=== PATIENT | male | born 1930 | race Caucasian/White ===

== ENCOUNTER 2019-03-01 10:55 | Inpatient (IN) | payer OTHER ==
--- NOTE | 2019-03-01 11:28 | PDOC ---
Attending Attestation - Resident Resident Name: Pablo Hollingsworth - ED Attending Attestation I have performed the following: I have examined & evaluated the patient, The case was reviewed & discussed with the resident, I agree w/resident's findings & plan, Exceptions are as noted - HPI HPI: 03/01/19 11:28 Brother Katie is an 88 yo M h/o COPD, h/o hypercapnic respiratory failure, ACS, CHD, hypothyroisidm, BPH, HTN, HLD, PVD Pt was found unresponsive at [facility] today Per [facility] notes, the patient had no fevers Pt is DNI - Physicial Exam PE: 03/01/19 11:52 Pt is lethargic, not responsive to verbal stimuli Tachycardiac Diminished breath sounds (+) shallow breathing, use of abdominal musculature Bilateral lower extremity edema and venous stasis changes - Critical Care Time Total Critical Care Time: 60 Critical Care Statement: The care of this patient involved high complexity decision making to prevent further life threatening deterioration of the patient 's condition and/or to evaluate & treat vital organ system(s) failure or risk of failure. - Medical Decision Making 03/01/19 11:25 EKG: ST, rate of 103bpm, LBBB 03/01/19 11:53 COPD exacerbation, likely hypercarbia Pt is DNI Placed on Bipap Will do cxr, labs Plan to admit 03/01/19 12:04 Laboratory Tests 03/01/19 03/01/19 03/01/19 11:08 11:19 11:19 WBC 6.0 Hgb 10.7 L Hct 32.6 L Plt Count 183 VBG pH 7.27 L POC VBG pCO2 102 H* POC VBG pO2 26.8 L Lactic Acid 0.5 03/01/19 13:01 Laboratory Tests 03/01/19 03/01/19 03/01/19 11:05 11:08 11:19 Sodium 131 L Potassium 4.0 Chloride 86 L Carbon Dioxide 44 H BUN 12 Creatinine 0.6 POC Glucometer 108 Lactic Acid 0.5 Alkaline Phosphatase 52 Troponin I 03/01/19 11:19 Sodium Potassium Chloride Carbon Dioxide BUN Creatinine POC Glucometer Lactic Acid Alkaline Phosphatase Troponin I < 0.02 With BiPAP, pt mental status improved Will continue to monitor closely Clinical impression: Hypercarbic Respiratory Failure, repeat presentation
[2019-03-01 11:31] LABS: VENOUS PH 7.27 (7.31-7.41); VENOUS PO2 26.8 mmHg (30-40)
--- NOTE | 2019-03-01 11:39 | PDOC ---
History of Present Illness - General Chief Complaint: Altered Mental Status Stated Complaint: UNRESPONSIVE Time Seen by Provider: 03/01/19 11:08 History Source: Friend, [facility] Records Exam Limitations: Clinical Condition - History of Present Illness Initial Comments: 03/01/19 11:34 Patient is an 88M with history of COPD, CHF, CAD, hypothyroidism here today from [facility] with altered mental status. He was found to be unresponsive today. Normal vitals, normal glucose at [facility]. Last known well last night. EMS reports he was hypoxic when they arrived on bipap to high 80s. O2 sat normalized with NRB. Patient's friend at bedside states that the last time he was like this he was hypercarbic. Patient is unable to contribute to history. Past History - Past Medical History Allergies/Adverse Reactions: Allergies Allergy/AdvReac Type Severity Reaction Status Date / Time No Known Allergies Allergy Verified 03/01/19 11:08 Cardiac Disorders: Yes (ASHD) COPD: Yes HTN: Yes Hypercholesterolemia: Yes Psychiatric Problems: Yes (DEPRESSION INSOMNIA) Thyroid Disease: Yes Other medical history: PVD - Suicide/Smoking/Psychosocial Hx Smoking History: Unknown if ever smoked Have you smoked in the past 12 months: No Information on smoking cessation initiated: No Hx Alcohol Use: No Drug/Substance Use Hx: No Review of Systems - Review of Systems Able to Perform ROS?: No (2/2 clinical condition) *Physical Exam - Vital Signs Last Vital Signs Temp Pulse Resp BP Pulse Ox 98.6 F 103 H 30 H 126/71 88 L 03/01/19 11:08 03/01/19 11:08 03/01/19 11:08 03/01/19 11:08 03/01/19 11:08 - Physical Exam Comments: 03/01/19 11:39 GENERAL: Eyes open to threat, ill appearing HEAD: No signs of trauma, normocephalic, atraumatic EYES: PERRLA, EOMI, sclera anicteric, conjunctiva clear ENT: Auricles normal inspection, hearing grossly normal, nares patent, oropharynx clear without exudates. Moist mucosa NECK: Normal ROM, supple LUNGS: Tachypneic, coarse breath sounds bilaterally HEART: Tachycardic, normal S1 and S2, no murmurs, rubs or gallops, peripheral pulses normal and equal bilaterally. ABDOMEN: Soft, nontender, normoactive bowel sounds. No guarding, no rebound. No masses EXTREMITIES: Bilateral erythema with swelling NEUROLOGICAL: Pupils reactive, eye response to threat, no facial droop or eye deviation SKIN: Warm, Dry, normal turgor, no rashes or lesions noted. ED Treatment Course - LABORATORY CBC & Chemistry Diagram: 03/01/19 11:19 03/01/19 11:19 - ADDITIONAL ORDERS Additional order review: Laboratory Results 03/01/19 11:05 POC Glucometer 108 03/01/19 11:05 POC Glucometer 108 - RADIOLOGY Radiology Studies Ordered: Category Date Time Status CHEST X-RAY PORTABLE* [RAD] Stat Radiology 03/01/19 11:08 Ordered Medical Decision Making - Medical Decision Making 03/01/19 11:47 Patient is 88M with history of COPD, sleep apnea, CHF, CAD, hypothyroidism here today with respiratory distress. DNR/DNI, placed on bipap. Respiratory rate went from 30s to 20s. Suspect hypercarbic respiratory failure. Septic workup initiated. Will treat with duonebs and steroids. 03/01/19 12:59 Labs show chronic respiratory acidosis with compensatory metabolic alkalosis. CXR shows likely fluid overload, ?PNA. Will cover for CAP but will withhold diuresis, unclear at this time if this is fluid overload. Lactate neg, trop negative. EKG shows sinus tachycardia with rate of 103. Sgarbossa negative. Ireggular. LBBB pattern. 03/01/19 13:31 Patient reassessed, talking on bipap. Case d/w Dr Iniguez, accepted to tele. *DC/Admit/Observation/Transfer Diagnosis at time of Disposition: Respiratory distress - Discharge Dispostion Condition at time of disposition: Stable Decision to Admit order: Yes - Referrals Referrals: Tracy López MD [Primary Care Provider] - - Patient Instructions - Post Discharge Activity
[2019-03-01 11:45] LABS: BASO % 0.3 % (0-2.0); EOS % 1.2 % (0-4.5); HEMATOCRIT 32.6 % (35.4-49); HEMOGLOBIN 10.7 GM/dL (11.7-16.9); LYMPH % 35.8 % (8-40); MCH 29.3 pg (25.7-33.7); MCHC 32.8 g/dl (32.0-35.9); MEAN CELL VOLUME 89.3 fl (80-96); MEAN PLT VOLUME 7.8 fl (7.5-11.1); MONO % 7.6 % (3.8-10.2); NEUT % 55.1 % (42.8-82.8); PLATELET COUNT 183 K/MM3 (134-434); RBC 3.65 M/mm3 (4.00-5.60); RDW 15.2 % (11.9-15.9)
[2019-03-01] MEDS ORDERED: methylPREDNISolone NA SUCC 125 MG/2 ML VIAL IVPUSH ONE (11:48)
[2019-03-01 12:11] LABS: INR 1.05 (0.83-1.09); PROTHROMBIN TIME (PATIENT) 12.4 SEC (9.7-13.0)
[2019-03-01 12:20] LABS: ALBUMIN 2.8 g/dl (3.4-5.0); ALK PHOS 52 U/L (45-117); ANION GAP 2 MMOL/L (8-16); BILIRUBIN,TOTAL 0.5 mg/dL (0.2-1); BLOOD UREA NITROGEN 12 mg/dL (7-18); CALCIUM 8.9 mg/dL (8.5-10.1); CHLORIDE 86 mmol/L (98-107); CO2 44 mmol/L (21-32); CREATININE 0.6 mg/dL (0.55-1.3); GLUCOSE,RANDOM 117 mg/dL (74-106); SGOT/AST 22 U/L (15-37); SGPT/ALT 19 U/L (13-61); SODIUM 131 mmol/L (136-145); TOT PROT 6.9 g/dl (6.4-8.2)
[2019-03-01] MEDS: ALBUTEROL SO4 2.5/IPRATROPIUM 0.5 INH SOL 3 ML VIAL.NEB. NEB SCH ×4 (12:30→18:44)
[2019-03-01] MEDS ORDERED: CEFTRIAXONE 1,000 MG in DEXTROSE 5%-WATER - 50 ML IVPB ONE (13:01)
[2019-03-01] MEDS ORDERED: AZITHROMYCIN IVPB 500 MG in DEXTROSE 5%-WATER - 250 ML IVPB ONE (13:01)
[2019-03-01] MEDS ORDERED: ALBUTEROL SO4 2.5/IPRATROPIUM 0.5 INH SOL 3 ML VIAL.NEB. NEB ONE ×2 (13:14→13:51)
[2019-03-01] MEDS ORDERED: AZITHROMYCIN IVPB 500 MG/250 ML BAG IVPB ONE (13:14)
[2019-03-01] MEDS ORDERED: methylPREDNISolone NA SUCC 125 MG/2 ML VIAL ONE (13:15)
[2019-03-01] MEDS ORDERED: CEFTRIAXONE 1 GM/50 ML BAG ONE (13:15)
[2019-03-01] MEDS ORDERED: DEXTROSE 5%-0.45% SALINE 1,000 ML IV SCH (13:30)
--- NOTE | 2019-03-01 13:30 | HP ---
Admitting History and Physical - Primary Care Physician PCP: Tracy López - Admission Chief Complaint: lethargy History of Present Illness: ER HISTORY - HPI HPI: 03/01/19 11:28 Brother Katie is an 88 yo M h/o COPD, h/o hypercapnic respiratory failure, ACS, CHD, hypothyroisidm, BPH, HTN, HLD, PVD,anxiety Pt was found unresponsive at [facility] today Per [facility] notes, the patient had no fevers Pt is DNI ' Pt examined in ER drowsy , on BIPAP Spoke with ER attending History Source: Medical Record Limitations to Obtaining History: Other (lethargic) - Past Medical History Cardiovascular: Yes: CAD, HTN, Hyperlipdemia Pulmonary: Yes: COPD Renal/: Yes: BPH - Advance Directives Advance Directives: Yes: DNR - Smoking History Smoking history: Unknown if ever smoked Have you smoked in the past 12 months: No - Alcohol/Substance Use Hx Alcohol Use: No Home Medications - Allergies Allergies/Adverse Reactions: Allergies Allergy/AdvReac Type Severity Reaction Status Date / Time No Known Allergies Allergy Verified 03/01/19 11:08 - Home Medications Home Medications: Ambulatory Orders Acetaminophen [Tylenol -] 500 mg PO Q6H PRN 03/01/19 Ascorbate Calcium [Vitamin C] 500 mg PO DAILY 03/01/19 Aspirin 81 mg PO DAILY 03/01/19 Atorvastatin Ca [Lipitor] 20 mg PO HS 03/01/19 Calcium Carbonate [Calcium] 600 mg PO DAILY 03/01/19 Docusate Sodium [Colace -] 200 mg PO HS 03/01/19 Furosemide [Lasix] 40 mg PO DAILY 03/01/19 Levothyroxine [Synthroid -] 75 mcg PO DAILY 03/01/19 Lorazepam 1 mg PO HS 03/01/19 Metoprolol Succinate 100 mg PO DAILY 03/01/19 Mirtazapine [Remeron -] 30 mg PO HS 03/01/19 Mupirocin Ointment [Bactroban] 1 applic TP TID 03/01/19 Nitroglycerin 0.4 mg SL ASDIR 03/01/19 Nystatin Cream [Mycostatin Cream -] 1 applic TP ASDIR 03/01/19 Highland-3 Fatty Acids/Fish Oil [Fish Oil 1,000 mg Capsule] 1 each PO DAILY Tamsulosin HCl [Flomax] 0.4 mg PO 1800 03/01/19 Triamcinolone 0.1% Cream [Aristocort] 1 applic TP ASDIR 03/01/19 Zolpidem Tartrate [Ambien] 5 mg PO HS 03/01/19 Review of Systems Unable to obtain ROS, reason: on bipap, drowsy Physical Examination Vital Signs: Vital Signs Temperature 98.6 F 03/01/19 11:08 Pulse Rate 103 H 03/01/19 11:08 Respiratory Rate 30 H 03/01/19 11:08 Blood Pressure 126/71 03/01/19 11:08 O2 Sat by Pulse Oximetry (%) 88 L 03/01/19 11:08 Constitutional: Yes: No Distress Cardiovascular: Yes: Regular Rate and Rhythm Respiratory: Yes: Diminished Gastrointestinal: Yes: Normal Bowel Sounds, Soft, Abdomen, Obese. No: Tenderness Extremities: Yes: Other (chronic venous changes) Edema: Yes Labs: CBC, BMP 03/01/19 11:19 03/01/19 11:19 Imaging - Results Chest X-ray: Image Reviewed (?inflitrate) Cat Scan: Report Reviewed (CT head-negative) EKG: Image Reviewed (sinus tachycardia) Problem List - Problems (1) Toxic metabolic encephalopathy Code(s): G92 - TOXIC ENCEPHALOPATHY (2) Acute on chronic respiratory failure with hypoxia and hypercapnia Code(s): J96.21 - ACUTE AND CHRONIC RESPIRATORY FAILURE WITH HYPOXIA; J96.22 - ACUTE AND CHRONIC RESPIRATORY FAILURE WITH HYPERCAPNIA (3) CHF (congestive heart failure) Code(s): I50.9 - HEART FAILURE, UNSPECIFIED (4) Pneumonia Code(s): J18.9 - PNEUMONIA, UNSPECIFIED ORGANISM Assessment/Plan PLAN Medications from [facility] reviewed- not in the [facility] system yet Seems he is on Ativan, Ambien , Remeron-- pt is overmedicated NPO for now IV zosyn for health care aquire pneumonia ID and Pulm eval ABG ordered Pt is DNR/DNI On bipap currently admit to Telemetry for 24 hours
[2019-03-01] MEDS ORDERED: LORazepam 0.5 MG TABLET PO ONE (14:49)
--- NOTE | 2019-03-01 14:50 | PN ---
Progress Note (short form) - Note Progress Note: ID consult dictated imp/reccd 88 yo man found unresponsive at the [facility] denies fevers, chills denies cough history of recent admission to [facility] for similar episode treated for hypercapnia, chf and pneumonia sent to [facility] for rehab spent about a week in the hospital rehab 2 weeks received rocephin/zithromax/zosyn in ED per his friend who is at the bedside, he has been refusing to use his bipap at the [facility] hypercapneic/hypoxemic respiratory failure possible pneumonia-cannot r/o HAP possible CHF much improved on BIPAP now alert continue zosyn f/u cultures Problem List - Problems (1) Acute on chronic respiratory failure with hypoxia and hypercapnia Code(s): J96.21 - ACUTE AND CHRONIC RESPIRATORY FAILURE WITH HYPOXIA; J96.22 - ACUTE AND CHRONIC RESPIRATORY FAILURE WITH HYPERCAPNIA (2) Pneumonia Code(s): J18.9 - PNEUMONIA, UNSPECIFIED ORGANISM (3) CHF (congestive heart failure) Code(s): I50.9 - HEART FAILURE, UNSPECIFIED
--- NOTE | 2019-03-01 15:29 | CONS ---
DATE OF CONSULTATION: DATE OF DICTATION: 03/01/2019 INFECTIOUS DISEASE CONSULTATION HISTORY OF PRESENT ILLNESS: This is an 88-year-old man, history of COPD, CHF, coronary artery disease, who [facility] and sent to the hospital. He was placed on BiPAP and is currently alert. History was obtained both from the patient and from his friend, who is at the bedside. Mr. Wilson was apparently hospitalized about 3 weeks ago at [facility], for a fairly similar presentation. He was found unresponsive, he was brought to the hospital, ultimately required BiPAP as well as treatment for congestive heart failure. He was treated with antibiotics as well for possible pneumonia . He was there for about a week and then sent from there to [facility] for rehabilitation. At the time of his transfer, he apparently had a Smith catheter that was subsequently removed. Per the patient, he has not had any fevers or cough. His appetite has been poor. He has not had any fevers or chills. His friend does note he has been refusing to use his BiPAP progressively while he has been there. He was found unresponsive and noted to be hypoxic. He was placed on a nonrebreather mask. By the time he arrived at the emergency room, he was hypercapnic, and he was placed on BiPAP with good improvement in his respiratory status. His hemodynamics have been stable. He is currently alert. He denies chest pain, abdominal pain, fevers, chills, cough. He has had no vomiting. He does have a poor appetite. ALLERGIES: No known drug allergies. PAST MEDICAL HISTORY: Notable for coronary artery disease, COPD, hypertension, hypercapnia, CHF, hypercholesterolemia, depression. He is hypothyroid. He has peripheral vascular disease. SOCIAL HISTORY: He was living in the community prior to this. There is no history of any cigarette of substance use. REVIEW OF SYSTEMS: As per HPI. PHYSICAL EXAMINATION: GENERAL: He is currently awake and alert. VITAL SIGNS: Temperature 98.6, pulse 103, blood pressure 126/71, respiratory rate is 20. Saturating 88%. He is wearing BiPAP. HEENT: Normocephalic. Eyes are anicteric. I cannot look in his mouth, as he has the BiPAP on. NECK: Supple. LUNGS: Diminished breath sounds at the bases. HEART: Regular rate and rhythm. ABDOMEN: Soft, nontender. EXTREMITIES: He has venous stasis changes of both legs. There is no erythema. LABORATORY: Notable for white count of 6, hemoglobin 10.7, platelets of 183, INR is 1. His reveals a pCO2 of 102, and a pO2 of 26. His BUN and creatinine are 12 and 0.6 with normal LFTs and normal troponin. Blood cultures are pending. Head CT is notable for small amount of fluid in the right mastoid and chest x-ray is notable for cardiomegaly and bibasilar opacities. IMPRESSION: In summary, this is a recently hospitalized 88-year-old man [facility] with what appears to be acute on chronic hypercapnic, hypoxemic respiratory failure, possible pneumonia, cannot rule out hospital acquired, and lastly possible congestive heart failure. He is much improved on BiPAP. I would continue the Zosyn. He received Rocephin, Zithromax, and Zosyn in the emergency room, and follow up his cultures. Would obtain a urine legionella as well at this time. Further recommendations to follow. LEO LINARES M.D. [id number]
[2019-03-01 15:30] LABS: ARTERIAL BLOOD GAS BASE EXCESS 14.7 meq/l (-2-2); ARTERIAL BLOOD GAS PCO2 43.3 mmHg (35-45); ARTERIAL BLOOD GAS PO2 84.3 mmHg (80-105); ARTERIAL BLOOD GAS pH 7.56 (7.35-7.45); CARBOXYHEMOGLOBIN 1.4 % (0-2)
[2019-03-01 15:31] LABS: ALLENS TEST POSITIVE
[2019-03-01] MEDS ORDERED: LORazepam 0.5 MG TABLET ONE (15:48)
[2019-03-01] MEDS ORDERED: PIPERACILLIN/TAZOB 2.25 GM 2.25 GM in DEXTROSE 5%-WATER - 50 ML IVPB SCH (18:00)
[2019-03-01] MEDS ORDERED: PIPERACILLIN/TAZOB 2.25 GM 2.25 GM/50 ML BAG IVPB ONE (19:29)
[2019-03-01] MEDS: PIPERACILLIN/TAZOB 2.25 GM 2.25 GM in DEXTROSE 5%-WATER - 50 ML IVPB SCH ×2 (19:30→20:55)
[2019-03-02 01:47] LABS: PH,URINE 6.5 (5.0-8.0); URINE APPEARANCE CLOUDY; URINE BACTERIA 563.3 /hpf (NEGATIVE); URINE BILIRUBIN NEGATIVE (NEGATIVE); URINE CASTS 6 /hpf (0-8); URINE COLOR YELLOW; URINE GLUCOSE (UA) NEGATIVE (NEGATIVE); URINE KETONE NEGATIVE (NEGATIVE); URINE LEUK ESTERASE 3+ (NEGATIVE); URINE NITRITE POSITIVE (NEGATIVE); URINE PROTEIN TRACE (NEGATIVE); URINE RBC 9 /hpf (0-4); URINE UROBILINOGEN 0.2 mg/dL (0.2-1.0); URINE WBC 284 /hpf (0-5)
[2019-03-02] MEDS ORDERED: PIPERACILLIN/TAZOB 2.25 GM 2.25 GM/50 ML BAG IVPB ONE (02:04)
[2019-03-02] MEDS: PIPERACILLIN/TAZOB 2.25 GM 2.25 GM in DEXTROSE 5%-WATER - 50 ML IVPB SCH ×2 (02:27→10:45)
[2019-03-02] MEDS ORDERED: LORazepam 1 MG TABLET PO ONE (03:01)
[2019-03-02] MEDS ORDERED: LORazepam 2 MG/ML SDV VIAL IVPUSH ONE (03:03)
[2019-03-02 08:08] LABS: BASO % 0.4 % (0-2.0); EOS % 0.1 % (0-4.5); HEMATOCRIT 29.4 % (35.4-49); HEMOGLOBIN 9.8 GM/dL (11.7-16.9); LYMPH % 23.3 % (8-40); MCH 29.1 pg (25.7-33.7); MCHC 33.3 g/dl (32.0-35.9); MEAN CELL VOLUME 87.5 fl (80-96); MEAN PLT VOLUME 7.7 fl (7.5-11.1); MONO % 7.3 % (3.8-10.2); NEUT % 68.9 % (42.8-82.8); PLATELET COUNT 210 K/MM3 (134-434); RBC 3.36 M/mm3 (4.00-5.60); RDW 15.6 % (11.9-15.9); WHITE BLOOD COUNT 8.2 K/mm3 (4.0-10.0)
[2019-03-02 08:35] LABS: ALBUMIN 2.7 g/dl (3.4-5.0); ALK PHOS 48 U/L (45-117); ANION GAP 5 MMOL/L (8-16); BILIRUBIN,TOTAL 0.4 mg/dL (0.2-1); BLOOD UREA NITROGEN 21 mg/dL (7-18); CALCIUM 8.8 mg/dL (8.5-10.1); CHLORIDE 88 mmol/L (98-107); CO2 41 mmol/L (21-32); CREATININE 0.8 mg/dL (0.55-1.3); GLUCOSE,RANDOM 102 mg/dL (74-106); POTASSIUM 3.8 mmol/L (3.5-5.1); SGOT/AST 21 U/L (15-37); SGPT/ALT 21 U/L (13-61); SODIUM 134 mmol/L (136-145); TOT PROT 6.4 g/dl (6.4-8.2)
[2019-03-02] MEDS ORDERED: ACETAMINOPHEN 500 MG TABLET (FP) PO PRN (09:41)
--- NOTE | 2019-03-02 09:54 | PN ---
Progress Note (short form) - Note Progress Note: Pt is awake now! No distress He is hungry , wants to eat he tells me that he had a previous hospitalization where he was lethargic, high CO2 levels and was started on BIPAP He [facility] Denies fever or chills was a smoker when he was in his teens Vital Signs - 24 hr 03/01/19 03/01/19 03/01/19 11:08 12:00 18:42 Temperature 98.6 F 98.4 F Pulse Rate 103 H Pulse Rate [ 70 Apical] Respiratory 30 H 23 H Rate Blood Pressure 126/71 Blood Pressure 152/76 [Right Arm] O2 Sat by Pulse 88 L 98 98 Oximetry (%) 03/01/19 03/01/19 03/01/19 20:56 21:00 22:00 Temperature Pulse Rate Pulse Rate [ 96 H Apical] Respiratory 30 H Rate Blood Pressure Blood Pressure 119/64 [Right Arm] O2 Sat by Pulse 97 98 98 Oximetry (%) 03/02/19 03/02/19 03/02/19 01:07 03:30 06:00 Temperature 97.8 F 97.9 F Pulse Rate 99 H 101 H Pulse Rate [ 99 H Apical] Respiratory 33 H 24 H 20 Rate Blood Pressure 123/67 133/78 Blood Pressure 131/62 [Right Arm] O2 Sat by Pulse 98 95 Oximetry (%) 03/02/19 03/02/19 03/02/19 08:44 09:00 09:26 Temperature 98.3 F Pulse Rate 82 Pulse Rate [ Apical] Respiratory 20 Rate Blood Pressure 112/57 L Blood Pressure [Right Arm] O2 Sat by Pulse 95 97 Oximetry (%) Current Medications Generic Name Dose Route Start Last Admin Trade Name Freq PRN Reason Stop Dose Admin Acetaminophen 500 mg 03/02/19 09:41 Tylenol - PO Q6H PRN PAIN 1-3 Aspirin 81 mg 03/02/19 10:00 Asa - PO DAILY [facility] Atorvastatin Calcium 20 mg 03/02/19 22:00 Lipitor - PO HS MEGHAN Docusate Sodium 200 mg 03/02/19 22:00 Colace - PO HS [facility] Enoxaparin Sodium 30 mg 03/03/19 10:00 Lovenox - SQ DAILY [facility] Dextrose/Sodium Chloride 1,000 mls @ 42 mls/hr 03/01/19 13:30 03/01/19 21:03 D5-1/2ns - IV Not Given ASDIR MEGHAN Piperacillin Sod/Tazobactam 50 mls @ 100 mls/hr 03/01/19 13:30 Sod 2.25 gm/ Dextrose IVPB Q8H-IV MEGHAN Protocol Piperacillin Sod/Tazobactam 50 mls @ 100 mls/hr 03/01/19 13:00 03/02/19 02:27 Sod 2.25 gm/ Dextrose IVPB 03/02/19 12:59 100 mls/hr Q8H-IV MEGHAN Administration Protocol Levothyroxine Sodium 75 mcg 03/03/19 07:00 Synthroid - PO 0700 MEGHAN Lorazepam 0.5 mg 03/02/19 09:42 Ativan - PO BID PRN ANXIETY Melatonin 3 mg 03/02/19 22:00 Melatonin PO HS PRN INSOMNIA Metoprolol Succinate 100 mg 03/02/19 10:00 Toprol Xl - PO DAILY MEGHAN Mirtazapine 30 mg 03/02/19 22:00 Remeron - PO HS MEGHAN Tamsulosin HCl 0.4 mg 03/02/19 10:00 Flomax - PO 0830 [facility] Laboratory Results - last 24 hr 03/01/19 03/01/19 03/01/19 11:05 11:08 11:19 WBC 6.0 RBC 3.65 L Hgb 10.7 L Hct 32.6 L MCV 89.3 MCH 29.3 MCHC 32.8 RDW 15.2 Plt Count 183 MPV 7.8 Absolute Neuts (auto) 3.3 Neutrophils % 55.1 Lymphocytes % 35.8 Monocytes % 7.6 Eosinophils % 1.2 Basophils % 0.3 Nucleated RBC % 0 PT with INR INR PTT (Actin FS) Anticoagulation Therapy Puncture Site ABG pH ABG pCO2 at Pt Temp ABG pO2 at Pt Temp ABG HCO3 ABG O2 Sat (Measured) ABG O2 Content ABG Base Excess Joe Test VBG pH POC VBG pCO2 POC VBG pO2 VBG HCO3 VBG O2 Sat (Lee) VBG Base Excess Carboxyhemoglobin Methemoglobin O2 Delivery Device Oxygen Flow Rate Vent Mode Vent Rate Mechanical Rate PEEP Pressure Support Vent Sodium Potassium Chloride Carbon Dioxide Anion Gap BUN Creatinine Creat Clearance w eGFR POC Glucometer 108 Random Glucose Lactic Acid 0.5 Calcium Total Bilirubin AST ALT Alkaline Phosphatase Troponin I Total Protein Albumin Urine Color Urine Appearance Urine pH Ur Specific [place] Urine Protein Urine Glucose (UA) Urine Ketones Urine Blood Urine Nitrite Urine Bilirubin Urine Urobilinogen Ur Leukocyte Esterase Urine WBC (Auto) Urine RBC (Auto) Urine Casts (Auto) U Epithel Cells (Auto) Urine Bacteria (Auto) 03/01/19 03/01/19 03/01/19 11:19 11:19 11:19 WBC RBC Hgb Hct MCV MCH MCHC RDW Plt Count MPV Absolute Neuts (auto) Neutrophils % Lymphocytes % Monocytes % Eosinophils % Basophils % Nucleated RBC % PT with INR 12.40 INR 1.05 PTT (Actin FS) 36.0 Anticoagulation Therapy Puncture Site ABG pH ABG pCO2 at Pt Temp ABG pO2 at Pt Temp ABG HCO3 ABG O2 Sat (Measured) ABG O2 Content ABG Base Excess Joe Test VBG pH 7.27 L POC VBG pCO2 102 H* POC VBG pO2 26.8 L VBG HCO3 45.4 H VBG O2 Sat (Lee) 40.5 L VBG Base Excess 15.2 H Carboxyhemoglobin Methemoglobin O2 Delivery Device Oxygen Flow Rate Vent Mode Vent Rate Mechanical Rate PEEP Pressure Support Vent Sodium 131 L Potassium 4.0 Chloride 86 L Carbon Dioxide 44 H Anion Gap 2 L BUN 12 Creatinine 0.6 Creat Clearance w eGFR 127.75 POC Glucometer Random Glucose 117 H Lactic Acid Calcium 8.9 Total Bilirubin 0.5 AST 22 ALT 19 Alkaline Phosphatase 52 Troponin I Total Protein 6.9 Albumin 2.8 L Urine Color Urine Appearance Urine pH Ur Specific [place] Urine Protein Urine Glucose (UA) Urine Ketones Urine Blood Urine Nitrite Urine Bilirubin Urine Urobilinogen Ur Leukocyte Esterase Urine WBC (Auto) Urine RBC (Auto) Urine Casts (Auto) U Epithel Cells (Auto) Urine Bacteria (Auto) 03/01/19 03/01/19 03/02/19 11:19 15:16 01:30 WBC RBC Hgb Hct MCV MCH MCHC RDW Plt Count MPV Absolute Neuts (auto) Neutrophils % Lymphocytes % Monocytes % Eosinophils % Basophils % Nucleated RBC % PT with INR INR PTT (Actin FS) Anticoagulation Therapy No Result Required. Puncture Site Right radial ABG pH 7.56 H ABG pCO2 at Pt Temp 43.3 ABG pO2 at Pt Temp 84.3 ABG HCO3 38.8 H ABG O2 Sat (Measured) 98.0 ABG O2 Content 13.7 L ABG Base Excess 14.7 H Joe Test Positive VBG pH POC VBG pCO2 POC VBG pO2 VBG HCO3 VBG O2 Sat (Lee) VBG Base Excess Carboxyhemoglobin 1.4 Methemoglobin 0.3 O2 Delivery Device Bipap Oxygen Flow Rate 40 Vent Mode S/t Vent Rate 12 Mechanical Rate No Result Required. PEEP 5.0 Pressure Support Vent 12 Sodium Potassium Chloride Carbon Dioxide Anion Gap BUN Creatinine Creat Clearance w eGFR POC Glucometer Random Glucose Lactic Acid Calcium Total Bilirubin AST ALT Alkaline Phosphatase Troponin I < 0.02 Total Protein Albumin Urine Color Yellow Urine Appearance Cloudy Urine pH 6.5 Ur Specific [place] 1.011 Urine Protein Trace Urine Glucose (UA) Negative Urine Ketones Negative Urine Blood 2+ H Urine Nitrite Positive H Urine Bilirubin Negative Urine Urobilinogen 0.2 Ur Leukocyte Esterase 3+ H Urine WBC (Auto) 284 Urine RBC (Auto) 9 Urine Casts (Auto) 6 U Epithel Cells (Auto) 1.0 Urine Bacteria (Auto) 563.3 03/02/19 03/02/19 07:30 07:30 WBC 8.2 RBC 3.36 L Hgb 9.8 L Hct 29.4 L MCV 87.5 MCH 29.1 MCHC 33.3 RDW 15.6 Plt Count 210 MPV 7.7 Absolute Neuts (auto) 5.6 Neutrophils % 68.9 D Lymphocytes % 23.3 D Monocytes % 7.3 Eosinophils % 0.1 D Basophils % 0.4 Nucleated RBC % 0 PT with INR INR PTT (Actin FS) Anticoagulation Therapy Puncture Site ABG pH ABG pCO2 at Pt Temp ABG pO2 at Pt Temp ABG HCO3 ABG O2 Sat (Measured) ABG O2 Content ABG Base Excess Joe Test VBG pH POC VBG pCO2 POC VBG pO2 VBG HCO3 VBG O2 Sat (Lee) VBG Base Excess Carboxyhemoglobin Methemoglobin O2 Delivery Device Oxygen Flow Rate Vent Mode Vent Rate Mechanical Rate PEEP Pressure Support Vent Sodium 134 L Potassium 3.8 Chloride 88 L Carbon Dioxide 41 H Anion Gap 5 L BUN 21 H Creatinine 0.8 Creat Clearance w eGFR 91.66 POC Glucometer Random Glucose 102 Lactic Acid Calcium 8.8 Total Bilirubin 0.4 AST 21 ALT 21 Alkaline Phosphatase 48 Troponin I Total Protein 6.4 Albumin 2.7 L Urine Color Urine Appearance Urine pH Ur Specific [place] Urine Protein Urine Glucose (UA) Urine Ketones Urine Blood Urine Nitrite Urine Bilirubin Urine Urobilinogen Ur Leukocyte Esterase Urine WBC (Auto) Urine RBC (Auto) Urine Casts (Auto) U Epithel Cells (Auto) Urine Bacteria (Auto) S1 S2 RRR Lungs decreased breath sounds Abd- soft, obese, NT edema+ chronic venous changes PLAN IV Zosyn Cultures pending will restart his meds-- decrease dose of Ativan and DC Ambien-- spoke with pt about changes Nebs as needed OOB recheck CXR in AM continue with meds urine antigens Problem List - Problems (1) Acute on chronic respiratory failure with hypoxia and hypercapnia Code(s): J96.21 - ACUTE AND CHRONIC RESPIRATORY FAILURE WITH HYPOXIA; J96.22 - ACUTE AND CHRONIC RESPIRATORY FAILURE WITH HYPERCAPNIA (2) CHF (congestive heart failure) Code(s): I50.9 - HEART FAILURE, UNSPECIFIED (3) Pneumonia Code(s): J18.9 - PNEUMONIA, UNSPECIFIED ORGANISM (4) Respiratory distress Code(s): R06.03 - ACUTE RESPIRATORY DISTRESS (5) Toxic metabolic encephalopathy Code(s): G92 - TOXIC ENCEPHALOPATHY
--- NOTE | 2019-03-02 10:13 | EKG ---
Test Reason : Blood Pressure : / mmHG Vent. Rate : 103 BPM Atrial Rate : 103 BPM P-R Int : 240 ms QRS Dur : 124 ms QT Int : 380 ms P-R-T Axes : -05 -26 077 degrees QTc Int : 497 ms SINUS TACHYCARDIA WITH 1ST DEGREE A-V BLOCK WITH PREMATURE SUPRAVENTRICULAR COMPLEXES LEFT BUNDLE BRANCH BLOCK ABNORMAL ECG NO PREVIOUS ECGS AVAILABLE Confirmed by ANNALEE MOSELEY MD ([id number]) on 03/02/2019 10:13:19 AM Referred By: Confirmed By:ANNALEE MOSELEY MD
[2019-03-02] MEDS ORDERED: PIPERACILLIN/TAZOBACTAM 2.25 GM VIAL IVPB ONE (10:31)
[2019-03-02] MEDS ORDERED: DEXTROSE 5%-WATER - 50 ML IVPB ONE ×2 (10:33→17:32)
[2019-03-02] MEDS: LORazepam 0.5 MG TABLET PO PRN ×2 (10:46→21:26)
[2019-03-02] MEDS: ASPIRIN 81 MG CHEWABLE TABLETS PO SCH (10:46)
[2019-03-02] MEDS: TAMSULOSIN HCL 0.4 MG CAP PO SCH (10:47)
[2019-03-02] MEDS: FUROSEMIDE 40 MG TABLET (FP) PO SCH (11:27)
--- NOTE | 2019-03-02 11:37 | PN ---
Progress Note (short form) - Note Progress Note: PULMONARY CONSULTATION DICTATED 03/02/19 IMP ACUTE ON CHRONIC HYPOXEMIC/HYPERCAPNEIC RESPIRATORY FAILURE ALTERED MENTAL STATUS COPD ? CHF PNEUMONIA ASHD S/P STENTS PLAN O2 NIPPV NEEDED ABX PER ID INHALED BRONCHODILATORS CHEST CT F/U CHEST X-RAYS F/U ABG BNP ECHO DAILY WT DR DE LA ROSA Problem List - Problems (1) ASHD (arteriosclerotic heart disease) Code(s): I25.10 - ATHSCL HEART DISEASE OF [place] CORONARY ARTERY W/O ANG PCTRS (2) Acute on chronic respiratory failure with hypoxia and hypercapnia Code(s): J96.21 - ACUTE AND CHRONIC RESPIRATORY FAILURE WITH HYPOXIA; J96.22 - ACUTE AND CHRONIC RESPIRATORY FAILURE WITH HYPERCAPNIA (3) CHF (congestive heart failure) Code(s): I50.9 - HEART FAILURE, UNSPECIFIED (4) Pneumonia Code(s): J18.9 - PNEUMONIA, UNSPECIFIED ORGANISM (5) Respiratory distress Code(s): R06.03 - ACUTE RESPIRATORY DISTRESS (6) Toxic metabolic encephalopathy Code(s): G92 - TOXIC ENCEPHALOPATHY
--- NOTE | 2019-03-02 11:45 | PN ---
Progress Note (short form) - Note Progress Note: doing well alert Vital Signs Period Temp Pulse Resp BP Sys/Jolley Pulse Ox Last 24 Hr 97.8 F-98.4 F 70-101 20-33 112-152/57-78 95-98 cor-rrr lungs decreased bs at bases abd soft,nt ext trace edema CBC, BMP 03/02/19 07:30 03/02/19 07:30 Microbiology 03/01/19 11:19 Blood - Peripheral Venous Blood Culture - Preliminary NO GROWTH OBTAINED AFTER 24 HOURS, INCUBATION TO CONTINUE FOR 4 DAYS. 03/01/19 11:19 Blood - Peripheral Venous Blood Culture - Preliminary NO GROWTH OBTAINED AFTER 24 HOURS, INCUBATION TO CONTINUE FOR 4 DAYS. a/p hypercapneic/hypoxemic respiratory failure possible pneumonia-cannot r/o HAP possible CHF much improved on BIPAP now alert continue zosyn f/u cultures d/w pulmonary Problem List - Problems (1) Acute on chronic respiratory failure with hypoxia and hypercapnia Code(s): J96.21 - ACUTE AND CHRONIC RESPIRATORY FAILURE WITH HYPOXIA; J96.22 - ACUTE AND CHRONIC RESPIRATORY FAILURE WITH HYPERCAPNIA (2) Pneumonia Code(s): J18.9 - PNEUMONIA, UNSPECIFIED ORGANISM (3) CHF (congestive heart failure) Code(s): I50.9 - HEART FAILURE, UNSPECIFIED
[2019-03-02 12:40] LABS: ARTERIAL BLD GAS O2 SATURATION 96.9 % (95-98); ARTERIAL BLOOD GAS BASE EXCESS 15.4 meq/l (-2-2); ARTERIAL BLOOD GAS PCO2 67.9 mmHg (35-45); ARTERIAL BLOOD GAS PO2 88.9 mmHg (80-105); ARTERIAL BLOOD GAS pH 7.41 (7.35-7.45)
[2019-03-02 12:42] LABS: ALLENS TEST POSITIVE
--- NOTE | 2019-03-02 12:49 | CONS ---
DATE OF CONSULTATION: 03/02/2019 PULMONARY CONSULTATION REFERRING PHYSICIAN: Shilpa Iniguez MD History is obtained from the chart. The patient is a poor historian. HISTORY OF PRESENT ILLNESS: The patient is an 88-year-old white male with a past medical history of COPD, history of hypercapnic respiratory failure, acute coronary syndrome, ASHD, status post stents, CHD, hypothyroidism, BPH, hypertension, hyperlipidemia, PVD, anxiety. He is a resident of [facility], transferred to [facility] after being [facility] at the [facility]. Apparently at the [facility] he was found unresponsive. He was sent to the emergency room. In the ER he was noted to be markedly hypercapnic, with a pCO2 of 102 and pH 7.27. He was placed on BiPAP, with a good clinical response. The patient apparently, according to [facility] notes, has not been having any fevers, cough or congestion. On the current hospitalization, he was evaluated by Dr. Cortes for Infectious Disease for possible pneumonia. Chest x-ray revealed right lower lobe consolidation and /or effusion. He has a small left basilar infiltrate or increased markings at the left base. The patient has a history of tobacco history use many years ago. There is no history of occupational exposure to chemical fumes. Of note is that at the [facility] he was noted to be on multiple medications, including Ativan, Ambien, and Remeron, which has been discontinued. PAST MEDICAL HISTORY: Again includes ASHD, status post stents, CHD, history of hypercapnic respiratory failure, COPD, hypothyroidism, BPH, hypertension, hyperlipidemia, PVD and anxiety. REVIEW OF SYSTEMS: No chest pain. No palpitations. No cough. No hemoptysis. No fever. No chills. CURRENT MEDICATIONS: Include Flomax, Tylenol, Zosyn, Lovenox, Remeron, Ativan, Toprol, normal saline, Lipitor, Lasix, aspirin, melatonin, and Synthroid. PHYSICAL EXAMINATION: General: The patient is an elderly white male, well-developed, awake, alert, appears in no acute distress. Vital Signs: He is afebrile. Blood pressure 112/57, respiratory rate 20. O2 saturation is 97% on 3 L. HEENT: Normocephalic, atraumatic. Neck: Supple. Heart: Regular S1, S2. Chest: Diminished breath sounds bilaterally. Abdomen: Soft. Bowel sounds are positive. Extremities: Bilateral lower extremity edema. DIAGNOSTIC STUDIES: Initial VBG pH 7.27, pCO2 of 102, pO2 of 26, bicarbonate 45. Subsequently on BiPAP of 12 with pH 7.56, pCO2 of 43, pO2 of 84, bicarbonate 38 and saturation 98%; that was on BiPAP of 40% with PEEP of 5 and pressure support of 12. Chemistry: BUN 21, creatinine 0.8. WBC 8.2, hemoglobin 9.8, hematocrit 29.4. Chest x-ray: Cardiomegaly. Bibasilar opacities, right greater than left. IMPRESSION: 1. [id number] hypoxemic hypercapnic respiratory failure secondary to: a. Possible pneumonia. b. Congestive heart failure. 2. Altered mental status secondary to acute hypercapnia and hypoxemia. 3. Arteriosclerotic heart disease, status post stents. 4. Rule out pneumonia. 5. Possible congestive heart failure. PLAN: Supplemental O2. NIPPV as needed. Antibiotics as per ID. Inhaled bronchodilators. Obtain followup chest CT. Obtain followup chest x-rays. Followup ABG prior to discharge. Check serum BNP, echocardiogram and daily weight. MUNDO DE LA ROSA M.D. DAGOBERTO/[id number] MTDD
[2019-03-02 12:58] LABS: N-TERMINAL BNP 839.8 pg/ml (5-450)
--- NOTE | 2019-03-02 14:28 | ECHO ---
Name: ESTRADA SANTIAGO Exam:Adult Echocardiogram Study Date: 03/02/2019 01:05 PM Age: 88 yrs Reason For Study: lvef Height: 70 in MMode/2D Measurements & Calculations IVSd: 1.2 cm Ao root diam: 4.2 cm LVIDd: 5.4 cm LA dimension: 4.9 cm LVIDs: 4.3 cm ACS: 1.1 cm LVPWd: 1.3 cm IVSs: 1.6 cm LVPWs: 1.5 cm EDV(Teich): 139.4 ml ESV(Teich): 83.5 ml LVOT diam: 2.2 cm Doppler Measurements & Calculations MV E max scott: 120.9 cm/sec Ao V2 max: 195.3 cm/sec MV A max scott: 77.7 cm/sec Ao max P.3 mmHg MV E/A: 1.6 Ao V2 mean: 142.7 cm/sec Ao mean P.0 mmHg Ao V2 VTI: 36.7 cm LEYDA(I,D): 1.6 cm2 LEYDA(V,D): 1.8 cm2 LV V1 max P.3 mmHg MR max scott: 283.7 cm/sec LV V1 mean P.6 mmHg MR max P.2 mmHg LV V1 max: 90.6 cm/sec LV V1 mean: 57.3 cm/sec LV V1 VTI: 15.5 cm SV(LVOT): 59.6 ml TR max scott: 228.9 cm/sec TR max P.2 mmHg Med Peak E' Scott: 3.3 cm/sec Med E/e': 36.5 Lat Peak E' Scott: 2.1 cm/sec Lat E/e': 56.4 Procedure A two-dimensional transthoracic echocardiogram with color flow and Doppler was performed. The study w as technically difficult with many images being suboptimal in quality. Left Ventricle The left ventricle is mildly dilated. The left ventricle is not well visualized. The left ventricular ejection fraction is normal. Regional wall motion abnormalities cannot be excluded due to limited visualizatio n. Right Ventricle The right ventricle is not well visualized. Atria The left atrium is moderately dilated. The right atrium is moderately dilated. Tricuspid Valve There is mild tricuspid valve thickening. There is no tricuspid stenosis. There is mild tricuspid regurgitation. Right ventricular systolic pressure is normal. Aortic Valve The aortic valve is not well visualized. There is moderate aortic valve thickening. There is moderate aortic sclerosis.;. No hemodynamically significant valvular aortic stenosis. Mild aortic regurgitation. Pulmonic Valve The pulmonic valve is not well visualized. Great Vessels Mild aortic root dilatation. Pericardium/Pleura There is no pericardial effusion. Interpretation Summary The left ventricle is mildly dilated. The left ventricular ejection fraction is normal. There is mild tricuspid regurgitation. Right ventricular systolic pressure is normal. The aortic valve is not well visualized. There is moderate aortic valve thickening. There is moderate aortic sclerosis.; The study was technically difficult with many images being suboptimal in quality. Regional wall motion abnormalities cannot be excluded due to limited visualization. The left atrium is moderately dilated. The right atrium is moderately dilated. Mild aortic root dilatation. MD Isaac Crum 03/02/2019 02:27 PM
[2019-03-02] MEDS ORDERED: PIPERACILLIN/TAZOBACTAM 3.375 GM VIAL IVPB ONE (17:31)
[2019-03-02] MEDS: PIPERACILLIN/TAZOB 3.375 GM 3.375 GM in DEXTROSE 5%-WATER - 50 ML IVPB SCH (17:42)
[2019-03-02] MEDS ORDERED: MIRTAZAPINE 15 MG TABLET (FP) ONE (21:16)
[2019-03-02] MEDS: MIRTAZAPINE 30 MG TABLET (FP) PO SCH (21:26)
[2019-03-02] MEDS: DOCUSATE SODIUM 100 MG CAPSULE (FP) PO SCH (21:27)
[2019-03-02] MEDS: ATORVASTATIN CA 20 MG TABLET (FP) PO SCH (21:27)
[2019-03-03] MEDS ORDERED: DEXTROSE 5%-WATER - 50 ML IVPB ONE ×3 (01:19→17:01)
[2019-03-03] MEDS ORDERED: PIPERACILLIN/TAZOBACTAM 3.375 GM VIAL IVPB ONE ×3 (01:19→17:01)
[2019-03-03] MEDS: PIPERACILLIN/TAZOB 3.375 GM 3.375 GM in DEXTROSE 5%-WATER - 50 ML IVPB SCH ×3 (03:00→18:02)
[2019-03-03] MEDS: LEVOTHYROXINE NA 75 MCG TABLET (FP) PO SCH (06:31)
[2019-03-03 07:48] LABS: BASO % 0.4 % (0-2.0); HEMATOCRIT 28.6 % (35.4-49); HEMOGLOBIN 9.3 GM/dL (11.7-16.9); LYMPH % 36.4 % (8-40); MCH 28.9 pg (25.7-33.7); MCHC 32.5 g/dl (32.0-35.9); MEAN CELL VOLUME 89.1 fl (80-96); MONO % 10.1 % (3.8-10.2); NEUT % 52.1 % (42.8-82.8); PLATELET COUNT 200 K/MM3 (134-434); RBC 3.21 M/mm3 (4.00-5.60); RDW 16.1 % (11.9-15.9)
[2019-03-03 08:18] LABS: ALBUMIN 2.8 g/dl (3.4-5.0); ALK PHOS 46 U/L (45-117); ANION GAP 4 MMOL/L (8-16); BILIRUBIN,TOTAL 0.3 mg/dL (0.2-1); BLOOD UREA NITROGEN 28 mg/dL (7-18); CALCIUM 8.3 mg/dL (8.5-10.1); CHLORIDE 90 mmol/L (98-107); CO2 44 mmol/L (21-32); GLUCOSE,RANDOM 93 mg/dL (74-106); POTASSIUM 3.5 mmol/L (3.5-5.1); SGOT/AST 23 U/L (15-37); SGPT/ALT 22 U/L (13-61); SODIUM 137 mmol/L (136-145); TOT PROT 6.3 g/dl (6.4-8.2)
[2019-03-03] MEDS: ENOXAPARIN NA (PORCINE) 40 MG/0.4 ML DISP.SYRIN SQ SCH (10:04)
[2019-03-03] MEDS: FUROSEMIDE 40 MG TABLET (FP) PO SCH (10:04)
[2019-03-03] MEDS: TAMSULOSIN HCL 0.4 MG CAP PO SCH (10:04)
[2019-03-03] MEDS: ASPIRIN 81 MG CHEWABLE TABLETS PO SCH (10:05)
--- NOTE | 2019-03-03 11:11 | PN ---
Progress Note (short form) - Note Progress Note: Pt is slightly drowsy, but ate his meals today per RN No distress on BIPAP at night Denies fever or chills was a smoker when he was in his teens Vital Signs - 24 hr 03/02/19 03/02/19 03/02/19 11:39 14:00 17:00 Temperature 97.9 F 97.7 F Pulse Rate 93 H 86 Respiratory 20 Rate Blood Pressure 118/58 L 105/57 L O2 Sat by Pulse 98 Oximetry (%) 03/02/19 03/02/19 03/03/19 20:58 22:26 02:19 Temperature 98.4 F 97.9 F Pulse Rate 84 86 Respiratory 18 18 18 Rate Blood Pressure 100/52 L 113/61 O2 Sat by Pulse 96 Oximetry (%) 03/03/19 03/03/19 03/03/19 05:58 08:40 09:00 Temperature 97.8 F 97.3 F L Pulse Rate 90 99 H Respiratory 20 20 Rate Blood Pressure 110/60 124/64 O2 Sat by Pulse 99 99 Oximetry (%) Current Medications Generic Name Dose Route Start Last Admin Trade Name Freq PRN Reason Stop Dose Admin Acetaminophen 500 mg 03/02/19 09:41 Tylenol - PO Q6H PRN PAIN 1-3 Aspirin 81 mg 03/02/19 10:00 03/03/19 10:05 Asa - PO 81 mg DAILY MEGHAN Administration Atorvastatin Calcium 20 mg 03/02/19 22:00 03/02/19 21:27 Lipitor - PO 20 mg HS MEGHAN Administration Docusate Sodium 200 mg 03/02/19 22:00 03/02/19 21:27 Colace - PO 200 mg HS MEGHAN Administration Enoxaparin Sodium 40 mg 03/03/19 10:00 03/03/19 10:04 Lovenox - SQ 40 mg DAILY MEGHAN Administration Furosemide 40 mg 03/04/19 10:00 Lasix Injection - IVPUSH DAILY MEGHAN Piperacillin Sod/Tazobactam 50 mls @ 100 mls/hr 03/02/19 18:00 03/03/19 10:04 Sod 3.375 gm/ Dextrose IVPB 100 mls/hr Q8H-IV MEHGAN Administration Protocol Levothyroxine Sodium 75 mcg 03/03/19 07:00 03/03/19 06:31 Synthroid - PO 75 mcg 0700 MEGHAN Administration Lorazepam 0.5 mg 03/02/19 09:42 03/02/19 21:26 Ativan - PO 0.5 mg BID PRN Administration ANXIETY Melatonin 3 mg 03/02/19 22:00 Melatonin PO HS PRN INSOMNIA Metoprolol Succinate 100 mg 03/02/19 10:00 03/03/19 10:04 Toprol Xl - PO 100 mg DAILY MEGHAN Administration Mirtazapine 30 mg 03/02/19 22:00 03/02/19 21:26 Remeron - PO 30 mg HS MEGHAN Administration Tamsulosin HCl 0.4 mg 03/02/19 10:00 03/03/19 10:04 Flomax - PO 0.4 mg 0830 MEGHAN Administration Laboratory Results - last 24 hr 03/02/19 03/02/19 03/03/19 07:30 12:22 05:30 WBC 7.0 RBC 3.21 L Hgb 9.3 L Hct 28.6 L MCV 89.1 MCH 28.9 MCHC 32.5 RDW 16.1 H Plt Count 200 MPV 8.0 Absolute Neuts (auto) 3.7 Neutrophils % 52.1 D Lymphocytes % 36.4 D Monocytes % 10.1 Eosinophils % 1.0 D Basophils % 0.4 Nucleated RBC % 0 Puncture Site Right radial ABG pH 7.41 ABG pCO2 at Pt Temp 67.9 H ABG pO2 at Pt Temp 88.9 ABG HCO3 42.1 H ABG O2 Sat (Measured) 96.9 ABG O2 Content 12.0 L ABG Base Excess 15.4 H Joe Test Positive Oxygen Flow Rate 3l n/c Sodium 134 L Potassium 3.8 Chloride 88 L Carbon Dioxide 41 H Anion Gap 5 L BUN 21 H Creatinine 0.8 Creat Clearance w eGFR 91.66 Random Glucose 102 Calcium 8.8 Total Bilirubin 0.4 AST 21 ALT 21 Alkaline Phosphatase 48 B-Natriuretic Peptide 839.8 H Total Protein 6.4 Albumin 2.7 L 03/03/19 05:30 WBC RBC Hgb Hct MCV MCH MCHC RDW Plt Count MPV Absolute Neuts (auto) Neutrophils % Lymphocytes % Monocytes % Eosinophils % Basophils % Nucleated RBC % Puncture Site ABG pH ABG pCO2 at Pt Temp ABG pO2 at Pt Temp ABG HCO3 ABG O2 Sat (Measured) ABG O2 Content ABG Base Excess Joe Test Oxygen Flow Rate Sodium 137 Potassium 3.5 Chloride 90 L Carbon Dioxide 44 H Anion Gap 4 L BUN 28 H Creatinine 1.0 Creat Clearance w eGFR 70.85 Random Glucose 93 Calcium 8.3 L Total Bilirubin 0.3 AST 23 ALT 22 Alkaline Phosphatase 46 B-Natriuretic Peptide Total Protein 6.3 L Albumin 2.8 L s1 s2 RRR Lungs decreased breath sounds, crackles heard+ Abd- soft, obese, NT edema+ chronic venous changes PLAN IV Zosyn blood Cultures negative urine cultures positive needs intermittent straight cath as per [place] Nebs as needed OOB CT chest noted Normal EF on Echo change PO lasix to IV cardiology eval continue with meds urine antigens pending Problem List - Problems (1) Acute on chronic respiratory failure with hypoxia and hypercapnia Code(s): J96.21 - ACUTE AND CHRONIC RESPIRATORY FAILURE WITH HYPOXIA; J96.22 - ACUTE AND CHRONIC RESPIRATORY FAILURE WITH HYPERCAPNIA (2) CHF (congestive heart failure) Code(s): I50.9 - HEART FAILURE, UNSPECIFIED (3) Pneumonia Code(s): J18.9 - PNEUMONIA, UNSPECIFIED ORGANISM (4) Respiratory distress Code(s): R06.03 - ACUTE RESPIRATORY DISTRESS (5) Toxic metabolic encephalopathy Code(s): G92 - TOXIC ENCEPHALOPATHY
--- NOTE | 2019-03-03 12:45 | PN ---
Progress Note (short form) - Note Progress Note: Sleepy but arousable. Apparently ate this AM. No acute events overnight. Intake & Output 02/28/19 03/01/19 03/02/19 03/03/19 23:59 23:59 23:59 23:59 Intake Total 790 240 Output Total 700 Balance 90 240 Weight 240 lb 250 lb 3.2 oz Last Vital Signs Temp Pulse Resp BP Pulse Ox 97.3 F L 99 H 20 124/64 99 03/03/19 09:00 03/03/19 09:00 03/03/19 09:00 03/03/19 09:00 03/03/19 09:00 Active Medications Acetaminophen (Tylenol -) 500 mg PO Q6H PRN PRN Reason: PAIN 1-3 Aspirin (Asa -) 81 mg PO DAILY [facility] Last Admin: 03/03/19 10:05 Dose: 81 mg Atorvastatin Calcium (Lipitor -) 20 mg PO HS [facility] Last Admin: 03/02/19 21:27 Dose: 20 mg Docusate Sodium (Colace -) 200 mg PO HS [facility] Last Admin: 03/02/19 21:27 Dose: 200 mg Enoxaparin Sodium (Lovenox -) 40 mg SQ DAILY [facility] Last Admin: 03/03/19 10:04 Dose: 40 mg Furosemide (Lasix Injection -) 40 mg IVPUSH DAILY [facility] Piperacillin Sod/Tazobactam (Sod 3.375 gm/ Dextrose) 50 mls @ 100 mls/hr IVPB Q8H-IV MEGHAN; Protocol Last Admin: 03/03/19 10:04 Dose: 100 mls/hr Levothyroxine Sodium (Synthroid -) 75 mcg PO 0700 [facility] Last Admin: 03/03/19 06:31 Dose: 75 mcg Lorazepam (Ativan -) 0.5 mg PO BID PRN PRN Reason: ANXIETY Last Admin: 03/02/19 21:26 Dose: 0.5 mg Melatonin (Melatonin) 3 mg PO HS PRN PRN Reason: INSOMNIA Metoprolol Succinate (Toprol Xl -) 100 mg PO DAILY [facility] Last Admin: 03/03/19 10:04 Dose: 100 mg Mirtazapine (Remeron -) 30 mg PO HS [facility] Last Admin: 03/02/19 21:26 Dose: 30 mg Tamsulosin HCl (Flomax -) 0.8 mg PO 0830 MEGHAN Constitutional: Yes: Sleepy, NAD Cardiovascular: Yes: Regular Rate and Rhythm Respiratory: Yes: Bilateral Rales & Rhonchi: Right > Left Gastrointestinal: Yes: Normal Bowel Sounds, Soft, Abdomen, Obese. No: Tenderness Extremities: Yes: chronic venous changes Edema: Yes Labs: Laboratory Results - last 24 hr 03/02/19 03/03/19 03/03/19 07:30 05:30 05:30 WBC 7.0 RBC 3.21 L Hgb 9.3 L Hct 28.6 L MCV 89.1 MCH 28.9 MCHC 32.5 RDW 16.1 H Plt Count 200 MPV 8.0 Absolute Neuts (auto) 3.7 Neutrophils % 52.1 D Lymphocytes % 36.4 D Monocytes % 10.1 Eosinophils % 1.0 D Basophils % 0.4 Nucleated RBC % 0 Sodium 137 Potassium 3.5 Chloride 90 L Carbon Dioxide 44 H Anion Gap 4 L BUN 28 H Creatinine 1.0 Creat Clearance w eGFR 70.85 Random Glucose 93 Calcium 8.3 L Total Bilirubin 0.3 AST 23 ALT 22 Alkaline Phosphatase 46 B-Natriuretic Peptide 839.8 H Total Protein 6.3 L Albumin 2.8 L Problem List - Problems (1) ASHD (arteriosclerotic heart disease) Code(s): I25.10 - ATHSCL HEART DISEASE OF [place] CORONARY ARTERY W/O ANG PCTRS (2) Acute on chronic respiratory failure with hypoxia and hypercapnia Code(s): J96.21 - ACUTE AND CHRONIC RESPIRATORY FAILURE WITH HYPOXIA; J96.22 - ACUTE AND CHRONIC RESPIRATORY FAILURE WITH HYPERCAPNIA (3) CHF (congestive heart failure) Code(s): I50.9 - HEART FAILURE, UNSPECIFIED (4) Pneumonia Code(s): J18.9 - PNEUMONIA, UNSPECIFIED ORGANISM (5) Respiratory distress Code(s): R06.03 - ACUTE RESPIRATORY DISTRESS (6) Toxic metabolic encephalopathy Code(s): G92 - TOXIC ENCEPHALOPATHY IMP ACUTE ON CHRONIC HYPOXEMIC/HYPERCAPNEIC RESPIRATORY FAILURE ALTERED MENTAL STATUS COPD MODERATE TO LARGE RIGHT PLEURAL EFFUSION CHF PNEUMONIA ASHD S/P STENTS PLAN O2 NIPPV NEEDED ABX PER ID INHALED BRONCHODILATORS IV LASIX WILL FOLLOW CXR ON THURSDAY DAILY WT DR LINDSEY
--- NOTE | 2019-03-03 15:11 | CON.CARD ---
Consult Consult Specialty:: Cardiology Referred by:: Medicine Reason for Consultation:: shortness of breath, CHF - History of Present Illness Chief Complaint: shortness of breath History of Present Illness: 88M h/o COPD, h/o hypercapnic respiratory failure, CAD s/p stents, CHD, hypothyroisidm, BPH, HTN, HLD, PVD,anxiety p/w unresponsiveness at [facility]. CT chest today shows R pleural effusion, received IV lasix, was on bipap now feels better on nasal canula. SOB improving,no chest pain, palps, dizziness. - Past Medical History Cardio/Vascular: Yes: CAD, HTN, Hyperlipdemia Pulmonary: Yes: COPD Renal/: Yes: BPH - Alcohol/Substance Use Hx Alcohol Use: No - Smoking History Smoking history: Unknown if ever smoked Have you smoked in the past 12 months: No Home Medications - Allergies Allergies/Adverse Reactions: Allergies Allergy/AdvReac Type Severity Reaction Status Date / Time No Known Allergies Allergy Verified 03/01/19 11:08 - Home Medications Home Medications: Ambulatory Orders Acetaminophen [Tylenol -] 500 mg PO Q6H PRN 03/01/19 Ascorbate Calcium [Vitamin C] 500 mg PO DAILY 03/01/19 Aspirin 81 mg PO DAILY 03/01/19 Atorvastatin Ca [Lipitor] 20 mg PO HS 03/01/19 Calcium Carbonate [Calcium] 600 mg PO DAILY 03/01/19 Docusate Sodium [Colace -] 200 mg PO HS 03/01/19 Furosemide [Lasix] 40 mg PO DAILY 03/01/19 Levothyroxine [Synthroid -] 75 mcg PO DAILY 03/01/19 Lorazepam 1 mg PO HS 03/01/19 Metoprolol Succinate 100 mg PO DAILY 03/01/19 Mirtazapine [Remeron -] 30 mg PO HS 03/01/19 Mupirocin Ointment [Bactroban] 1 applic TP TID 03/01/19 Nitroglycerin 0.4 mg SL ASDIR 03/01/19 Nystatin Cream [Mycostatin Cream -] 1 applic TP ASDIR 03/01/19 Dawson-3 Fatty Acids/Fish Oil [Fish Oil 1,000 mg Capsule] 1 each PO DAILY Tamsulosin HCl [Flomax] 0.4 mg PO 1800 03/01/19 Triamcinolone 0.1% Cream [Aristocort] 1 applic TP ASDIR 03/01/19 Zolpidem Tartrate [Ambien] 5 mg PO HS 03/01/19 Family Disease History - Family Disease History Family History: Unremarkable Review of Systems - Review of Systems Constitutional: reports: No Symptoms Eyes: reports: No Symptoms HENT: reports: No Symptoms Neck: reports: No Symptoms Cardiovascular: reports: No Symptoms Respiratory: reports: No Symptoms Gastrointestinal: reports: No Symptoms Genitourinary: reports: No Symptoms Musculoskeletal: reports: No Symptoms Integumentary: reports: No Symptoms Neurological: reports: No Symptoms Endocrine: reports: No Symptoms Hematology/Lymphatic: reports: No Symptoms Psychiatric: reports: No Symptoms Vital Signs: Vital Signs Temperature 97.3 F L 03/03/19 09:00 Pulse Rate 99 H 03/03/19 09:00 Respiratory Rate 20 03/03/19 09:00 Blood Pressure 124/64 03/03/19 09:00 O2 Sat by Pulse Oximetry (%) 99 03/03/19 09:00 Constitutional: Yes: No Distress, Calm Eyes: Yes: Conjunctiva Clear, EOM Intact HENT: Yes: Atraumatic, Normocephalic Neck: Yes: Supple, Trachea Midline Respiratory: Yes: Regular, CTA Bilaterally, Diminished (R base) Gastrointestinal: Yes: Normal Bowel Sounds, Soft Cardiovascular: Yes: Regular Rate and Rhythm JVD: Yes Carotid Bruit: No PMI: Non-Displaced Heart Sounds: Yes: S1, S2 Murmur: No: Systolic Murmur Musculoskeletal: No: Back Pain Extremities: No: Cold Edema: Yes Edema: LLE: 1+, RLE: 1+ Peripheral Pulses WNL: Yes Peripheral Pulses: 2+ Left Doralis Pedis, 2+ Right Dorsalis Pedis Integumentary: No: Jaundice Neurological: Yes: Alert, Oriented Psychiatric: No: Agitated - Other Data Labs, Other Data: CBC, BMP 03/03/19 05:30 03/03/19 05:30 INR, PTT INR 1.05 (0.83-1.09) 03/01/19 11:19 Assessment/Plan CT chest large right pleural effusion with compression atelectasis of R base, minimal atelectasis of L base. Echo 02/2019 LV mildly dilated, nl LV function, mild TR, mod ao sclerosis, tds, RV not well visualized, LA mod dilated, RA mod dilated, mild ao root dilation EKG sinus 1st deg AVB, LBBB tele: sinus 88M h/o COPD, h/o hypercapnic respiratory failure, CAD s/p stents, CHD, hypothyroisidm, BPH, HTN, HLD, PVD,anxiety p/w unresponsiveness shortness of breath, unresponsiveness, acute diastolic HF exacerbation - nl LV function on echo, RV not well visualized - CT chest with R pleural effusion - improving, continue IV lasix - monitor Cr, lytes, daily standing weights UTI - manage per primary, ID CAD - s/p stents 20 years ago - cont aspirin, statin, bb HTN - cont current meds HLD - cont statin
[2019-03-03] MEDS ORDERED: MIRTAZAPINE 15 MG TABLET (FP) ONE (21:15)
[2019-03-03] MEDS: DOCUSATE SODIUM 100 MG CAPSULE (FP) PO SCH (21:29)
[2019-03-03] MEDS: MIRTAZAPINE 30 MG TABLET (FP) PO SCH (21:30)
[2019-03-03] MEDS: ATORVASTATIN CA 20 MG TABLET (FP) PO SCH (21:30)
[2019-03-03] MEDS: LORazepam 0.5 MG TABLET PO PRN (21:31)
[2019-03-04] MEDS ORDERED: PIPERACILLIN/TAZOBACTAM 3.375 GM VIAL IVPB ONE ×2 (01:15→09:55)
[2019-03-04] MEDS ORDERED: DEXTROSE 5%-WATER - 50 ML IVPB ONE ×2 (01:15→09:55)
[2019-03-04] MEDS: PIPERACILLIN/TAZOB 3.375 GM 3.375 GM in DEXTROSE 5%-WATER - 50 ML IVPB SCH ×2 (03:29→10:07)
[2019-03-04] MEDS: LEVOTHYROXINE NA 75 MCG TABLET (FP) PO SCH (06:16)
[2019-03-04 07:29] LABS: HEMATOCRIT 28.9 % (35.4-49); HEMOGLOBIN 9.4 GM/dL (11.7-16.9); MCH 29.3 pg (25.7-33.7); MCHC 32.5 g/dl (32.0-35.9); MEAN CELL VOLUME 90.1 fl (80-96); PLATELET COUNT 188 K/MM3 (134-434); RBC 3.21 M/mm3 (4.00-5.60); RDW 15.8 % (11.9-15.9); WHITE BLOOD COUNT 6.9 K/mm3 (4.0-10.0)
[2019-03-04] MEDS: TAMSULOSIN HCL 0.4 MG CAP PO SCH (08:09)
[2019-03-04 08:18] LABS: ALBUMIN 2.7 g/dl (3.4-5.0); ALK PHOS 45 U/L (45-117); ANION GAP 5 MMOL/L (8-16); BILIRUBIN,TOTAL 0.4 mg/dL (0.2-1); BLOOD UREA NITROGEN 27 mg/dL (7-18); CALCIUM 8.4 mg/dL (8.5-10.1); CHLORIDE 91 mmol/L (98-107); CO2 44 mmol/L (21-32); CREATININE 0.9 mg/dL (0.55-1.3); GLUCOSE,RANDOM 99 mg/dL (74-106); POTASSIUM 3.7 mmol/L (3.5-5.1); SGOT/AST 22 U/L (15-37); SGPT/ALT 21 U/L (13-61); SODIUM 140 mmol/L (136-145); TOT PROT 6.4 g/dl (6.4-8.2)
[2019-03-04] MEDS: FUROSEMIDE 40 MG/4 ML INJECTABLE VIAL IVPUSH SCH (10:14)
[2019-03-04] MEDS: ASPIRIN 81 MG CHEWABLE TABLETS PO SCH (10:21)
[2019-03-04] MEDS: ENOXAPARIN NA (PORCINE) 40 MG/0.4 ML DISP.SYRIN SQ SCH (10:21)
--- NOTE | 2019-03-04 10:27 | PN ---
Progress Note, Physician History of Present Illness: PULMONARY ALERT,FEELING BETTER,LESS DYSPNEIC,ON NASAL CANNULA SATURATING WELL - Current Medication List Current Medications: Active Medications Acetaminophen (Tylenol -) 500 mg PO Q6H PRN PRN Reason: PAIN 1-3 Aspirin (Asa -) 81 mg PO DAILY [facility] Last Admin: 03/03/19 10:05 Dose: 81 mg Atorvastatin Calcium (Lipitor -) 20 mg PO HS [facility] Last Admin: 03/03/19 21:30 Dose: 20 mg Docusate Sodium (Colace -) 200 mg PO HS [facility] Last Admin: 03/03/19 21:29 Dose: 200 mg Enoxaparin Sodium (Lovenox -) 40 mg SQ DAILY [facility] Last Admin: 03/03/19 10:04 Dose: 40 mg Furosemide (Lasix Injection -) 40 mg IVPUSH DAILY [facility] Piperacillin Sod/Tazobactam (Sod 3.375 gm/ Dextrose) 50 mls @ 100 mls/hr IVPB Q8H-IV MEGHAN; Protocol Last Admin: 03/04/19 03:29 Dose: 100 mls/hr Levothyroxine Sodium (Synthroid -) 75 mcg PO 0700 [facility] Last Admin: 03/04/19 06:16 Dose: 75 mcg Lorazepam (Ativan -) 0.5 mg PO BID PRN PRN Reason: ANXIETY Last Admin: 03/03/19 21:31 Dose: 0.5 mg Melatonin (Melatonin) 3 mg PO HS PRN PRN Reason: INSOMNIA Metoprolol Succinate (Toprol Xl -) 100 mg PO DAILY [facility] Last Admin: 03/03/19 10:04 Dose: 100 mg Mirtazapine (Remeron -) 30 mg PO HS [facility] Last Admin: 03/03/19 21:30 Dose: 30 mg Tamsulosin HCl (Flomax -) 0.8 mg PO 0830 [facility] Last Admin: 03/04/19 08:09 Dose: 0.8 mg - Objective Vital Signs: Vital Signs Temperature 97.8 F 03/04/19 09:04 Pulse Rate 88 03/04/19 09:04 Respiratory Rate 24 H 03/04/19 09:04 Blood Pressure 94/51 L 03/04/19 09:04 O2 Sat by Pulse Oximetry (%) 99 03/04/19 09:00 Constitutional: Yes: Well Nourished, Calm Eyes: Yes: WNL HENT: Yes: WNL Neck: Yes: WNL Cardiovascular: Yes: Regular Rate and Rhythm, S1, S2 Respiratory: Yes: Rales (BIBASAILAR CRACKLES) Gastrointestinal: Yes: Normal Bowel Sounds, Soft Extremities: Yes: WNL Edema: Yes Labs: CBC, BMP 03/04/19 06:00 03/04/19 06:00 INR, PTT INR 1.05 (0.83-1.09) 03/01/19 11:19 Problem List - Problems (1) ASHD (arteriosclerotic heart disease) Code(s): I25.10 - ATHSCL HEART DISEASE OF [place] CORONARY ARTERY W/O ANG PCTRS (2) Acute on chronic respiratory failure with hypoxia and hypercapnia Code(s): J96.21 - ACUTE AND CHRONIC RESPIRATORY FAILURE WITH HYPOXIA; J96.22 - ACUTE AND CHRONIC RESPIRATORY FAILURE WITH HYPERCAPNIA (3) CHF (congestive heart failure) Code(s): I50.9 - HEART FAILURE, UNSPECIFIED (4) Pneumonia Code(s): J18.9 - PNEUMONIA, UNSPECIFIED ORGANISM (5) Respiratory distress Code(s): R06.03 - ACUTE RESPIRATORY DISTRESS (6) Toxic metabolic encephalopathy Code(s): G92 - TOXIC ENCEPHALOPATHY Assessment/Plan IMP ACUTE ON CHRONIC HYPOXEMIC/HYPERCAPNEIC RESPIRATORY FAILURE LARGE R PLEURAL EFFUSION ALTERED MENTAL STATUS IMPROVED COPD CHF ASHD S/P STENTS PLAN O2 NIPPV NEEDED INHALED BRONCHODILATORS F/U CHEST X-RAYS F/U ABG DAILY WT MARCY DE LA ROSA Problem List - Problems (1) ASHD (arteriosclerotic heart disease) Code(s): I25.10 - ATHSCL HEART DISEASE OF [place] CORONARY ARTERY W/O ANG PCTRS (2) Acute on chronic respiratory failure with hypoxia and hypercapnia Code(s): J96.21 - ACUTE AND CHRONIC RESPIRATORY FAILURE WITH HYPOXIA; J96.22 - ACUTE AND CHRONIC RESPIRATORY FAILURE WITH HYPERCAPNIA (3) CHF (congestive heart failure) Code(s): I50.9 - HEART FAILURE, UNSPECIFIED (4) Pneumonia Code(s): J18.9 - PNEUMONIA, UNSPECIFIED ORGANISM (5) Respiratory distress Code(s): R06.03 - ACUTE RESPIRATORY DISTRESS (6) Toxic metabolic encephalopathy Code(s): G92 - TOXIC ENCEPHALOPATHY
--- NOTE | 2019-03-04 10:32 | PN ---
Progress Note (short form) - Note Progress Note: pt seen/ examined chart reviewed awake/ comfortable feels better denies pain breathing better afebrile Vital Signs Temp 97.8 F 03/04/19 09:04 Pulse 88 03/04/19 09:04 Resp 24 H 03/04/19 09:04 BP 94/51 L 03/04/19 09:04 Pulse Ox 99 03/04/19 09:00 Intake & Output 03/03/19 03/03/19 03/04/19 11:59 23:59 11:59 Intake Total 240 550 690 Balance 240 550 690 Intake: IVPB 50 50 Oral 240 500 640 Other: Voiding Method Diaper Incontinent Diaper # Unmeasured Voids Straight Cath 1 Void 1 2 Bowel Movement Yes Active Medications Acetaminophen (Tylenol -) 500 mg PO Q6H PRN PRN Reason: PAIN 1-3 Aspirin (Asa -) 81 mg PO DAILY [facility] Last Admin: 03/04/19 10:21 Dose: 81 mg Atorvastatin Calcium (Lipitor -) 20 mg PO HS [facility] Last Admin: 03/03/19 21:30 Dose: 20 mg Docusate Sodium (Colace -) 200 mg PO HS [facility] Last Admin: 03/03/19 21:29 Dose: 200 mg Enoxaparin Sodium (Lovenox -) 40 mg SQ DAILY [facility] Last Admin: 03/04/19 10:21 Dose: 40 mg Furosemide (Lasix Injection -) 40 mg IVPUSH DAILY [facility] Last Admin: 03/04/19 10:14 Dose: 40 mg Piperacillin Sod/Tazobactam (Sod 3.375 gm/ Dextrose) 50 mls @ 100 mls/hr IVPB Q8H-IV [facility]; Protocol Last Admin: 03/04/19 10:07 Dose: 100 mls/hr Levothyroxine Sodium (Synthroid -) 75 mcg PO 0700 [facility] Last Admin: 03/04/19 06:16 Dose: 75 mcg Lorazepam (Ativan -) 0.5 mg PO BID PRN PRN Reason: ANXIETY Last Admin: 03/03/19 21:31 Dose: 0.5 mg Melatonin (Melatonin) 3 mg PO HS PRN PRN Reason: INSOMNIA Metoprolol Succinate (Toprol Xl -) 100 mg PO DAILY [facility] Last Admin: 03/04/19 10:21 Dose: 100 mg Mirtazapine (Remeron -) 30 mg PO HS [facility] Last Admin: 03/03/19 21:30 Dose: 30 mg Tamsulosin HCl (Flomax -) 0.8 mg PO 0830 [facility] Last Admin: 03/04/19 08:09 Dose: 0.8 mg DAVID BALTAZAR 03/04/19 06:00 03/04/19 06:00 Active Medications Acetaminophen (Tylenol -) 500 mg PO Q6H PRN PRN Reason: PAIN 1-3 Aspirin (Asa -) 81 mg PO DAILY [facility] Last Admin: 03/04/19 10:21 Dose: 81 mg Atorvastatin Calcium (Lipitor -) 20 mg PO HS [facility] Last Admin: 03/03/19 21:30 Dose: 20 mg Docusate Sodium (Colace -) 200 mg PO HS [facility] Last Admin: 03/03/19 21:29 Dose: 200 mg Enoxaparin Sodium (Lovenox -) 40 mg SQ DAILY [facility] Last Admin: 03/04/19 10:21 Dose: 40 mg Furosemide (Lasix Injection -) 40 mg IVPUSH DAILY [facility] Last Admin: 03/04/19 10:14 Dose: 40 mg Piperacillin Sod/Tazobactam (Sod 3.375 gm/ Dextrose) 50 mls @ 100 mls/hr IVPB Q8H-IV [facility]; Protocol Last Admin: 03/04/19 10:07 Dose: 100 mls/hr Levothyroxine Sodium (Synthroid -) 75 mcg PO 0700 [facility] Last Admin: 03/04/19 06:16 Dose: 75 mcg Lorazepam (Ativan -) 0.5 mg PO BID PRN PRN Reason: ANXIETY Last Admin: 03/03/19 21:31 Dose: 0.5 mg Melatonin (Melatonin) 3 mg PO HS PRN PRN Reason: INSOMNIA Metoprolol Succinate (Toprol Xl -) 100 mg PO DAILY [facility] Last Admin: 03/04/19 10:21 Dose: 100 mg Mirtazapine (Remeron -) 30 mg PO HS [facility] Last Admin: 03/03/19 21:30 Dose: 30 mg Tamsulosin HCl (Flomax -) 0.8 mg PO 0830 [facility] Last Admin: 03/04/19 08:09 Dose: 0.8 mg DAVID BALTAZAR 03/04/19 06:00 03/04/19 06:00 Physical Exam. awake/ comfortable. s1 s2 -RRR Lungs -decreased breath sounds. Abd- soft, obese, edema+ chronic venous changes. PLAN better continue present care abx i/v lasix monitor sarita oob - chair will follow
--- NOTE | 2019-03-04 10:44 | PN ---
Progress Note (short form) - Note Progress Note: s: no cp sob palps dizzy o: Vital Signs Period Temp Pulse Resp BP Sys/Jolley Pulse Ox Last 24 Hr 97.3 F-97.9 F 82-94 20-24 94-138/51-73 98-99 Constitutional: Yes: No Distress, Calm Eyes: Yes: Conjunctiva Clear Respiratory: Yes: Regular, CTA Bilaterally, Diminished (R base) Gastrointestinal: Yes: Normal Bowel Sounds, Soft Cardiovascular: Yes: Regular Rate and Rhythm JVD: Yes Heart Sounds: Yes: S1, S2 Murmur: No: Systolic Murmur Musculoskeletal: No: Back Pain Extremities: No: Cold Edema: Yes Edema: LLE: 1+, RLE: 1+ Peripheral Pulses WNL: Yes Peripheral Pulses: 2+ Left Doralis Pedis, 2+ Right Dorsalis Pedis Integumentary: No: Jaundice Neurological: Yes: Alert Psychiatric: No: Agitated Current Medications Generic Name Dose Route Start Last Admin Trade Name Freq PRN Reason Stop Dose Admin Acetaminophen 500 mg 03/02/19 09:41 Tylenol - PO Q6H PRN PAIN 1-3 Aspirin 81 mg 03/02/19 10:00 03/04/19 10:21 Asa - PO 81 mg DAILY [facility] Administration Atorvastatin Calcium 20 mg 03/02/19 22:00 03/03/19 21:30 Lipitor - PO 20 mg HS [facility] Administration Docusate Sodium 200 mg 03/02/19 22:00 03/03/19 21:29 Colace - PO 200 mg HS [facility] Administration Enoxaparin Sodium 40 mg 03/03/19 10:00 03/04/19 10:21 Lovenox - SQ 40 mg DAILY [facility] Administration Furosemide 40 mg 03/04/19 10:00 03/04/19 10:14 Lasix Injection - IVPUSH 40 mg DAILY [facility] Administration Piperacillin Sod/Tazobactam 50 mls @ 100 mls/hr 03/02/19 18:00 03/04/19 10:07 Sod 3.375 gm/ Dextrose IVPB 100 mls/hr Q8H-IV [facility] Administration Protocol Levothyroxine Sodium 75 mcg 03/03/19 07:00 03/04/19 06:16 Synthroid - PO 75 mcg 0700 [facility] Administration Lorazepam 0.5 mg 03/02/19 09:42 03/03/19 21:31 Ativan - PO 0.5 mg BID PRN Administration ANXIETY Melatonin 3 mg 03/02/19 22:00 Melatonin PO HS PRN INSOMNIA Metoprolol Succinate 100 mg 03/02/19 10:00 03/04/19 10:21 Toprol Xl - PO 100 mg DAILY [facility] Administration Mirtazapine 30 mg 03/02/19 22:00 03/03/19 21:30 Remeron - PO 30 mg HS [facility] Administration Tamsulosin HCl 0.8 mg 03/03/19 11:11 03/04/19 08:09 Flomax - PO 0.8 mg 0830 [facility] Administration CBC, BMP 03/04/19 06:00 03/04/19 06:00 Assessment/Plan CT chest large right pleural effusion with compression atelectasis of R base, minimal atelectasis of L base. Echo 02/2019 LV mildly dilated, nl LV function, mild TR, mod ao sclerosis, tds, RV not well visualized, LA mod dilated, RA mod dilated, mild ao root dilation EKG sinus 1st deg AVB, LBBB tele: sinus 88M h/o COPD, h/o hypercapnic respiratory failure, CAD s/p stents, CHD, hypothyroisidm, BPH, HTN, HLD, PVD,anxiety p/w unresponsiveness shortness of breath, unresponsiveness, acute diastolic HF exacerbation - nl LV function on echo, RV not well visualized - CT chest with R pleural effusion - improving, continue IV lasix - monitor Cr, lytes, daily standing weights UTI - manage per primary, ID CAD - s/p stents 20 years ago - cont aspirin, statin, bb HTN - cont current meds HLD - cont statin
[2019-03-04] MEDS ORDERED: PT OWN MED DRAWER 7, Y5N ONE (14:40)
--- NOTE | 2019-03-04 16:06 | PN ---
Progress Note (short form) - Note Progress Note: doing well alert Vital Signs Period Temp Pulse Resp BP Sys/Jolley Pulse Ox Last 24 Hr 97.3 F-97.9 F 82-89 20-24 94-138/51-73 98-99 cor-rrr lungs decreased bs t bases abd soft,nt ext trace edema CBC, BMP 03/04/19 06:00 03/04/19 06:00 Microbiology 03/01/19 11:19 Blood - Peripheral Venous Blood Culture - Preliminary NO GROWTH OBTAINED AFTER 72 HOURS, INCUBATION TO CONTINUE FOR 2 DAYS. 03/01/19 11:19 Blood - Peripheral Venous Blood Culture - Preliminary NO GROWTH OBTAINED AFTER 72 HOURS, INCUBATION TO CONTINUE FOR 2 DAYS. 03/02/19 01:30 Urine - Urine - Catheterized Urine Culture - Preliminary Pseudomonas Aeruginosa Group D Strep Or Entero Coccus 03/02/19 23:40 Urine For Antigen Detection Legionella Antigen - Final 03/02/19 23:40 Urine For Antigen Detection Streptococcus pneumoniae Antigen (M - Final chest ct bilateral effusions with compression atelectasis a/p hypercapneic/hypoxemic respiratory failure ct scan reviewed, afebrile, doubt pneumonia, d/c zosyn chf with effusions continue diuresis much improved on BIPAP now alert d/w pulmonary please call back if needed Problem List - Problems (1) Acute on chronic respiratory failure with hypoxia and hypercapnia Code(s): J96.21 - ACUTE AND CHRONIC RESPIRATORY FAILURE WITH HYPOXIA; J96.22 - ACUTE AND CHRONIC RESPIRATORY FAILURE WITH HYPERCAPNIA (2) Pneumonia Code(s): J18.9 - PNEUMONIA, UNSPECIFIED ORGANISM (3) CHF (congestive heart failure) Code(s): I50.9 - HEART FAILURE, UNSPECIFIED
[2019-03-04] MEDS ORDERED: ACETAMINOPHEN 500 MG TABLET (FP) PO PRN (19:27)
[2019-03-04] MEDS: MIRTAZAPINE 30 MG TABLET (FP) PO SCH (21:35)
[2019-03-04] MEDS: DOCUSATE SODIUM 100 MG CAPSULE (FP) PO SCH (21:35)
[2019-03-04] MEDS: ATORVASTATIN CA 20 MG TABLET (FP) PO SCH (21:35)
[2019-03-04] MEDS: LORazepam 0.5 MG TABLET PO PRN (23:33)
[2019-03-05] MEDS: LEVOTHYROXINE NA 75 MCG TABLET (FP) PO SCH (06:17)
[2019-03-05] MEDS: TAMSULOSIN HCL 0.4 MG CAP PO SCH (08:20)
[2019-03-05] MEDS: ASPIRIN 81 MG CHEWABLE TABLETS PO SCH (10:46)
[2019-03-05] MEDS: ENOXAPARIN NA (PORCINE) 40 MG/0.4 ML DISP.SYRIN SQ SCH (10:46)
[2019-03-05] MEDS: FUROSEMIDE 40 MG/4 ML INJECTABLE VIAL IVPUSH SCH (10:46)
--- NOTE | 2019-03-05 10:48 | PN ---
Progress Note (short form) - Note Progress Note: s: no cp sob palps dizzy o: Vital Signs Period Temp Pulse Resp BP Sys/Jolley Pulse Ox Last 24 Hr 98.4 F-98.5 F 81-84 22-22 99-106/50-51 95-99 Constitutional: Yes: No Distress, Calm Eyes: Yes: Conjunctiva Clear Respiratory: Yes: Regular, CTA Bilaterally, Diminished (R base) Gastrointestinal: Yes: Normal Bowel Sounds, Soft Cardiovascular: Yes: Regular Rate and Rhythm JVD: Yes Heart Sounds: Yes: S1, S2 Murmur: No: Systolic Murmur Musculoskeletal: No: Back Pain Extremities: No: Cold Edema: Yes Edema: LLE: 1+, RLE: 1+ Peripheral Pulses WNL: Yes Peripheral Pulses: 2+ Left Doralis Pedis, 2+ Right Dorsalis Pedis Integumentary: No: Jaundice Neurological: Yes: Alert Psychiatric: No: Agitated Current Medications Generic Name Dose Route Start Last Admin Trade Name Freq PRN Reason Stop Dose Admin Acetaminophen 500 mg 03/04/19 19:27 Tylenol - PO Q6H PRN PAIN 1-3 Aspirin 81 mg 03/05/19 10:00 03/05/19 10:46 Asa - PO 81 mg DAILY [facility] Administration Atorvastatin Calcium 20 mg 03/04/19 22:00 03/04/19 21:35 Lipitor - PO 20 mg HS [facility] Administration Docusate Sodium 200 mg 03/04/19 22:00 03/04/19 21:35 Colace - PO 200 mg HS [facility] Administration Enoxaparin Sodium 40 mg 03/03/19 10:00 03/05/19 10:46 Lovenox - SQ 40 mg DAILY [facility] Administration Furosemide 40 mg 03/04/19 10:00 03/05/19 10:46 Lasix Injection - IVPUSH 40 mg DAILY [facility] Administration Levothyroxine Sodium 75 mcg 03/05/19 07:00 03/05/19 06:17 Synthroid - PO 75 mcg DAILY@0700 [facility] Administration Lorazepam 0.5 mg 03/04/19 19:27 03/04/19 23:33 Ativan - PO 0.5 mg Q12H PRN Administration ANXIETY Melatonin 3 mg 03/02/19 22:00 Melatonin PO HS PRN INSOMNIA Metoprolol Succinate 100 mg 03/05/19 10:00 03/05/19 10:47 Toprol Xl - PO Not Given DAILY [facility] Mirtazapine 30 mg 03/04/19 22:00 03/04/19 21:35 Remeron - PO 30 mg HS [facility] Administration Tamsulosin HCl 0.8 mg 03/03/19 11:11 03/05/19 08:20 Flomax - PO 0.8 mg 0830 [facility] Administration CBC, BMP 03/04/19 06:00 03/04/19 06:00 Assessment/Plan CT chest large right pleural effusion with compression atelectasis of R base, minimal atelectasis of L base. Echo 02/2019 LV mildly dilated, nl LV function, mild TR, mod ao sclerosis, tds, RV not well visualized, LA mod dilated, RA mod dilated, mild ao root dilation EKG sinus 1st deg AVB, LBBB 88M h/o COPD, h/o hypercapnic respiratory failure, CAD s/p stents, CHD, hypothyroisidm, BPH, HTN, HLD, PVD,anxiety p/w unresponsiveness shortness of breath, unresponsiveness, acute diastolic HF exacerbation - nl LV function on echo, RV not well visualized - CT chest with R pleural effusion - improving, continue IV lasix - monitor Cr, lytes, daily standing weights UTI - manage per primary, ID CAD - s/p stents 20 years ago - cont aspirin, statin, bb HTN - cont current meds HLD - cont statin
[2019-03-05] MEDS: LORazepam 0.5 MG TABLET PO PRN ×2 (11:09→23:58)
--- NOTE | 2019-03-05 11:14 | PN ---
Progress Note (short form) - Note Progress Note: pt seen/ examined feels better uses bipap at night denies pain all f/u noted off abx Vital Signs Temp 98.5 F 03/05/19 08:49 Pulse 84 03/05/19 08:49 Resp 22 H 03/05/19 08:49 BP 99/51 L 03/05/19 08:49 Pulse Ox 95 03/05/19 07:06 Intake & Output 03/04/19 03/04/19 03/05/19 11:59 23:59 11:59 Intake Total 754 Output Total 700 1800 Balance 754 -700 -1800 Weight 236 lb 238 lb 2 oz Intake: IV 14 sl 14 IVPB 100 Oral 640 Output: Urine 700 1800 Smith 700 1800 Other: Voiding Method Diaper Indwelling Catheter # Unmeasured Voids Void 2 Weight Measurement Method Standing Scale Built in [facility] Active Medications Acetaminophen (Tylenol -) 500 mg PO Q6H PRN PRN Reason: PAIN 1-3 Aspirin (Asa -) 81 mg PO DAILY [facility] Last Admin: 03/05/19 10:46 Dose: 81 mg Atorvastatin Calcium (Lipitor -) 20 mg PO HS [facility] Last Admin: 03/04/19 21:35 Dose: 20 mg Docusate Sodium (Colace -) 200 mg PO HS [facility] Last Admin: 03/04/19 21:35 Dose: 200 mg Enoxaparin Sodium (Lovenox -) 40 mg SQ DAILY [facility] Last Admin: 03/05/19 10:46 Dose: 40 mg Furosemide (Lasix Injection -) 40 mg IVPUSH DAILY [facility] Last Admin: 03/05/19 10:46 Dose: 40 mg Levothyroxine Sodium (Synthroid -) 75 mcg PO DAILY@0700 [facility] Last Admin: 03/05/19 06:17 Dose: 75 mcg Lorazepam (Ativan -) 0.5 mg PO Q12H PRN PRN Reason: ANXIETY Last Admin: 03/05/19 11:09 Dose: 0.5 mg Melatonin (Melatonin) 3 mg PO HS PRN PRN Reason: INSOMNIA Metoprolol Succinate (Toprol Xl -) 100 mg PO DAILY [facility] Last Admin: 03/05/19 10:47 Dose: Not Given Mirtazapine (Remeron -) 30 mg PO [facility] Last Admin: 03/04/19 21:35 Dose: 30 mg Tamsulosin HCl (Flomax -) 0.8 mg PO 0830 [facility] Last Admin: 03/05/19 08:20 Dose: 0.8 mg CBC, BMP 03/04/19 06:00 03/04/19 06:00 Physical Exam. awake/ comfortable. s1 s2 -RRR Lungs -decreased breath sounds. Abd- soft, obese, edema+ chronic venous changes. PLAN better continue present care abx i/v lasix monitor lytes bp low -- toprol held will decrease dose from tomorrow oob - chair pt will follow Problem List - Problems (1) ASHD (arteriosclerotic heart disease) Code(s): I25.10 - ATHSCL HEART DISEASE OF [place] CORONARY ARTERY W/O ANG PCTRS (2) Acute on chronic respiratory failure with hypoxia and hypercapnia Code(s): J96.21 - ACUTE AND CHRONIC RESPIRATORY FAILURE WITH HYPOXIA; J96.22 - ACUTE AND CHRONIC RESPIRATORY FAILURE WITH HYPERCAPNIA (3) CHF (congestive heart failure) Code(s): I50.9 - HEART FAILURE, UNSPECIFIED (4) Toxic metabolic encephalopathy Code(s): G92 - TOXIC ENCEPHALOPATHY
--- NOTE | 2019-03-05 13:25 | PN ---
Progress Note, Physician History of Present Illness: PULMONARY ALERT,COMFORTABLE,-RESP DISTRESS - Current Medication List Current Medications: Active Medications Acetaminophen (Tylenol -) 500 mg PO Q6H PRN PRN Reason: PAIN 1-3 Aspirin (Asa -) 81 mg PO DAILY [facility] Last Admin: 03/05/19 10:46 Dose: 81 mg Atorvastatin Calcium (Lipitor -) 20 mg PO HS [facility] Last Admin: 03/04/19 21:35 Dose: 20 mg Docusate Sodium (Colace -) 200 mg PO HS [facility] Last Admin: 03/04/19 21:35 Dose: 200 mg Enoxaparin Sodium (Lovenox -) 40 mg SQ DAILY [facility] Last Admin: 03/05/19 10:46 Dose: 40 mg Furosemide (Lasix Injection -) 40 mg IVPUSH DAILY [facility] Last Admin: 03/05/19 10:46 Dose: 40 mg Levothyroxine Sodium (Synthroid -) 75 mcg PO DAILY@0700 [facility] Last Admin: 03/05/19 06:17 Dose: 75 mcg Lorazepam (Ativan -) 0.5 mg PO Q12H PRN PRN Reason: ANXIETY Last Admin: 03/05/19 11:09 Dose: 0.5 mg Melatonin (Melatonin) 3 mg PO HS PRN PRN Reason: INSOMNIA Metoprolol Succinate (Toprol Xl -) 50 mg PO DAILY [facility] Last Admin: 03/05/19 11:52 Dose: 50 mg Mirtazapine (Remeron -) 30 mg PO HS [facility] Last Admin: 03/04/19 21:35 Dose: 30 mg Tamsulosin HCl (Flomax -) 0.8 mg PO 0830 [facility] Last Admin: 03/05/19 08:20 Dose: 0.8 mg - Objective Vital Signs: Vital Signs Temperature 98.5 F 03/05/19 08:49 Pulse Rate 84 03/05/19 08:49 Respiratory Rate 22 H 03/05/19 08:49 Blood Pressure 99/51 L 03/05/19 08:49 O2 Sat by Pulse Oximetry (%) 95 03/05/19 07:06 Constitutional: Yes: Well Nourished, Calm Eyes: Yes: WNL HENT: Yes: WNL Neck: Yes: WNL Cardiovascular: Yes: Regular Rate and Rhythm, S1, S2 Respiratory: Yes: Diminished Gastrointestinal: Yes: Normal Bowel Sounds, Soft Extremities: Yes: WNL Edema: Yes Labs: CBC, BMP 03/04/19 06:00 03/04/19 06:00 INR, PTT INR 1.05 (0.83-1.09) 03/01/19 11:19 Problem List - Problems (1) ASHD (arteriosclerotic heart disease) Code(s): I25.10 - ATHSCL HEART DISEASE OF [place] CORONARY ARTERY W/O ANG PCTRS (2) Acute on chronic respiratory failure with hypoxia and hypercapnia Code(s): J96.21 - ACUTE AND CHRONIC RESPIRATORY FAILURE WITH HYPOXIA; J96.22 - ACUTE AND CHRONIC RESPIRATORY FAILURE WITH HYPERCAPNIA (3) CHF (congestive heart failure) Code(s): I50.9 - HEART FAILURE, UNSPECIFIED (4) Pneumonia Code(s): J18.9 - PNEUMONIA, UNSPECIFIED ORGANISM (5) Respiratory distress Code(s): R06.03 - ACUTE RESPIRATORY DISTRESS (6) Toxic metabolic encephalopathy Code(s): G92 - TOXIC ENCEPHALOPATHY Assessment/Plan IMP ACUTE ON CHRONIC HYPOXEMIC/HYPERCAPNEIC RESPIRATORY FAILURE LARGE R PLEURAL EFFUSION ALTERED MENTAL STATUS IMPROVED COPD CHF ASHD S/P STENTS PLAN O2 NIPPV NEEDED INHALED BRONCHODILATORS F/U CHEST X-RAYS DAILY WT [facility] Problem List - Problems (1) ASHD (arteriosclerotic heart disease) Code(s): I25.10 - ATHSCL HEART DISEASE OF [place] CORONARY ARTERY W/O ANG PCTRS (2) Acute on chronic respiratory failure with hypoxia and hypercapnia Code(s): J96.21 - ACUTE AND CHRONIC RESPIRATORY FAILURE WITH HYPOXIA; J96.22 - ACUTE AND CHRONIC RESPIRATORY FAILURE WITH HYPERCAPNIA (3) CHF (congestive heart failure) Code(s): I50.9 - HEART FAILURE, UNSPECIFIED (4) Pneumonia Code(s): J18.9 - PNEUMONIA, UNSPECIFIED ORGANISM (5) Respiratory distress Code(s): R06.03 - ACUTE RESPIRATORY DISTRESS (6) Toxic metabolic encephalopathy Code(s): G92 - TOXIC ENCEPHALOPATHY
[2019-03-05] MEDS: PIPERACILLIN/TAZOB 2.25 GM 2.25 GM in DEXTROSE 5%-WATER - 50 ML IVPB SCH ×2 (19:13→19:14)
[2019-03-05] MEDS ORDERED: PT OWN MED DRAWER 7, Y5N ONE (22:38)
[2019-03-05] MEDS: DOCUSATE SODIUM 100 MG CAPSULE (FP) PO SCH (22:40)
[2019-03-05] MEDS: MIRTAZAPINE 30 MG TABLET (FP) PO SCH (22:41)
[2019-03-05] MEDS: ATORVASTATIN CA 20 MG TABLET (FP) PO SCH (22:41)
[2019-03-06] MEDS: LEVOTHYROXINE NA 75 MCG TABLET (FP) PO SCH (07:07)
[2019-03-06] MEDS: TAMSULOSIN HCL 0.4 MG CAP PO SCH (07:59)
[2019-03-06] MEDS: ASPIRIN 81 MG CHEWABLE TABLETS PO SCH (09:52)
[2019-03-06] MEDS: FUROSEMIDE 40 MG/4 ML INJECTABLE VIAL IVPUSH SCH (09:53)
[2019-03-06] MEDS: ENOXAPARIN NA (PORCINE) 40 MG/0.4 ML DISP.SYRIN SQ SCH (09:53)
--- NOTE | 2019-03-06 11:10 | PN ---
Progress Note (short form) - Note Progress Note: pt seen/ examined awake/ comofrtable no new issues denies pain all f/u noted Vital Signs Temp 98.2 F 03/05/19 23:00 Pulse 80 03/05/19 23:00 Resp 20 03/05/19 23:00 BP 103/43 L 03/05/19 14:00 Pulse Ox 97 03/06/19 03:07 Intake & Output 03/05/19 03/05/19 03/06/19 11:59 23:59 11:59 Intake Total 400 400 Output Total 1800 2300 500 Balance -1800 -1900 -100 Weight 238 lb 2 oz 238 lb 8 oz Intake: Oral 400 400 Output: Urine 1800 2300 500 Smith 1800 2300 500 Other: Voiding Method Indwelling Catheter Indwelling Catheter Bowel Movement No # Bowel Movements 0 Weight Measurement Method Built in Bedscale Built in Bedscale Active Medications Acetaminophen (Tylenol -) 500 mg PO Q6H PRN PRN Reason: PAIN 1-3 Aspirin (Asa -) 81 mg PO DAILY [facility] Last Admin: 03/06/19 09:52 Dose: 81 mg Atorvastatin Calcium (Lipitor -) 20 mg PO HS [facility] Last Admin: 03/05/19 22:41 Dose: 20 mg Docusate Sodium (Colace -) 200 mg PO HS [facility] Last Admin: 03/05/19 22:40 Dose: 200 mg Enoxaparin Sodium (Lovenox -) 40 mg SQ DAILY [facility] Last Admin: 03/06/19 09:53 Dose: 40 mg Furosemide (Lasix Injection -) 40 mg IVPUSH DAILY [facility] Stop: 03/06/19 12:00 Last Admin: 03/06/19 09:53 Dose: 40 mg Furosemide (Lasix Injection -) 40 mg IVPUSH ONCE ONE Stop: 03/06/19 16:01 Furosemide (Lasix Injection -) 40 mg IVPUSH BID@0600,1400 [facility] Levothyroxine Sodium (Synthroid -) 75 mcg PO DAILY@0700 [facility] Last Admin: 03/06/19 07:07 Dose: 75 mcg Lorazepam (Ativan -) 0.5 mg PO Q12H PRN PRN Reason: ANXIETY Last Admin: 03/05/19 23:58 Dose: 0.5 mg Melatonin (Melatonin) 3 mg PO HS PRN PRN Reason: INSOMNIA Metoprolol Succinate (Toprol Xl -) 50 mg PO DAILY [facility] Last Admin: 03/06/19 09:53 Dose: 50 mg Mirtazapine (Remeron -) 30 mg PO HS [facility] Last Admin: 03/05/19 22:41 Dose: 30 mg Tamsulosin HCl (Flomax -) 0.8 mg PO 0830 [facility] Last Admin: 03/06/19 07:59 Dose: 0.8 mg CBC, BMP 03/04/19 06:00 03/04/19 06:00 cxr-- reviewed Physical Exam. awake/ comfortable. s1 s2 -RRR Lungs -decreased breath sounds. Abd- soft, obese, edema+ chronic venous changes. Smith + PLAN better continue present care abx i/v lasix monitor sarita oob - chair pt will follow Problem List - Problems (1) ASHD (arteriosclerotic heart disease) Code(s): I25.10 - ATHSCL HEART DISEASE OF [place] CORONARY ARTERY W/O ANG PCTRS (2) Acute on chronic respiratory failure with hypoxia and hypercapnia Code(s): J96.21 - ACUTE AND CHRONIC RESPIRATORY FAILURE WITH HYPOXIA; J96.22 - ACUTE AND CHRONIC RESPIRATORY FAILURE WITH HYPERCAPNIA (3) CHF (congestive heart failure) Code(s): I50.9 - HEART FAILURE, UNSPECIFIED (4) Toxic metabolic encephalopathy Code(s): G92 - TOXIC ENCEPHALOPATHY
--- NOTE | 2019-03-06 11:21 | PN ---
Progress Note (short form) - Note Progress Note: s: no cp sob palps dizzy o: Vital Signs Period Temp Pulse Resp BP Sys/Jolley Pulse Ox Last 24 Hr 98.2 F-98.7 F 76-80 20-20 102-103/43-48 95-98 Constitutional: Yes: No Distress, Calm Eyes: Yes: Conjunctiva Clear Respiratory: Yes: Regular, CTA Bilaterally, Diminished (R base) Gastrointestinal: Yes: Normal Bowel Sounds, Soft Cardiovascular: Yes: Regular Rate and Rhythm JVD: Yes Heart Sounds: Yes: S1, S2 Murmur: No: Systolic Murmur Musculoskeletal: No: Back Pain Extremities: No: Cold Edema: Yes Edema: LLE: 1+, RLE: 1+ Peripheral Pulses WNL: Yes Peripheral Pulses: 2+ Left Doralis Pedis, 2+ Right Dorsalis Pedis Integumentary: No: Jaundice Neurological: Yes: Alert Psychiatric: No: Agitated Current Medications Generic Name Dose Route Start Last Admin Trade Name Freq PRN Reason Stop Dose Admin Acetaminophen 500 mg 03/04/19 19:27 Tylenol - PO Q6H PRN PAIN 1-3 Aspirin 81 mg 03/05/19 10:00 03/06/19 09:52 Asa - PO 81 mg DAILY [facility] Administration Atorvastatin Calcium 20 mg 03/04/19 22:00 03/05/19 22:41 Lipitor - PO 20 mg HS [facility] Administration Docusate Sodium 200 mg 03/04/19 22:00 03/05/19 22:40 Colace - PO 200 mg HS [facility] Administration Enoxaparin Sodium 40 mg 03/03/19 10:00 03/06/19 09:53 Lovenox - SQ 40 mg DAILY [facility] Administration Furosemide 40 mg 03/04/19 10:00 03/06/19 09:53 Lasix Injection - IVPUSH 03/06/19 12:00 40 mg DAILY [facility] Administration Furosemide 40 mg 03/06/19 16:00 Lasix Injection - IVPUSH 03/06/19 16:01 ONCE ONE Furosemide 40 mg 03/07/19 06:00 Lasix Injection - IVPUSH BID@0600,1400 [facility] Levothyroxine Sodium 75 mcg 03/05/19 07:00 03/06/19 07:07 Synthroid - PO 75 mcg DAILY@0700 [facility] Administration Lorazepam 0.5 mg 03/04/19 19:27 03/05/19 23:58 Ativan - PO 0.5 mg Q12H PRN Administration ANXIETY Melatonin 3 mg 03/02/19 22:00 Melatonin PO HS PRN INSOMNIA Metoprolol Succinate 50 mg 03/05/19 11:14 03/06/19 09:53 Toprol Xl - PO 50 mg DAILY [facility] Administration Mirtazapine 30 mg 03/04/19 22:00 03/05/19 22:41 Remeron - PO 30 mg HS [facility] Administration Tamsulosin HCl 0.8 mg 03/03/19 11:11 03/06/19 07:59 Flomax - PO 0.8 mg 0830 [facility] Administration CBC, BMP 03/04/19 06:00 03/04/19 06:00 Assessment/Plan CT chest large right pleural effusion with compression atelectasis of R base, minimal atelectasis of L base. Echo 02/2019 LV mildly dilated, nl LV function, mild TR, mod ao sclerosis, tds, RV not well visualized, LA mod dilated, RA mod dilated, mild ao root dilation EKG sinus 1st deg AVB, LBBB 88M h/o COPD, h/o hypercapnic respiratory failure, CAD s/p stents, CHD, hypothyroisidm, BPH, HTN, HLD, PVD,anxiety p/w unresponsiveness shortness of breath, unresponsiveness, acute diastolic HF exacerbation - nl LV function on echo, RV not well visualized - CT chest with R pleural effusion - improving, continue IV lasix, will increase to bid - monitor Cr, lytes, daily standing weights UTI - manage per primary, ID CAD - s/p stents 20 years ago - cont aspirin, statin, bb HTN - cont current meds HLD - cont statin
[2019-03-06] MEDS: LORazepam 0.5 MG TABLET PO PRN ×2 (12:20→23:39)
[2019-03-06 12:21] LABS: ANION GAP 3 MMOL/L (8-16); BLOOD UREA NITROGEN 19 mg/dL (7-18); CALCIUM 8.3 mg/dL (8.5-10.1); CHLORIDE 92 mmol/L (98-107); CO2 43 mmol/L (21-32); CREATININE 0.6 mg/dL (0.55-1.3); GLUCOSE,RANDOM 142 mg/dL (74-106); POTASSIUM 3.3 mmol/L (3.5-5.1); SODIUM 138 mmol/L (136-145)
--- NOTE | 2019-03-06 12:38 | PN ---
Progress Note, Physician History of Present Illness: pulmonary alert,feeling better,less dyspneic - Current Medication List Current Medications: Active Medications Acetaminophen (Tylenol -) 500 mg PO Q6H PRN PRN Reason: PAIN 1-3 Aspirin (Asa -) 81 mg PO DAILY [facility] Last Admin: 03/06/19 09:52 Dose: 81 mg Atorvastatin Calcium (Lipitor -) 20 mg PO HS [facility] Last Admin: 03/05/19 22:41 Dose: 20 mg Docusate Sodium (Colace -) 200 mg PO HS [facility] Last Admin: 03/05/19 22:40 Dose: 200 mg Enoxaparin Sodium (Lovenox -) 40 mg SQ DAILY [facility] Last Admin: 03/06/19 09:53 Dose: 40 mg Furosemide (Lasix Injection -) 40 mg IVPUSH ONCE ONE Stop: 03/06/19 16:01 Furosemide (Lasix Injection -) 40 mg IVPUSH BID@0600,1400 [facility] Levothyroxine Sodium (Synthroid -) 75 mcg PO DAILY@0700 [facility] Last Admin: 03/06/19 07:07 Dose: 75 mcg Lorazepam (Ativan -) 0.5 mg PO Q12H PRN PRN Reason: ANXIETY Last Admin: 03/06/19 12:20 Dose: 0.5 mg Melatonin (Melatonin) 3 mg PO HS PRN PRN Reason: INSOMNIA Metoprolol Succinate (Toprol Xl -) 50 mg PO DAILY [facility] Last Admin: 03/06/19 09:53 Dose: 50 mg Mirtazapine (Remeron -) 30 mg PO HS [facility] Last Admin: 03/05/19 22:41 Dose: 30 mg Tamsulosin HCl (Flomax -) 0.8 mg PO 0830 [facility] Last Admin: 03/06/19 07:59 Dose: 0.8 mg - Objective Vital Signs: Vital Signs Temperature 98.2 F 03/05/19 23:00 Pulse Rate 80 03/05/19 23:00 Respiratory Rate 20 03/05/19 23:00 Blood Pressure 103/43 L 03/05/19 14:00 O2 Sat by Pulse Oximetry (%) 97 03/06/19 03:07 Constitutional: Yes: Well Nourished, Calm Eyes: Yes: WNL HENT: Yes: WNL Neck: Yes: WNL Cardiovascular: Yes: Regular Rate and Rhythm, S1, S2 Respiratory: Yes: Rales (bibasialr rales) Gastrointestinal: Yes: Normal Bowel Sounds, Soft Extremities: Yes: WNL Edema: Yes Labs: 03/06/19 11:50 INR, PTT INR 1.05 (0.83-1.09) 03/01/19 11:19 Problem List - Problems (1) ASHD (arteriosclerotic heart disease) Code(s): I25.10 - ATHSCL HEART DISEASE OF [place] CORONARY ARTERY W/O ANG PCTRS (2) Acute on chronic respiratory failure with hypoxia and hypercapnia Code(s): J96.21 - ACUTE AND CHRONIC RESPIRATORY FAILURE WITH HYPOXIA; J96.22 - ACUTE AND CHRONIC RESPIRATORY FAILURE WITH HYPERCAPNIA (3) CHF (congestive heart failure) Code(s): I50.9 - HEART FAILURE, UNSPECIFIED (4) Pneumonia Code(s): J18.9 - PNEUMONIA, UNSPECIFIED ORGANISM (5) Respiratory distress Code(s): R06.03 - ACUTE RESPIRATORY DISTRESS (6) Toxic metabolic encephalopathy Code(s): G92 - TOXIC ENCEPHALOPATHY Assessment/Plan IMP ACUTE ON CHRONIC HYPOXEMIC/HYPERCAPNEIC RESPIRATORY FAILURE IMPROVING LARGE R PLEURAL EFFUSION ALTERED MENTAL STATUS IMPROVED COPD CHF ASHD S/P STENTS PLAN O2 NIPPV NEEDED INHALED BRONCHODILATORS F/U CHEST X-RAY TODAY DAILY WT [facility] Problem List - Problems (1) ASHD (arteriosclerotic heart disease) Code(s): I25.10 - ATHSCL HEART DISEASE OF [place] CORONARY ARTERY W/O ANG PCTRS (2) Acute on chronic respiratory failure with hypoxia and hypercapnia Code(s): J96.21 - ACUTE AND CHRONIC RESPIRATORY FAILURE WITH HYPOXIA; J96.22 - ACUTE AND CHRONIC RESPIRATORY FAILURE WITH HYPERCAPNIA (3) CHF (congestive heart failure) Code(s): I50.9 - HEART FAILURE, UNSPECIFIED (4) Pneumonia Code(s): J18.9 - PNEUMONIA, UNSPECIFIED ORGANISM (5) Respiratory distress Code(s): R06.03 - ACUTE RESPIRATORY DISTRESS (6) Toxic metabolic encephalopathy Code(s): G92 - TOXIC ENCEPHALOPATHY
[2019-03-06] MEDS ORDERED: FUROSEMIDE 40 MG/4 ML INJECTABLE VIAL IVPUSH ONE (16:00)
[2019-03-06] MEDS ORDERED: PT OWN MED DRAWER 7, Y5N ONE (20:54)
[2019-03-06] MEDS: MIRTAZAPINE 30 MG TABLET (FP) PO SCH (21:16)
[2019-03-06] MEDS: ATORVASTATIN CA 20 MG TABLET (FP) PO SCH (21:16)
[2019-03-06] MEDS: DOCUSATE SODIUM 100 MG CAPSULE (FP) PO SCH (21:16)
[2019-03-07] MEDS: FUROSEMIDE 40 MG/4 ML INJECTABLE VIAL IVPUSH SCH ×2 (05:44→15:11)
[2019-03-07] MEDS: LEVOTHYROXINE NA 75 MCG TABLET (FP) PO SCH (06:11)
[2019-03-07] MEDS: TAMSULOSIN HCL 0.4 MG CAP PO SCH (07:55)
[2019-03-07 08:13] LABS: ANION GAP 4 MMOL/L (8-16); BLOOD UREA NITROGEN 20 mg/dL (7-18); CALCIUM 8.2 mg/dL (8.5-10.1); CHLORIDE 93 mmol/L (98-107); CO2 42 mmol/L (21-32); CREATININE 0.7 mg/dL (0.55-1.3); GLUCOSE,RANDOM 110 mg/dL (74-106); POTASSIUM 3.3 mmol/L (3.5-5.1); SODIUM 139 mmol/L (136-145)
[2019-03-07] MEDS: ENOXAPARIN NA (PORCINE) 40 MG/0.4 ML DISP.SYRIN SQ SCH (10:15)
[2019-03-07] MEDS: ASPIRIN 81 MG CHEWABLE TABLETS PO SCH (10:16)
--- NOTE | 2019-03-07 11:26 | PN ---
Progress Note (short form) - Note Progress Note: PULMONARY States breathing better. No chest pain. No fevers. Vital Signs Period Temp Pulse Resp BP Sys/Jolley Pulse Ox Last 24 Hr 98 F-98.4 F 80-88 - 107-116/46-54 95-96 Gen: NAD at rest Heart: RRR Lung: decreased breath sounds at the bases Abd: soft, nontender Ext: trace edema CBC, BMP 03/04/19 06:00 03/07/19 06:50 Active Medications Acetaminophen (Tylenol -) 500 mg PO Q6H PRN PRN Reason: PAIN 1-3 Aspirin (Asa -) 81 mg PO DAILY [facility] Last Admin: 03/07/19 10:16 Dose: 81 mg Atorvastatin Calcium (Lipitor -) 20 mg PO HS [facility] Last Admin: 03/06/19 21:16 Dose: 20 mg Docusate Sodium (Colace -) 200 mg PO HS [facility] Last Admin: 03/06/19 21:16 Dose: 200 mg Enoxaparin Sodium (Lovenox -) 40 mg SQ DAILY [facility] Last Admin: 03/07/19 10:15 Dose: 40 mg Furosemide (Lasix Injection -) 40 mg IVPUSH BID@0600,1400 [facility] Last Admin: 03/07/19 05:44 Dose: 40 mg Levothyroxine Sodium (Synthroid -) 75 mcg PO DAILY@0700 [facility] Last Admin: 03/07/19 06:11 Dose: 75 mcg Lorazepam (Ativan -) 0.5 mg PO Q12H PRN PRN Reason: ANXIETY Last Admin: 03/06/19 23:39 Dose: 0.5 mg Melatonin (Melatonin) 3 mg PO HS PRN PRN Reason: INSOMNIA Metoprolol Succinate (Toprol Xl -) 50 mg PO DAILY [facility] Last Admin: 03/07/19 10:16 Dose: 50 mg Mirtazapine (Remeron -) 30 mg PO HS [facility] Last Admin: 03/06/19 21:16 Dose: 30 mg Tamsulosin HCl (Flomax -) 0.8 mg PO 0830 [facility] Last Admin: 03/07/19 07:55 Dose: 0.8 mg A/P Acute on Chronic Diastolic Heart Failure Pleural Effusion COPD CAD Hypothyroidism - continue lasix - monitor urine output, creatinine - daily weights - replete lytes - O2 to keep SpO2 >90% - inhaled bronchodilators - DVT prophylaxis
--- NOTE | 2019-03-07 11:38 | PN ---
Progress Note (short form) - Note Progress Note: pt seen/ examined comfortable sleeping pulmonary f/u noted Vital Signs Temp 98 F 03/07/19 05:46 Pulse 88 03/07/19 05:46 Resp 18 03/07/19 05:46 BP 107/46 L 03/07/19 05:46 Pulse Ox 96 03/07/19 08:08 Intake & Output 03/06/19 03/06/19 03/07/19 11:59 23:59 11:59 Intake Total 400 700 200 Output Total 500 2400 300 Balance -100 -1700 -100 Weight 238 lb 8 oz 238 lb 5 oz Intake: Oral 400 700 200 Output: Urine 500 2400 300 Smith 500 2400 300 Other: Voiding Method Indwelling Catheter Indwelling Catheter Bowel Movement Yes: LARGE BOWEL M. No # Bowel Movements 1 Weight Measurement Method Built in Bedscale Built in Bedscale Active Medications Acetaminophen (Tylenol -) 500 mg PO Q6H PRN PRN Reason: PAIN 1-3 Aspirin (Asa -) 81 mg PO DAILY [facility] Last Admin: 03/07/19 10:16 Dose: 81 mg Atorvastatin Calcium (Lipitor -) 20 mg PO [facility] Last Admin: 03/06/19 21:16 Dose: 20 mg Docusate Sodium (Colace -) 200 mg PO HS [facility] Last Admin: 03/06/19 21:16 Dose: 200 mg Enoxaparin Sodium (Lovenox -) 40 mg SQ DAILY [facility] Last Admin: 03/07/19 10:15 Dose: 40 mg Furosemide (Lasix Injection -) 40 mg IVPUSH BID@0600,1400 [facility] Last Admin: 03/07/19 05:44 Dose: 40 mg Levothyroxine Sodium (Synthroid -) 75 mcg PO DAILY@0700 [facility] Last Admin: 03/07/19 06:11 Dose: 75 mcg Lorazepam (Ativan -) 0.5 mg PO Q12H PRN PRN Reason: ANXIETY Last Admin: 03/06/19 23:39 Dose: 0.5 mg Melatonin (Melatonin) 3 mg PO HS PRN PRN Reason: INSOMNIA Metoprolol Succinate (Toprol Xl -) 50 mg PO DAILY [facility] Last Admin: 03/07/19 10:16 Dose: 50 mg Mirtazapine (Remeron -) 30 mg PO [facility] Last Admin: 03/06/19 21:16 Dose: 30 mg Potassium Chloride (K-Dur -) 20 meq PO DAILY [facility] Tamsulosin HCl (Flomax -) 0.8 mg PO 0830 [facility] Last Admin: 03/07/19 07:55 Dose: 0.8 mg CBC, BMP 03/04/19 06:00 03/07/19 06:50 Physical Exam. awake/ comfortable. s1 s2 -RRR Lungs -decreased breath sounds. Abd- soft, obese, edema+ chronic venous changes. Smith + PLAN better continue present care abx continue i/v lasix monitor lytes supplement k oob - chair pt will follow Problem List - Problems (1) ASHD (arteriosclerotic heart disease) Code(s): I25.10 - ATHSCL HEART DISEASE OF [place] CORONARY ARTERY W/O ANG PCTRS (2) Acute on chronic respiratory failure with hypoxia and hypercapnia Code(s): J96.21 - ACUTE AND CHRONIC RESPIRATORY FAILURE WITH HYPOXIA; J96.22 - ACUTE AND CHRONIC RESPIRATORY FAILURE WITH HYPERCAPNIA (3) CHF (congestive heart failure) Code(s): I50.9 - HEART FAILURE, UNSPECIFIED (4) Toxic metabolic encephalopathy Code(s): G92 - TOXIC ENCEPHALOPATHY
[2019-03-07] MEDS: POTASSIUM CHLORIDE TABS 10 MEQ TABLET.ER (FP) PO SCH (12:01)
[2019-03-07] MEDS: ATORVASTATIN CA 20 MG TABLET (FP) PO SCH (21:13)
[2019-03-07] MEDS: DOCUSATE SODIUM 100 MG CAPSULE (FP) PO SCH (21:13)
[2019-03-07] MEDS: MIRTAZAPINE 30 MG TABLET (FP) PO SCH (21:13)
[2019-03-07] MEDS ORDERED: LORazepam 0.5 MG TABLET PO ONE (22:44)
[2019-03-08] MEDS: FUROSEMIDE 40 MG/4 ML INJECTABLE VIAL IVPUSH SCH ×2 (06:32→13:27)
[2019-03-08] MEDS: LEVOTHYROXINE NA 75 MCG TABLET (FP) PO SCH (06:32)
[2019-03-08] MEDS: TAMSULOSIN HCL 0.4 MG CAP PO SCH (08:24)
--- NOTE | 2019-03-08 10:25 | PN ---
Progress Note (short form) - Note Progress Note: PULMONARY States breathing continues to improve. No chest pain. No fevers. Vital Signs Period Temp Pulse Resp BP Sys/Jolley Pulse Ox Last 24 Hr 96.8 F-98.6 F 84-97 18-21 127-133/59-72 96 Gen: NAD at rest Heart: RRR Lung: decreased breath sounds at the bases Abd: soft, nontender Ext: trace edema CBC, BMP 03/04/19 06:00 03/07/19 06:50 Active Medications Acetaminophen (Tylenol -) 500 mg PO Q6H PRN PRN Reason: PAIN 1-3 Aspirin (Asa -) 81 mg PO DAILY [facility] Last Admin: 03/07/19 10:16 Dose: 81 mg Atorvastatin Calcium (Lipitor -) 20 mg PO HS [facility] Last Admin: 03/07/19 21:13 Dose: 20 mg Docusate Sodium (Colace -) 200 mg PO HS [facility] Last Admin: 03/07/19 21:13 Dose: 200 mg Enoxaparin Sodium (Lovenox -) 40 mg SQ DAILY [facility] Last Admin: 03/07/19 10:15 Dose: 40 mg Furosemide (Lasix Injection -) 40 mg IVPUSH BID@0600,1400 [facility] Last Admin: 03/08/19 06:32 Dose: 40 mg Levothyroxine Sodium (Synthroid -) 75 mcg PO DAILY@0700 [facility] Last Admin: 03/08/19 06:32 Dose: 75 mcg Melatonin (Melatonin) 3 mg PO HS PRN PRN Reason: INSOMNIA Metoprolol Succinate (Toprol Xl -) 50 mg PO DAILY [facility] Last Admin: 03/07/19 10:16 Dose: 50 mg Mirtazapine (Remeron -) 30 mg PO HS [facility] Last Admin: 03/07/19 21:13 Dose: 30 mg Potassium Chloride (K-Dur -) 20 meq PO DAILY [facility] Last Admin: 03/07/19 12:01 Dose: 20 meq Tamsulosin HCl (Flomax -) 0.8 mg PO 0830 [facility] Last Admin: 03/08/19 08:24 Dose: 0.8 mg A/P Acute on Chronic Diastolic Heart Failure R Pleural Effusion COPD CAD Hypothyroidism - continue lasix - monitor urine output, creatinine - daily weights - replete lytes - O2 to keep SpO2 >90% - inhaled bronchodilators - DVT prophylaxis
[2019-03-08] MEDS: ENOXAPARIN NA (PORCINE) 40 MG/0.4 ML DISP.SYRIN SQ SCH (10:40)
[2019-03-08] MEDS: POTASSIUM CHLORIDE TABS 10 MEQ TABLET.ER (FP) PO SCH (10:40)
[2019-03-08] MEDS: ASPIRIN 81 MG CHEWABLE TABLETS PO SCH (10:40)
--- NOTE | 2019-03-08 11:12 | PN ---
Progress Note (short form) - Note Progress Note: Pt is awake c/o pain in lower sacrum on BIPAP at night Vital Signs - 24 hr 03/07/19 03/08/19 03/08/19 20:29 00:08 06:34 Temperature 98.6 F 97.5 F L Pulse Rate 90 84 Respiratory 18 20 21 H Rate Blood Pressure 127/59 L 133/63 O2 Sat by Pulse 96 Oximetry (%) 03/08/19 09:00 Temperature 96.8 F L Pulse Rate 97 H Respiratory 20 Rate Blood Pressure 129/72 O2 Sat by Pulse Oximetry (%) Current Medications Generic Name Dose Route Start Last Admin Trade Name Freq PRN Reason Stop Dose Admin Acetaminophen 500 mg 03/04/19 19:27 Tylenol - PO Q6H PRN PAIN 1-3 Aspirin 81 mg 03/05/19 10:00 03/08/19 10:40 Asa - PO 81 mg DAILY [facility] Administration Atorvastatin Calcium 20 mg 03/04/19 22:00 03/07/19 21:13 Lipitor - PO 20 mg HS [facility] Administration Docusate Sodium 200 mg 03/04/19 22:00 03/07/19 21:13 Colace - PO 200 mg HS [facility] Administration Enoxaparin Sodium 40 mg 03/03/19 10:00 03/08/19 10:40 Lovenox - SQ 40 mg DAILY [facility] Administration Furosemide 40 mg 03/07/19 06:00 03/08/19 06:32 Lasix Injection - IVPUSH 40 mg BID@0600,1400 [facility] Administration Levothyroxine Sodium 75 mcg 03/05/19 07:00 03/08/19 06:32 Synthroid - PO 75 mcg DAILY@0700 [facility] Administration Melatonin 3 mg 03/02/19 22:00 Melatonin PO HS PRN INSOMNIA Metoprolol Succinate 50 mg 03/05/19 11:14 03/08/19 10:40 Toprol Xl - PO 50 mg DAILY [facility] Administration Mirtazapine 30 mg 03/04/19 22:00 03/07/19 21:13 Remeron - PO 30 mg HS [facility] Administration Potassium Chloride 20 meq 03/07/19 11:45 03/08/19 10:40 K-Dur - PO 20 meq DAILY [facility] Administration Tamsulosin HCl 0.8 mg 03/03/19 11:11 03/08/19 08:24 Flomax - PO 0.8 mg 0830 [facility] Administration s1 s2 RRR Lungs decreased breath sounds, crackles heard+ Abd- soft, obese, NT edema+ chronic venous changes PLAN IV Zosyn iv lasix BID monitor renal function no sacral wounds per nurse blood Cultures negative urine cultures positive needs intermittent straight cath as per [place] Nebs as needed OOB CT chest noted Normal EF on Echo continue with meds Problem List - Problems (1) Acute on chronic respiratory failure with hypoxia and hypercapnia Code(s): J96.21 - ACUTE AND CHRONIC RESPIRATORY FAILURE WITH HYPOXIA; J96.22 - ACUTE AND CHRONIC RESPIRATORY FAILURE WITH HYPERCAPNIA (2) CHF (congestive heart failure) Code(s): I50.9 - HEART FAILURE, UNSPECIFIED (3) Pneumonia Code(s): J18.9 - PNEUMONIA, UNSPECIFIED ORGANISM (4) Respiratory distress Code(s): R06.03 - ACUTE RESPIRATORY DISTRESS (5) Toxic metabolic encephalopathy Code(s): G92 - TOXIC ENCEPHALOPATHY
[2019-03-08] MEDS: LORazepam 0.5 MG TABLET PO PRN ×2 (15:33→23:36)
--- NOTE | 2019-03-08 16:13 | PN ---
Progress Note, Physician Chief Complaint: sob History of Present Illness: denies sob. cannot clearly recall being sob previously (? reliable historian) denies cp, palpit, leg swelling - Current Medication List Current Medications: Active Medications Acetaminophen (Tylenol -) 500 mg PO Q6H PRN PRN Reason: PAIN 1-3 Aspirin (Asa -) 81 mg PO DAILY [facility] Last Admin: 03/08/19 10:40 Dose: 81 mg Atorvastatin Calcium (Lipitor -) 20 mg PO HS [facility] Last Admin: 03/07/19 21:13 Dose: 20 mg Docusate Sodium (Colace -) 200 mg PO HS [facility] Last Admin: 03/07/19 21:13 Dose: 200 mg Enoxaparin Sodium (Lovenox -) 40 mg SQ DAILY [facility] Last Admin: 03/08/19 10:40 Dose: 40 mg Furosemide (Lasix Injection -) 40 mg IVPUSH BID@0600,1400 [facility] Last Admin: 03/08/19 13:27 Dose: 40 mg Levothyroxine Sodium (Synthroid -) 75 mcg PO DAILY@0700 [facility] Last Admin: 03/08/19 06:32 Dose: 75 mcg Lorazepam (Ativan -) 0.5 mg PO BID PRN PRN Reason: ANXIETY Last Admin: 03/08/19 15:33 Dose: 0.5 mg Melatonin (Melatonin) 3 mg PO HS PRN PRN Reason: INSOMNIA Metoprolol Succinate (Toprol Xl -) 50 mg PO DAILY [facility] Last Admin: 03/08/19 10:40 Dose: 50 mg Mirtazapine (Remeron -) 30 mg PO HS [facility] Last Admin: 03/07/19 21:13 Dose: 30 mg Potassium Chloride (K-Dur -) 20 meq PO DAILY [facility] Last Admin: 03/08/19 10:40 Dose: 20 meq Tamsulosin HCl (Flomax -) 0.8 mg PO 0830 [facility] Last Admin: 03/08/19 08:24 Dose: 0.8 mg - Objective Vital Signs: Vital Signs Temperature 97.7 F 03/08/19 13:25 Pulse Rate 84 03/08/19 13:25 Respiratory Rate 20 03/08/19 13:25 Blood Pressure 108/57 L 03/08/19 13:25 O2 Sat by Pulse Oximetry (%) 95 03/08/19 09:00 Constitutional: Yes: No Distress, Calm Eyes: No: Sclera Icterus HENT: No: Nasal Congestion Cardiovascular: Yes: Regular Rate and Rhythm, S1, S2, Other (PMI non diplaced). No: JVD (difficulty extending neck for exam), Gallop, Murmur Respiratory: Yes: CTA Bilaterally, Diminished (bases). No: Accessory Muscle Use , Wheezes Gastrointestinal: Yes: Normal Bowel Sounds, Soft. No: Tenderness Musculoskeletal: Yes: Other (No kyphosis) Extremities: No: Cold, Cyanosis Edema: No Integumentary: No: Jaundice Neurological: Yes: Alert. No: Seizure Psychiatric: No: Agitated Labs: CBC, BMP 03/04/19 06:00 03/07/19 06:50 INR, PTT INR 1.05 (0.83-1.09) 03/01/19 11:19 Assessment/Plan CT chest large right pleural effusion with compression atelectasis of R base, minimal atelectasis of L base. Echo 02/2019: LV mildly dilated, nl LV function, mild TR, RV not well visualized , LA mod dilated, RA mod dilated, mild ao root dilation EKG sinus 1st deg AVB, LBBB 88M h/o COPD, h/o hypercapnic respiratory failure, CAD s/p stents, CHD, hypothyroisidm, BPH, HTN, HLD, PVD,anxiety p/w unresponsiveness shortness of breath, acute diastolic HF exacerbation - nl LV function on echo, RV not well visualized - CT chest with R pleural effusion - receiving lasix 40 iv bid - sob improving, CXR 03/06 no signif change. labs stable (K repletion ordered). repeat CXR today--if not improving would increase lasix to 80 iv bid. - monitor Cr, lytes, daily standing weights UTI - manage per primary, ID CAD - s/p stents 20 years ago. no sx's of ischemia here. - cont aspirin, statin, bb HTN - bp controlled - cont current meds HLD - cont statin
[2019-03-08] MEDS: MIRTAZAPINE 30 MG TABLET (FP) PO SCH (21:24)
[2019-03-08] MEDS: DOCUSATE SODIUM 100 MG CAPSULE (FP) PO SCH (21:24)
[2019-03-08] MEDS: ATORVASTATIN CA 20 MG TABLET (FP) PO SCH (21:24)
[2019-03-09] MEDS: LEVOTHYROXINE NA 75 MCG TABLET (FP) PO SCH (06:18)
[2019-03-09] MEDS: FUROSEMIDE 40 MG/4 ML INJECTABLE VIAL IVPUSH SCH ×2 (06:18→13:56)
[2019-03-09 07:57] LABS: HEMATOCRIT 30.2 % (35.4-49); HEMOGLOBIN 9.9 GM/dL (11.7-16.9); MCH 29.3 pg (25.7-33.7); MCHC 32.9 g/dl (32.0-35.9); MEAN CELL VOLUME 89.1 fl (80-96); MEAN PLT VOLUME 7.9 fl (7.5-11.1); PLATELET COUNT 150 K/MM3 (134-434); RBC 3.39 M/mm3 (4.00-5.60)
[2019-03-09 08:24] LABS: ANION GAP 3 MMOL/L (8-16); BLOOD UREA NITROGEN 24 mg/dL (7-18); CALCIUM 8.6 mg/dL (8.5-10.1); CHLORIDE 95 mmol/L (98-107); CO2 41 mmol/L (21-32); CREATININE 0.7 mg/dL (0.55-1.3); GLUCOSE,RANDOM 123 mg/dL (74-106); POTASSIUM 3.6 mmol/L (3.5-5.1); SODIUM 139 mmol/L (136-145)
[2019-03-09] MEDS: TAMSULOSIN HCL 0.4 MG CAP PO SCH (08:56)
[2019-03-09] MEDS: ENOXAPARIN NA (PORCINE) 40 MG/0.4 ML DISP.SYRIN SQ SCH (09:35)
[2019-03-09] MEDS: POTASSIUM CHLORIDE TABS 20 MEQ TABLET.ER (FP) PO SCH (09:35)
[2019-03-09] MEDS: ASPIRIN 81 MG CHEWABLE TABLETS PO SCH (09:35)
--- NOTE | 2019-03-09 10:50 | PN ---
Progress Note (short form) - Note Progress Note: able to ambulate 10 steps with assistance appears SOB No distress Vital Signs - 24 hr 03/08/19 03/08/19 03/08/19 13:25 17:29 21:00 Temperature 97.7 F Pulse Rate 84 Respiratory 20 20 Rate Blood Pressure 108/57 L O2 Sat by Pulse 95 Oximetry (%) 03/08/19 03/09/19 03/09/19 22:02 05:44 09:00 Temperature 98.3 F 98.4 F Pulse Rate 80 80 Respiratory 20 20 Rate Blood Pressure 120/80 122/60 O2 Sat by Pulse 98 Oximetry (%) 03/09/19 09:45 Temperature 99.1 F Pulse Rate 90 Respiratory 20 Rate Blood Pressure 113/51 L O2 Sat by Pulse Oximetry (%) Current Medications Generic Name Dose Route Start Last Admin Trade Name Freq PRN Reason Stop Dose Admin Acetaminophen 500 mg 03/04/19 19:27 Tylenol - PO Q6H PRN PAIN 1-3 Aspirin 81 mg 03/05/19 10:00 03/09/19 09:35 Asa - PO 81 mg DAILY [facility] Administration Atorvastatin Calcium 20 mg 03/04/19 22:00 03/08/19 21:24 Lipitor - PO 20 mg HS [facility] Administration Docusate Sodium 200 mg 03/04/19 22:00 03/08/19 21:24 Colace - PO 200 mg HS [facility] Administration Enoxaparin Sodium 40 mg 03/03/19 10:00 03/09/19 09:35 Lovenox - SQ 40 mg DAILY [facility] Administration Furosemide 80 mg 03/09/19 10:49 Lasix Injection - IVPUSH BID@0600,1400 [facility] Levothyroxine Sodium 75 mcg 03/05/19 07:00 03/09/19 06:18 Synthroid - PO 75 mcg DAILY@0700 [facility] Administration Lorazepam 0.5 mg 03/08/19 14:37 03/08/19 23:36 Ativan - PO 0.5 mg BID PRN Administration ANXIETY Melatonin 3 mg 03/02/19 22:00 Melatonin PO HS PRN INSOMNIA Metoprolol Succinate 50 mg 03/05/19 11:14 03/09/19 09:35 Toprol Xl - PO 50 mg DAILY [facility] Administration Mirtazapine 30 mg 03/04/19 22:00 03/08/19 21:24 Remeron - PO 30 mg HS [facility] Administration Potassium Chloride 40 meq 03/08/19 16:11 03/09/19 09:35 K-Dur - PO 40 meq DAILY [facility] Administration Tamsulosin HCl 0.8 mg 03/03/19 11:11 03/09/19 08:56 Flomax - PO 0.8 mg 0830 [facility] Administration Laboratory Results - last 24 hr 03/09/19 03/09/19 07:00 07:00 WBC 8.0 RBC 3.39 L Hgb 9.9 L Hct 30.2 L MCV 89.1 MCH 29.3 MCHC 32.9 RDW 16.0 H Plt Count 150 D MPV 7.9 Sodium 139 Potassium 3.6 Chloride 95 L Carbon Dioxide 41 H Anion Gap 3 L BUN 24 H Creatinine 0.7 Creat Clearance w eGFR 106.93 Random Glucose 123 H Calcium 8.6 s1 s2 RRR Lungs decreased breath sounds, crackles heard+ Abd- soft, obese, NT edema+ chronic venous changes PLAN IV Zosyn iv lasix BID-->increase to 80mg BID as per Cardiology as there is no change in CXR , pt still looks SOB monitor renal function no sacral wounds per nurse blood Cultures negative urine cultures positive piña+ Nebs as needed OOB CT chest noted Normal EF on Echo continue with meds Problem List - Problems (1) Acute on chronic respiratory failure with hypoxia and hypercapnia Code(s): J96.21 - ACUTE AND CHRONIC RESPIRATORY FAILURE WITH HYPOXIA; J96.22 - ACUTE AND CHRONIC RESPIRATORY FAILURE WITH HYPERCAPNIA (2) CHF (congestive heart failure) Code(s): I50.9 - HEART FAILURE, UNSPECIFIED (3) Pneumonia Code(s): J18.9 - PNEUMONIA, UNSPECIFIED ORGANISM (4) Respiratory distress Code(s): R06.03 - ACUTE RESPIRATORY DISTRESS (5) Toxic metabolic encephalopathy Code(s): G92 - TOXIC ENCEPHALOPATHY
[2019-03-09] MEDS: LORazepam 0.5 MG TABLET PO PRN ×2 (16:00→23:10)
--- NOTE | 2019-03-09 16:00 | PN ---
Progress Note (short form) - Note Progress Note: s: no cp sob palps dizzy o: Vital Signs Period Temp Pulse Resp BP Sys/Jolley Pulse Ox Last 24 Hr 97.8 F-99.1 F 80-90 20-20 113-131/51-80 95-98 Constitutional: Yes: No Distress, Calm Eyes: Yes: Conjunctiva Clear Respiratory: Yes: Regular, CTA Bilaterally, Diminished (R base) Gastrointestinal: Yes: Normal Bowel Sounds, Soft Cardiovascular: Yes: Regular Rate and Rhythm JVD: Yes Heart Sounds: Yes: S1, S2 Murmur: No: Systolic Murmur Musculoskeletal: No: Back Pain Extremities: No: Cold Edema: Yes Edema: LLE: 1+, RLE: 1+ Peripheral Pulses WNL: Yes Peripheral Pulses: 2+ Left Doralis Pedis, 2+ Right Dorsalis Pedis Integumentary: No: Jaundice Neurological: Yes: Alert Psychiatric: No: Agitated Current Medications Generic Name Dose Route Start Last Admin Trade Name Freq PRN Reason Stop Dose Admin Acetaminophen 500 mg 03/04/19 19:27 Tylenol - PO Q6H PRN PAIN 1-3 Aspirin 81 mg 03/05/19 10:00 03/09/19 09:35 Asa - PO 81 mg DAILY [facility] Administration Atorvastatin Calcium 20 mg 03/04/19 22:00 03/08/19 21:24 Lipitor - PO 20 mg HS [facility] Administration Docusate Sodium 200 mg 03/04/19 22:00 03/08/19 21:24 Colace - PO 200 mg HS [facility] Administration Enoxaparin Sodium 40 mg 03/03/19 10:00 03/09/19 09:35 Lovenox - SQ 40 mg DAILY [facility] Administration Furosemide 80 mg 03/09/19 10:49 03/09/19 13:56 Lasix Injection - IVPUSH 80 mg BID@0600,1400 [facility] Administration Levothyroxine Sodium 75 mcg 03/05/19 07:00 03/09/19 06:18 Synthroid - PO 75 mcg DAILY@0700 [facility] Administration Lorazepam 0.5 mg 03/08/19 14:37 03/08/19 23:36 Ativan - PO 0.5 mg BID PRN Administration ANXIETY Melatonin 3 mg 03/02/19 22:00 Melatonin PO HS PRN INSOMNIA Metoprolol Succinate 50 mg 03/05/19 11:14 03/09/19 09:35 Toprol Xl - PO 50 mg DAILY [facility] Administration Mirtazapine 30 mg 03/04/19 22:00 03/08/19 21:24 Remeron - PO 30 mg HS [facility] Administration Potassium Chloride 40 meq 03/08/19 16:11 03/09/19 09:35 K-Dur - PO 40 meq DAILY [facility] Administration Tamsulosin HCl 0.8 mg 03/03/19 11:11 03/09/19 08:56 Flomax - PO 0.8 mg 0830 [facility] Administration CBC, BMP 03/09/19 07:00 03/09/19 07:00 Assessment/Plan CT chest large right pleural effusion with compression atelectasis of R base, minimal atelectasis of L base. Echo 02/2019 LV mildly dilated, nl LV function, mild TR, mod ao sclerosis, tds, RV not well visualized, LA mod dilated, RA mod dilated, mild ao root dilation EKG sinus 1st deg AVB, LBBB 88M h/o COPD, h/o hypercapnic respiratory failure, CAD s/p stents, CHD, hypothyroisidm, BPH, HTN, HLD, PVD,anxiety p/w unresponsiveness shortness of breath, unresponsiveness, acute diastolic HF exacerbation - nl LV function on echo, RV not well visualized - CT chest with R pleural effusion - pt reports less sob with pt today, still with le edema. cont same iv lasix, cr stable. - monitor Cr, lytes, daily standing weights UTI - manage per primary, ID CAD - s/p stents 20 years ago - cont aspirin, statin, bb HTN - cont current meds HLD - cont statin
--- NOTE | 2019-03-09 16:15 | PN ---
Progress Note, Physician History of Present Illness: PULMONARY ALERT,NO DISTRESS,-SOB - Current Medication List Current Medications: Active Medications Acetaminophen (Tylenol -) 500 mg PO Q6H PRN PRN Reason: PAIN 1-3 Aspirin (Asa -) 81 mg PO DAILY [facility] Last Admin: 03/09/19 09:35 Dose: 81 mg Atorvastatin Calcium (Lipitor -) 20 mg PO HS [facility] Last Admin: 03/08/19 21:24 Dose: 20 mg Docusate Sodium (Colace -) 200 mg PO HS [facility] Last Admin: 03/08/19 21:24 Dose: 200 mg Enoxaparin Sodium (Lovenox -) 40 mg SQ DAILY [facility] Last Admin: 03/09/19 09:35 Dose: 40 mg Furosemide (Lasix Injection -) 80 mg IVPUSH BID@0600,1400 [facility] Last Admin: 03/09/19 13:56 Dose: 80 mg Levothyroxine Sodium (Synthroid -) 75 mcg PO DAILY@0700 [facility] Last Admin: 03/09/19 06:18 Dose: 75 mcg Lorazepam (Ativan -) 0.5 mg PO BID PRN PRN Reason: ANXIETY Last Admin: 03/08/19 23:36 Dose: 0.5 mg Melatonin (Melatonin) 3 mg PO HS PRN PRN Reason: INSOMNIA Metoprolol Succinate (Toprol Xl -) 50 mg PO DAILY [facility] Last Admin: 03/09/19 09:35 Dose: 50 mg Mirtazapine (Remeron -) 30 mg PO HS [facility] Last Admin: 03/08/19 21:24 Dose: 30 mg Potassium Chloride (K-Dur -) 40 meq PO DAILY [facility] Last Admin: 03/09/19 09:35 Dose: 40 meq Tamsulosin HCl (Flomax -) 0.8 mg PO 0830 [facility] Last Admin: 03/09/19 08:56 Dose: 0.8 mg - Objective Vital Signs: Vital Signs Temperature 97.8 F 03/09/19 14:39 Pulse Rate 90 03/09/19 14:39 Respiratory Rate 20 03/09/19 09:45 Blood Pressure 131/51 L 03/09/19 14:39 O2 Sat by Pulse Oximetry (%) 98 03/09/19 09:00 Constitutional: Yes: Well Nourished, Calm Eyes: Yes: WNL HENT: Yes: WNL Neck: Yes: WNL Cardiovascular: Yes: Regular Rate and Rhythm, S1, S2 Respiratory: Yes: Diminished Gastrointestinal: Yes: Normal Bowel Sounds, Soft Extremities: Yes: WNL Edema: Yes Labs: CBC, BMP 03/09/19 07:00 03/09/19 07:00 INR, PTT INR 1.05 (0.83-1.09) 03/01/19 11:19 Problem List - Problems (1) ASHD (arteriosclerotic heart disease) Code(s): I25.10 - ATHSCL HEART DISEASE OF [place] CORONARY ARTERY W/O ANG PCTRS (2) Acute on chronic respiratory failure with hypoxia and hypercapnia Code(s): J96.21 - ACUTE AND CHRONIC RESPIRATORY FAILURE WITH HYPOXIA; J96.22 - ACUTE AND CHRONIC RESPIRATORY FAILURE WITH HYPERCAPNIA (3) CHF (congestive heart failure) Code(s): I50.9 - HEART FAILURE, UNSPECIFIED (4) Pneumonia Code(s): J18.9 - PNEUMONIA, UNSPECIFIED ORGANISM (5) Respiratory distress Code(s): R06.03 - ACUTE RESPIRATORY DISTRESS (6) Toxic metabolic encephalopathy Code(s): G92 - TOXIC ENCEPHALOPATHY Assessment/Plan IMP ACUTE ON CHRONIC HYPOXEMIC/HYPERCAPNEIC RESPIRATORY FAILURE IMPROVED LARGE R PLEURAL EFFUSION ALTERED MENTAL STATUS IMPROVED COPD CHF ASHD S/P STENTS PLAN O2 NIPPV NEEDED INHALED BRONCHODILATORS DAILY WT [facility] Problem List - Problems (1) ASHD (arteriosclerotic heart disease) Code(s): I25.10 - ATHSCL HEART DISEASE OF [place] CORONARY ARTERY W/O ANG PCTRS (2) Acute on chronic respiratory failure with hypoxia and hypercapnia Code(s): J96.21 - ACUTE AND CHRONIC RESPIRATORY FAILURE WITH HYPOXIA; J96.22 - ACUTE AND CHRONIC RESPIRATORY FAILURE WITH HYPERCAPNIA (3) CHF (congestive heart failure) Code(s): I50.9 - HEART FAILURE, UNSPECIFIED (4) Pneumonia Code(s): J18.9 - PNEUMONIA, UNSPECIFIED ORGANISM (5) Respiratory distress Code(s): R06.03 - ACUTE RESPIRATORY DISTRESS (6) Toxic metabolic encephalopathy Code(s): G92 - TOXIC ENCEPHALOPATHY
[2019-03-09] MEDS: MIRTAZAPINE 30 MG TABLET (FP) PO SCH (21:51)
[2019-03-09] MEDS: DOCUSATE SODIUM 100 MG CAPSULE (FP) PO SCH (21:51)
[2019-03-09] MEDS: ATORVASTATIN CA 20 MG TABLET (FP) PO SCH (21:51)
[2019-03-10] MEDS: FUROSEMIDE 40 MG/4 ML INJECTABLE VIAL IVPUSH SCH ×2 (06:05→14:10)
[2019-03-10] MEDS: LEVOTHYROXINE NA 75 MCG TABLET (FP) PO SCH (06:06)
[2019-03-10] MEDS: TAMSULOSIN HCL 0.4 MG CAP PO SCH (07:54)
[2019-03-10 08:19] LABS: ANION GAP 3 MMOL/L (8-16); BLOOD UREA NITROGEN 28 mg/dL (7-18); CALCIUM 8.4 mg/dL (8.5-10.1); CHLORIDE 96 mmol/L (98-107); CO2 42 mmol/L (21-32); CREATININE 0.7 mg/dL (0.55-1.3); GLUCOSE,RANDOM 116 mg/dL (74-106); POTASSIUM 3.5 mmol/L (3.5-5.1); SODIUM 141 mmol/L (136-145)
[2019-03-10] MEDS: POTASSIUM CHLORIDE TABS 20 MEQ TABLET.ER (FP) PO SCH (09:55)
[2019-03-10] MEDS: ASPIRIN 81 MG CHEWABLE TABLETS PO SCH (09:56)
[2019-03-10] MEDS: ENOXAPARIN NA (PORCINE) 40 MG/0.4 ML DISP.SYRIN SQ SCH (09:56)
--- NOTE | 2019-03-10 10:29 | PN ---
Progress Note (short form) - Note Progress Note: PULMONARY Denies shortness of breath or chest pain. No significant cough. No fevers. Vital Signs Period Temp Pulse Resp BP Sys/Jolley Pulse Ox Last 24 Hr 97.8 F-98.6 F 80-90 20-20 126-131/51-74 97-98 Intake & Output 03/07/19 03/08/19 03/09/19 03/10/19 23:59 23:59 23:59 23:59 Intake Total 425 800 530 Output Total 1100 2200 1100 1999 Balance -675 -1400 -570 -1999 Weight 108.097 kg 108.125 kg 108.125 kg 107.671 kg Gen: NAD at rest Heart: RRR Lung: decreased breath sounds at the bases Abd: soft, nontender Ext: trace edema CBC, BMP 03/09/19 07:00 03/10/19 07:15 Active Medications Acetaminophen (Tylenol -) 500 mg PO Q6H PRN PRN Reason: PAIN 1-3 Aspirin (Asa -) 81 mg PO DAILY [facility] Last Admin: 03/10/19 09:56 Dose: 81 mg Atorvastatin Calcium (Lipitor -) 20 mg PO HS [facility] Last Admin: 03/09/19 21:51 Dose: 20 mg Docusate Sodium (Colace -) 200 mg PO HS [facility] Last Admin: 03/09/19 21:51 Dose: 200 mg Enoxaparin Sodium (Lovenox -) 40 mg SQ DAILY [facility] Last Admin: 03/10/19 09:56 Dose: 40 mg Furosemide (Lasix Injection -) 80 mg IVPUSH BID@0600,1400 [facility] Last Admin: 03/10/19 06:05 Dose: 80 mg Levothyroxine Sodium (Synthroid -) 75 mcg PO DAILY@0700 [facility] Last Admin: 03/10/19 06:06 Dose: 75 mcg Lorazepam (Ativan -) 0.5 mg PO BID PRN PRN Reason: ANXIETY Last Admin: 03/09/19 23:10 Dose: 0.5 mg Melatonin (Melatonin) 3 mg PO HS PRN PRN Reason: INSOMNIA Metoprolol Succinate (Toprol Xl -) 50 mg PO DAILY [facility] Last Admin: 03/10/19 09:56 Dose: 50 mg Mirtazapine (Remeron -) 30 mg PO HS [facility] Last Admin: 03/09/19 21:51 Dose: 30 mg Potassium Chloride (K-Dur -) 40 meq PO DAILY [facility] Last Admin: 03/10/19 09:55 Dose: 40 meq Tamsulosin HCl (Flomax -) 0.8 mg PO 0830 [facility] Last Admin: 03/10/19 07:54 Dose: 0.8 mg A/P Acute on Chronic Diastolic Heart Failure R Pleural Effusion COPD CAD Hypothyroidism - continue lasix - monitor urine output, creatinine - daily weights - will order CXR in AM - replete lytes - O2 to keep SpO2 >90% - inhaled bronchodilators - DVT prophylaxis
[2019-03-10] MEDS: LORazepam 0.5 MG TABLET PO PRN ×2 (11:59→23:31)
--- NOTE | 2019-03-10 12:50 | PN ---
Progress Note (short form) - Note Progress Note: lying in bed No distress Vital Signs - 24 hr 03/09/19 03/09/19 03/09/19 14:39 21:00 22:05 Temperature 97.8 F 98.6 F Pulse Rate 90 80 Respiratory 20 Rate Blood Pressure 131/51 L 130/62 O2 Sat by Pulse 97 Oximetry (%) 03/10/19 03/10/19 05:26 07:31 Temperature 97.8 F Pulse Rate 83 Respiratory 20 Rate Blood Pressure 126/74 O2 Sat by Pulse 98 Oximetry (%) Current Medications Generic Name Dose Route Start Last Admin Trade Name Freq PRN Reason Stop Dose Admin Acetaminophen 500 mg 03/04/19 19:27 Tylenol - PO Q6H PRN PAIN 1-3 Aspirin 81 mg 03/05/19 10:00 03/10/19 09:56 Asa - PO 81 mg DAILY [facility] Administration Atorvastatin Calcium 20 mg 03/04/19 22:00 03/09/19 21:51 Lipitor - PO 20 mg HS [facility] Administration Docusate Sodium 200 mg 03/04/19 22:00 03/09/19 21:51 Colace - PO 200 mg HS [facility] Administration Enoxaparin Sodium 40 mg 03/03/19 10:00 03/10/19 09:56 Lovenox - SQ 40 mg DAILY [facility] Administration Furosemide 80 mg 03/09/19 10:49 03/10/19 06:05 Lasix Injection - IVPUSH 80 mg BID@0600,1400 [facility] Administration Levothyroxine Sodium 75 mcg 03/05/19 07:00 03/10/19 06:06 Synthroid - PO 75 mcg DAILY@0700 [facility] Administration Lorazepam 0.5 mg 03/08/19 14:37 03/10/19 11:59 Ativan - PO 0.5 mg BID PRN Administration ANXIETY Melatonin 3 mg 03/02/19 22:00 Melatonin PO HS PRN INSOMNIA Metoprolol Succinate 50 mg 03/05/19 11:14 03/10/19 09:56 Toprol Xl - PO 50 mg DAILY [facility] Administration Mirtazapine 30 mg 03/04/19 22:00 03/09/19 21:51 Remeron - PO 30 mg HS [facility] Administration Potassium Chloride 40 meq 03/08/19 16:11 03/10/19 09:55 K-Dur - PO 40 meq DAILY [facility] Administration Tamsulosin HCl 0.8 mg 03/03/19 11:11 03/10/19 07:54 Flomax - PO 0.8 mg 0830 [facility] Administration Laboratory Results - last 24 hr 03/10/19 07:15 Sodium 141 Potassium 3.5 Chloride 96 L Carbon Dioxide 42 H Anion Gap 3 L BUN 28 H Creatinine 0.7 Creat Clearance w eGFR 106.93 Random Glucose 116 H Calcium 8.4 L s1 s2 RRR Lungs decreased breath sounds, crackles heard+ Abd- soft, obese, NT edema+ decreased chronic venous changes PLAN IV Zosyn completed iv lasix BID-->increased to 80mg BID -- check CXR in AM monitor renal function no sacral wounds per nurse piña+ Nebs as needed OOB CT chest noted Normal EF on Echo continue with meds Problem List - Problems (1) Acute on chronic respiratory failure with hypoxia and hypercapnia Code(s): J96.21 - ACUTE AND CHRONIC RESPIRATORY FAILURE WITH HYPOXIA; J96.22 - ACUTE AND CHRONIC RESPIRATORY FAILURE WITH HYPERCAPNIA (2) CHF (congestive heart failure) Code(s): I50.9 - HEART FAILURE, UNSPECIFIED (3) Pneumonia Code(s): J18.9 - PNEUMONIA, UNSPECIFIED ORGANISM (4) Respiratory distress Code(s): R06.03 - ACUTE RESPIRATORY DISTRESS (5) Toxic metabolic encephalopathy Code(s): G92 - TOXIC ENCEPHALOPATHY
[2019-03-10] MEDS: MIRTAZAPINE 30 MG TABLET (FP) PO SCH (21:09)
[2019-03-10] MEDS: ATORVASTATIN CA 20 MG TABLET (FP) PO SCH (21:09)
[2019-03-10] MEDS: DOCUSATE SODIUM 100 MG CAPSULE (FP) PO SCH (21:09)
[2019-03-11] MEDS: FUROSEMIDE 40 MG/4 ML INJECTABLE VIAL IVPUSH SCH ×2 (06:40→14:21)
[2019-03-11] MEDS: LEVOTHYROXINE NA 75 MCG TABLET (FP) PO SCH (06:40)
[2019-03-11 07:15] LABS: BASO % 0.5 % (0-2.0); EOS % 2.9 % (0-4.5); HEMATOCRIT 28.6 % (35.4-49); HEMOGLOBIN 9.4 GM/dL (11.7-16.9); LYMPH % 39.3 % (8-40); MCH 29.3 pg (25.7-33.7); MCHC 32.8 g/dl (32.0-35.9); MEAN CELL VOLUME 89.1 fl (80-96); MEAN PLT VOLUME 8.2 fl (7.5-11.1); MONO % 6.8 % (3.8-10.2); NEUT % 50.5 % (42.8-82.8); PLATELET COUNT 130 K/MM3 (134-434); RBC 3.21 M/mm3 (4.00-5.60); RDW 15.7 % (11.9-15.9); WHITE BLOOD COUNT 7.7 K/mm3 (4.0-10.0)
[2019-03-11 07:38] LABS: ALBUMIN 2.7 g/dl (3.4-5.0); ALK PHOS 50 U/L (45-117); ANION GAP 2 MMOL/L (8-16); BILIRUBIN,TOTAL 0.4 mg/dL (0.2-1); BLOOD UREA NITROGEN 33 mg/dL (7-18); CALCIUM 8.5 mg/dL (8.5-10.1); CHLORIDE 94 mmol/L (98-107); CO2 41 mmol/L (21-32); CREATININE 0.7 mg/dL (0.55-1.3); GLUCOSE,RANDOM 118 mg/dL (74-106); POTASSIUM 3.8 mmol/L (3.5-5.1); SGOT/AST 19 U/L (15-37); SGPT/ALT 22 U/L (13-61); SODIUM 137 mmol/L (136-145); TOT PROT 6.2 g/dl (6.4-8.2)
--- NOTE | 2019-03-11 10:34 | PN ---
Progress Note (short form) - Note Progress Note: pt seen/ examined chart reviewed feels ok all f/u noted Vital Signs Temp 97.7 F 03/11/19 10:00 Pulse 94 H 03/11/19 10:00 Resp 16 03/11/19 10:00 BP 126/47 L 03/11/19 10:00 Pulse Ox 98 03/11/19 09:00 Intake & Output 03/10/19 03/10/19 03/11/19 11:59 23:59 11:59 Intake Total 925 100 Output Total 1999 2200 600 Balance -1999 -1275 -500 Weight 237 lb 6 oz 238 lb 8 oz Intake: Oral 925 100 Output: Urine 19990 600 Smith 1999 2200 600 Other: Voiding Method Indwelling Catheter Indwelling Catheter Indwelling Catheter Bowel Movement Yes Yes # Bowel Movements 1 Height 6 ft 2 in Body Mass Index (BMI) 30.5 Weight Measurement Method Built in Bedscale Built in Bedscale Active Medications Acetaminophen (Tylenol -) 500 mg PO Q6H PRN PRN Reason: PAIN 1-3 Aspirin (Asa -) 81 mg PO DAILY [facility] Last Admin: 03/10/19 09:56 Dose: 81 mg Atorvastatin Calcium (Lipitor -) 20 mg PO HS [facility] Last Admin: 03/10/19 21:09 Dose: 20 mg Docusate Sodium (Colace -) 200 mg PO HS [facility] Last Admin: 03/10/19 21:09 Dose: 200 mg Enoxaparin Sodium (Lovenox -) 40 mg SQ DAILY [facility] Last Admin: 03/10/19 09:56 Dose: 40 mg Furosemide (Lasix Injection -) 80 mg IVPUSH BID@0600,1400 [facility] Last Admin: 03/11/19 06:40 Dose: 80 mg Levothyroxine Sodium (Synthroid -) 75 mcg PO DAILY@0700 [facility] Last Admin: 03/11/19 06:40 Dose: 75 mcg Lorazepam (Ativan -) 0.5 mg PO BID PRN PRN Reason: ANXIETY Last Admin: 03/10/19 23:31 Dose: 0.5 mg Melatonin (Melatonin) 3 mg PO HS PRN PRN Reason: INSOMNIA Metoprolol Succinate (Toprol Xl -) 50 mg PO DAILY [facility] Last Admin: 03/10/19 09:56 Dose: 50 mg Mirtazapine (Remeron -) 30 mg PO [facility] Last Admin: 04/11/19 21:09 Dose: 30 mg Potassium Chloride (K-Dur -) 40 meq PO DAILY [facility] Last Admin: 03/10/19 09:55 Dose: 40 meq Tamsulosin HCl (Flomax -) 0.8 mg PO 0830 [facility] Last Admin: 03/10/19 07:54 Dose: 0.8 mg CBC, BMP 03/11/19 06:10 03/11/19 06:10 cxr-- Improved Problem List - Problems (1) ASHD (arteriosclerotic heart disease) Code(s): I25.10 - ATHSCL HEART DISEASE OF [place] CORONARY ARTERY W/O ANG PCTRS (2) Acute on chronic respiratory failure with hypoxia and hypercapnia Code(s): J96.21 - ACUTE AND CHRONIC RESPIRATORY FAILURE WITH HYPOXIA; J96.22 - ACUTE AND CHRONIC RESPIRATORY FAILURE WITH HYPERCAPNIA (3) CHF (congestive heart failure) Code(s): I50.9 - HEART FAILURE, UNSPECIFIED (4) Toxic metabolic encephalopathy Code(s): G92 - TOXIC ENCEPHALOPATHY
[2019-03-11] MEDS ORDERED: PT OWN MED DRAWER 7, Y5N ONE (10:59)
[2019-03-11] MEDS: ASPIRIN 81 MG CHEWABLE TABLETS PO SCH (11:01)
[2019-03-11] MEDS: TAMSULOSIN HCL 0.4 MG CAP PO SCH (11:01)
[2019-03-11] MEDS: POTASSIUM CHLORIDE TABS 20 MEQ TABLET.ER (FP) PO SCH (11:01)
[2019-03-11] MEDS: ENOXAPARIN NA (PORCINE) 40 MG/0.4 ML DISP.SYRIN SQ SCH (11:02)
[2019-03-11] MEDS: LORazepam 0.5 MG TABLET PO PRN ×2 (11:05→22:48)
--- NOTE | 2019-03-11 14:38 | PN ---
Progress Note (short form) - Note Progress Note: PULMONARY Denies shortness of breath or chest pain VSS Gen: NAD at rest Heart: RRR Lung: decreased breath sounds at the bases Abd: soft, nontender Ext: trace edema Active Medications noted labs/notes/images reviewed CXR: SLIGHT IMPROVEMENT NOTED A/P Acute on Chronic Diastolic Heart Failure R Pleural Effusion COPD CAD Hypothyroidism - continue lasix - monitor urine output, creatinine - daily weights - replete lytes - O2 to keep SpO2 >90% - inhaled bronchodilators - DVT prophylaxis Leeann DICKSON MD
--- NOTE | 2019-03-11 14:43 | PN ---
Progress Note (short form) - Note Progress Note: s: no cp sob palps dizzy o: Vital Signs Period Temp Pulse Resp BP Sys/Jolley Pulse Ox Last 24 Hr 97.7 F-98.9 F 79-94 16-20 114-126/47-67 92-98 Constitutional: Yes: No Distress, Calm Eyes: Yes: Conjunctiva Clear Respiratory: Yes: Regular, CTA Bilaterally, Diminished (R base) Gastrointestinal: Yes: Normal Bowel Sounds, Soft Cardiovascular: Yes: Regular Rate and Rhythm JVD: Yes Heart Sounds: Yes: S1, S2 Murmur: No: Systolic Murmur Musculoskeletal: No: Back Pain Extremities: No: Cold Edema: Yes Edema: LLE: trace, RLE: trace Peripheral Pulses WNL: Yes Peripheral Pulses: 2+ Left Doralis Pedis, 2+ Right Dorsalis Pedis Integumentary: No: Jaundice Neurological: Yes: Alert Psychiatric: No: Agitated Current Medications Acetaminophen (Tylenol -) 500 mg PO Q6H PRN PRN Reason: PAIN 1-3 Aspirin (Asa -) 81 mg PO DAILY [facility] Last Admin: 03/11/19 11:01 Dose: 81 mg Atorvastatin Calcium (Lipitor -) 20 mg PO HS [facility] Last Admin: 03/10/19 21:09 Dose: 20 mg Docusate Sodium (Colace -) 200 mg PO HS [facility] Last Admin: 03/10/19 21:09 Dose: 200 mg Enoxaparin Sodium (Lovenox -) 40 mg SQ DAILY [facility] Last Admin: 03/11/19 11:02 Dose: 40 mg Furosemide (Lasix Injection -) 80 mg IVPUSH BID@0600,1400 [facility] Last Admin: 03/11/19 14:21 Dose: 80 mg Levothyroxine Sodium (Synthroid -) 75 mcg PO DAILY@0700 [facility] Last Admin: 03/11/19 06:40 Dose: 75 mcg Melatonin (Melatonin) 3 mg PO HS PRN PRN Reason: INSOMNIA Metoprolol Succinate (Toprol Xl -) 50 mg PO DAILY [facility] Last Admin: 03/11/19 11:02 Dose: 50 mg Mirtazapine (Remeron -) 30 mg PO HS [facility] Last Admin: 03/10/19 21:09 Dose: 30 mg Potassium Chloride (K-Dur -) 40 meq PO DAILY [facility] Last Admin: 03/11/19 11:01 Dose: 40 meq Tamsulosin HCl (Flomax -) 0.8 mg PO 0830 [facility] Last Admin: 03/11/19 11:01 Dose: 0.8 mg Assessment/Plan CT chest large right pleural effusion with compression atelectasis of R base, minimal atelectasis of L base. Echo 02/2019 LV mildly dilated, nl LV function, mild TR, mod ao sclerosis, tds, RV not well visualized, LA mod dilated, RA mod dilated, mild ao root dilation EKG sinus 1st deg AVB, LBBB 88M h/o COPD, h/o hypercapnic respiratory failure, CAD s/p stents, CHD, hypothyroisidm, BPH, HTN, HLD, PVD,anxiety p/w unresponsiveness shortness of breath, unresponsiveness, acute diastolic HF exacerbation - nl LV function on echo, RV not well visualized - CT chest with R pleural effusion - CXR shows improvement. net negative >3L yesterday however weight charted is stable - feels less sob and edema is improving, +JVD on exam, Cr stable. continue lasix 80 mg IV BID - monitor Cr, lytes, daily standing weights UTI - manage per primary, ID CAD - s/p stents 20 years ago - cont aspirin, statin, bb HTN - cont current meds HLD - cont statin
[2019-03-11] MEDS: DOCUSATE SODIUM 100 MG CAPSULE (FP) PO SCH (21:20)
[2019-03-11] MEDS: ATORVASTATIN CA 20 MG TABLET (FP) PO SCH (21:20)
[2019-03-11] MEDS: MIRTAZAPINE 30 MG TABLET (FP) PO SCH (21:20)
[2019-03-12] MEDS: FUROSEMIDE 40 MG/4 ML INJECTABLE VIAL IVPUSH SCH ×2 (06:07→13:51)
[2019-03-12] MEDS: LEVOTHYROXINE NA 75 MCG TABLET (FP) PO SCH (06:07)
[2019-03-12] MEDS: ENOXAPARIN NA (PORCINE) 40 MG/0.4 ML DISP.SYRIN SQ SCH (09:31)
[2019-03-12] MEDS: TAMSULOSIN HCL 0.4 MG CAP PO SCH (09:31)
[2019-03-12] MEDS: POTASSIUM CHLORIDE TABS 20 MEQ TABLET.ER (FP) PO SCH (09:31)
[2019-03-12] MEDS: ASPIRIN 81 MG CHEWABLE TABLETS PO SCH (09:31)
--- NOTE | 2019-03-12 11:30 | PN ---
Progress Note (short form) - Note Progress Note: lying in bed No distress more alert and awake today no SOB Vital Signs - 24 hr 03/11/19 03/11/19 03/11/19 14:25 16:30 22:00 Temperature 98.9 F 98.2 F Pulse Rate 87 84 Respiratory 18 Rate Blood Pressure 114/64 124/68 O2 Sat by Pulse 98 Oximetry (%) 03/11/19 03/12/19 03/12/19 23:00 03:21 06:51 Temperature 98.1 F Pulse Rate 84 Respiratory 18 Rate Blood Pressure 149/76 O2 Sat by Pulse 100 97 Oximetry (%) 03/12/19 03/12/19 03/12/19 08:51 08:54 09:00 Temperature 98.5 F Pulse Rate 77 Respiratory 18 Rate Blood Pressure 107/55 L O2 Sat by Pulse 98 99 Oximetry (%) Current Medications Generic Name Dose Route Start Last Admin Trade Name Freq PRN Reason Stop Dose Admin Acetaminophen 500 mg 03/04/19 19:27 Tylenol - PO Q6H PRN PAIN 1-3 Aspirin 81 mg 03/05/19 10:00 03/12/19 09:31 Asa - PO 81 mg DAILY [facility] Administration Atorvastatin Calcium 20 mg 03/04/19 22:00 03/11/19 21:20 Lipitor - PO 20 mg HS [facility] Administration Docusate Sodium 200 mg 03/04/19 22:00 03/11/19 21:20 Colace - PO 200 mg HS [facility] Administration Enoxaparin Sodium 40 mg 03/03/19 10:00 03/12/19 09:31 Lovenox - SQ 40 mg DAILY [facility] Administration Furosemide 80 mg 03/09/19 10:49 03/12/19 06:07 Lasix Injection - IVPUSH 80 mg BID@0600,1400 [facility] Administration Levothyroxine Sodium 75 mcg 03/05/19 07:00 03/12/19 06:07 Synthroid - PO 75 mcg DAILY@0700 [facility] Administration Lorazepam 0.5 mg 03/11/19 22:16 03/11/19 22:48 Ativan - PO 0.5 mg Q12H PRN Administration ANXIETY Melatonin 3 mg 03/02/19 22:00 Melatonin PO HS PRN INSOMNIA Metoprolol Succinate 50 mg 03/05/19 11:14 03/12/19 09:31 Toprol Xl - PO 50 mg DAILY [facility] Administration Mirtazapine 30 mg 03/04/19 22:00 03/11/19 21:20 Remeron - PO 30 mg HS [facility] Administration Potassium Chloride 40 meq 03/08/19 16:11 03/12/19 09:31 K-Dur - PO 40 meq DAILY [facility] Administration Tamsulosin HCl 0.8 mg 03/03/19 11:11 03/12/19 09:31 Flomax - PO 0.8 mg 0830 [facility] Administration No JVD s1 s2 RRR Lungs decreased breath sounds,no crackles Abd- soft, obese, NT edema decreased PLAN IV Zosyn completed iv lasix BID-->increased to 80mg BID-- weights are about the same-- likely to be baseline weight monitor renal function no sacral wounds per nurse piña+ Nebs as needed OOB CT chest noted Normal EF on Echo continue with meds Problem List - Problems (1) Acute on chronic respiratory failure with hypoxia and hypercapnia Code(s): J96.21 - ACUTE AND CHRONIC RESPIRATORY FAILURE WITH HYPOXIA; J96.22 - ACUTE AND CHRONIC RESPIRATORY FAILURE WITH HYPERCAPNIA (2) CHF (congestive heart failure) Code(s): I50.9 - HEART FAILURE, UNSPECIFIED (3) Pneumonia Code(s): J18.9 - PNEUMONIA, UNSPECIFIED ORGANISM (4) Respiratory distress Code(s): R06.03 - ACUTE RESPIRATORY DISTRESS (5) Toxic metabolic encephalopathy Code(s): G92 - TOXIC ENCEPHALOPATHY
[2019-03-12] MEDS: LORazepam 0.5 MG TABLET PO PRN ×2 (12:06→23:45)
--- NOTE | 2019-03-12 13:04 | PN ---
Progress Note (short form) - Note Progress Note: PULMONARY No overnight events. Denies shortness of breath or chest pain. No significant cough. No fevers. Vital Signs Period Temp Pulse Resp BP Sys/Jolley Pulse Ox Last 24 Hr 98.1 F-98.9 F 77-87 18-18 107-149/55-76 97-100 Gen: NAD at rest Heart: RRR Lung: decreased breath sounds at the bases Abd: soft, nontender Ext: trace edema CBC, BMP 03/11/19 06:10 03/11/19 06:10 Active Medications Acetaminophen (Tylenol -) 500 mg PO Q6H PRN PRN Reason: PAIN 1-3 Aspirin (Asa -) 81 mg PO DAILY [facility] Last Admin: 03/12/19 09:31 Dose: 81 mg Atorvastatin Calcium (Lipitor -) 20 mg PO HS [facility] Last Admin: 03/11/19 21:20 Dose: 20 mg Docusate Sodium (Colace -) 200 mg PO HS [facility] Last Admin: 03/11/19 21:20 Dose: 200 mg Enoxaparin Sodium (Lovenox -) 40 mg SQ DAILY [facility] Last Admin: 03/12/19 09:31 Dose: 40 mg Furosemide (Lasix Injection -) 80 mg IVPUSH BID@0600,1400 [facility] Last Admin: 03/12/19 06:07 Dose: 80 mg Levothyroxine Sodium (Synthroid -) 75 mcg PO DAILY@0700 [facility] Last Admin: 03/12/19 06:07 Dose: 75 mcg Lorazepam (Ativan -) 0.5 mg PO Q12H PRN PRN Reason: ANXIETY Last Admin: 03/12/19 12:06 Dose: 0.5 mg Melatonin (Melatonin) 3 mg PO HS PRN PRN Reason: INSOMNIA Metoprolol Succinate (Toprol Xl -) 50 mg PO DAILY [facility] Last Admin: 03/12/19 09:31 Dose: 50 mg Mirtazapine (Remeron -) 30 mg PO HS [facility] Last Admin: 03/11/19 21:20 Dose: 30 mg Potassium Chloride (K-Dur -) 40 meq PO DAILY [facility] Last Admin: 03/12/19 09:31 Dose: 40 meq Tamsulosin HCl (Flomax -) 0.8 mg PO 0830 [facility] Last Admin: 03/12/19 09:31 Dose: 0.8 mg A/P Acute on Chronic Diastolic Heart Failure R Pleural Effusion COPD CAD Hypothyroidism - continue lasix - monitor urine output, creatinine - daily weights - O2 to keep SpO2 >90% - inhaled bronchodilators - DVT prophylaxis
--- NOTE | 2019-03-12 14:49 | PN ---
Progress Note, Physician Chief Complaint: sob History of Present Illness: denies sob. no palpit, cp, syncope - Current Medication List Current Medications: Active Medications Acetaminophen (Tylenol -) 500 mg PO Q6H PRN PRN Reason: PAIN 1-3 Aspirin (Asa -) 81 mg PO DAILY [facility] Last Admin: 03/12/19 09:31 Dose: 81 mg Atorvastatin Calcium (Lipitor -) 20 mg PO HS [facility] Last Admin: 03/11/19 21:20 Dose: 20 mg Docusate Sodium (Colace -) 200 mg PO HS [facility] Last Admin: 03/11/19 21:20 Dose: 200 mg Enoxaparin Sodium (Lovenox -) 40 mg SQ DAILY [facility] Last Admin: 03/12/19 09:31 Dose: 40 mg Furosemide (Lasix Injection -) 80 mg IVPUSH BID@0600,1400 [facility] Last Admin: 03/12/19 13:51 Dose: 80 mg Levothyroxine Sodium (Synthroid -) 75 mcg PO DAILY@0700 [facility] Last Admin: 03/12/19 06:07 Dose: 75 mcg Lorazepam (Ativan -) 0.5 mg PO Q12H PRN PRN Reason: ANXIETY Last Admin: 03/12/19 12:06 Dose: 0.5 mg Melatonin (Melatonin) 3 mg PO HS PRN PRN Reason: INSOMNIA Metoprolol Succinate (Toprol Xl -) 50 mg PO DAILY [facility] Last Admin: 03/12/19 09:31 Dose: 50 mg Mirtazapine (Remeron -) 30 mg PO HS [facility] Last Admin: 03/11/19 21:20 Dose: 30 mg Potassium Chloride (K-Dur -) 40 meq PO DAILY [facility] Last Admin: 03/12/19 09:31 Dose: 40 meq Tamsulosin HCl (Flomax -) 0.8 mg PO 0830 [facility] Last Admin: 03/12/19 09:31 Dose: 0.8 mg - Objective Vital Signs: Vital Signs Temperature 98.5 F 03/12/19 08:51 Pulse Rate 82 03/12/19 14:06 Respiratory Rate 18 03/12/19 14:06 Blood Pressure 109/51 L 03/12/19 14:06 O2 Sat by Pulse Oximetry (%) 98 03/12/19 12:00 Constitutional: Yes: Well Nourished, No Distress, Calm Cardiovascular: Yes: Regular Rate and Rhythm. No: JVD, Gallop, Murmur Respiratory: Yes: Regular, CTA Bilaterally. No: Accessory Muscle Use Extremities: No: Cold Edema: No Neurological: Yes: Alert. No: Seizure Psychiatric: No: Agitated Labs: CBC, BMP 03/11/19 06:10 03/11/19 06:10 INR, PTT INR 1.05 (0.83-1.09) 03/01/19 11:19 Assessment/Plan CT chest large right pleural effusion with compression atelectasis of R base, minimal atelectasis of L base. Echo 02/2019 LV mildly dilated, nl LV function, mild TR, mod ao sclerosis, tds, RV not well visualized, LA mod dilated, RA mod dilated, mild ao root dilation EKG sinus 1st deg AVB, LBBB 88M h/o COPD, h/o hypercapnic respiratory failure, CAD s/p stents, CHD, hypothyroisidm, BPH, HTN, HLD, PVD,anxiety p/w unresponsiveness shortness of breath, unresponsiveness, acute diastolic HF exacerbation - nl LV function on echo, RV not well visualized - CT chest with R pleural effusion - CXR shows improvement. net negative >3L yesterday however weight charted is stable - feels less sob and edema is improving, +JVD on exam, Cr stable. continue lasix 80 mg IV BID -03/12: denies sob. labs stable. cont lasix 80 iv bid, repeat CXR UTI - manage per primary, ID CAD - s/p stents 20 years ago - cont aspirin, statin, bb HTN - cont current meds HLD - cont statin
[2019-03-12] MEDS: ATORVASTATIN CA 20 MG TABLET (FP) PO SCH (21:21)
[2019-03-12] MEDS: DOCUSATE SODIUM 100 MG CAPSULE (FP) PO SCH (21:21)
[2019-03-12] MEDS: MIRTAZAPINE 30 MG TABLET (FP) PO SCH (21:21)
[2019-03-13] MEDS: FUROSEMIDE 40 MG/4 ML INJECTABLE VIAL IVPUSH SCH ×2 (06:25→13:45)
[2019-03-13] MEDS: LEVOTHYROXINE NA 75 MCG TABLET (FP) PO SCH (06:25)
[2019-03-13 07:31] LABS: ANION GAP 3 MMOL/L (8-16); BLOOD UREA NITROGEN 32 mg/dL (7-18); CALCIUM 8.6 mg/dL (8.5-10.1); CHLORIDE 94 mmol/L (98-107); CO2 42 mmol/L (21-32); CREATININE 0.7 mg/dL (0.55-1.3); GLUCOSE,RANDOM 117 mg/dL (74-106); POTASSIUM 3.8 mmol/L (3.5-5.1); SODIUM 139 mmol/L (136-145)
[2019-03-13] MEDS: TAMSULOSIN HCL 0.4 MG CAP PO SCH (08:49)
[2019-03-13] MEDS: ENOXAPARIN NA (PORCINE) 40 MG/0.4 ML DISP.SYRIN SQ SCH (09:00)
[2019-03-13] MEDS: POTASSIUM CHLORIDE TABS 20 MEQ TABLET.ER (FP) PO SCH (09:01)
[2019-03-13] MEDS: ASPIRIN 81 MG CHEWABLE TABLETS PO SCH (09:01)
--- NOTE | 2019-03-13 10:32 | PN ---
Progress Note (short form) - Note Progress Note: lying in bed No distress alert and awake no SOB Vital Signs - 24 hr 03/12/19 03/12/19 03/13/19 20:53 23:57 05:56 Temperature 98.4 F Pulse Rate 90 88 Respiratory 19 20 Rate Blood Pressure 120/80 123/76 O2 Sat by Pulse 96 Oximetry (%) 03/13/19 03/13/19 03/13/19 05:57 07:56 08:33 Temperature 97.8 F Pulse Rate 100 H Respiratory 18 Rate Blood Pressure 119/44 L O2 Sat by Pulse 96 97 Oximetry (%) 03/13/19 03/13/19 03/13/19 09:00 12:25 13:48 Temperature Pulse Rate 96 H Respiratory 18 Rate Blood Pressure 111/52 L O2 Sat by Pulse 97 98 Oximetry (%) 03/13/19 03/13/19 14:00 16:34 Temperature 98.4 F Pulse Rate 98 H Respiratory 18 Rate Blood Pressure 104/51 L O2 Sat by Pulse 98 Oximetry (%) Current Medications Generic Name Dose Route Start Last Admin Trade Name Freq PRN Reason Stop Dose Admin Acetaminophen 500 mg 03/04/19 19:27 Tylenol - PO Q6H PRN PAIN 1-3 Aspirin 81 mg 03/05/19 10:00 03/13/19 09:01 Asa - PO 81 mg DAILY [facility] Administration Atorvastatin Calcium 20 mg 03/04/19 22:00 03/12/19 21:21 Lipitor - PO 20 mg HS [facility] Administration Docusate Sodium 200 mg 03/04/19 22:00 03/12/19 21:21 Colace - PO 200 mg HS [facility] Administration Enoxaparin Sodium 40 mg 03/03/19 10:00 03/13/19 09:00 Lovenox - SQ 40 mg DAILY [facility] Administration Furosemide 80 mg 03/09/19 10:49 03/13/19 13:45 Lasix Injection - IVPUSH 80 mg BID@0600,1400 [facility] Administration Levothyroxine Sodium 75 mcg 03/05/19 07:00 03/13/19 06:25 Synthroid - PO 75 mcg DAILY@0700 [facility] Administration Lorazepam 0.5 mg 03/11/19 22:16 03/13/19 11:29 Ativan - PO 0.5 mg Q12H PRN Administration ANXIETY Melatonin 3 mg 03/02/19 22:00 Melatonin PO HS PRN INSOMNIA Metoprolol Succinate 50 mg 03/05/19 11:14 03/13/19 09:01 Toprol Xl - PO 50 mg DAILY [facility] Administration Mirtazapine 30 mg 03/04/19 22:00 03/12/19 21:21 Remeron - PO 30 mg HS [facility] Administration Potassium Chloride 40 meq 03/08/19 16:11 03/13/19 09:01 K-Dur - PO 40 meq DAILY [facility] Administration Tamsulosin HCl 0.8 mg 03/03/19 11:11 03/13/19 08:49 Flomax - PO 0.8 mg 0830 [facility] Administration Laboratory Results - last 24 hr 03/13/19 06:00 Sodium 139 Potassium 3.8 Chloride 94 L Carbon Dioxide 42 H Anion Gap 3 L BUN 32 H Creatinine 0.7 Creat Clearance w eGFR 106.93 Random Glucose 117 H Calcium 8.6 No JVD s1 s2 RRR Lungs decreased breath sounds,no crackles Abd- soft, obese, NT edema decreased PLAN IV Zosyn completed iv lasix BID-->increased to 80mg BID-- gained weight creatinine stable maintain piña repeat CXR-- not significant change- ?add [employer] monitor renal function piña+ Nebs as needed OOB CT chest noted Normal EF on Echo continue with meds Problem List - Problems (1) Acute on chronic respiratory failure with hypoxia and hypercapnia Code(s): J96.21 - ACUTE AND CHRONIC RESPIRATORY FAILURE WITH HYPOXIA; J96.22 - ACUTE AND CHRONIC RESPIRATORY FAILURE WITH HYPERCAPNIA (2) CHF (congestive heart failure) Code(s): I50.9 - HEART FAILURE, UNSPECIFIED (3) Pneumonia Code(s): J18.9 - PNEUMONIA, UNSPECIFIED ORGANISM (4) Respiratory distress Code(s): R06.03 - ACUTE RESPIRATORY DISTRESS (5) Toxic metabolic encephalopathy Code(s): G92 - TOXIC ENCEPHALOPATHY
[2019-03-13] MEDS: LORazepam 0.5 MG TABLET PO PRN ×2 (11:29→23:25)
--- NOTE | 2019-03-13 12:36 | PN ---
Progress Note (short form) - Note Progress Note: PULMONARY Denies shortness of breath or chest pain. Vital Signs Period Temp Pulse Resp BP Sys/Jolley Pulse Ox Last 24 Hr 97.8 F-98.4 F 82-100 18-20 109-123/44-80 96-97 Gen: NAD at rest Heart: RRR Lung: decreased breath sounds at the bases Abd: soft, nontender Ext: trace edema CBC, BMP 03/11/19 06:10 03/13/19 06:00 Active Medications Acetaminophen (Tylenol -) 500 mg PO Q6H PRN PRN Reason: PAIN 1-3 Aspirin (Asa -) 81 mg PO DAILY [facility] Last Admin: 03/13/19 09:01 Dose: 81 mg Atorvastatin Calcium (Lipitor -) 20 mg PO HS [facility] Last Admin: 03/12/19 21:21 Dose: 20 mg Docusate Sodium (Colace -) 200 mg PO HS [facility] Last Admin: 03/12/19 21:21 Dose: 200 mg Enoxaparin Sodium (Lovenox -) 40 mg SQ DAILY [facility] Last Admin: 03/13/19 09:00 Dose: 40 mg Furosemide (Lasix Injection -) 80 mg IVPUSH BID@0600,1400 [facility] Last Admin: 03/13/19 06:25 Dose: 80 mg Levothyroxine Sodium (Synthroid -) 75 mcg PO DAILY@0700 [facility] Last Admin: 03/13/19 06:25 Dose: 75 mcg Lorazepam (Ativan -) 0.5 mg PO Q12H PRN PRN Reason: ANXIETY Last Admin: 03/13/19 11:29 Dose: 0.5 mg Melatonin (Melatonin) 3 mg PO HS PRN PRN Reason: INSOMNIA Metoprolol Succinate (Toprol Xl -) 50 mg PO DAILY [facility] Last Admin: 03/13/19 09:01 Dose: 50 mg Mirtazapine (Remeron -) 30 mg PO HS [facility] Last Admin: 03/12/19 21:21 Dose: 30 mg Potassium Chloride (K-Dur -) 40 meq PO DAILY [facility] Last Admin: 03/13/19 09:01 Dose: 40 meq Tamsulosin HCl (Flomax -) 0.8 mg PO 0830 [facility] Last Admin: 03/13/19 08:49 Dose: 0.8 mg A/P Acute on Chronic Diastolic Heart Failure R Pleural Effusion COPD CAD Hypothyroidism - continue lasix - monitor urine output, creatinine - daily weights - O2 to keep SpO2 >90% - inhaled bronchodilators - DVT prophylaxis
[2019-03-13] MEDS: MIRTAZAPINE 30 MG TABLET (FP) PO SCH (21:08)
[2019-03-13] MEDS: ATORVASTATIN CA 20 MG TABLET (FP) PO SCH (21:08)
[2019-03-13] MEDS: DOCUSATE SODIUM 100 MG CAPSULE (FP) PO SCH (21:08)
[2019-03-14] MEDS: FUROSEMIDE 40 MG/4 ML INJECTABLE VIAL IVPUSH SCH ×2 (06:31→14:42)
[2019-03-14] MEDS: LEVOTHYROXINE NA 75 MCG TABLET (FP) PO SCH (06:31)
[2019-03-14 07:12] LABS: BASO % 0.8 % (0-2.0); EOS % 3.3 % (0-4.5); HEMATOCRIT 33.7 % (35.4-49); HEMOGLOBIN 10.9 GM/dL (11.7-16.9); MCH 28.9 pg (25.7-33.7); MCHC 32.4 g/dl (32.0-35.9); MEAN PLT VOLUME 8.2 fl (7.5-11.1); MONO % 7.3 % (3.8-10.2); NEUT % 47.6 % (42.8-82.8); PLATELET COUNT 129 K/MM3 (134-434); RBC 3.79 M/mm3 (4.00-5.60); RDW 15.4 % (11.9-15.9); WHITE BLOOD COUNT 7.5 K/mm3 (4.0-10.0)
[2019-03-14 07:41] LABS: ALBUMIN 2.9 g/dl (3.4-5.0); ALK PHOS 60 U/L (45-117); ANION GAP 2 MMOL/L (8-16); BILIRUBIN,TOTAL 0.4 mg/dL (0.2-1); BLOOD UREA NITROGEN 35 mg/dL (7-18); CALCIUM 8.8 mg/dL (8.5-10.1); CHLORIDE 96 mmol/L (98-107); CO2 41 mmol/L (21-32); CREATININE 0.8 mg/dL (0.55-1.3); GLUCOSE,RANDOM 116 mg/dL (74-106); POTASSIUM 3.8 mmol/L (3.5-5.1); SGOT/AST 21 U/L (15-37); SGPT/ALT 23 U/L (13-61); SODIUM 138 mmol/L (136-145); TOT PROT 6.9 g/dl (6.4-8.2)
[2019-03-14] MEDS: TAMSULOSIN HCL 0.4 MG CAP PO SCH (08:27)
[2019-03-14] MEDS: POTASSIUM CHLORIDE TABS 20 MEQ TABLET.ER (FP) PO SCH (10:05)
[2019-03-14] MEDS: LORazepam 0.5 MG TABLET PO PRN ×2 (10:05→23:25)
[2019-03-14] MEDS: ASPIRIN 81 MG CHEWABLE TABLETS PO SCH (10:05)
[2019-03-14] MEDS: ENOXAPARIN NA (PORCINE) 40 MG/0.4 ML DISP.SYRIN SQ SCH (10:05)
--- NOTE | 2019-03-14 11:12 | PN ---
Progress Note (short form) - Note Progress Note: Resting in NAD. No acute events overnight. Denies shortness of breath or chest pain. Intake & Output 03/11/19 03/12/19 03/13/19 03/14/19 23:59 23:59 23:59 23:59 Intake Total 179 480 7431 Output Total 2600 4450 2950 850 Balance -1685 -3990 -1730 -850 Weight 238 lb 8 oz 239 lb 241 lb 242 lb 3 oz Last Vital Signs Temp Pulse Resp BP Pulse Ox 97.8 F 97 H 20 122/53 L 98 03/14/19 10:00 03/14/19 10:00 03/14/19 10:00 03/14/19 10:00 03/14/19 05:41 Active Medications Acetaminophen (Tylenol -) 500 mg PO Q6H PRN PRN Reason: PAIN 1-3 Aspirin (Asa -) 81 mg PO DAILY [facility] Last Admin: 03/14/19 10:05 Dose: 81 mg Atorvastatin Calcium (Lipitor -) 20 mg PO HS [facility] Last Admin: 03/13/19 21:08 Dose: 20 mg Docusate Sodium (Colace -) 200 mg PO HS [facility] Last Admin: 03/13/19 21:08 Dose: 200 mg Enoxaparin Sodium (Lovenox -) 40 mg SQ DAILY [facility] Last Admin: 03/14/19 10:05 Dose: 40 mg Furosemide (Lasix Injection -) 80 mg IVPUSH BID@0600,1400 [facility] Last Admin: 03/14/19 06:31 Dose: 80 mg Levothyroxine Sodium (Synthroid -) 75 mcg PO DAILY@0700 [facility] Last Admin: 03/14/19 06:31 Dose: 75 mcg Lorazepam (Ativan -) 0.5 mg PO Q12H PRN PRN Reason: ANXIETY Last Admin: 03/14/19 10:05 Dose: 0.5 mg Melatonin (Melatonin) 3 mg PO HS PRN PRN Reason: INSOMNIA Metoprolol Succinate (Toprol Xl -) 50 mg PO DAILY [facility] Last Admin: 03/14/19 10:05 Dose: 50 mg Mirtazapine (Remeron -) 30 mg PO HS [facility] Last Admin: 03/13/19 21:08 Dose: 30 mg Potassium Chloride (K-Dur -) 40 meq PO DAILY [facility] Last Admin: 03/14/19 10:05 Dose: 40 meq Tamsulosin HCl (Flomax -) 0.8 mg PO 0830 [facility] Last Admin: 03/14/19 08:27 Dose: 0.8 mg Gen: NAD at rest Heart: RRR Lung: decreased breath sounds at the bases Abd: soft, nontender Ext: trace edema Laboratory Results - last 24 hr 03/14/19 03/14/19 06:30 06:30 WBC 7.5 RBC 3.79 L Hgb 10.9 L Hct 33.7 L D MCV 89.0 MCH 28.9 MCHC 32.4 RDW 15.4 Plt Count 129 L MPV 8.2 Absolute Neuts (auto) 3.5 Neutrophils % 47.6 Lymphocytes % 41.0 H Monocytes % 7.3 Eosinophils % 3.3 Basophils % 0.8 Nucleated RBC % 0 Sodium 138 Potassium 3.8 Chloride 96 L Carbon Dioxide 41 H Anion Gap 2 L BUN 35 H Creatinine 0.8 Creat Clearance w eGFR 91.66 Random Glucose 116 H Calcium 8.8 Total Bilirubin 0.4 AST 21 ALT 23 Alkaline Phosphatase 60 Total Protein 6.9 Albumin 2.9 L A/P Acute on Chronic Diastolic Heart Failure R Pleural Effusion COPD CAD Hypothyroidism - Lasix BID - monitor urine output, creatinine - daily weights - O2 to keep SpO2 >90% - inhaled bronchodilators - DVT prophylaxis Dr Samayoa
--- NOTE | 2019-03-14 11:16 | PN ---
Progress Note (short form) - Note Progress Note: pt seen/ examined chart reviewed overall condition same denies pain breathing stable passing urine weight essentially remains same Vital Signs Temp 97.8 F 03/14/19 10:00 Pulse 97 H 03/14/19 10:00 Resp 20 03/14/19 10:00 BP 122/53 L 03/14/19 10:00 Pulse Ox 98 03/14/19 05:41 Intake & Output 03/13/19 03/13/19 03/14/19 11:59 23:59 11:59 Intake Total 240 980 Output Total 500 2450 850 Balance -260 1470 -850 Weight 241 lb 242 lb 3 oz Intake: Oral 240 980 Output: Urine 2450 850 Piña 2450 850 Emesis 500 Other: Voiding Method Indwelling Catheter Indwelling Catheter Bowel Movement No Yes # Bowel Movements 1 Weight Measurement Method [facility] Active Medications Acetaminophen (Tylenol -) 500 mg PO Q6H PRN PRN Reason: PAIN 1-3 Aspirin (Asa -) 81 mg PO DAILY [facility] Last Admin: 03/14/19 10:05 Dose: 81 mg Atorvastatin Calcium (Lipitor -) 20 mg PO HS [facility] Last Admin: 03/13/19 21:08 Dose: 20 mg Docusate Sodium (Colace -) 200 mg PO HS [facility] Last Admin: 03/13/19 21:08 Dose: 200 mg Enoxaparin Sodium (Lovenox -) 40 mg SQ DAILY [facility] Last Admin: 03/14/19 10:05 Dose: 40 mg Furosemide (Lasix Injection -) 80 mg IVPUSH BID@0600,1400 [facility] Last Admin: 03/14/19 06:31 Dose: 80 mg Levothyroxine Sodium (Synthroid -) 75 mcg PO DAILY@0700 [facility] Last Admin: 03/14/19 06:31 Dose: 75 mcg Lorazepam (Ativan -) 0.5 mg PO Q12H PRN PRN Reason: ANXIETY Last Admin: 03/14/19 10:05 Dose: 0.5 mg Melatonin (Melatonin) 3 mg PO HS PRN PRN Reason: INSOMNIA Metoprolol Succinate (Toprol Xl -) 50 mg PO DAILY [facility] Last Admin: 03/14/19 10:05 Dose: 50 mg Mirtazapine (Remeron -) 30 mg PO [facility] Last Admin: 03/13/19 21:08 Dose: 30 mg Potassium Chloride (K-Dur -) 40 meq PO DAILY [facility] Last Admin: 03/14/19 10:05 Dose: 40 meq Tamsulosin HCl (Flomax -) 0.8 mg PO 30 [facility] Last Admin: 03/14/19 08:27 Dose: 0.8 mg CBC, BMP 03/14/19 06:30 03/14/19 06:30 Physical Exam. awake no distress obese s1 s2 RRR Lungs decreased breath sounds Abd- soft, obese, NT edema --decreased PLAN off abx iv lasix BID- 80mg BID-- creatinine stable maintain piña repeat CXR-- not significant change- Nebs as needed OOB CT chest noted Normal EF on Echo continue with meds will discuss with cardio and pulmonary will follow continue present care for now Problem List - Problems (1) ASHD (arteriosclerotic heart disease) Code(s): I25.10 - ATHSCL HEART DISEASE OF [place] CORONARY ARTERY W/O ANG PCTRS (2) Acute on chronic respiratory failure with hypoxia and hypercapnia Code(s): J96.21 - ACUTE AND CHRONIC RESPIRATORY FAILURE WITH HYPOXIA; J96.22 - ACUTE AND CHRONIC RESPIRATORY FAILURE WITH HYPERCAPNIA (3) CHF (congestive heart failure) Code(s): I50.9 - HEART FAILURE, UNSPECIFIED (4) Toxic metabolic encephalopathy Code(s): G92 - TOXIC ENCEPHALOPATHY
--- NOTE | 2019-03-14 15:01 | PN ---
Progress Note (short form) - Note Progress Note: s: Current Medications Acetaminophen (Tylenol -) 500 mg PO Q6H PRN PRN Reason: PAIN 1-3 Aspirin (Asa -) 81 mg PO DAILY [facility] Last Admin: 03/14/19 10:05 Dose: 81 mg Atorvastatin Calcium (Lipitor -) 20 mg PO HS [facility] Last Admin: 03/13/19 21:08 Dose: 20 mg Docusate Sodium (Colace -) 200 mg PO HS [facility] Last Admin: 03/13/19 21:08 Dose: 200 mg Enoxaparin Sodium (Lovenox -) 40 mg SQ DAILY [facility] Last Admin: 03/14/19 10:05 Dose: 40 mg Furosemide (Lasix Injection -) 80 mg IVPUSH BID@0600,1400 [facility] Last Admin: 03/14/19 14:42 Dose: 80 mg Levothyroxine Sodium (Synthroid -) 75 mcg PO DAILY@0700 [facility] Last Admin: 03/14/19 06:31 Dose: 75 mcg Lorazepam (Ativan -) 0.5 mg PO Q12H PRN PRN Reason: ANXIETY Last Admin: 03/14/19 10:05 Dose: 0.5 mg Melatonin (Melatonin) 3 mg PO HS PRN PRN Reason: INSOMNIA Metoprolol Succinate (Toprol Xl -) 50 mg PO DAILY [facility] Last Admin: 03/14/19 10:05 Dose: 50 mg Mirtazapine (Remeron -) 30 mg PO HS [facility] Last Admin: 03/13/19 21:08 Dose: 30 mg Potassium Chloride (K-Dur -) 40 meq PO DAILY [facility] Last Admin: 03/14/19 10:05 Dose: 40 meq Tamsulosin HCl (Flomax -) 0.8 mg PO 0830 [facility] Last Admin: 03/14/19 08:27 Dose: 0.8 mg Vital Signs Period Temp Pulse Resp BP Sys/Jolley Pulse Ox Last 24 Hr 97.8 F-98.0 F 77-97 18-20 102-122/53-70 97-98 Constitutional: Yes: Well Nourished, No Distress, Calm Cardiovascular: Yes: Regular Rate and Rhythm. No: JVD, Gallop, Murmur Respiratory: Yes: Regular, CTA Bilaterally. No: Accessory Muscle Use Extremities: No: Cold Edema: No Neurological: Yes: Alert. No: Seizure Psychiatric: No: Agitated Assessment/Plan CT chest large right pleural effusion with compression atelectasis of R base, minimal atelectasis of L base. Echo 02/2019 LV mildly dilated, nl LV function, mild TR, mod ao sclerosis, tds, RV not well visualized, LA mod dilated, RA mod dilated, mild ao root dilation EKG sinus 1st deg AVB, LBBB 88M h/o COPD, h/o hypercapnic respiratory failure, CAD s/p stents, CHD, hypothyroisidm, BPH, HTN, HLD, PVD,anxiety p/w unresponsiveness shortness of breath, unresponsiveness, acute diastolic HF exacerbation - nl LV function on echo, RV not well visualized - CT chest with R pleural effusion - CXR shows improvement. net negative >3L yesterday however weight charted is stable - feels less sob and edema is improving, +JVD on exam, Cr stable. continue lasix 80 mg IV BID -03/12: denies sob. labs stable. cont lasix 80 iv bid, repeat CXR -03/14: CXR stable yesterday. bed weights stable, BUN/Cr stable. edema improving. continue lasix 80 mg IV BID UTI - manage per primary, ID CAD - s/p stents 20 years ago - cont aspirin, statin, bb HTN - cont current meds HLD - cont statin
[2019-03-14] MEDS: MIRTAZAPINE 30 MG TABLET (FP) PO SCH (21:16)
[2019-03-14] MEDS: DOCUSATE SODIUM 100 MG CAPSULE (FP) PO SCH (21:16)
[2019-03-14] MEDS: ATORVASTATIN CA 20 MG TABLET (FP) PO SCH (21:16)
[2019-03-15] MEDS: FUROSEMIDE 40 MG/4 ML INJECTABLE VIAL IVPUSH SCH ×2 (05:59→14:00)
[2019-03-15] MEDS: LEVOTHYROXINE NA 75 MCG TABLET (FP) PO SCH (05:59)
[2019-03-15] MEDS: TAMSULOSIN HCL 0.4 MG CAP PO SCH (09:13)
[2019-03-15] MEDS: POTASSIUM CHLORIDE TABS 20 MEQ TABLET.ER (FP) PO SCH (09:14)
[2019-03-15] MEDS: ASPIRIN 81 MG CHEWABLE TABLETS PO SCH (09:14)
[2019-03-15] MEDS: ENOXAPARIN NA (PORCINE) 40 MG/0.4 ML DISP.SYRIN SQ SCH (10:45)
--- NOTE | 2019-03-15 11:42 | PN ---
Progress Note (short form) - Note Progress Note: Resting in NAD. No acute events overnight. Denies shortness of breath or chest pain. Intake & Output 03/12/19 03/13/19 03/14/19 03/15/19 23:59 23:59 23:59 23:59 Intake Total 460 1220 900 380 Output Total 4450 2950 2750 900 Balance -3990 -1730 -1850 -520 Weight 239 lb 241 lb 242 lb 3 oz 234 lb Last Vital Signs Temp Pulse Resp BP Pulse Ox 97.5 F L 88 18 132/68 99 03/15/19 09:45 03/15/19 09:45 03/15/19 09:45 03/15/19 09:45 03/15/19 09:00 Active Medications Acetaminophen (Tylenol -) 500 mg PO Q6H PRN PRN Reason: PAIN 1-3 Aspirin (Asa -) 81 mg PO DAILY [facility] Last Admin: 03/15/19 09:14 Dose: 81 mg Atorvastatin Calcium (Lipitor -) 20 mg PO HS [facility] Last Admin: 03/14/19 21:16 Dose: 20 mg Docusate Sodium (Colace -) 200 mg PO HS [facility] Last Admin: 03/14/19 21:16 Dose: 200 mg Furosemide (Lasix Injection -) 80 mg IVPUSH BID@0600,1400 [facility] Last Admin: 03/15/19 05:59 Dose: 80 mg Levothyroxine Sodium (Synthroid -) 75 mcg PO DAILY@0700 [facility] Last Admin: 03/15/19 05:59 Dose: 75 mcg Lorazepam (Ativan -) 0.5 mg PO Q12H PRN PRN Reason: ANXIETY Last Admin: 03/14/19 23:25 Dose: 0.5 mg Melatonin (Melatonin) 3 mg PO HS PRN PRN Reason: INSOMNIA Metoprolol Succinate (Toprol Xl -) 50 mg PO DAILY [facility] Last Admin: 03/15/19 09:14 Dose: 50 mg Mirtazapine (Remeron -) 30 mg PO HS [facility] Last Admin: 03/14/19 21:16 Dose: 30 mg Potassium Chloride (K-Dur -) 40 meq PO DAILY [facility] Last Admin: 03/15/19 09:14 Dose: 40 meq Tamsulosin HCl (Flomax -) 0.8 mg PO 0830 [facility] Last Admin: 03/15/19 09:13 Dose: 0.8 mg Gen: NAD at rest Heart: RRR Lung: decreased breath sounds at the bases Abd: soft, nontender Ext: trace edema A/P Acute on Chronic Diastolic Heart Failure R Pleural Effusion COPD CAD Hypothyroidism - Lasix BID - monitor urine output, creatinine - daily weights - O2 to keep SpO2 >90% - inhaled bronchodilators - DVT prophylaxis Dr Samayoa
--- NOTE | 2019-03-15 12:27 | PN ---
Progress Note (short form) - Note Progress Note: sitting up in chair No distress alert and awake looks uncomfortable in chair Vital Signs - 24 hr 03/14/19 03/14/19 03/14/19 14:00 18:30 22:00 Temperature 98.4 F 98.6 F Pulse Rate 91 H 68 Respiratory 21 H 21 H Rate Blood Pressure 120/65 118/68 O2 Sat by Pulse 98 Oximetry (%) 03/15/19 03/15/19 03/15/19 04:07 09:00 09:45 Temperature 97.7 F 97.5 F L Pulse Rate 80 88 Respiratory 21 H 18 Rate Blood Pressure 117/61 132/68 O2 Sat by Pulse 99 Oximetry (%) Current Medications Generic Name Dose Route Start Last Admin Trade Name Freq PRN Reason Stop Dose Admin Acetaminophen 500 mg 03/04/19 19:27 Tylenol - PO Q6H PRN PAIN 1-3 Aspirin 81 mg 03/05/19 10:00 03/15/19 09:14 Asa - PO 81 mg DAILY [facility] Administration Atorvastatin Calcium 20 mg 03/04/19 22:00 03/14/19 21:16 Lipitor - PO 20 mg HS [facility] Administration Docusate Sodium 200 mg 03/04/19 22:00 03/14/19 21:16 Colace - PO 200 mg HS [facility] Administration Furosemide 80 mg 03/09/19 10:49 03/15/19 05:59 Lasix Injection - IVPUSH 80 mg BID@0600,1400 [facility] Administration Levothyroxine Sodium 75 mcg 03/05/19 07:00 03/15/19 05:59 Synthroid - PO 75 mcg DAILY@0700 [facility] Administration Lorazepam 0.5 mg 03/11/19 22:16 03/14/19 23:25 Ativan - PO 0.5 mg Q12H PRN Administration ANXIETY Melatonin 3 mg 03/02/19 22:00 Melatonin PO HS PRN INSOMNIA Metoprolol Succinate 50 mg 03/05/19 11:14 03/15/19 09:14 Toprol Xl - PO 50 mg DAILY [facility] Administration Mirtazapine 30 mg 03/04/19 22:00 03/14/19 21:16 Remeron - PO 30 mg HS [facility] Administration Potassium Chloride 40 meq 03/08/19 16:11 03/15/19 09:14 K-Dur - PO 40 meq DAILY [facility] Administration Tamsulosin HCl 0.8 mg 03/03/19 11:11 03/15/19 09:13 Flomax - PO 0.8 mg 0830 [facility] Administration No JVD s1 s2 RRR Lungs decreased breath sounds,crackles+ left >right Abd- soft, obese, NT edema decreased ++ PLAN IV Zosyn completed iv lasix BID--> 80mg BID-- decreased weight today creatinine stable maintain piña repeat CXR today monitor renal function piña+ Nebs as needed OOB CT chest noted Normal EF on Echo continue with meds Problem List - Problems (1) Acute on chronic respiratory failure with hypoxia and hypercapnia Code(s): J96.21 - ACUTE AND CHRONIC RESPIRATORY FAILURE WITH HYPOXIA; J96.22 - ACUTE AND CHRONIC RESPIRATORY FAILURE WITH HYPERCAPNIA (2) CHF (congestive heart failure) Code(s): I50.9 - HEART FAILURE, UNSPECIFIED (3) Pneumonia Code(s): J18.9 - PNEUMONIA, UNSPECIFIED ORGANISM (4) Respiratory distress Code(s): R06.03 - ACUTE RESPIRATORY DISTRESS (5) Toxic metabolic encephalopathy Code(s): G92 - TOXIC ENCEPHALOPATHY
--- NOTE | 2019-03-15 15:07 | PN ---
Progress Note (short form) - Note Progress Note: s: no cp sob palps dizzy o: Vital Signs Period Temp Pulse Resp BP Sys/Jolley Pulse Ox Last 24 Hr 97.5 F-98.6 F 68-90 18-21 114-132/56-68 98-99 Constitutional: Yes: No Distress, Calm Eyes: Yes: Conjunctiva Clear Respiratory: Yes: Regular, CTA Bilaterally, Diminished (R base) Gastrointestinal: Yes: Normal Bowel Sounds, Soft Cardiovascular: Yes: Regular Rate and Rhythm JVD: Yes Heart Sounds: Yes: S1, S2 Murmur: No: Systolic Murmur Musculoskeletal: No: Back Pain Extremities: No: Cold Edema: Yes Edema: trace Peripheral Pulses WNL: Yes Peripheral Pulses: 2+ Left Doralis Pedis, 2+ Right Dorsalis Pedis Integumentary: No: Jaundice Neurological: Yes: Alert Psychiatric: No: Agitated Current Medications Generic Name Dose Route Start Last Admin Trade Name Freq PRN Reason Stop Dose Admin Acetaminophen 500 mg 03/04/19 19:27 Tylenol - PO Q6H PRN PAIN 1-3 Aspirin 81 mg 03/05/19 10:00 03/15/19 09:14 Asa - PO 81 mg DAILY [facility] Administration Atorvastatin Calcium 20 mg 03/04/19 22:00 03/14/19 21:16 Lipitor - PO 20 mg HS [facility] Administration Docusate Sodium 200 mg 03/04/19 22:00 03/14/19 21:16 Colace - PO 200 mg HS [facility] Administration Furosemide 80 mg 03/09/19 10:49 03/15/19 14:00 Lasix Injection - IVPUSH 80 mg BID@0600,1400 [facility] Administration Levothyroxine Sodium 75 mcg 03/05/19 07:00 03/15/19 05:59 Synthroid - PO 75 mcg DAILY@0700 [facility] Administration Lorazepam 0.5 mg 03/15/19 12:28 Ativan - PO DAILY PRN ANXIETY Melatonin 3 mg 03/02/19 22:00 Melatonin PO HS PRN INSOMNIA Metoprolol Succinate 50 mg 03/05/19 11:14 03/15/19 09:14 Toprol Xl - PO 50 mg DAILY [facility] Administration Mirtazapine 30 mg 03/04/19 22:00 03/14/19 21:16 Remeron - PO 30 mg HS [facility] Administration Potassium Chloride 40 meq 03/08/19 16:11 03/15/19 09:14 K-Dur - PO 40 meq DAILY [facility] Administration Tamsulosin HCl 0.8 mg 03/03/19 11:11 03/15/19 09:13 Flomax - PO 0.8 mg 0830 [facility] Administration CBC, BMP 03/14/19 06:30 03/14/19 06:30 Assessment/Plan CT chest large right pleural effusion with compression atelectasis of R base, minimal atelectasis of L base. Echo 02/2019 LV mildly dilated, nl LV function, mild TR, mod ao sclerosis, tds, RV not well visualized, LA mod dilated, RA mod dilated, mild ao root dilation EKG sinus 1st deg AVB, LBBB 88M h/o COPD, h/o hypercapnic respiratory failure, CAD s/p stents, CHD, hypothyroisidm, BPH, HTN, HLD, PVD,anxiety p/w unresponsiveness shortness of breath, unresponsiveness, acute diastolic HF exacerbation - nl LV function on echo, RV not well visualized - CT chest with R pleural effusion - CXR shows improvement. net negative >3L yesterday however weight charted is stable - feels less sob and edema is improving, +JVD on exam, Cr stable. continue lasix 80 mg IV BID -03/12: denies sob. labs stable. cont lasix 80 iv bid, repeat CXR -03/14-: CXR stable. wt down. BUN/Cr stable. edema improving. continue lasix 80 mg IV BID UTI - manage per primary, ID CAD - s/p stents 20 years ago - cont aspirin, statin, bb HTN - cont current meds HLD - cont statin
[2019-03-15] MEDS: ATORVASTATIN CA 20 MG TABLET (FP) PO SCH (21:58)
[2019-03-15] MEDS: DOCUSATE SODIUM 100 MG CAPSULE (FP) PO SCH (21:58)
[2019-03-15] MEDS: MIRTAZAPINE 30 MG TABLET (FP) PO SCH (21:58)
[2019-03-15] MEDS: LORazepam 0.5 MG TABLET PO PRN (23:31)
[2019-03-16] MEDS: FUROSEMIDE 40 MG/4 ML INJECTABLE VIAL IVPUSH SCH ×2 (05:14→14:16)
[2019-03-16] MEDS: LEVOTHYROXINE NA 75 MCG TABLET (FP) PO SCH (06:48)
[2019-03-16 07:23] LABS: ALBUMIN 2.8 g/dl (3.4-5.0); ALK PHOS 55 U/L (45-117); ANION GAP 3 MMOL/L (8-16); BILIRUBIN,TOTAL 0.5 mg/dL (0.2-1); BLOOD UREA NITROGEN 32 mg/dL (7-18); CALCIUM 8.8 mg/dL (8.5-10.1); CHLORIDE 94 mmol/L (98-107); CO2 40 mmol/L (21-32); CREATININE 0.7 mg/dL (0.55-1.3); GLUCOSE,RANDOM 117 mg/dL (74-106); POTASSIUM 3.6 mmol/L (3.5-5.1); SGOT/AST 21 U/L (15-37); SGPT/ALT 22 U/L (13-61); SODIUM 137 mmol/L (136-145); TOT PROT 6.4 g/dl (6.4-8.2)
[2019-03-16] MEDS: TAMSULOSIN HCL 0.4 MG CAP PO SCH (08:54)
[2019-03-16] MEDS: ASPIRIN 81 MG CHEWABLE TABLETS PO SCH (11:12)
[2019-03-16] MEDS: POTASSIUM CHLORIDE TABS 20 MEQ TABLET.ER (FP) PO SCH (11:13)
--- NOTE | 2019-03-16 12:30 | PN ---
Progress Note (short form) - Note Progress Note: PULMONARY Denies shortness of breath or chest pain. Has been ambulating with PT. Vital Signs Period Temp Pulse Resp BP Sys/Jolley Pulse Ox Last 24 Hr 97.5 F-98.4 F 72-90 20-20 114-128/56-65 96-98 Gen: NAD at rest Heart: RRR Lung: decreased breath sounds at the bases Abd: soft, nontender Ext: trace edema CBC, BMP 03/14/19 06:30 03/16/19 05:30 Active Medications Acetaminophen (Tylenol -) 500 mg PO Q6H PRN PRN Reason: PAIN 1-3 Aspirin (Asa -) 81 mg PO DAILY [facility] Last Admin: 03/16/19 11:12 Dose: 81 mg Atorvastatin Calcium (Lipitor -) 20 mg PO HS [facility] Last Admin: 03/15/19 21:58 Dose: 20 mg Docusate Sodium (Colace -) 200 mg PO HS [facility] Last Admin: 03/15/19 21:58 Dose: 200 mg Furosemide (Lasix Injection -) 80 mg IVPUSH BID@0600,1400 [facility] Last Admin: 03/16/19 05:14 Dose: 80 mg Levothyroxine Sodium (Synthroid -) 75 mcg PO DAILY@0700 [facility] Last Admin: 03/16/19 06:48 Dose: 75 mcg Lorazepam (Ativan -) 0.5 mg PO DAILY PRN PRN Reason: ANXIETY Last Admin: 03/15/19 23:31 Dose: 0.5 mg Melatonin (Melatonin) 3 mg PO HS PRN PRN Reason: INSOMNIA Metoprolol Succinate (Toprol Xl -) 50 mg PO DAILY [facility] Last Admin: 03/16/19 11:13 Dose: 50 mg Mirtazapine (Remeron -) 30 mg PO HS [facility] Last Admin: 03/15/19 21:58 Dose: 30 mg Potassium Chloride (K-Dur -) 40 meq PO DAILY [facility] Last Admin: 03/16/19 11:13 Dose: 40 meq Tamsulosin HCl (Flomax -) 0.8 mg PO 0830 [facility] Last Admin: 03/16/19 08:54 Dose: 0.8 mg A/P Acute on Chronic Diastolic Heart Failure R Pleural Effusion COPD CAD Hypothyroidism - continue lasix - monitor urine output, creatinine - daily weights - O2 to keep SpO2 >90% - inhaled bronchodilators - DVT prophylaxis
--- NOTE | 2019-03-16 13:46 | PN ---
Progress Note (short form) - Note Progress Note: sitting up in chair looks SOB alert and awake looks uncomfortable in chair Vital Signs - 24 hr 03/15/19 03/15/19 03/15/19 14:00 16:25 18:00 Temperature 98.4 F 97.5 F L Pulse Rate 90 85 Respiratory 20 20 Rate Blood Pressure 114/56 L 118/65 O2 Sat by Pulse 97 Oximetry (%) 03/15/19 03/16/19 03/16/19 21:00 03:22 05:47 Temperature 98.1 F Pulse Rate 84 Respiratory 20 20 Rate Blood Pressure 128/64 O2 Sat by Pulse 96 98 Oximetry (%) 03/16/19 03/16/19 09:00 09:26 Temperature Pulse Rate 72 Respiratory 20 Rate Blood Pressure 122/62 O2 Sat by Pulse 97 Oximetry (%) Current Medications Generic Name Dose Route Start Last Admin Trade Name Freq PRN Reason Stop Dose Admin Acetaminophen 500 mg 03/04/19 19:27 Tylenol - PO Q6H PRN PAIN 1-3 Aspirin 81 mg 03/05/19 10:00 03/16/19 11:12 Asa - PO 81 mg DAILY MEGHAN Administration Atorvastatin Calcium 20 mg 03/04/19 22:00 03/15/19 21:58 Lipitor - PO 20 mg HS [facility]AN Administration Docusate Sodium 200 mg 03/04/19 22:00 03/15/19 21:58 Colace - PO 200 mg HS MEGHAN Administration Furosemide 80 mg 03/09/19 10:49 03/16/19 05:14 Lasix Injection - IVPUSH 80 mg BID@0600,1400 [facility] Administration Levothyroxine Sodium 75 mcg 03/05/19 07:00 03/16/19 06:48 Synthroid - PO 75 mcg DAILY@0700 [facility] Administration Lorazepam 0.5 mg 03/15/19 12:28 03/15/19 23:31 Ativan - PO 0.5 mg DAILY PRN Administration ANXIETY Melatonin 3 mg 03/02/19 22:00 Melatonin PO HS PRN INSOMNIA Metoprolol Succinate 50 mg 03/05/19 11:14 03/16/19 11:13 Toprol Xl - PO 50 mg DAILY [facility] Administration Mirtazapine 30 mg 03/04/19 22:00 03/15/19 21:58 Remeron - PO 30 mg HS [facility]AN Administration Potassium Chloride 40 meq 03/08/19 16:11 03/16/19 11:13 K-Dur - PO 40 meq DAILY [facility] Administration Tamsulosin HCl 0.8 mg 03/03/19 11:11 03/16/19 08:54 Flomax - PO 0.8 mg 0830 [facility] Administration Laboratory Results - last 24 hr 03/16/19 05:30 Sodium 137 Potassium 3.6 Chloride 94 L Carbon Dioxide 40 H Anion Gap 3 L BUN 32 H Creatinine 0.7 Creat Clearance w eGFR 106.93 Random Glucose 117 H Calcium 8.8 Total Bilirubin 0.5 AST 21 ALT 22 Alkaline Phosphatase 55 Total Protein 6.4 Albumin 2.8 L No JVD s1 s2 RRR Lungs decreased breath sounds,crackles+ left >right Abd- soft, obese, NT edema decreased ++ PLAN IV Zosyn completed iv lasix BID--> 80mg BID-- increased weight today --will order fluid restriction As per RN, pt is drinking alot of water everyday creatinine stable maintain piña repeat CXR -- no change piña+ Nebs as needed OOB CT chest noted Normal EF on Echo continue with meds Problem List - Problems (1) Acute on chronic respiratory failure with hypoxia and hypercapnia Code(s): J96.21 - ACUTE AND CHRONIC RESPIRATORY FAILURE WITH HYPOXIA; J96.22 - ACUTE AND CHRONIC RESPIRATORY FAILURE WITH HYPERCAPNIA (2) CHF (congestive heart failure) Code(s): I50.9 - HEART FAILURE, UNSPECIFIED (3) Pneumonia Code(s): J18.9 - PNEUMONIA, UNSPECIFIED ORGANISM (4) Respiratory distress Code(s): R06.03 - ACUTE RESPIRATORY DISTRESS (5) Toxic metabolic encephalopathy Code(s): G92 - TOXIC ENCEPHALOPATHY
--- NOTE | 2019-03-16 14:57 | PN ---
Progress Note, Physician Chief Complaint: up 5 lbs D/w RN, drinking alot of water History of Present Illness: Sitting in chair , no distress Denies worsening SOB - Current Medication List Current Medications: Active Medications Acetaminophen (Tylenol -) 500 mg PO Q6H PRN PRN Reason: PAIN 1-3 Aspirin (Asa -) 81 mg PO DAILY [facility] Last Admin: 03/16/19 11:12 Dose: 81 mg Atorvastatin Calcium (Lipitor -) 20 mg PO HS [facility] Last Admin: 03/15/19 21:58 Dose: 20 mg Docusate Sodium (Colace -) 200 mg PO HS [facility] Last Admin: 03/15/19 21:58 Dose: 200 mg Furosemide (Lasix Injection -) 80 mg IVPUSH BID@0600,1400 [facility] Last Admin: 03/16/19 14:16 Dose: 80 mg Levothyroxine Sodium (Synthroid -) 75 mcg PO DAILY@0700 [facility] Last Admin: 03/16/19 06:48 Dose: 75 mcg Lorazepam (Ativan -) 0.5 mg PO DAILY PRN PRN Reason: ANXIETY Last Admin: 03/15/19 23:31 Dose: 0.5 mg Melatonin (Melatonin) 3 mg PO HS PRN PRN Reason: INSOMNIA Metoprolol Succinate (Toprol Xl -) 50 mg PO DAILY [facility] Last Admin: 03/16/19 11:13 Dose: 50 mg Mirtazapine (Remeron -) 30 mg PO HS [facility] Last Admin: 03/15/19 21:58 Dose: 30 mg Potassium Chloride (K-Dur -) 40 meq PO DAILY [facility] Last Admin: 03/16/19 11:13 Dose: 40 meq Tamsulosin HCl (Flomax -) 0.8 mg PO 0830 [facility] Last Admin: 03/16/19 08:54 Dose: 0.8 mg - Objective Vital Signs: Vital Signs Temperature 98.1 F 03/16/19 05:47 Pulse Rate 72 03/16/19 09:26 Respiratory Rate 20 03/16/19 09:26 Blood Pressure 122/62 03/16/19 09:26 O2 Sat by Pulse Oximetry (%) 97 03/16/19 09:00 Constitutional: Yes: No Distress Cardiovascular: Yes: Regular Rate and Rhythm Respiratory: Yes: Other (decreased basilar breath sounds, no active wheezing) Gastrointestinal: Yes: Soft Edema: Yes Edema: LLE: 2+ (venous stasis), RLE: 2+ (venous stasis) Neurological: Yes: Alert Labs: CBC, BMP 03/14/19 06:30 03/16/19 05:30 INR, PTT INR 1.05 (0.83-1.09) 03/01/19 11:19 Assessment/Plan IMP: 1. Acute on chronic diastolic CHF 2. CAD with remote h/o PCI REC: 1. With RN, discussed fluid restriction with patient. Weight is up again today. 2. Continue IV Lasix with daily BMP to monitor renal fx 3. Cont. ASA/statin/beta dawson for his remote h/o CAD.
[2019-03-16] MEDS: ATORVASTATIN CA 20 MG TABLET (FP) PO SCH (21:57)
[2019-03-16] MEDS: MIRTAZAPINE 30 MG TABLET (FP) PO SCH (21:57)
[2019-03-16] MEDS: DOCUSATE SODIUM 100 MG CAPSULE (FP) PO SCH (21:57)
[2019-03-17] MEDS: LORazepam 0.5 MG TABLET PO PRN (00:05)
[2019-03-17] MEDS: FUROSEMIDE 40 MG/4 ML INJECTABLE VIAL IVPUSH SCH ×2 (06:18→13:45)
[2019-03-17] MEDS: LEVOTHYROXINE NA 75 MCG TABLET (FP) PO SCH (06:18)
[2019-03-17 07:21] LABS: ANION GAP 3 MMOL/L (8-16); BLOOD UREA NITROGEN 31 mg/dL (7-18); CALCIUM 8.8 mg/dL (8.5-10.1); CHLORIDE 95 mmol/L (98-107); CO2 41 mmol/L (21-32); CREATININE 0.7 mg/dL (0.55-1.3); GLUCOSE,RANDOM 107 mg/dL (74-106); POTASSIUM 3.5 mmol/L (3.5-5.1); SODIUM 138 mmol/L (136-145)
[2019-03-17] MEDS: TAMSULOSIN HCL 0.4 MG CAP PO SCH (08:38)
[2019-03-17] MEDS: ASPIRIN 81 MG CHEWABLE TABLETS PO SCH (09:49)
[2019-03-17] MEDS: POTASSIUM CHLORIDE TABS 20 MEQ TABLET.ER (FP) PO SCH (09:49)
--- NOTE | 2019-03-17 11:08 | PN ---
Progress Note (short form) - Note Progress Note: Resting in NAD on NC O2 No acute events overnight. Denies shortness of breath or chest pain. Intake & Output 03/14/19 03/15/19 03/16/19 03/17/19 23:59 23:59 23:59 23:59 Intake Total 016 390 4997 Output Total 2750 2800 2620 400 Balance -1850 -2070 -1170 -400 Weight 242 lb 3 oz 234 lb 239 lb 236 lb 9 oz Last Vital Signs Temp Pulse Resp BP Pulse Ox 98.6 F 98 H 18 118/54 L 97 03/17/19 09:50 03/17/19 09:50 03/17/19 09:50 03/17/19 09:50 03/17/19 09:00 Active Medications Acetaminophen (Tylenol -) 500 mg PO Q6H PRN PRN Reason: PAIN 1-3 Aspirin (Asa -) 81 mg PO DAILY [facility] Last Admin: 03/17/19 09:49 Dose: 81 mg Atorvastatin Calcium (Lipitor -) 20 mg PO HS [facility] Last Admin: 03/16/19 21:57 Dose: 20 mg Docusate Sodium (Colace -) 200 mg PO HS [facility] Last Admin: 03/16/19 21:57 Dose: 200 mg Furosemide (Lasix Injection -) 80 mg IVPUSH BID@0600,1400 [facility] Last Admin: 03/17/19 06:18 Dose: 80 mg Levothyroxine Sodium (Synthroid -) 75 mcg PO DAILY@0700 [facility] Last Admin: 03/17/19 06:18 Dose: 75 mcg Lorazepam (Ativan -) 0.5 mg PO DAILY PRN PRN Reason: ANXIETY Last Admin: 03/17/19 00:05 Dose: 0.5 mg Melatonin (Melatonin) 3 mg PO HS PRN PRN Reason: INSOMNIA Metoprolol Succinate (Toprol Xl -) 50 mg PO DAILY [facility] Last Admin: 03/17/19 09:49 Dose: 50 mg Mirtazapine (Remeron -) 30 mg PO HS [facility] Last Admin: 03/16/19 21:57 Dose: 30 mg Potassium Chloride (K-Dur -) 40 meq PO DAILY [facility] Last Admin: 03/17/19 09:49 Dose: 40 meq Tamsulosin HCl (Flomax -) 0.8 mg PO 0830 [facility] Last Admin: 03/17/19 08:38 Dose: 0.8 mg Gen: NAD at rest Heart: RRR Lung: decreased breath sounds at the bases Abd: soft, nontender Ext: trace edema Laboratory Results - last 24 hr 03/17/19 05:30 Sodium 138 Potassium 3.5 Chloride 95 L Carbon Dioxide 41 H Anion Gap 3 L BUN 31 H Creatinine 0.7 Creat Clearance w eGFR 106.93 Random Glucose 107 H Calcium 8.8 A/P Acute on Chronic Diastolic Heart Failure R Pleural Effusion COPD CAD Hypothyroidism - Lasix BID - monitor urine output, creatinine - daily weights - O2 to keep SpO2 >90% - inhaled bronchodilators - DVT prophylaxis Dr Samayoa
--- NOTE | 2019-03-17 11:54 | PN ---
Progress Note (short form) - Note Progress Note: not very happy with fluid restriction no SOB Vital Signs - 24 hr 03/16/19 03/16/19 03/16/19 15:24 18:00 21:00 Temperature 98.9 F 98.3 F Pulse Rate 86 99 H Respiratory Rate Blood Pressure 125/69 108/55 L O2 Sat by Pulse 96 Oximetry (%) 03/17/19 03/17/19 09:00 09:50 Temperature 98.6 F Pulse Rate 98 H Respiratory 18 Rate Blood Pressure 118/54 L O2 Sat by Pulse 97 Oximetry (%) Current Medications Generic Name Dose Route Start Last Admin Trade Name Freq PRN Reason Stop Dose Admin Acetaminophen 500 mg 03/04/19 19:27 Tylenol - PO Q6H PRN PAIN 1-3 Aspirin 81 mg 03/05/19 10:00 03/17/19 09:49 Asa - PO 81 mg DAILY MEGHAN Administration Atorvastatin Calcium 20 mg 03/04/19 22:00 03/16/19 21:57 Lipitor - PO 20 mg HS MEGHAN Administration Docusate Sodium 200 mg 03/04/19 22:00 03/16/19 21:57 Colace - PO 200 mg HS MEGHAN Administration Furosemide 80 mg 03/09/19 10:49 03/17/19 06:18 Lasix Injection - IVPUSH 80 mg BID@0600,1400 [facility] Administration Levothyroxine Sodium 75 mcg 03/05/19 07:00 03/17/19 06:18 Synthroid - PO 75 mcg DAILY@0700 [facility] Administration Lorazepam 0.5 mg 03/15/19 12:28 03/17/19 00:05 Ativan - PO 0.5 mg DAILY PRN Administration ANXIETY Melatonin 3 mg 03/02/19 22:00 Melatonin PO HS PRN INSOMNIA Metoprolol Succinate 50 mg 03/05/19 11:14 03/17/19 09:49 Toprol Xl - PO 50 mg DAILY [facility] Administration Mirtazapine 30 mg 03/04/19 22:00 03/16/19 21:57 Remeron - PO 30 mg HS MEGHAN Administration Potassium Chloride 40 meq 03/08/19 16:11 03/17/19 09:49 K-Dur - PO 40 meq DAILY [facility] Administration Tamsulosin HCl 0.8 mg 03/03/19 11:11 03/17/19 08:38 Flomax - PO 0.8 mg 0830 MEGHAN Administration Laboratory Results - last 24 hr 03/17/19 05:30 Sodium 138 Potassium 3.5 Chloride 95 L Carbon Dioxide 41 H Anion Gap 3 L BUN 31 H Creatinine 0.7 Creat Clearance w eGFR 106.93 Random Glucose 107 H Calcium 8.8 No JVD s1 s2 RRR Lungs decreased breath sounds,crackles+ left >right Abd- soft, obese, NT edema decreased ++ PLAN IV Zosyn completed iv lasix BID--> 80mg BID--decreased weight today --on strict fluid restriction creatinine stable maintain piña repeat CXR -- no change check CXR tomorrow piña+ Nebs as needed OOB CT chest noted Normal EF on Echo continue with meds Problem List - Problems (1) Acute on chronic respiratory failure with hypoxia and hypercapnia Code(s): J96.21 - ACUTE AND CHRONIC RESPIRATORY FAILURE WITH HYPOXIA; J96.22 - ACUTE AND CHRONIC RESPIRATORY FAILURE WITH HYPERCAPNIA (2) CHF (congestive heart failure) Code(s): I50.9 - HEART FAILURE, UNSPECIFIED (3) Pneumonia Code(s): J18.9 - PNEUMONIA, UNSPECIFIED ORGANISM (4) Respiratory distress Code(s): R06.03 - ACUTE RESPIRATORY DISTRESS (5) Toxic metabolic encephalopathy Code(s): G92 - TOXIC ENCEPHALOPATHY
--- NOTE | 2019-03-17 16:17 | PN ---
Progress Note (short form) - Note Progress Note: s: no cp sob palps dizzy o: Vital Signs Period Temp Pulse Resp BP Sys/Jolley Pulse Ox Last 24 Hr 98.3 F-98.6 F 98-99 18 108-118/54-55 96-97 Constitutional: Yes: No Distress, Calm Eyes: Yes: Conjunctiva Clear Respiratory: Yes: Regular, CTA Bilaterally, Diminished (R base) Gastrointestinal: Yes: Normal Bowel Sounds, Soft Cardiovascular: Yes: Regular Rate and Rhythm JVD: Yes Heart Sounds: Yes: S1, S2 Murmur: No: Systolic Murmur Musculoskeletal: No: Back Pain Extremities: No: Cold Edema: Yes Edema: trace Peripheral Pulses WNL: Yes Peripheral Pulses: 2+ Left Doralis Pedis, 2+ Right Dorsalis Pedis Integumentary: No: Jaundice Neurological: Yes: Alert Psychiatric: No: Agitated Current Medications Acetaminophen (Tylenol -) 500 mg PO Q6H PRN PRN Reason: PAIN 1-3 Aspirin (Asa -) 81 mg PO DAILY [facility] Last Admin: 03/17/19 09:49 Dose: 81 mg Atorvastatin Calcium (Lipitor -) 20 mg PO HS [facility] Last Admin: 03/16/19 21:57 Dose: 20 mg Docusate Sodium (Colace -) 200 mg PO HS [facility] Last Admin: 03/16/19 21:57 Dose: 200 mg Furosemide (Lasix Injection -) 80 mg IVPUSH BID@0600,1400 [facility] Last Admin: 03/17/19 13:45 Dose: 80 mg Levothyroxine Sodium (Synthroid -) 75 mcg PO DAILY@0700 [facility] Last Admin: 03/17/19 06:18 Dose: 75 mcg Lorazepam (Ativan -) 0.5 mg PO DAILY PRN PRN Reason: ANXIETY Last Admin: 03/17/19 00:05 Dose: 0.5 mg Melatonin (Melatonin) 3 mg PO HS PRN PRN Reason: INSOMNIA Metoprolol Succinate (Toprol Xl -) 50 mg PO DAILY [facility] Last Admin: 03/17/19 09:49 Dose: 50 mg Mirtazapine (Remeron -) 30 mg PO HS [facility] Last Admin: 03/16/19 21:57 Dose: 30 mg Potassium Chloride (K-Dur -) 40 meq PO DAILY [facility] Last Admin: 03/17/19 09:49 Dose: 40 meq Tamsulosin HCl (Flomax -) 0.8 mg PO 0830 [facility] Last Admin: 03/17/19 08:38 Dose: 0.8 mg Assessment/Plan CT chest large right pleural effusion with compression atelectasis of R base, minimal atelectasis of L base. Echo 02/2019 LV mildly dilated, nl LV function, mild TR, mod ao sclerosis, tds, RV not well visualized, LA mod dilated, RA mod dilated, mild ao root dilation EKG sinus 1st deg AVB, LBBB 88M h/o COPD, h/o hypercapnic respiratory failure, CAD s/p stents, CHD, hypothyroisidm, BPH, HTN, HLD, PVD,anxiety p/w unresponsiveness shortness of breath, unresponsiveness, acute diastolic HF exacerbation - nl LV function on echo, RV not well visualized - CT chest with R pleural effusion - CXR shows improvement. net negative >3L yesterday however weight charted is stable -03/12: denies sob. labs stable. cont lasix 80 iv bid, repeat CXR -03/14-: CXR stable. wt down. BUN/Cr stable. edema improving -03/17: was drinking a lot of fluids, weight up yesterday. now improving with fluid restriction, IV lasix. Cr stable. continue lasix 80 mg IV BID, reinforced fluid restriction UTI - manage per primary, ID CAD - s/p stents 20 years ago - cont aspirin, statin, bb HTN - cont current meds HLD - cont statin
[2019-03-17] MEDS: DOCUSATE SODIUM 100 MG CAPSULE (FP) PO SCH (21:19)
[2019-03-17] MEDS: ATORVASTATIN CA 20 MG TABLET (FP) PO SCH (21:19)
[2019-03-17] MEDS: MIRTAZAPINE 30 MG TABLET (FP) PO SCH (21:19)
[2019-03-18] MEDS: LORazepam 0.5 MG TABLET PO PRN (00:18)
[2019-03-18] MEDS: FUROSEMIDE 40 MG/4 ML INJECTABLE VIAL IVPUSH SCH ×2 (06:12→14:04)
[2019-03-18] MEDS: LEVOTHYROXINE NA 75 MCG TABLET (FP) PO SCH (06:12)
[2019-03-18 08:14] LABS: HEMATOCRIT 29.8 % (35.4-49); HEMOGLOBIN 9.8 GM/dL (11.7-16.9); MCH 29.3 pg (25.7-33.7); MCHC 32.9 g/dl (32.0-35.9); MEAN PLT VOLUME 8.2 fl (7.5-11.1); PLATELET COUNT 142 K/MM3 (134-434); RBC 3.35 M/mm3 (4.00-5.60); RDW 15.4 % (11.9-15.9)
[2019-03-18 08:41] LABS: ALBUMIN 2.9 g/dl (3.4-5.0); ALK PHOS 54 U/L (45-117); ANION GAP 6 MMOL/L (8-16); BILIRUBIN,TOTAL 0.4 mg/dL (0.2-1); BLOOD UREA NITROGEN 34 mg/dL (7-18); CALCIUM 8.7 mg/dL (8.5-10.1); CHLORIDE 96 mmol/L (98-107); CO2 39 mmol/L (21-32); CREATININE 0.8 mg/dL (0.55-1.3); GLUCOSE,RANDOM 120 mg/dL (74-106); POTASSIUM 3.4 mmol/L (3.5-5.1); SGOT/AST 25 U/L (15-37); SGPT/ALT 26 U/L (13-61); SODIUM 141 mmol/L (136-145); TOT PROT 6.5 g/dl (6.4-8.2)
[2019-03-18] MEDS: TAMSULOSIN HCL 0.4 MG CAP PO SCH (08:54)
[2019-03-18] MEDS: ASPIRIN 81 MG CHEWABLE TABLETS PO SCH (09:57)
[2019-03-18] MEDS: POTASSIUM CHLORIDE TABS 20 MEQ TABLET.ER (FP) PO SCH (09:58)
[2019-03-18] MEDS ORDERED: POTASSIUM CHLORIDE ORAL LIQUID 20 MEQ/15 ML PO ONE (10:01)
--- NOTE | 2019-03-18 10:07 | PN ---
Progress Note (short form) - Note Progress Note: pt seen/ examined chart reviewed awake/ comfortable feels ok no distress overall looks same Vital Signs Temp 97.7 F 03/18/19 06:00 Pulse 78 03/18/19 06:00 Resp 18 03/17/19 09:50 BP 127/63 03/18/19 06:00 Pulse Ox 98 03/18/19 06:38 Intake & Output 03/17/19 03/17/19 03/18/19 11:59 23:59 11:59 Intake Total 400 1250 Output Total 400 1800 750 Balance 0 -550 -750 Weight 236 lb 9 oz 232 lb 4.8 oz Intake: Oral 400 1250 Output: Urine 400 1800 750 Piña 400 1800 750 Other: Voiding Method Indwelling Catheter Indwelling Catheter Bowel Movement No # Bowel Movements 1 Weight Measurement Method Built in Bedscale Built in Bedscale Active Medications Acetaminophen (Tylenol -) 500 mg PO Q6H PRN PRN Reason: PAIN 1-3 Aspirin (Asa -) 81 mg PO DAILY [facility] Last Admin: 03/18/19 09:57 Dose: 81 mg Atorvastatin Calcium (Lipitor -) 20 mg PO HS [facility] Last Admin: 03/17/19 21:19 Dose: 20 mg Docusate Sodium (Colace -) 200 mg PO HS [facility] Last Admin: 03/17/19 21:19 Dose: 200 mg Furosemide (Lasix Injection -) 80 mg IVPUSH BID@0600,1400 [facility] Last Admin: 03/18/19 06:12 Dose: 80 mg Levothyroxine Sodium (Synthroid -) 75 mcg PO DAILY@0700 [facility] Last Admin: 03/18/19 06:12 Dose: 75 mcg Lorazepam (Ativan -) 0.5 mg PO DAILY PRN PRN Reason: ANXIETY Last Admin: 03/18/19 00:18 Dose: 0.5 mg Melatonin (Melatonin) 3 mg PO HS PRN PRN Reason: INSOMNIA Metoprolol Succinate (Toprol Xl -) 50 mg PO DAILY [facility] Last Admin: 03/18/19 09:58 Dose: 50 mg Mirtazapine (Remeron -) 30 mg PO HS [facility] Last Admin: 03/17/19 21:19 Dose: 30 mg Potassium Chloride (K-Dur -) 40 meq PO DAILY [facility] Last Admin: 03/18/19 09:58 Dose: 40 meq Potassium Chloride (Potassium Chloride Oral Liquid) 40 meq PO ONCE ONE Stop: 03/18/19 10:02 Tamsulosin HCl (Flomax -) 0.8 mg PO 0830 [facility] Last Admin: 03/18/19 08:54 Dose: 0.8 mg CBC, BMP 03/18/19 07:00 03/18/19 07:00 cxr -- Pending Physical Exam. Awake/ comfortable. s1 s2 RRR Lungs decreased breath sounds,crackles+ left >right Abd- soft, obese, NT edema decreased ++ Neuro- awake PLAN meds reviewed iv lasix BID--> 80mg BID---on strict fluid restriction creatinine stable maintain piña repeat CXR -- Nebs as needed OOB continue with meds will follow supplement k Problem List - Problems (1) ASHD (arteriosclerotic heart disease) Code(s): I25.10 - ATHSCL HEART DISEASE OF [place] CORONARY ARTERY W/O ANG PCTRS (2) Acute on chronic respiratory failure with hypoxia and hypercapnia Code(s): J96.21 - ACUTE AND CHRONIC RESPIRATORY FAILURE WITH HYPOXIA; J96.22 - ACUTE AND CHRONIC RESPIRATORY FAILURE WITH HYPERCAPNIA (3) CHF (congestive heart failure) Code(s): I50.9 - HEART FAILURE, UNSPECIFIED (4) Toxic metabolic encephalopathy Code(s): G92 - TOXIC ENCEPHALOPATHY
--- NOTE | 2019-03-18 14:08 | PN ---
Progress Note (short form) - Note Progress Note: s: no cp sob palps dizzy o: Vital Signs Period Temp Pulse Resp BP Sys/Jolley Pulse Ox Last 24 Hr 97.7 F-99.0 F 78-90 22 120-127/59-63 98-98 Constitutional: Yes: No Distress, Calm Eyes: Yes: Conjunctiva Clear Respiratory: Yes: Regular, CTA Bilaterally Gastrointestinal: Yes: Normal Bowel Sounds, Soft Cardiovascular: Yes: Regular Rate and Rhythm JVD: Yes Heart Sounds: Yes: S1, S2 Murmur: No: Systolic Murmur Musculoskeletal: No: Back Pain Extremities: No: Cold Edema: Yes Edema: trace Peripheral Pulses: 2+ Left Doralis Pedis, 2+ Right Dorsalis Pedis Integumentary: No: Jaundice Neurological: Yes: Alert Psychiatric: No: Agitated Current Medications Generic Name Dose Route Start Last Admin Trade Name Freq PRN Reason Stop Dose Admin Acetaminophen 500 mg 03/04/19 19:27 Tylenol - PO Q6H PRN PAIN 1-3 Aspirin 81 mg 03/05/19 10:00 03/18/19 09:57 Asa - PO 81 mg DAILY [facility] Administration Atorvastatin Calcium 20 mg 03/04/19 22:00 03/17/19 21:19 Lipitor - PO 20 mg HS [facility] Administration Docusate Sodium 200 mg 03/04/19 22:00 03/17/19 21:19 Colace - PO 200 mg HS [facility] Administration Furosemide 80 mg 03/09/19 10:49 03/18/19 14:04 Lasix Injection - IVPUSH 80 mg BID@0600,1400 [facility] Administration Levothyroxine Sodium 75 mcg 03/05/19 07:00 03/18/19 06:12 Synthroid - PO 75 mcg DAILY@0700 [facility] Administration Melatonin 3 mg 03/02/19 22:00 Melatonin PO HS PRN INSOMNIA Metoprolol Succinate 50 mg 03/05/19 11:14 03/18/19 09:58 Toprol Xl - PO 50 mg DAILY [facility] Administration Mirtazapine 30 mg 03/04/19 22:00 03/17/19 21:19 Remeron - PO 30 mg HS [facility] Administration Potassium Chloride 40 meq 03/08/19 16:11 03/18/19 09:58 K-Dur - PO 40 meq DAILY [facility] Administration Tamsulosin HCl 0.8 mg 03/03/19 11:11 03/18/19 08:54 Flomax - PO 0.8 mg 0830 [facility] Administration CBC, BMP 03/18/19 07:00 03/18/19 07:00 Assessment/Plan CT chest large right pleural effusion with compression atelectasis of R base, minimal atelectasis of L base. Echo 02/2019 LV mildly dilated, nl LV function, mild TR, mod ao sclerosis, tds, RV not well visualized, LA mod dilated, RA mod dilated, mild ao root dilation EKG sinus 1st deg AVB, LBBB 88M h/o COPD, h/o hypercapnic respiratory failure, CAD s/p stents, CHD, hypothyroisidm, BPH, HTN, HLD, PVD,anxiety p/w unresponsiveness shortness of breath, unresponsiveness, acute diastolic HF exacerbation - nl LV function on echo, RV not well visualized - CT chest with R pleural effusion - CXR shows improvement. net negative >3L yesterday however weight charted is stable -03/12: denies sob. labs stable. cont lasix 80 iv bid, repeat CXR -03/14-: CXR stable. wt down. BUN/Cr stable. edema improving -03/17: was drinking a lot of fluids, weight up yesterday. now improving with fluid restriction, IV lasix. Cr stable. continue lasix 80 mg IV BID, reinforced fluid restriction -03/18: wt down, cr stable. pt walked with pt further today and felt less duarte. continue same iv lasix for now. daily chem7, wt UTI - manage per primary, ID CAD - s/p stents 20 years ago - cont aspirin, statin, bb HTN - cont current meds HLD - cont statin
--- NOTE | 2019-03-18 15:44 | PN ---
Progress Note (short form) - Note Progress Note: PULMONARY Resting on O2 VSS Gen: NAD at rest Heart: RRR Lung: decreased breath sounds at the bases Abd: soft, nontender Ext: trace edema Active Medications noted labs/notes/images reviewed A/P Acute on Chronic Diastolic Heart Failure R Pleural Effusion COPD CAD Hypothyroidism - continue lasix - monitor urine output, creatinine - daily weights - replete lytes - O2 to keep SpO2 >90% - inhaled bronchodilators - DVT prophylaxis Leeann DICKSON MD
[2019-03-18] MEDS ORDERED: LORazepam 0.5 MG TABLET PO PRN (16:26)
[2019-03-18] MEDS: NYSTATIN/TRIAMCINOLONE TOPICAL OINTMENT 15 GM TUBE TP SCH ×2 (17:55→21:40)
[2019-03-18] MEDS: DOCUSATE SODIUM 100 MG CAPSULE (FP) PO SCH (21:39)
[2019-03-18] MEDS: ATORVASTATIN CA 20 MG TABLET (FP) PO SCH (21:39)
[2019-03-18] MEDS: MIRTAZAPINE 30 MG TABLET (FP) PO SCH (21:39)
[2019-03-18] MEDS ORDERED: NYSTATIN/TRIAMCINOLONE TOPICAL CREAM 15 GM TUBE TP SCH (22:00)
[2019-03-19] MEDS: LORazepam 0.5 MG TABLET PO PRN (00:04)
[2019-03-19] MEDS: FUROSEMIDE 40 MG/4 ML INJECTABLE VIAL IVPUSH SCH ×2 (05:47→13:24)
[2019-03-19] MEDS: LEVOTHYROXINE NA 75 MCG TABLET (FP) PO SCH (06:20)
[2019-03-19] MEDS: TAMSULOSIN HCL 0.4 MG CAP PO SCH (08:48)
[2019-03-19] MEDS ORDERED: PT OWN MED DRAWER 7, Y5N ONE (10:43)
[2019-03-19] MEDS: POTASSIUM CHLORIDE TABS 20 MEQ TABLET.ER (FP) PO SCH (10:49)
[2019-03-19] MEDS: NYSTATIN/TRIAMCINOLONE TOPICAL OINTMENT 15 GM TUBE TP SCH ×2 (10:49→21:43)
[2019-03-19] MEDS: ASPIRIN 81 MG CHEWABLE TABLETS PO SCH (10:49)
--- NOTE | 2019-03-19 12:07 | PN ---
Progress Note (short form) - Note Progress Note: pt seen/ examined chart reviewed awake/ comfortable. sitting in chair Vital Signs Temp 97.6 F 03/19/19 08:45 Pulse 82 03/19/19 08:45 Resp 20 03/19/19 08:45 BP 124/59 L 03/19/19 08:45 Pulse Ox 98 03/19/19 09:00 Intake & Output 03/18/19 03/19/19 03/19/19 23:59 11:59 23:59 Intake Total 250 Output Total 1300 800 Balance -1050 -800 Weight 232 lb 9.6 oz Intake: Oral 250 Output: Urine 1300 800 Piña 1300 800 Other: Voiding Method Indwelling Catheter Indwelling Catheter Bowel Movement Yes No # Bowel Movements 1 Weight Measurement Method Built in [facility] Active Medications Acetaminophen (Tylenol -) 500 mg PO Q6H PRN PRN Reason: PAIN 1-3 Aspirin (Asa -) 81 mg PO DAILY [facility] Last Admin: 03/19/19 10:49 Dose: 81 mg Atorvastatin Calcium (Lipitor -) 20 mg PO HS [facility] Last Admin: 03/18/19 21:39 Dose: 20 mg Docusate Sodium (Colace -) 200 mg PO HS [facility] Last Admin: 03/18/19 21:39 Dose: 200 mg Furosemide (Lasix Injection -) 80 mg IVPUSH BID@0600,1400 [facility] Last Admin: 03/19/19 05:47 Dose: 80 mg Levothyroxine Sodium (Synthroid -) 75 mcg PO DAILY@0700 [facility] Last Admin: 03/19/19 06:20 Dose: 75 mcg Lorazepam (Ativan -) 0.5 mg PO DAILY PRN PRN Reason: ANXIETY Last Admin: 03/19/19 00:04 Dose: 0.5 mg Melatonin (Melatonin) 3 mg PO HS PRN PRN Reason: INSOMNIA Metoprolol Succinate (Toprol Xl -) 50 mg PO DAILY [facility] Last Admin: 03/19/19 10:49 Dose: 50 mg Mirtazapine (Remeron -) 30 mg PO HS [facility] Last Admin: 03/18/19 21:39 Dose: 30 mg Nystatin/Triamcinolone Acetonide (Mycolog Ii Ointment -) 1 applic TP BID [facility] Last Admin: 03/19/19 10:49 Dose: 1 applic Potassium Chloride (K-Dur -) 40 meq PO DAILY [facility] Last Admin: 03/19/19 10:49 Dose: 40 meq Tamsulosin HCl (Flomax -) 0.8 mg PO 0830 [facility] Last Admin: 03/19/19 08:48 Dose: 0.8 mg CBC, BMP 03/18/19 07:00 03/18/19 07:00 Physical Exam. Awake/ comfortable. s1 s2 RRR Lungs decreased breath sounds,crackles+ left >right Abd- soft, obese, NT edema decreased ++ Neuro- awake PLAN meds reviewed iv lasix BID--> 80mg BID---on strict fluid restriction creatinine stable maintain piña repeat CXR -- Nebs as needed OOB continue with meds will follow Problem List - Problems (1) ASHD (arteriosclerotic heart disease) Code(s): I25.10 - ATHSCL HEART DISEASE OF [place] CORONARY ARTERY W/O ANG PCTRS (2) Acute on chronic respiratory failure with hypoxia and hypercapnia Code(s): J96.21 - ACUTE AND CHRONIC RESPIRATORY FAILURE WITH HYPOXIA; J96.22 - ACUTE AND CHRONIC RESPIRATORY FAILURE WITH HYPERCAPNIA (3) CHF (congestive heart failure) Code(s): I50.9 - HEART FAILURE, UNSPECIFIED (4) Toxic metabolic encephalopathy Code(s): G92 - TOXIC ENCEPHALOPATHY
--- NOTE | 2019-03-19 14:10 | PN ---
Progress Note (short form) - Note Progress Note: s: no cp sob palps dizzy o: Vital Signs Period Temp Pulse Resp BP Sys/Jolley Pulse Ox Last 24 Hr 97.5 F-97.6 F 79-82 20-20 124-136/59-63 98-99 Constitutional: Yes: No Distress, Calm Eyes: Yes: Conjunctiva Clear Respiratory: Yes: Regular, CTA Bilaterally Gastrointestinal: Yes: Normal Bowel Sounds, Soft Cardiovascular: Yes: Regular Rate and Rhythm JVD: Yes Heart Sounds: Yes: S1, S2 Murmur: No: Systolic Murmur Musculoskeletal: No: Back Pain Extremities: No: Cold Edema: Yes Edema: trace Peripheral Pulses: 2+ Left Doralis Pedis, 2+ Right Dorsalis Pedis Integumentary: No: Jaundice Neurological: Yes: Alert Psychiatric: No: Agitated Current Medications Acetaminophen (Tylenol -) 500 mg PO Q6H PRN PRN Reason: PAIN 1-3 Aspirin (Asa -) 81 mg PO DAILY [facility] Last Admin: 03/19/19 10:49 Dose: 81 mg Atorvastatin Calcium (Lipitor -) 20 mg PO HS [facility] Last Admin: 03/18/19 21:39 Dose: 20 mg Docusate Sodium (Colace -) 200 mg PO HS [facility] Last Admin: 03/18/19 21:39 Dose: 200 mg Furosemide (Lasix Injection -) 80 mg IVPUSH BID@0600,1400 [facility] Last Admin: 03/19/19 13:24 Dose: 80 mg Levothyroxine Sodium (Synthroid -) 75 mcg PO DAILY@0700 [facility] Last Admin: 03/19/19 06:20 Dose: 75 mcg Lorazepam (Ativan -) 0.5 mg PO DAILY PRN PRN Reason: ANXIETY Last Admin: 03/19/19 00:04 Dose: 0.5 mg Melatonin (Melatonin) 3 mg PO HS PRN PRN Reason: INSOMNIA Metoprolol Succinate (Toprol Xl -) 50 mg PO DAILY [facility] Last Admin: 03/19/19 10:49 Dose: 50 mg Mirtazapine (Remeron -) 30 mg PO HS [facility] Last Admin: 03/18/19 21:39 Dose: 30 mg Nystatin/Triamcinolone Acetonide (Mycolog Ii Ointment -) 1 applic TP BID [facility] Last Admin: 03/19/19 10:49 Dose: 1 applic Potassium Chloride (K-Dur -) 40 meq PO DAILY [facility] Last Admin: 03/19/19 10:49 Dose: 40 meq Tamsulosin HCl (Flomax -) 0.8 mg PO 0830 [facility] Last Admin: 03/19/19 08:48 Dose: 0.8 mg Assessment/Plan CT chest large right pleural effusion with compression atelectasis of R base, minimal atelectasis of L base. Echo 02/2019 LV mildly dilated, nl LV function, mild TR, mod ao sclerosis, tds, RV not well visualized, LA mod dilated, RA mod dilated, mild ao root dilation EKG sinus 1st deg AVB, LBBB 88M h/o COPD, h/o hypercapnic respiratory failure, CAD s/p stents, CHD, hypothyroisidm, BPH, HTN, HLD, PVD,anxiety p/w unresponsiveness shortness of breath, unresponsiveness, acute diastolic HF exacerbation - nl LV function on echo, RV not well visualized - CT chest with R pleural effusion - CXR shows improvement. net negative >3L yesterday however weight charted is stable -03/12: denies sob. labs stable. cont lasix 80 iv bid, repeat CXR -03/14-: CXR stable. wt down. BUN/Cr stable. edema improving -03/17: was drinking a lot of fluids, weight up yesterday. now improving with fluid restriction, IV lasix. Cr stable. continue lasix 80 mg IV BID, reinforced fluid restriction -03/18-: cr stable. sob improving. continue same iv lasix for now. daily chem7, wt UTI - manage per primary, ID CAD - s/p stents 20 years ago - cont aspirin, statin, bb HTN - cont current meds HLD - cont statin
[2019-03-19] MEDS: MIRTAZAPINE 30 MG TABLET (FP) PO SCH (21:43)
[2019-03-19] MEDS: ATORVASTATIN CA 20 MG TABLET (FP) PO SCH (21:43)
[2019-03-19] MEDS: DOCUSATE SODIUM 100 MG CAPSULE (FP) PO SCH (21:43)
[2019-03-20] MEDS: LORazepam 0.5 MG TABLET PO PRN (00:13)
[2019-03-20] MEDS: FUROSEMIDE 40 MG/4 ML INJECTABLE VIAL IVPUSH SCH ×2 (07:05→14:44)
[2019-03-20] MEDS: LEVOTHYROXINE NA 75 MCG TABLET (FP) PO SCH (07:05)
[2019-03-20 07:20] LABS: BASO % 0.6 % (0-2.0); EOS % 3.1 % (0-4.5); HEMATOCRIT 30.1 % (35.4-49); HEMOGLOBIN 9.9 GM/dL (11.7-16.9); LYMPH % 42.8 % (8-40); MCH 29.5 pg (25.7-33.7); MEAN CELL VOLUME 89.3 fl (80-96); MEAN PLT VOLUME 8.5 fl (7.5-11.1); MONO % 6.2 % (3.8-10.2); NEUT % 47.3 % (42.8-82.8); PLATELET COUNT 151 K/MM3 (134-434); RBC 3.37 M/mm3 (4.00-5.60); RDW 15.4 % (11.9-15.9); WHITE BLOOD COUNT 7.8 K/mm3 (4.0-10.0)
[2019-03-20 07:58] LABS: ALBUMIN 2.9 g/dl (3.4-5.0); ALK PHOS 54 U/L (45-117); ANION GAP 5 MMOL/L (8-16); BILIRUBIN,TOTAL 0.4 mg/dL (0.2-1); BLOOD UREA NITROGEN 37 mg/dL (7-18); CALCIUM 9.1 mg/dL (8.5-10.1); CHLORIDE 98 mmol/L (98-107); CO2 41 mmol/L (21-32); CREATININE 0.8 mg/dL (0.55-1.3); GLUCOSE,RANDOM 117 mg/dL (74-106); POTASSIUM 3.6 mmol/L (3.5-5.1); SGOT/AST 23 U/L (15-37); SGPT/ALT 26 U/L (13-61); SODIUM 143 mmol/L (136-145); TOT PROT 6.2 g/dl (6.4-8.2)
[2019-03-20] MEDS: TAMSULOSIN HCL 0.4 MG CAP PO SCH (08:03)
--- NOTE | 2019-03-20 10:35 | PN ---
Progress Note (short form) - Note Progress Note: overall condition same feels ok Vital Signs Temp 97.6 F 03/20/19 05:40 Pulse 76 03/20/19 05:40 Resp 18 03/20/19 05:40 BP 128/61 03/20/19 05:40 Pulse Ox 98 03/20/19 08:11 Intake & Output 03/19/19 03/19/19 03/20/19 11:59 23:59 11:59 Intake Total 537 Output Total 800 1175 600 Balance -800 -517 -600 Weight 232 lb 9.6 oz 248 lb 4 oz Intake: Oral 300 Oral Supplement 237 Output: Urine 800 1175 600 Piña 800 1175 600 Other: Voiding Method Indwelling Catheter Indwelling Catheter Indwelling Catheter Bowel Movement No No No # Bowel Movements 0 Weight Measurement Method Built in Bedscale Built in Bedscale Active Medications Acetaminophen (Tylenol -) 500 mg PO Q6H PRN PRN Reason: PAIN 1-3 Aspirin (Asa -) 81 mg PO DAILY [facility] Last Admin: 03/19/19 10:49 Dose: 81 mg Atorvastatin Calcium (Lipitor -) 20 mg PO HS [facility] Last Admin: 03/19/19 21:43 Dose: 20 mg Docusate Sodium (Colace -) 200 mg PO [facility] Last Admin: 03/19/19 21:43 Dose: 200 mg Furosemide (Lasix Injection -) 80 mg IVPUSH BID@0600,1400 [facility] Last Admin: 03/20/19 07:05 Dose: 80 mg Levothyroxine Sodium (Synthroid -) 75 mcg PO DAILY@0700 [facility] Last Admin: 03/20/19 07:05 Dose: 75 mcg Lorazepam (Ativan -) 0.5 mg PO DAILY PRN PRN Reason: ANXIETY Last Admin: 03/20/19 00:13 Dose: 0.5 mg Melatonin (Melatonin) 3 mg PO HS PRN PRN Reason: INSOMNIA Metoprolol Succinate (Toprol Xl -) 50 mg PO DAILY [facility] Last Admin: 03/19/19 10:49 Dose: 50 mg Mirtazapine (Remeron -) 30 mg PO [facility] Last Admin: 03/19/19 21:43 Dose: 30 mg Nystatin/Triamcinolone Acetonide (Mycolog Ii Ointment -) 1 applic TP BID [facility] Last Admin: 03/19/19 21:43 Dose: 1 applic Potassium Chloride (K-Dur -) 40 meq PO DAILY [facility] Last Admin: 03/19/19 10:49 Dose: 40 meq Tamsulosin HCl (Flomax -) 0.8 mg PO 0830 [facility] Last Admin: 03/20/19 08:03 Dose: 0.8 mg CBC, BMP 03/20/19 06:40 03/20/19 06:40 Physical Exam Awake/ comfortable. s1 s2 RRR Lungs decreased breath sounds,crackles+ left >right Abd- soft, obese, NT edema decreased ++ Neuro- awake PLAN meds reviewed iv lasix BID--> 80mg BID---on strict fluid restriction creatinine stable maintain piña Nebs as needed OOB continue with meds will follow Problem List - Problems (1) ASHD (arteriosclerotic heart disease) Code(s): I25.10 - ATHSCL HEART DISEASE OF [place] CORONARY ARTERY W/O ANG PCTRS (2) Acute on chronic respiratory failure with hypoxia and hypercapnia Code(s): J96.21 - ACUTE AND CHRONIC RESPIRATORY FAILURE WITH HYPOXIA; J96.22 - ACUTE AND CHRONIC RESPIRATORY FAILURE WITH HYPERCAPNIA (3) CHF (congestive heart failure) Code(s): I50.9 - HEART FAILURE, UNSPECIFIED (4) Toxic metabolic encephalopathy Code(s): G92 - TOXIC ENCEPHALOPATHY
[2019-03-20] MEDS: ASPIRIN 81 MG CHEWABLE TABLETS PO SCH (11:01)
[2019-03-20] MEDS: NYSTATIN/TRIAMCINOLONE TOPICAL OINTMENT 15 GM TUBE TP SCH ×2 (11:01→22:38)
[2019-03-20] MEDS: POTASSIUM CHLORIDE TABS 20 MEQ TABLET.ER (FP) PO SCH (11:01)
--- NOTE | 2019-03-20 11:45 | PN ---
Progress Note (short form) - Note Progress Note: s: no cp sob palps dizzy. dyspnea improving o: Vital Signs Period Temp Pulse Resp BP Sys/Jolley Pulse Ox Last 24 Hr 97.5 F-97.6 F 79-82 20-20 124-136/59-63 98-99 Constitutional: Yes: No Distress, Calm Eyes: Yes: Conjunctiva Clear Respiratory: Yes: Regular, CTA Bilaterally Gastrointestinal: Yes: Normal Bowel Sounds, Soft Cardiovascular: Yes: Regular Rate and Rhythm JVD: Yes Heart Sounds: Yes: S1, S2 Murmur: No: Systolic Murmur Musculoskeletal: No: Back Pain Extremities: No: Cold Edema: Yes Edema: trace Peripheral Pulses: 2+ Left Doralis Pedis, 2+ Right Dorsalis Pedis Integumentary: No: Jaundice Neurological: Yes: Alert Psychiatric: No: Agitated Current Medications Acetaminophen (Tylenol -) 500 mg PO Q6H PRN PRN Reason: PAIN 1-3 Aspirin (Asa -) 81 mg PO DAILY [facility] Last Admin: 03/19/19 10:49 Dose: 81 mg Atorvastatin Calcium (Lipitor -) 20 mg PO HS [facility] Last Admin: 03/18/19 21:39 Dose: 20 mg Docusate Sodium (Colace -) 200 mg PO HS [facility] Last Admin: 03/18/19 21:39 Dose: 200 mg Furosemide (Lasix Injection -) 80 mg IVPUSH BID@0600,1400 [facility] Last Admin: 03/19/19 13:24 Dose: 80 mg Levothyroxine Sodium (Synthroid -) 75 mcg PO DAILY@0700 [facility] Last Admin: 03/19/19 06:20 Dose: 75 mcg Lorazepam (Ativan -) 0.5 mg PO DAILY PRN PRN Reason: ANXIETY Last Admin: 03/19/19 00:04 Dose: 0.5 mg Melatonin (Melatonin) 3 mg PO HS PRN PRN Reason: INSOMNIA Metoprolol Succinate (Toprol Xl -) 50 mg PO DAILY [facility] Last Admin: 03/19/19 10:49 Dose: 50 mg Mirtazapine (Remeron -) 30 mg PO HS [facility] Last Admin: 03/18/19 21:39 Dose: 30 mg Nystatin/Triamcinolone Acetonide (Mycolog Ii Ointment -) 1 applic TP BID [facility] Last Admin: 03/19/19 10:49 Dose: 1 applic Potassium Chloride (K-Dur -) 40 meq PO DAILY [facility] Last Admin: 03/19/19 10:49 Dose: 40 meq Tamsulosin HCl (Flomax -) 0.8 mg PO 0830 [facility] Last Admin: 03/19/19 08:48 Dose: 0.8 mg Assessment/Plan CT chest large right pleural effusion with compression atelectasis of R base, minimal atelectasis of L base. Echo 02/2019 LV mildly dilated, nl LV function, mild TR, mod ao sclerosis, tds, RV not well visualized, LA mod dilated, RA mod dilated, mild ao root dilation EKG sinus 1st deg AVB, LBBB 88M h/o COPD, h/o hypercapnic respiratory failure, CAD s/p stents, CHD, hypothyroisidm, BPH, HTN, HLD, PVD,anxiety p/w unresponsiveness shortness of breath, unresponsiveness, acute diastolic HF exacerbation - nl LV function on echo, RV not well visualized - CT chest with R pleural effusion - CXR shows improvement. net negative >3L yesterday however weight charted is stable -03/12: denies sob. labs stable. cont lasix 80 iv bid, repeat CXR -03/14-: CXR stable. wt down. BUN/Cr stable. edema improving -03/17: was drinking a lot of fluids, weight up yesterday. now improving with fluid restriction, IV lasix. Cr stable. continue lasix 80 mg IV BID, reinforced fluid restriction -03/18-: cr stable. sob improving. continue same iv lasix. daily chem7, wt UTI - manage per primary, ID CAD - s/p stents 20 years ago - cont aspirin, statin, bb HTN - cont current meds HLD - cont statin
[2019-03-20] MEDS: ATORVASTATIN CA 20 MG TABLET (FP) PO SCH (22:37)
[2019-03-20] MEDS: MIRTAZAPINE 30 MG TABLET (FP) PO SCH (22:37)
[2019-03-20] MEDS: DOCUSATE SODIUM 100 MG CAPSULE (FP) PO SCH (22:37)
[2019-03-21] MEDS: LORazepam 0.5 MG TABLET PO PRN ×2 (00:16→22:42)
[2019-03-21] MEDS: LEVOTHYROXINE NA 75 MCG TABLET (FP) PO SCH (06:23)
[2019-03-21] MEDS: FUROSEMIDE 40 MG/4 ML INJECTABLE VIAL IVPUSH SCH ×2 (06:24→13:56)
[2019-03-21] MEDS ORDERED: PT OWN MED DRAWER 7, Y5N ONE ×2 (09:51→23:47)
--- NOTE | 2019-03-21 09:55 | PN ---
Progress Note (short form) - Note Progress Note: pt seen/ examined all f/u noted awake/comfortable Vital Signs Temp 97.8 F 03/21/19 08:47 Pulse 97 H 03/21/19 08:47 Resp 18 03/21/19 08:47 BP 118/58 L 03/21/19 08:47 Pulse Ox 98 03/21/19 06:15 Intake & Output 03/20/19 03/20/19 03/21/19 11:59 23:59 11:59 Intake Total 711 20 Output Total 600 1999 600 Balance -600 -1289 -580 Weight 248 lb 4 oz 232 lb 7 oz Intake: IV 11 20 sl 11 20 Oral 700 Output: Urine 600 1999 600 Piña 600 2000 600 Other: Voiding Method Indwelling Catheter Indwelling Catheter Bowel Movement No No Yes: LARGE!! # Bowel Movements 0 1 Weight Measurement Method Built [facility]scale [facility] Active Medications Acetaminophen (Tylenol -) 500 mg PO Q6H PRN PRN Reason: PAIN 1-3 Aspirin (Asa -) 81 mg PO DAILY [facility] Last Admin: 03/20/19 11:01 Dose: 81 mg Atorvastatin Calcium (Lipitor -) 20 mg PO HS [facility] Last Admin: 03/20/19 22:37 Dose: 20 mg Docusate Sodium (Colace -) 200 mg PO HS [facility] Last Admin: 03/20/19 22:37 Dose: 200 mg Furosemide (Lasix Injection -) 80 mg IVPUSH BID@0600,1400 [facility] Last Admin: 03/21/19 06:24 Dose: 80 mg Levothyroxine Sodium (Synthroid -) 75 mcg PO DAILY@0700 [facility] Last Admin: 03/21/19 06:23 Dose: 75 mcg Lorazepam (Ativan -) 0.5 mg PO DAILY PRN PRN Reason: ANXIETY Last Admin: 03/21/19 00:16 Dose: 0.5 mg Melatonin (Melatonin) 3 mg PO HS PRN PRN Reason: INSOMNIA Metoprolol Succinate (Toprol Xl -) 50 mg PO DAILY [facility] Last Admin: 03/20/19 11:02 Dose: 50 mg Mirtazapine (Remeron -) 30 mg PO HS [facility] Last Admin: 03/20/19 22:37 Dose: 30 mg Nystatin/Triamcinolone Acetonide (Mycolog Ii Ointment -) 1 applic TP BID [facility] Last Admin: 03/20/19 22:38 Dose: 1 applic Potassium Chloride (K-Dur -) 40 meq PO DAILY [facility] Last Admin: 03/20/19 11:01 Dose: 40 meq Tamsulosin HCl (Flomax -) 0.8 mg PO 30 [facility] Last Admin: 03/20/19 08:03 Dose: 0.8 mg CBC, BMP 03/20/19 06:40 03/20/19 06:40 Physical Exam. Awake/ comfortable. s1 s2 RRR Lungs decreased breath sounds,crackles+ left >right Abd- soft, obese, NT edema decreased ++ Neuro- awake PLAN meds reviewed iv lasix BID--> 80mg BID---on strict fluid restriction creatinine stable maintain piña Nebs as needed OOB continue with meds will follow had discussed with cardiology/ pulmonary -- recommended same treatment for now Problem List - Problems (1) ASHD (arteriosclerotic heart disease) Code(s): I25.10 - ATHSCL HEART DISEASE OF [place] CORONARY ARTERY W/O ANG PCTRS (2) Acute on chronic respiratory failure with hypoxia and hypercapnia Code(s): J96.21 - ACUTE AND CHRONIC RESPIRATORY FAILURE WITH HYPOXIA; J96.22 - ACUTE AND CHRONIC RESPIRATORY FAILURE WITH HYPERCAPNIA (3) CHF (congestive heart failure) Code(s): I50.9 - HEART FAILURE, UNSPECIFIED (4) Toxic metabolic encephalopathy Code(s): G92 - TOXIC ENCEPHALOPATHY
[2019-03-21] MEDS: NYSTATIN/TRIAMCINOLONE TOPICAL OINTMENT 15 GM TUBE TP SCH ×2 (10:13→22:46)
[2019-03-21] MEDS: ASPIRIN 81 MG CHEWABLE TABLETS PO SCH (10:41)
[2019-03-21] MEDS: POTASSIUM CHLORIDE TABS 20 MEQ TABLET.ER (FP) PO SCH (10:41)
[2019-03-21] MEDS: TAMSULOSIN HCL 0.4 MG CAP PO SCH (10:41)
--- NOTE | 2019-03-21 10:46 | PN ---
Progress Note (short form) - Note Progress Note: PULMONARY Denies shortness of breath or chest pain. c/o mouth dryness from using BiPAP. Vital Signs Period Temp Pulse Resp BP Sys/Jolley Pulse Ox Last 24 Hr 97.6 F-97.8 F 84-97 18- 113-120/54-68 96-98 Intake & Output 03/18/19 03/19/19 03/20/19 03/21/19 23:59 23:59 23:59 23:59 Intake Total 250 537 711 20 Output Total 2049 1975 2600 600 Balance -1800 -1438 -1889 -580 Weight 105.37 kg 105.506 kg 112.604 kg 105.432 kg Gen: NAD at rest Heart: RRR Lung: decreased breath sounds at the bases Abd: soft, nontender Ext: trace edema CBC, BMP 03/20/19 06:40 03/20/19 06:40 Active Medications Acetaminophen (Tylenol -) 500 mg PO Q6H PRN PRN Reason: PAIN 1-3 Aspirin (Asa -) 81 mg PO DAILY [facility] Last Admin: 03/20/19 11:01 Dose: 81 mg Atorvastatin Calcium (Lipitor -) 20 mg PO HS [facility] Last Admin: 03/20/19 22:37 Dose: 20 mg Docusate Sodium (Colace -) 200 mg PO HS [facility] Last Admin: 03/20/19 22:37 Dose: 200 mg Furosemide (Lasix Injection -) 80 mg IVPUSH BID@0600,1400 [facility] Last Admin: 03/21/19 06:24 Dose: 80 mg Levothyroxine Sodium (Synthroid -) 75 mcg PO DAILY@0700 [facility] Last Admin: 03/21/19 06:23 Dose: 75 mcg Lorazepam (Ativan -) 0.5 mg PO DAILY PRN PRN Reason: ANXIETY Last Admin: 03/21/19 00:16 Dose: 0.5 mg Melatonin (Melatonin) 3 mg PO HS PRN PRN Reason: INSOMNIA Metoprolol Succinate (Toprol Xl -) 50 mg PO DAILY [facility] Last Admin: 03/20/19 11:02 Dose: 50 mg Mirtazapine (Remeron -) 30 mg PO HS [facility] Last Admin: 03/20/19 22:37 Dose: 30 mg Nystatin/Triamcinolone Acetonide (Mycolog Ii Ointment -) 1 applic TP BID [facility] Last Admin: 03/20/19 22:38 Dose: 1 applic Potassium Chloride (K-Dur -) 40 meq PO DAILY [facility] Last Admin: 03/20/19 11:01 Dose: 40 meq Tamsulosin HCl (Flomax -) 0.8 mg PO 829 [facility] Last Admin: 03/20/19 08:03 Dose: 0.8 mg A/P Acute on Chronic Diastolic Heart Failure R Pleural Effusion COPD CAD Hypothyroidism - continue lasix - monitor urine output, creatinine - daily weights - O2 to keep SpO2 >90% - inhaled bronchodilators - DVT prophylaxis
[2019-03-21 12:46] VITALS: BMI 29.7
--- NOTE | 2019-03-21 15:20 | PN ---
Progress Note (short form) - Note Progress Note: s: no cp sob palps dizzy o: Vital Signs Period Temp Pulse Resp BP Sys/Jolley Pulse Ox Last 24 Hr 97.6 F-98.5 F 86-97 18-20 118-120/58-72 96-98 Constitutional: Yes: No Distress, Calm Eyes: Yes: Conjunctiva Clear Respiratory: Yes: Regular, CTA Bilaterally Gastrointestinal: Yes: Normal Bowel Sounds, Soft Cardiovascular: Yes: Regular Rate and Rhythm JVD: Yes Heart Sounds: Yes: S1, S2 Murmur: No: Systolic Murmur Musculoskeletal: No: Back Pain Extremities: No: Cold Edema: Yes Edema: trace Peripheral Pulses: 2+ Left Doralis Pedis, 2+ Right Dorsalis Pedis Integumentary: No: Jaundice Neurological: Yes: Alert Psychiatric: No: Agitated Current Medications Acetaminophen (Tylenol -) 500 mg PO Q6H PRN PRN Reason: PAIN 1-3 Aspirin (Asa -) 81 mg PO DAILY [facility] Last Admin: 03/21/19 10:41 Dose: 81 mg Atorvastatin Calcium (Lipitor -) 20 mg PO HS [facility] Last Admin: 03/20/19 22:37 Dose: 20 mg Docusate Sodium (Colace -) 200 mg PO HS [facility] Last Admin: 03/20/19 22:37 Dose: 200 mg Furosemide (Lasix Injection -) 80 mg IVPUSH BID@0600,1400 [facility] Last Admin: 03/21/19 13:56 Dose: 80 mg Levothyroxine Sodium (Synthroid -) 75 mcg PO DAILY@0700 [facility] Last Admin: 03/21/19 06:23 Dose: 75 mcg Lorazepam (Ativan -) 0.5 mg PO DAILY PRN PRN Reason: ANXIETY Last Admin: 03/21/19 00:16 Dose: 0.5 mg Melatonin (Melatonin) 3 mg PO HS PRN PRN Reason: INSOMNIA Metoprolol Succinate (Toprol Xl -) 50 mg PO DAILY [facility] Last Admin: 03/21/19 10:42 Dose: 50 mg Mirtazapine (Remeron -) 30 mg PO HS [facility] Last Admin: 03/20/19 22:37 Dose: 30 mg Nystatin/Triamcinolone Acetonide (Mycolog Ii Ointment -) 1 applic TP BID [facility] Last Admin: 03/21/19 10:13 Dose: 1 applic Potassium Chloride (K-Dur -) 40 meq PO DAILY [facility] Last Admin: 03/21/19 10:41 Dose: 40 meq Tamsulosin HCl (Flomax -) 0.8 mg PO 0830 [facility] Last Admin: 03/21/19 10:41 Dose: 0.8 mg Assessment/Plan CT chest large right pleural effusion with compression atelectasis of R base, minimal atelectasis of L base. Echo 02/2019 LV mildly dilated, nl LV function, mild TR, mod ao sclerosis, tds, RV not well visualized, LA mod dilated, RA mod dilated, mild ao root dilation EKG sinus 1st deg AVB, LBBB 88M h/o COPD, h/o hypercapnic respiratory failure, CAD s/p stents, CHD, hypothyroisidm, BPH, HTN, HLD, PVD,anxiety p/w unresponsiveness shortness of breath, unresponsiveness, acute diastolic HF exacerbation - nl LV function on echo, RV not well visualized - CT chest with R pleural effusion - CXR shows improvement. net negative >3L yesterday however weight charted is stable -03/12: denies sob. labs stable. cont lasix 80 iv bid, repeat CXR -03/14-: CXR stable. wt down. BUN/Cr stable. edema improving -03/17: was drinking a lot of fluids, weight up yesterday. now improving with fluid restriction, IV lasix. Cr stable. continue lasix 80 mg IV BID, reinforced fluid restriction -03/18-: cr stable. sob improving. continue same iv lasix. daily chem7, wt UTI - manage per primary, ID CAD - s/p stents 20 years ago - cont aspirin, statin, bb HTN - cont current meds HLD - cont statin
[2019-03-21] MEDS: ATORVASTATIN CA 20 MG TABLET (FP) PO SCH (22:29)
[2019-03-21] MEDS: MIRTAZAPINE 30 MG TABLET (FP) PO SCH (22:29)
[2019-03-21] MEDS: DOCUSATE SODIUM 100 MG CAPSULE (FP) PO SCH (22:29)
[2019-03-21] MEDS: MELATONIN 1 MG TABLET PO PRN (23:57)
[2019-03-22] MEDS: FUROSEMIDE 40 MG/4 ML INJECTABLE VIAL IVPUSH SCH ×2 (05:46→13:57)
[2019-03-22] MEDS: LEVOTHYROXINE NA 75 MCG TABLET (FP) PO SCH (06:04)
[2019-03-22 06:50] LABS: BASO % 0.3 % (0-2.0); EOS % 2.6 % (0-4.5); HEMATOCRIT 32.2 % (35.4-49); HEMOGLOBIN 10.6 GM/dL (11.7-16.9); LYMPH % 42.9 % (8-40); MCH 29.4 pg (25.7-33.7); MCHC 33.1 g/dl (32.0-35.9); MEAN CELL VOLUME 88.8 fl (80-96); MEAN PLT VOLUME 8.2 fl (7.5-11.1); NEUT % 46.2 % (42.8-82.8); PLATELET COUNT 144 K/MM3 (134-434); RBC 3.62 M/mm3 (4.00-5.60); RDW 15.5 % (11.9-15.9); WHITE BLOOD COUNT 7.1 K/mm3 (4.0-10.0)
[2019-03-22 07:23] LABS: ALBUMIN 3.1 g/dl (3.4-5.0); ALK PHOS 62 U/L (45-117); ANION GAP 5 MMOL/L (8-16); BILIRUBIN,TOTAL 0.6 mg/dL (0.2-1); BLOOD UREA NITROGEN 35 mg/dL (7-18); CALCIUM 8.7 mg/dL (8.5-10.1); CHLORIDE 97 mmol/L (98-107); CO2 39 mmol/L (21-32); CREATININE 0.8 mg/dL (0.55-1.3); GLUCOSE,RANDOM 102 mg/dL (74-106); POTASSIUM 3.4 mmol/L (3.5-5.1); SGOT/AST 25 U/L (15-37); SGPT/ALT 30 U/L (13-61); SODIUM 141 mmol/L (136-145); TOT PROT 6.8 g/dl (6.4-8.2)
[2019-03-22] MEDS: TAMSULOSIN HCL 0.4 MG CAP PO SCH (08:46)
[2019-03-22] MEDS ORDERED: PT OWN MED DRAWER 7, Y5N ONE ×2 (09:41→10:00)
[2019-03-22] MEDS: POTASSIUM CHLORIDE TABS 20 MEQ TABLET.ER (FP) PO SCH (09:47)
[2019-03-22] MEDS: ASPIRIN 81 MG CHEWABLE TABLETS PO SCH (09:47)
[2019-03-22] MEDS: NYSTATIN/TRIAMCINOLONE TOPICAL OINTMENT 15 GM TUBE TP SCH ×2 (09:52→22:26)
--- NOTE | 2019-03-22 10:12 | PN ---
Progress Note (short form) - Note Progress Note: PULMONARY Feels better today. Less short of breath. CXR about the same, still with congestive changes. Vital Signs Period Temp Pulse Resp BP Sys/Jolley Pulse Ox Last 24 Hr 97.7 F-98.7 F 83-94 20-20 104-118/56-72 97-98 Gen: NAD at rest Heart: RRR Lung: decreased breath sounds at the bases Abd: soft, nontender Ext: trace edema CBC, BMP 03/22/19 06:00 03/22/19 06:00 Active Medications Acetaminophen (Tylenol -) 500 mg PO Q6H PRN PRN Reason: PAIN 1-3 Aspirin (Asa -) 81 mg PO DAILY [facility] Last Admin: 03/22/19 09:47 Dose: 81 mg Atorvastatin Calcium (Lipitor -) 20 mg PO HS [facility] Last Admin: 03/21/19 22:29 Dose: 20 mg Docusate Sodium (Colace -) 200 mg PO HS [facility] Last Admin: 03/21/19 22:29 Dose: 200 mg Furosemide (Lasix Injection -) 80 mg IVPUSH BID@0600,1400 [facility] Last Admin: 03/22/19 05:46 Dose: 80 mg Levothyroxine Sodium (Synthroid -) 75 mcg PO DAILY@0700 [facility] Last Admin: 03/22/19 06:04 Dose: 75 mcg Lorazepam (Ativan -) 0.5 mg PO Q8H PRN PRN Reason: ANXIETY Last Admin: 03/21/19 22:42 Dose: 0.5 mg Melatonin (Melatonin) 3 mg PO HS PRN PRN Reason: INSOMNIA Last Admin: 03/21/19 23:57 Dose: 3 mg Metoprolol Succinate (Toprol Xl -) 50 mg PO DAILY [facility] Last Admin: 03/22/19 09:47 Dose: 50 mg Mirtazapine (Remeron -) 30 mg PO HS [facility] Last Admin: 03/21/19 22:29 Dose: 30 mg Nystatin/Triamcinolone Acetonide (Mycolog Ii Ointment -) 1 applic TP BID [facility] Last Admin: 03/22/19 09:52 Dose: 1 applic Potassium Chloride (K-Dur -) 40 meq PO DAILY [facility] Last Admin: 03/22/19 09:47 Dose: 40 meq Tamsulosin HCl (Flomax -) 0.8 mg PO 0830 [facility] Last Admin: 04/23/19 08:46 Dose: 0.8 mg A/P Acute on Chronic Diastolic Heart Failure R Pleural Effusion COPD CAD Hypothyroidism - continue lasix - monitor urine output, creatinine - daily weights - O2 to keep SpO2 >90% - inhaled bronchodilators - DVT prophylaxis
--- NOTE | 2019-03-22 12:55 | PN ---
Progress Note (short form) - Note Progress Note: SOB on ambulation He is deconditioned Vital Signs - 24 hr 03/21/19 03/21/19 03/21/19 14:09 21:00 22:48 Temperature 98.5 F 97.7 F Pulse Rate 94 H 85 Respiratory 20 Rate Blood Pressure 118/72 104/59 L O2 Sat by Pulse 97 Oximetry (%) 03/22/19 03/22/19 03/22/19 00:04 04:17 06:16 Temperature 98.7 F Pulse Rate 83 Respiratory 20 Rate Blood Pressure 117/62 O2 Sat by Pulse 98 98 Oximetry (%) 03/22/19 03/22/19 03/22/19 07:49 09:00 09:37 Temperature 97.8 F Pulse Rate 85 Respiratory 20 Rate Blood Pressure 107/56 L O2 Sat by Pulse 98 98 Oximetry (%) Current Medications Generic Name Dose Route Start Last Admin Trade Name Freq PRN Reason Stop Dose Admin Acetaminophen 500 mg 03/04/19 19:27 Tylenol - PO Q6H PRN PAIN 1-3 Aspirin 81 mg 03/05/19 10:00 03/22/19 09:47 Asa - PO 81 mg DAILY ME[facility]AN Administration Atorvastatin Calcium 20 mg 03/04/19 22:00 03/21/19 22:29 Lipitor - PO 20 mg HS [facility]AN Administration Docusate Sodium 200 mg 03/04/19 22:00 03/21/19 22:29 Colace - PO 200 mg HS ME[facility]AN Administration Furosemide 80 mg 03/09/19 10:49 03/22/19 05:46 Lasix Injection - IVPUSH 80 mg BID@0600,1400 [facility] Administration Levothyroxine Sodium 75 mcg 03/05/19 07:00 03/22/19 06:04 Synthroid - PO 75 mcg DAILY@0700 [facility] Administration Lorazepam 0.5 mg 03/21/19 21:04 03/21/19 22:42 Ativan - PO 0.5 mg Q8H PRN Administration ANXIETY Melatonin 3 mg 03/02/19 22:00 03/21/19 23:57 Melatonin PO 3 mg HS PRN Administration INSOMNIA Metoprolol Succinate 50 mg 03/05/19 11:14 03/22/19 09:47 Toprol Xl - PO 50 mg DAILY [facility] Administration Mirtazapine 30 mg 03/04/19 22:00 03/21/19 22:29 Remeron - PO 30 mg HS [facility] Administration Nystatin/Triamcinolone Acetonide 1 applic 03/18/19 22:00 03/22/19 09:52 Mycolog Ii Ointment - TP 1 applic BID [facility] Administration Potassium Chloride 40 meq 03/08/19 16:11 03/22/19 09:47 K-Dur - PO 40 meq DAILY [facility] Administration Tamsulosin HCl 0.8 mg 03/03/19 11:11 03/22/19 08:46 Flomax - PO 0.8 mg 0830 [facility] Administration Laboratory Results - last 24 hr 03/22/19 03/22/19 06:00 06:00 WBC 7.1 RBC 3.62 L Hgb 10.6 L Hct 32.2 L MCV 88.8 MCH 29.4 MCHC 33.1 RDW 15.5 Plt Count 144 MPV 8.2 Absolute Neuts (auto) 3.3 Neutrophils % 46.2 Lymphocytes % 42.9 H Monocytes % 8.0 Eosinophils % 2.6 Basophils % 0.3 Nucleated RBC % 0 Sodium 141 Potassium 3.4 L Chloride 97 L Carbon Dioxide 39 H Anion Gap 5 L BUN 35 H Creatinine 0.8 Creat Clearance w eGFR 91.66 Random Glucose 102 Calcium 8.7 Total Bilirubin 0.6 AST 25 ALT 30 Alkaline Phosphatase 62 Total Protein 6.8 Albumin 3.1 L No JVD s1 s2 RRR Lungs decreased breath sounds,crackles+ left >right Abd- soft, obese, NT edema decreased ++ PLAN IV Zosyn completed iv lasix BID--> 80mg BID--same weight today --on strict fluid restriction creatinine stable maintain piña repeat CXR -- no change piña+ Nebs as needed OOB CT chest noted Normal EF on Echo continue with meds will need to start planning on changing to PO diuretics and see response Problem List - Problems (1) Acute on chronic respiratory failure with hypoxia and hypercapnia Code(s): J96.21 - ACUTE AND CHRONIC RESPIRATORY FAILURE WITH HYPOXIA; J96.22 - ACUTE AND CHRONIC RESPIRATORY FAILURE WITH HYPERCAPNIA (2) CHF (congestive heart failure) Code(s): I50.9 - HEART FAILURE, UNSPECIFIED (3) Pneumonia Code(s): J18.9 - PNEUMONIA, UNSPECIFIED ORGANISM (4) Respiratory distress Code(s): R06.03 - ACUTE RESPIRATORY DISTRESS (5) Toxic metabolic encephalopathy Code(s): G92 - TOXIC ENCEPHALOPATHY
--- NOTE | 2019-03-22 14:52 | PN ---
Progress Note (short form) - Note Progress Note: s: no cp sob palps dizzy o: Vital Signs Period Temp Pulse Resp BP Sys/Jolley Pulse Ox Last 24 Hr 97.7 F-98.7 F 83-91 20-20 104-117/56-62 97-98 Constitutional: Yes: No Distress, Calm Eyes: Yes: Conjunctiva Clear Respiratory: Yes: Regular, CTA Bilaterally Gastrointestinal: Yes: Normal Bowel Sounds, Soft Cardiovascular: Yes: Regular Rate and Rhythm JVD: no Heart Sounds: Yes: S1, S2 Murmur: No: Systolic Murmur Musculoskeletal: No: Back Pain Extremities: No: Cold Edema: Yes Edema: trace Peripheral Pulses: 2+ Left Doralis Pedis, 2+ Right Dorsalis Pedis Integumentary: No: Jaundice Neurological: Yes: Alert Psychiatric: No: Agitated Current Medications Generic Name Dose Route Start Last Admin Trade Name Freq PRN Reason Stop Dose Admin Acetaminophen 500 mg 03/04/19 19:27 Tylenol - PO Q6H PRN PAIN 1-3 Aspirin 81 mg 03/05/19 10:00 03/22/19 09:47 Asa - PO 81 mg DAILY [facility] Administration Atorvastatin Calcium 20 mg 03/04/19 22:00 03/21/19 22:29 Lipitor - PO 20 mg HS [facility] Administration Docusate Sodium 200 mg 03/04/19 22:00 03/21/19 22:29 Colace - PO 200 mg HS [facility] Administration Furosemide 80 mg 03/23/19 06:00 Lasix - PO BID@0600,1400 [facility] Levothyroxine Sodium 75 mcg 03/05/19 07:00 03/22/19 06:04 Synthroid - PO 75 mcg DAILY@0700 [facility] Administration Lorazepam 0.5 mg 03/21/19 21:04 03/21/19 22:42 Ativan - PO 0.5 mg Q8H PRN Administration ANXIETY Melatonin 3 mg 03/02/19 22:00 03/21/19 23:57 Melatonin PO 3 mg HS PRN Administration INSOMNIA Metoprolol Succinate 50 mg 03/05/19 11:14 03/22/19 09:47 Toprol Xl - PO 50 mg DAILY [facility] Administration Mirtazapine 30 mg 03/04/19 22:00 03/21/19 22:29 Remeron - PO 30 mg HS [facility] Administration Nystatin/Triamcinolone Acetonide 1 applic 04/19/19 22:00 03/22/19 09:52 Mycolog Ii Ointment - TP 1 applic BID [facility] Administration Potassium Chloride 40 meq 03/08/19 16:11 03/22/19 09:47 K-Dur - PO 40 meq DAILY [facility] Administration Tamsulosin HCl 0.8 mg 03/03/19 11:11 03/22/19 08:46 Flomax - PO 0.8 mg 0830 [facility] Administration CBC, BMP 03/22/19 06:00 03/22/19 06:00 Assessment/Plan CT chest large right pleural effusion with compression atelectasis of R base, minimal atelectasis of L base. Echo 02/2019 LV mildly dilated, nl LV function, mild TR, mod ao sclerosis, tds, RV not well visualized, LA mod dilated, RA mod dilated, mild ao root dilation EKG sinus 1st deg AVB, LBBB 88M h/o COPD, h/o hypercapnic respiratory failure, CAD s/p stents, CHD, hypothyroisidm, BPH, HTN, HLD, PVD,anxiety p/w unresponsiveness shortness of breath, unresponsiveness, acute diastolic HF exacerbation - nl LV function on echo, RV not well visualized - CT chest with R pleural effusion - CXR shows improvement. net negative >3L yesterday however weight charted is stable -03/12: denies sob. labs stable. cont lasix 80 iv bid, repeat CXR -03/14-: CXR stable. wt down. BUN/Cr stable. edema improving -03/17: was drinking a lot of fluids, weight up yesterday. now improving with fluid restriction, IV lasix. Cr stable. continue lasix 80 mg IV BID, reinforced fluid restriction -03/18: wt down, cr stable. pt walked with pt further today and felt less duarte. continue same iv lasix for now. daily chem7, wt -03/22: cxr shows no chf, pt has been doing well walking with PT, and wt stable, likely at baseline now. will change to po lasix 80 bid. UTI - manage per primary, ID CAD - s/p stents 20 years ago - cont aspirin, statin, bb HTN - cont current meds HLD - cont statin
[2019-03-22] MEDS: DOCUSATE SODIUM 100 MG CAPSULE (FP) PO SCH (21:53)
[2019-03-22] MEDS: MIRTAZAPINE 30 MG TABLET (FP) PO SCH (21:53)
[2019-03-22] MEDS: ATORVASTATIN CA 20 MG TABLET (FP) PO SCH (21:53)
[2019-03-22] MEDS: LORazepam 0.5 MG TABLET PO PRN (22:24)
[2019-03-23] MEDS ORDERED: PT OWN MED DRAWER 7, Y5N ONE ×2 (00:09→00:11)
[2019-03-23] MEDS: MELATONIN 1 MG TABLET PO PRN (00:10)
[2019-03-23] MEDS: FUROSEMIDE 40 MG TABLET (FP) PO SCH ×2 (06:52→14:37)
[2019-03-23] MEDS: LEVOTHYROXINE NA 75 MCG TABLET (FP) PO SCH (06:52)
[2019-03-23] MEDS: POTASSIUM CHLORIDE TABS 20 MEQ TABLET.ER (FP) PO SCH (09:40)
[2019-03-23] MEDS: ASPIRIN 81 MG CHEWABLE TABLETS PO SCH (09:40)
[2019-03-23] MEDS: NYSTATIN/TRIAMCINOLONE TOPICAL OINTMENT 15 GM TUBE TP SCH ×2 (09:41→21:24)
[2019-03-23] MEDS: TAMSULOSIN HCL 0.4 MG CAP PO SCH (09:41)
--- NOTE | 2019-03-23 12:01 | PN ---
Progress Note (short form) - Note Progress Note: SOB on ambulation He is deconditioned better today Vital Signs - 24 hr 03/22/19 03/22/19 03/22/19 13:33 21:00 22:11 Temperature 97.8 F 96.9 F L Pulse Rate 91 H 80 Respiratory 20 Rate Blood Pressure 117/61 112/70 O2 Sat by Pulse 98 Oximetry (%) 03/23/19 03/23/19 03/23/19 00:20 02:36 05:49 Temperature Pulse Rate Respiratory Rate Blood Pressure O2 Sat by Pulse 98 98 97 Oximetry (%) 03/23/19 03/23/19 08:00 10:00 Temperature 98.1 F Pulse Rate 89 Respiratory 20 Rate Blood Pressure 120/66 O2 Sat by Pulse 98 Oximetry (%) Current Medications Generic Name Dose Route Start Last Admin Trade Name Freq PRN Reason Stop Dose Admin Acetaminophen 500 mg 03/04/19 19:27 Tylenol - PO Q6H PRN PAIN 1-3 Aspirin 81 mg 03/05/19 10:00 03/23/19 09:40 Asa - PO 81 mg DAILY [facility] Administration Atorvastatin Calcium 20 mg 03/04/19 22:00 03/22/19 21:53 Lipitor - PO 20 mg HS ME[facility] Administration Docusate Sodium 200 mg 03/04/19 22:00 03/22/19 21:53 Colace - PO 200 mg HS [facility] Administration Furosemide 80 mg 03/23/19 06:00 03/23/19 06:52 Lasix - PO 80 mg BID@0600,1400 [facility] Administration Levothyroxine Sodium 75 mcg 03/05/19 07:00 03/23/19 06:52 Synthroid - PO 75 mcg DAILY@0700 [facility] Administration Lorazepam 0.5 mg 03/21/19 21:04 03/22/19 22:24 Ativan - PO 0.5 mg Q8H PRN Administration ANXIETY Melatonin 3 mg 03/02/19 22:00 03/23/19 00:10 Melatonin PO 3 mg HS PRN Administration INSOMNIA Metoprolol Succinate 50 mg 03/05/19 11:14 03/23/19 09:41 Toprol Xl - PO 50 mg DAILY [facility] Administration Mirtazapine 30 mg 03/04/19 22:00 03/22/19 21:53 Remeron - PO 30 mg HS [facility] Administration Nystatin/Triamcinolone Acetonide 1 applic 03/18/19 22:00 03/23/19 09:41 Mycolog Ii Ointment - TP 1 applic BID [facility] Administration Potassium Chloride 40 meq 03/08/19 16:11 03/23/19 09:40 K-Dur - PO 40 meq DAILY [facility] Administration Tamsulosin HCl 0.8 mg 03/03/19 11:11 03/23/19 09:41 Flomax - PO 0.8 mg 0830 [facility] Administration No JVD s1 s2 RRR Lungs decreased breath sounds,crackles+ left >right Abd- soft, obese, NT edema decreased ++ PLAN IV Zosyn completed iv lasix BID--> changed to po 80mg BID-- clinically improved creatinine stable maintain piña pñia+ Nebs as needed OOB CT chest noted Normal EF on Echo continue with meds dc plan for NH tomorrow Problem List - Problems (1) Acute on chronic respiratory failure with hypoxia and hypercapnia Code(s): J96.21 - ACUTE AND CHRONIC RESPIRATORY FAILURE WITH HYPOXIA; J96.22 - ACUTE AND CHRONIC RESPIRATORY FAILURE WITH HYPERCAPNIA (2) CHF (congestive heart failure) Code(s): I50.9 - HEART FAILURE, UNSPECIFIED (3) Pneumonia Code(s): J18.9 - PNEUMONIA, UNSPECIFIED ORGANISM (4) Respiratory distress Code(s): R06.03 - ACUTE RESPIRATORY DISTRESS (5) Toxic metabolic encephalopathy Code(s): G92 - TOXIC ENCEPHALOPATHY
--- NOTE | 2019-03-23 14:23 | PN ---
Progress Note, Physician History of Present Illness: pulmonary alert,comfortable,-resp distress - Current Medication List Current Medications: Active Medications Acetaminophen (Tylenol -) 500 mg PO Q6H PRN PRN Reason: PAIN 1-3 Aspirin (Asa -) 81 mg PO DAILY [facility] Last Admin: 03/23/19 09:40 Dose: 81 mg Atorvastatin Calcium (Lipitor -) 20 mg PO HS [facility] Last Admin: 03/22/19 21:53 Dose: 20 mg Docusate Sodium (Colace -) 200 mg PO HS [facility] Last Admin: 03/22/19 21:53 Dose: 200 mg Furosemide (Lasix -) 80 mg PO BID@0600,1400 [facility] Last Admin: 03/23/19 06:52 Dose: 80 mg Levothyroxine Sodium (Synthroid -) 75 mcg PO DAILY@0700 [facility] Last Admin: 03/23/19 06:52 Dose: 75 mcg Lorazepam (Ativan -) 0.5 mg PO Q8H PRN PRN Reason: ANXIETY Last Admin: 03/22/19 22:24 Dose: 0.5 mg Melatonin (Melatonin) 3 mg PO HS PRN PRN Reason: INSOMNIA Last Admin: 03/23/19 00:10 Dose: 3 mg Metoprolol Succinate (Toprol Xl -) 50 mg PO DAILY [facility] Last Admin: 03/23/19 09:41 Dose: 50 mg Mirtazapine (Remeron -) 30 mg PO HS [facility] Last Admin: 03/22/19 21:53 Dose: 30 mg Nystatin/Triamcinolone Acetonide (Mycolog Ii Ointment -) 1 applic TP BID [facility] Last Admin: 03/23/19 09:41 Dose: 1 applic Potassium Chloride (K-Dur -) 40 meq PO DAILY [facility] Last Admin: 03/23/19 09:40 Dose: 40 meq Tamsulosin HCl (Flomax -) 0.8 mg PO 0830 [facility] Last Admin: 03/23/19 09:41 Dose: 0.8 mg - Objective Vital Signs: Vital Signs Temperature 98.1 F 03/23/19 10:00 Pulse Rate 89 03/23/19 10:00 Respiratory Rate 20 03/23/19 10:00 Blood Pressure 120/66 03/23/19 10:00 O2 Sat by Pulse Oximetry (%) 96 03/23/19 09:00 Constitutional: Yes: Well Nourished, Calm Eyes: Yes: WNL HENT: Yes: WNL Neck: Yes: WNL Cardiovascular: Yes: Regular Rate and Rhythm, S1, S2 Respiratory: Yes: Diminished Gastrointestinal: Yes: Normal Bowel Sounds, Soft Extremities: Yes: WNL Edema: Yes Labs: CBC, BMP 03/22/19 06:00 Problem List - Problems (1) ASHD (arteriosclerotic heart disease) Code(s): I25.10 - ATHSCL HEART DISEASE OF [place] CORONARY ARTERY W/O ANG PCTRS (2) Acute on chronic respiratory failure with hypoxia and hypercapnia Code(s): J96.21 - ACUTE AND CHRONIC RESPIRATORY FAILURE WITH HYPOXIA; J96.22 - ACUTE AND CHRONIC RESPIRATORY FAILURE WITH HYPERCAPNIA (3) CHF (congestive heart failure) Code(s): I50.9 - HEART FAILURE, UNSPECIFIED (4) Pneumonia Code(s): J18.9 - PNEUMONIA, UNSPECIFIED ORGANISM (5) Respiratory distress Code(s): R06.03 - ACUTE RESPIRATORY DISTRESS (6) Toxic metabolic encephalopathy Code(s): G92 - TOXIC ENCEPHALOPATHY Assessment/Plan IMP ACUTE ON CHRONIC HYPOXEMIC/HYPERCAPNEIC RESPIRATORY FAILURE IMPROVED LARGE R PLEURAL EFFUSION ALTERED MENTAL STATUS IMPROVED COPD CHF ASHD S/P STENTS PLAN O2 NIPPV NEEDED INHALED BRONCHODILATORS DAILY WT LASIX PO DR DE LA ROSA Problem List - Problems (1) ASHD (arteriosclerotic heart disease) Code(s): I25.10 - ATHSCL HEART DISEASE OF [place] CORONARY ARTERY W/O ANG PCTRS (2) Acute on chronic respiratory failure with hypoxia and hypercapnia Code(s): J96.21 - ACUTE AND CHRONIC RESPIRATORY FAILURE WITH HYPOXIA; J96.22 - ACUTE AND CHRONIC RESPIRATORY FAILURE WITH HYPERCAPNIA (3) CHF (congestive heart failure) Code(s): I50.9 - HEART FAILURE, UNSPECIFIED (4) Pneumonia Code(s): J18.9 - PNEUMONIA, UNSPECIFIED ORGANISM (5) Respiratory distress Code(s): R06.03 - ACUTE RESPIRATORY DISTRESS (6) Toxic metabolic encephalopathy Code(s): G92 - TOXIC ENCEPHALOPATHY
--- NOTE | 2019-03-23 15:46 | PN ---
Progress Note, Physician Chief Complaint: no distress negative fluid balance Denies chest pain or worsened SOB - Current Medication List Current Medications: Active Medications Acetaminophen (Tylenol -) 500 mg PO Q6H PRN PRN Reason: PAIN 1-3 Aspirin (Asa -) 81 mg PO DAILY [facility] Last Admin: 03/23/19 09:40 Dose: 81 mg Atorvastatin Calcium (Lipitor -) 20 mg PO HS [facility] Last Admin: 03/22/19 21:53 Dose: 20 mg Docusate Sodium (Colace -) 200 mg PO HS [facility] Last Admin: 03/22/19 21:53 Dose: 200 mg Furosemide (Lasix -) 80 mg PO BID@0600,1400 [facility] Last Admin: 03/23/19 14:37 Dose: 80 mg Levothyroxine Sodium (Synthroid -) 75 mcg PO DAILY@0700 [facility] Last Admin: 03/23/19 06:52 Dose: 75 mcg Lorazepam (Ativan -) 0.5 mg PO Q8H PRN PRN Reason: ANXIETY Last Admin: 03/22/19 22:24 Dose: 0.5 mg Melatonin (Melatonin) 3 mg PO HS PRN PRN Reason: INSOMNIA Last Admin: 03/23/19 00:10 Dose: 3 mg Metoprolol Succinate (Toprol Xl -) 50 mg PO DAILY [facility] Last Admin: 03/23/19 09:41 Dose: 50 mg Mirtazapine (Remeron -) 30 mg PO [facility] Last Admin: 03/22/19 21:53 Dose: 30 mg Nystatin/Triamcinolone Acetonide (Mycolog Ii Ointment -) 1 applic TP BID [facility] Last Admin: 03/23/19 09:41 Dose: 1 applic Potassium Chloride (K-Dur -) 40 meq PO DAILY [facility] Last Admin: 03/23/19 09:40 Dose: 40 meq Tamsulosin HCl (Flomax -) 0.8 mg PO 0830 [facility] Last Admin: 03/23/19 09:41 Dose: 0.8 mg - Objective Vital Signs: Vital Signs Temperature 97.9 F 03/23/19 14:49 Pulse Rate 90 03/23/19 14:49 Respiratory Rate 20 03/23/19 10:00 Blood Pressure 129/57 L 03/23/19 14:49 O2 Sat by Pulse Oximetry (%) 96 03/23/19 09:00 Constitutional: Yes: No Distress Cardiovascular: Yes: Regular Rate and Rhythm Respiratory: Yes: Other (decreased breath sounds at bases) Gastrointestinal: Yes: Soft Edema: Yes Edema: LLE: 1+ (venous stasis), RLE: 1+ (venous stasis) Neurological: Yes: Alert, Oriented ...Motor Strength: WNL Labs: CBC, BMP 03/22/19 06:00 03/22/19 06:00 INR, PTT INR 1.05 (0.83-1.09) 03/01/19 11:19 Assessment/Plan IMP: 1. Acute on chronic diastolic CHF, improving. 2. CAD with remote h/o PCI REC: 1. Continue PO Lasix, overall clinically improved. 2. Cont. ASA/statin/beta dawson for his remote h/o CAD.
[2019-03-23] MEDS: ATORVASTATIN CA 20 MG TABLET (FP) PO SCH (21:16)
[2019-03-23] MEDS: MIRTAZAPINE 30 MG TABLET (FP) PO SCH (21:16)
[2019-03-23] MEDS: DOCUSATE SODIUM 100 MG CAPSULE (FP) PO SCH (21:16)
[2019-03-23] MEDS: LORazepam 0.5 MG TABLET PO PRN (21:17)
[2019-03-24] MEDS: MELATONIN 1 MG TABLET PO PRN (00:11)
[2019-03-24] MEDS: FUROSEMIDE 40 MG TABLET (FP) PO SCH ×2 (06:32→14:15)
[2019-03-24] MEDS: LEVOTHYROXINE NA 75 MCG TABLET (FP) PO SCH (06:32)
[2019-03-24] MEDS: NYSTATIN/TRIAMCINOLONE TOPICAL OINTMENT 15 GM TUBE TP SCH (09:51)
[2019-03-24] MEDS: POTASSIUM CHLORIDE TABS 20 MEQ TABLET.ER (FP) PO SCH (09:51)
[2019-03-24] MEDS: TAMSULOSIN HCL 0.4 MG CAP PO SCH (09:51)
[2019-03-24] MEDS: ASPIRIN 81 MG CHEWABLE TABLETS PO SCH (09:51)
--- NOTE | 2019-03-24 10:50 | PN ---
Progress Note (short form) - Note Progress Note: PULMONARY Breathing continues to slowly improve. Keeping net negative balance. Vital Signs Period Temp Pulse Resp BP Sys/Jolley Pulse Ox Last 24 Hr 97.3 F-97.9 F 80-90 111-129/57-63 98-99 Gen: NAD at rest Heart: RRR Lung: decreased breath sounds at the bases Abd: soft, nontender Ext: trace edema CBC, BMP 03/22/19 06:00 03/22/19 06:00 Active Medications Acetaminophen (Tylenol -) 500 mg PO Q6H PRN PRN Reason: PAIN 1-3 Aspirin (Asa -) 81 mg PO DAILY [facility] Last Admin: 03/24/19 09:51 Dose: 81 mg Atorvastatin Calcium (Lipitor -) 20 mg PO HS [facility] Last Admin: 03/23/19 21:16 Dose: 20 mg Docusate Sodium (Colace -) 200 mg PO HS [facility] Last Admin: 03/23/19 21:16 Dose: 200 mg Furosemide (Lasix -) 80 mg PO BID@0600,1400 [facility] Last Admin: 03/24/19 06:32 Dose: 80 mg Levothyroxine Sodium (Synthroid -) 75 mcg PO DAILY@0700 [facility] Last Admin: 03/24/19 06:32 Dose: 75 mcg Lorazepam (Ativan -) 0.5 mg PO Q8H PRN PRN Reason: ANXIETY Last Admin: 03/23/19 21:17 Dose: 0.5 mg Melatonin (Melatonin) 3 mg PO HS PRN PRN Reason: INSOMNIA Last Admin: 03/24/19 00:11 Dose: 3 mg Metoprolol Succinate (Toprol Xl -) 50 mg PO DAILY [facility] Last Admin: 03/24/19 09:52 Dose: 50 mg Mirtazapine (Remeron -) 30 mg PO HS [facility] Last Admin: 03/23/19 21:16 Dose: 30 mg Nystatin/Triamcinolone Acetonide (Mycolog Ii Ointment -) 1 applic TP BID [facility] Last Admin: 03/24/19 09:51 Dose: 1 applic Potassium Chloride (K-Dur -) 40 meq PO DAILY [facility] Last Admin: 03/24/19 09:51 Dose: 40 meq Tamsulosin HCl (Flomax -) 0.8 mg PO 0830 [facility] Last Admin: 03/24/19 09:51 Dose: 0.8 mg A/P Acute on Chronic Diastolic Heart Failure R Pleural Effusion COPD CAD Hypothyroidism - continue lasix - monitor urine output, creatinine - daily weights - O2 to keep SpO2 >90% - inhaled bronchodilators - rehab/PT - DVT prophylaxis
--- NOTE | 2019-03-24 12:10 | DS ---
Physical Examination Vital Signs: Vital Signs Temperature 97.3 F L 03/24/19 06:32 Pulse Rate 80 03/24/19 06:32 Respiratory Rate 20 03/23/19 10:00 Blood Pressure 111/63 03/24/19 06:32 O2 Sat by Pulse Oximetry (%) 98 03/24/19 00:05 Constitutional: Yes: No Distress, Calm Cardiovascular: Yes: Pulse Irregular Respiratory: Yes: Diminished Gastrointestinal: Yes: Normal Bowel Sounds, Soft. No: Tenderness Extremities: Yes: Other (chronic venous changes, stasis dermatitis) Edema: Yes (decreased) Labs: CBC, BMP 03/22/19 06:00 03/22/19 06:00 Discharge Summary Reason For Visit: RESPIRATORY DISTRESS Current Active Problems ASHD (arteriosclerotic heart disease) (Acute) Acute on chronic respiratory failure with hypoxia and hypercapnia (Acute) CHF (congestive heart failure) (Acute) Pneumonia (Acute) Respiratory distress (Acute) Toxic metabolic encephalopathy (Acute) Hospital Course: ER history History of Present Illness: ER HISTORY - HPI HPI: 03/01/19 11:28 Brother Katie is an 88 yo M h/o COPD, h/o hypercapnic respiratory failure, ACS, CHD, hypothyroisidm, BPH, HTN, HLD, PVD,anxiety Pt was found unresponsive at [facility] today Per [facility] notes, the patient had no fevers Pt is DNI ' Pt examined in ER drowsy , on BIPAP Spoke with ER attending hospitalization course -Long hospital stay admitted for acute diastolic failure, patient was initially on BiPAP 24 hours, now has decreased to BiPAP at nighttime He was on IV Zosyn for UTI and pneumonia, completed antibiotics Patient was evaluated by x ray technologist, pulmonary, infectious disease High dose diuretics, patient diuresed well Weight is steady at 232 pounds Renal function is normal Lasix IV now changed to Lasix 80 mg by mouth twice a day, continue the same Patient has deconditioned considerably due to acute illness-- recommend rehabilitation at the [facility]\ Stable for discharge back to the [facility] patient is DNR and DNI, BiPAP at night Condition: Stable - Instructions Disposition: RESIDENTIAL FACILITY - Home Medications Comprehensive Discharge Medication List: Ambulatory Orders Acetaminophen [Tylenol .Extra-Strength -] 500 mg PO Q6H PRN 03/01/19 Ascorbate Calcium [Vitamin C] 500 mg PO DAILY 03/01/19 Aspirin 81 mg PO DAILY 03/01/19 Atorvastatin Ca [Lipitor] 20 mg PO HS 03/01/19 Calcium Carbonate [Calcium] 600 mg PO DAILY 03/01/19 Docusate Sodium [Colace -] 200 mg PO HS 03/01/19 Levothyroxine [Synthroid -] 75 mcg PO DAILY 03/01/19 Mirtazapine [Remeron -] 30 mg PO HS 03/01/19 Mupirocin Ointment [Bactroban 2% Ointment -] 1 applic TP TID 03/01/19 Nitroglycerin 0.4 mg SL ASDIR 03/01/19 Nystatin Cream [Mycostatin Cream -] 1 applic TP ASDIR 03/01/19 [place]-3 Fatty Acids/Fish Oil [Fish Oil 1,000 mg Capsule] 1 each PO DAILY Tamsulosin HCl [Flomax] 0.4 mg PO 1800 03/01/19 Triamcinolone 0.1% Cream [Aristocort 0.1% Cream -] 1 applic TP ASDIR 03/01/19 Furosemide [Lasix -] 80 mg PO BID@0600,1400 #60 tablet 03/23/19 LORazepam [Ativan] 0.5 mg PO Q8H PRN #30 tablet MDD 3 03/23/19 Metoprolol Succinate [Toprol XL -] 50 mg PO DAILY #30 tab.sr.24h 03/23/19 Potassium Chloride [K-Dur -] 40 meq PO DAILY #30 tablet.er 03/23/19
[2019-03-24 14:21] VITALS: BP 101/53; PULSE 103; TEMP 97.9
--- NOTE | 2019-03-24 15:44 | PN ---
Progress Note (short form) - Note Progress Note: s: no cp sob palps dizzy o: Vital Signs Period Temp Pulse Resp BP Sys/Jolley Pulse Ox Last 24 Hr 97.3 F-97.9 F 80-103 101-111/53-63 98-99 Constitutional: Yes: No Distress, Calm Eyes: Yes: Conjunctiva Clear Respiratory: Yes: Regular, CTA Bilaterally Gastrointestinal: Yes: Normal Bowel Sounds, Soft Cardiovascular: Yes: Regular Rate and Rhythm JVD: no Heart Sounds: Yes: S1, S2 Murmur: No: Systolic Murmur Musculoskeletal: No: Back Pain Extremities: No: Cold Edema: Yes Edema: trace Peripheral Pulses: 2+ Left Doralis Pedis, 2+ Right Dorsalis Pedis Integumentary: No: Jaundice Neurological: Yes: Alert Psychiatric: No: Agitated Current Medications Acetaminophen (Tylenol -) 500 mg PO Q6H PRN PRN Reason: PAIN 1-3 Aspirin (Asa -) 81 mg PO DAILY [facility] Last Admin: 03/24/19 09:51 Dose: 81 mg Atorvastatin Calcium (Lipitor -) 20 mg PO HS [facility] Last Admin: 03/23/19 21:16 Dose: 20 mg Docusate Sodium (Colace -) 200 mg PO HS [facility] Last Admin: 03/23/19 21:16 Dose: 200 mg Furosemide (Lasix -) 80 mg PO BID@0600,1400 [facility] Last Admin: 03/24/19 14:15 Dose: 80 mg Levothyroxine Sodium (Synthroid -) 75 mcg PO DAILY@0700 [facility] Last Admin: 03/24/19 06:32 Dose: 75 mcg Lorazepam (Ativan -) 0.5 mg PO Q8H PRN PRN Reason: ANXIETY Last Admin: 03/23/19 21:17 Dose: 0.5 mg Melatonin (Melatonin) 3 mg PO HS PRN PRN Reason: INSOMNIA Last Admin: 03/24/19 00:11 Dose: 3 mg Metoprolol Succinate (Toprol Xl -) 50 mg PO DAILY [facility] Last Admin: 03/24/19 09:52 Dose: 50 mg Mirtazapine (Remeron -) 30 mg PO HS [facility] Last Admin: 03/23/19 21:16 Dose: 30 mg Nystatin/Triamcinolone Acetonide (Mycolog Ii Ointment -) 1 applic TP BID [facility] Last Admin: 03/24/19 09:51 Dose: 1 applic Potassium Chloride (K-Dur -) 40 meq PO DAILY [facility] Last Admin: 03/24/19 09:51 Dose: 40 meq Tamsulosin HCl (Flomax -) 0.8 mg PO 829 [facility] Last Admin: 03/24/19 09:51 Dose: 0.8 mg Assessment/Plan CT chest large right pleural effusion with compression atelectasis of R base, minimal atelectasis of L base. Echo 02/2019 LV mildly dilated, nl LV function, mild TR, mod ao sclerosis, tds, RV not well visualized, LA mod dilated, RA mod dilated, mild ao root dilation EKG sinus 1st deg AVB, LBBB 88M h/o COPD, h/o hypercapnic respiratory failure, CAD s/p stents, CHD, hypothyroisidm, BPH, HTN, HLD, PVD,anxiety p/w unresponsiveness shortness of breath, unresponsiveness, acute diastolic HF exacerbation - nl LV function on echo, RV not well visualized - CT chest with R pleural effusion - CXR shows improvement. net negative >3L yesterday however weight charted is stable -03/12: denies sob. labs stable. cont lasix 80 iv bid, repeat CXR -03/14-: CXR stable. wt down. BUN/Cr stable. edema improving -03/17: was drinking a lot of fluids, weight up yesterday. now improving with fluid restriction, IV lasix. Cr stable. continue lasix 80 mg IV BID, reinforced fluid restriction -03/18: wt down, cr stable. pt walked with pt further today and felt less duarte. continue same iv lasix for now. daily chem7, wt -03/22: cxr shows no chf, pt has been doing well walking with PT, and wt stable, likely at baseline now. will change to po lasix 80 bid. - 03/24: continue lasix 80 mg PO BID, stable for dc from cardiac perspective UTI - manage per primary, ID CAD - s/p stents 20 years ago - cont aspirin, statin, bb HTN - cont current meds HLD - cont statin
== END 2019-03-24 18:03 | DRG 291 ==
LOC: JER 10:55 → JERBED 13:22 → J4W 03-02 02:41 → J6S 03-04 14:01
PROVIDERS: ADMIT Internal Medicine; ATTEND Internal Medicine
PROC: 5A09357 Assistance with Respiratory Ventilation, Less than 24 Consecutive Hours, Continuous Positive Airway Pressure (ICD-10-PCS; principal; 2019-03-01)
DX: I11.0 Hypertensive heart disease with heart failure (principal); G93.41 Metabolic encephalopathy; J96.21 Acute and chronic respiratory failure with hypoxia; J96.22 Acute and chronic respiratory failure with hypercapnia; J18.9 Pneumonia, unspecified organism; I50.31 Acute diastolic (congestive) heart failure; N39.0 Urinary tract infection, site not specified; J90 Pleural effusion, not elsewhere classified; J98.11 Atelectasis; R41.82 Altered mental status, unspecified; I25.10 Atherosclerotic heart disease of native coronary artery without angina pectoris; J44.9 Chronic obstructive pulmonary disease, unspecified; G47.00 Insomnia, unspecified; F32.9 Major depressive disorder, single episode, unspecified; E03.9 Hypothyroidism, unspecified; R00.0 Tachycardia, unspecified; N40.0 Benign prostatic hyperplasia without lower urinary tract symptoms; E78.5 Hyperlipidemia, unspecified; I73.9 Peripheral vascular disease, unspecified; I44.0 Atrioventricular block, first degree; I44.7 Left bundle-branch block, unspecified; F41.8 Other specified anxiety disorders; Z66 Do not resuscitate; E66.9 Obesity, unspecified; Z68.29 Body mass index [BMI] 29.0-29.9, adult; Z95.5 Presence of coronary angioplasty implant and graft
CPT/HCPCS: 36415; 36600; 70450-TC; 71045-TC-FY; 71250-TC; 80048; 80053; 81003; 82375; 82803; 82962; 83050; 83605; 83880; 84484; 85025; 85027; 85610; 85730; 87040; 87086; 87186; 87899; 93005; 93010; 93306-TC; 94660; 97116-GP; 97161-GP; 99283-25

== ENCOUNTER 2019-05-17 19:12 | Inpatient (IN) | payer OTHER | END 2019-05-25 12:55 | LOC: JERBED 05-18 00:27 → JER 19:12 → J4W 05-18 18:13 ==

== ENCOUNTER 2019-11-23 20:36 | Inpatient (IN) | payer OTHER ==
[2019-11-23 21:02] VITALS: BMI 35.9
--- NOTE | 2019-11-23 21:05 | PDOC ---
Attending Attestation - Resident Resident Name: Bernard Henley - ED Attending Attestation I have performed the following: I have examined & evaluated the patient, The case was reviewed & discussed with the resident, I agree w/resident's findings & plan - HPI HPI: 11/23/19 22:48 see resident hpi - Physicial Exam PE: 11/23/19 22:48 agree with resident exam - Medical Decision Making 11/23/19 22:49 88-year-old male with altered mental status Patient is DNR/DNI but previous orders to not hospitalize have been reversed by brother who is his healthcare proxy Labs suggest hypercapnic respiratory failure Will admit and continue BiPAP
--- NOTE | 2019-11-23 21:11 | PDOC ---
History of Present Illness - General Stated Complaint: LETHARGIC - History of Present Illness Initial Comments: The pt is an 88M with a PMH of COPD, CHF, CAD, hypothyroidism who presents to the ER from [facility] for AMS/unresponsiveness. Pt unable to provide a history at this time. Per Brother Merritt, the healthcare proxy, the pt was reportedly found to be unresponsive this afternoon. Brother Merritt states that these episodes of unresponsiveness have happened sporadically over the past 3 months when the patient does not wear his CPAP mask overnight. Per EMS, the pt was not wearing his CPAP. The pt reportedly has do not hospitalize paperwork; however, as the proxy, Brother Merritt would like the pt evaluated and called with the results of the initial workup Brother Merritt: [phone] 11/23/19 21:05 Past History - Past Medical History Allergies/Adverse Reactions: Allergies Allergy/AdvReac Type Severity Reaction Status Date / Time No Known Allergies Allergy Verified 11/23/19 21:02 Home Medications: Ambulatory Orders Acetaminophen [Tylenol .Extra-Strength -] 500 mg PO Q6H PRN 03/01/19 Ascorbate Calcium [Vitamin C] 500 mg PO DAILY 03/01/19 Aspirin 81 mg PO DAILY 03/01/19 Atorvastatin Ca [Lipitor] 20 mg PO HS 03/01/19 Calcium Carbonate [Calcium] 600 mg PO DAILY 03/01/19 Docusate Sodium [Colace -] 200 mg PO HS 03/01/19 Levothyroxine [Synthroid -] 75 mcg PO DAILY 03/01/19 Mirtazapine [Remeron -] 30 mg PO HS 03/01/19 Mupirocin Ointment [Bactroban 2% Ointment -] 1 applic TP TID 03/01/19 Nitroglycerin 0.4 mg SL ASDIR 03/01/19 Nystatin Cream [Mycostatin Cream -] 1 applic TP ASDIR 03/01/19 Guthrie-3 Fatty Acids/Fish Oil [Fish Oil 1,000 mg Capsule] 1 each PO DAILY Tamsulosin HCl [Flomax] 0.4 mg PO 1800 03/01/19 Triamcinolone 0.1% Cream [Aristocort 0.1% Cream -] 1 applic TP ASDIR 03/01/19 LORazepam [Ativan] 0.5 mg PO Q8H PRN #30 tablet MDD 3 03/23/19 Metoprolol Succinate [Toprol XL -] 50 mg PO DAILY #30 tab.sr.24h 03/23/19 Potassium Chloride [K-Dur -] 40 meq PO DAILY #30 tablet.er 03/23/19 Furosemide [Lasix -] 80 mg PO DAILY #60 tablet 05/25/19 Prednisone See Taper PO ASDIR #30 tablet 05/25/19 Cardiac Disorders: Yes (ASHD w/ stents) COPD: No CHF: Yes HTN: Yes Hypercholesterolemia: Yes Psychiatric Problems: Yes (DEPRESSION INSOMNIA) Thyroid Disease: Yes (hypo) - Psycho Social/Smoking Cessation Hx Smoking History: Unknown if ever smoked Have you smoked in the past 12 months: No Hx Alcohol Use: No Drug/Substance Use Hx: No Hx Substance Use Treatment: No Review of Systems - Review of Systems Able to Perform ROS?: No (2/2 medical condition) *Physical Exam - Vital Signs Last Vital Signs Temp Pulse Resp BP Pulse Ox 95 H 16 115/61 100 11/23/19 20:58 11/23/19 20:58 11/23/19 20:58 11/23/19 20:58 - Physical Exam GENERAL: Awake, not oriented HEAD: No signs of trauma, normocephalic, atraumatic EYES: PERRLA, sclera anicteric, conjunctiva clear ENT: nares patent, oropharynx clear without exudates. No uvular deviation. Moist mucosa LUNGS: poor air entry, no distress, 100% on non-rebreather HEART: Regular rate and rhythm, normal S1 and S2, no murmurs appreciated, peripheral pulses normal and equal bilaterally ABDOMEN: Soft, protuberant, no grimace to palpation : catheter in place EXTREMITIES: BLE venous stasis changes and swelling to knees NEUROLOGICAL: Not verbally responsive, groans to sternal rub, does not follow commands SKIN: Warm, Dry other than stasis changes noted above ED Treatment Course - LABORATORY CBC & Chemistry Diagram: 11/23/19 22:45 11/23/19 22:45 Medical Decision Making - Medical Decision Making The pt is an 88M with a PMH of COPD, CHF, CAD, hypothyroidism who presents to the ER from [facility] for AMS/unresponsiveness noted since midafternoon today ED Course Labs sent ABG Pt placed on CPAP 12/5/40% CT head ECG 11/23/19 21:11 ECG w/ sinus rhythm, HR 94; 1st degree AV block, repolarization abnormality, no MORENO, left axis deviation 11/23/19 23:43 Mild leukocytosis, 12.3 Hgb unremarkable Lytes unremarkable Trop I wnl LFTs wnl [employer] sent for admission, pending call back Pt's mentation improving on CPAP -Pt now oriented x3, following commands -Pt agrees with staying to correct hypercapnea Brother Merritt updated on plan Pt signed out to Dr. Quinn 11/23/19 23:45 Discharge - Discharge Information Problems reviewed: Yes Clinical Impression/Diagnosis: Acute and chronic respiratory failure with hypercapnia UTI (urinary tract infection) Qualifiers: Urinary tract infection type: site unspecified Hematuria presence: without hematuria Qualified Code(s): N39.0 - Urinary tract infection, site not specified Condition: Fair - Admission Yes - Follow up/Referral Referrals: Eugene Christy MD [Primary Care Provider] - - Patient Discharge Instructions - Post Discharge Activity
[2019-11-23 21:29] LABS: ARTERIAL BLOOD GAS PO2 308 mmHg (80-100)
[2019-11-23 21:30] LABS: ALLENS TEST POSITIVE; ARTERIAL BLD GAS O2 SATURATION 99 % (95-98)
[2019-11-23 21:31] LABS: ARTERIAL BLOOD GAS PCO2 > 100 mmHg (35-45)
[2019-11-23 22:58] LABS: BASO % 0.6 % (0-2.0); HEMATOCRIT 36.8 % (35.4-49); HEMOGLOBIN 11.6 GM/dL (11.7-16.9); LYMPH % 13.9 % (8-40); MCH 27.7 pg (25.7-33.7); MCHC 31.7 g/dl (32.0-35.9); MEAN CELL VOLUME 87.6 fl (80-96); MEAN PLT VOLUME 7.7 fl (7.5-11.1); MONO % 4.9 % (3.8-10.2); NEUT % 80.6 % (42.8-82.8); PLATELET COUNT 173 K/MM3 (134-434); RDW 16.8 % (11.9-15.9); WHITE BLOOD COUNT 12.3 K/mm3 (4.0-10.0)
[2019-11-23 23:02] LABS: EPI CELLS 1.5 /HPF (0-5/HPF); HYALINE CASTS 28 /lpf (0-8); URINE APPEARANCE TURBID; URINE BACTERIA 1932.3 /hpf (NEGATIVE); URINE BILIRUBIN NEGATIVE (NEGATIVE); URINE COLOR YELLOW; URINE GLUCOSE (UA) NEGATIVE (NEGATIVE); URINE KETONE NEGATIVE (NEGATIVE); URINE LEUK ESTERASE 3+ (NEGATIVE); URINE NITRITE NEGATIVE (NEGATIVE); URINE PROTEIN TRACE (NEGATIVE); URINE RBC 18 /hpf (0-4); URINE UROBILINOGEN 0.2 mg/dL (0.2-1.0); URINE WBC 495 /hpf (0-5)
[2019-11-23 23:37] LABS: ALBUMIN 2.8 g/dl (3.4-5.0); ALK PHOS 91 U/L (45-117); ANION GAP 4 MMOL/L (8-16); BILIRUBIN,TOTAL 0.6 mg/dL (0.2-1); BLOOD UREA NITROGEN 28.1 mg/dL (7-18); CALCIUM 9.6 mg/dL (8.5-10.1); CHLORIDE 91 mmol/L (98-107); CO2 > 45 mmol/L (21-32); CREATININE 0.6 mg/dL (0.55-1.3); GLUCOSE,RANDOM 182 mg/dL (74-106); POTASSIUM 4.8 mmol/L (3.5-5.1); SGOT/AST 26 U/L (15-37); SGPT/ALT 21 U/L (13-61); SODIUM 140 mmol/L (136-145)
[2019-11-23 23:58] LABS: YEAST NONE SEEN (NEGATIVE)
[2019-11-24] MEDS ORDERED: PIPERACILLIN/TAZOB 3.375 GM 3.375 GM in DEXTROSE 5%-WATER - 50 ML IVPB ONE (00:18)
[2019-11-24] MEDS ORDERED: PIPERACILLIN/TAZOB 3.375 GM 3.375 GM/50 ML BAG IVPB ONE (00:43)
--- NOTE | 2019-11-24 02:00 | PDOC ---
*Physical Exam - Vital Signs Last Vital Signs Temp Pulse Resp BP Pulse Ox 95 H 16 115/61 100 11/23/19 20:58 11/23/19 20:58 11/23/19 20:58 11/24/19 00:13 ED Treatment Course - LABORATORY CBC & Chemistry Diagram: 11/24/19 05:30 11/24/19 05:30 - ADDITIONAL ORDERS Additional order review: Laboratory Results 11/23/19 11/23/19 11/23/19 22:45 22:45 22:45 Anticoagulation Therapy Puncture Site ABG pH ABG pCO2 at Pt Temp ABG pO2 at Pt Temp ABG HCO3 ABG O2 Sat (Measured) ABG O2 Content ABG Base Excess Joe Test Carboxyhemoglobin Methemoglobin O2 Delivery Device Oxygen Flow Rate Vent Mode Vent Rate Mechanical Rate Pressure Support Vent Sodium 140 Potassium 4.8 Chloride 91 L Carbon Dioxide > 45 H Anion Gap 4 L BUN 28.1 H Creatinine 0.6 Est GFR (CKD-EPI)AfAm 105.52 Est GFR (CKD-EPI)NonAf 91.04 Random Glucose 182 H Calcium 9.6 Total Bilirubin 0.6 AST 26 ALT 21 Alkaline Phosphatase 91 Troponin I < 0.02 Total Protein 7.0 Albumin 2.8 L TSH 1.07 Urine Color Urine Appearance Urine pH Ur Specific [place] Urine Protein Urine Glucose (UA) Urine Ketones Urine Blood Urine Nitrite Urine Bilirubin Urine Urobilinogen Ur Leukocyte Esterase Urine WBC (Auto) Urine RBC (Auto) Urine Casts (Auto) U Pathogenic Cast Auto U Epithel Cells (Auto) Urine Bacteria (Auto) Urine Yeast (Auto) 11/23/19 11/23/19 22:30 21:00 Anticoagulation Therapy No Result Required. Puncture Site Left radial ABG pH 7.20 L ABG pCO2 at Pt Temp > 100 H* ABG pO2 at Pt Temp 308 H ABG HCO3 No Result Required. ABG O2 Sat (Measured) 99 H ABG O2 Content 11.3 ABG Base Excess No Result Required. Joe Test Positive Carboxyhemoglobin 1.0 Methemoglobin 1.4 O2 Delivery Device Norebreather Oxygen Flow Rate 100 Vent Mode No Result Required. Vent Rate No Result Required. Mechanical Rate No Result Required. Pressure Support Vent 11/23 Sodium Potassium Chloride Carbon Dioxide Anion Gap BUN Creatinine Est GFR (CKD-EPI)AfAm Est GFR (CKD-EPI)NonAf Random Glucose Calcium Total Bilirubin AST ALT Alkaline Phosphatase Troponin I Total Protein Albumin TSH Urine Color Yellow Urine Appearance Turbid Urine pH 7.0 D Ur Specific [place] 1.014 Urine Protein Trace Urine Glucose (UA) Negative Urine Ketones Negative Urine Blood 2+ H Urine Nitrite Negative Urine Bilirubin Negative Urine Urobilinogen 0.2 Ur Leukocyte Esterase 3+ H Urine WBC (Auto) 495 Urine RBC (Auto) 18 Urine Casts (Auto) 28 U Pathogenic Cast Auto None seen U Epithel Cells (Auto) 1.5 Urine Bacteria (Auto) 1932.3 Urine Yeast (Auto) None seen 11/23/19 22:45 RBC 4.20 MCV 87.6 MCHC 31.7 L RDW 16.8 H MPV 7.7 Neutrophils % 80.6 Lymphocytes % 13.9 Monocytes % 4.9 Eosinophils % 0.0 Basophils % 0.6 D - Medications Given in the ED: ED Medications Discontinued Medications Generic Name Dose Route Start Last Admin Trade Name Freq PRN Reason Stop Dose Admin Piperacillin Sod/Tazobactam 50 mls @ 100 mls/hr 11/24/19 00:18 11/24/19 01:00 Sod 3.375 gm/ Dextrose IVPB 11/24/19 00:47 100 mls/hr ONCE ONE Administration Protocol Medical Decision Making - Medical Decision Making Patient signed out by Dr. Henley 88yo M with a PMH of COPD, CHF, CAD, hypothyroidism who presents to the ER from [facility] for AMS/unresponsiveness. Tolerating CPAP with improved mentation UTI treated with vanc/zosyn Plan for admission for acute on chronic hypercapnic respiratory failure Discussed case with Dr. Gabriel who accepted patient for admission under Dr. Cheng 11/24/19 02:00 Discharge - Discharge Information Problems reviewed: Yes Clinical Impression/Diagnosis: Acute and chronic respiratory failure with hypercapnia UTI (urinary tract infection) Qualifiers: Urinary tract infection type: site unspecified Hematuria presence: without hematuria Qualified Code(s): N39.0 - Urinary tract infection, site not specified Condition: Guarded - Admission Yes - Follow up/Referral - Patient Discharge Instructions - Post Discharge Activity
[2019-11-24] MEDS ORDERED: methylPREDNISolone NA SUCC 40 MG/1 ML VIAL ONE (03:45)
[2019-11-24 03:56] LABS: ARTERIAL BLD GAS O2 SATURATION 98.8 % (95-98); ARTERIAL BLOOD GAS BASE EXCESS 18.1 meq/l (-2-2); ARTERIAL BLOOD GAS PO2 135 mmHg (80-100); ARTERIAL BLOOD GAS pH 7.34 (7.35-7.45); CARBOXYHEMOGLOBIN 1.6 % (0-2)
[2019-11-24 03:57] LABS: ALLENS TEST POSITIVE
--- NOTE | 2019-11-24 03:57 | HP ---
<Jocelyne Gabriel - Last Filed: 11/24/19 03:57> CHIEF COMPLAINT: AMS PCP: Dr. Hanley HISTORY OF PRESENT ILLNESS: Patient is an 88 year old male with PMH of CHFpEF, CAD( s/p stents ~20years ago) , HLD, PVD, anxiety, Hypothyroidism and COPD (on BiPAP HS) who presents with AMS and unresponsiveness sine this afternoon. Pt is poor historian, brother at bedside to assist with history. Pt has had multiple admissions over the pas 3 months for similar episodes. He wears his CPAP at night, however, he wakes up and feels claustrophobic, becomes agitated and pulls it off. This causes him to become hypercapnic leading to AMS. Pt complains of dyspnea, but denies chest pain, fevers, chills, abd pain, nausea, vomiting. 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 On arrival to ED, pt was unresponsive and found to be hypercapnic. Once CPAP was placed, pt returned to baseline. Recent Travel: denies PAST MEDICAL HISTORY: As per HPI PAST SURGICAL HISTORY: Stents Social History: Smoking: unknown Alcohol: unknown Drugs: unknown Allergies No Known Allergies Allergy (Verified 11/23/19 21:02) HOME MEDICATIONS: Home Medications Medication Instructions Recorded Acetaminophen [Tylenol 500 mg PO Q6H PRN 03/01/19 .Extra-Strength -] Ascorbate Calcium [Vitamin C] 500 mg PO DAILY 03/01/19 Aspirin 81 mg PO DAILY 03/01/19 Atorvastatin Ca [Lipitor] 20 mg PO HS 03/01/19 Calcium Carbonate [Calcium] 600 mg PO DAILY 03/01/19 Docusate Sodium [Colace -] 200 mg PO HS 03/01/19 Levothyroxine [Synthroid -] 75 mcg PO DAILY 03/01/19 Mirtazapine [Remeron -] 30 mg PO HS 03/01/19 Mupirocin Ointment [Bactroban 2% 1 applic TP TID 03/01/19 Ointment -] Nitroglycerin 0.4 mg SL ASDIR 03/01/19 Nystatin Cream [Mycostatin Cream -] 1 applic TP ASDIR 03/01/19 [place]-3 Fatty Acids/Fish Oil [Fish 1 each PO DAILY 03/01/19 Oil 1,000 mg Capsule] Tamsulosin HCl [Flomax] 0.4 mg PO 1800 03/01/19 Triamcinolone 0.1% Cream 1 applic TP ASDIR 03/01/19 [Aristocort 0.1% Cream -] LORazepam [Ativan] 0.5 mg PO Q8H PRN #30 tablet MDD 3 03/23/19 Metoprolol Succinate [Toprol XL -] 50 mg PO DAILY #30 tab.sr.24h 03/23/19 Potassium Chloride [K-Dur -] 40 meq PO DAILY #30 tablet.er 03/23/19 Furosemide [Lasix -] 80 mg PO DAILY #60 tablet 05/25/19 Prednisone See Taper PO ASDIR #30 tablet 05/25/19 REVIEW OF SYSTEMS CONSTITUTIONAL: Absent: fever, chills, diaphoresis, generalized weakness, malaise, loss of appetite, weight change HEENT: Absent: rhinorrhea, nasal congestion, throat pain, throat swelling, difficulty swallowing, mouth swelling, ear pain, eye pain, visual changes CARDIOVASCULAR: Absent: chest pain, syncope, palpitations, irregular heart rate, lightheadedness , peripheral edema RESPIRATORY: Absent: cough, shortness of breath, dyspnea with exertion, orthopnea, wheezing, stridor, hemoptysis GASTROINTESTINAL: Absent: abdominal pain, abdominal distension, nausea, vomiting, diarrhea, constipation, melena, hematochezia GENITOURINARY: Absent: dysuria, frequency, urgency, hesitancy, hematuria, flank pain, genital pain MUSCULOSKELETAL: Absent: myalgia, arthralgia, joint swelling, back pain, neck pain SKIN: Absent: rash, itching, pallor HEMATOLOGIC/IMMUNOLOGIC: Absent: easy bleeding, easy bruising, lymphadenopathy, frequent infections ENDOCRINE: Absent: unexplained weight gain, unexplained weight loss, heat intolerance, cold intolerance NEUROLOGIC: Absent: headache, focal weakness or paresthesias, dizziness, unsteady gait, seizure, mental status changes, bladder or bowel incontinence PSYCHIATRIC: Absent: anxiety, depression, suicidal or homicidal ideation, hallucinations. PHYSICAL EXAMINATION Vital Signs - 24 hr 11/23/19 11/23/19 11/24/19 20:58 21:10 00:13 Temperature Pulse Rate 95 H Respiratory 16 Rate Blood Pressure 115/61 O2 Sat by Pulse 100 99 100 Oximetry (%) 11/24/19 02:05 Temperature 98.5 F Pulse Rate Respiratory Rate Blood Pressure O2 Sat by Pulse Oximetry (%) GENERAL: Awake, alert, and fully oriented, in no acute distress. HEAD: Normal with no signs of trauma. EYES: Pupils equal, round and reactive to light, extraocular movements intact, sclera anicteric, conjunctiva clear. No lid lag. EARS, NOSE, THROAT: Ears normal, nares patent, oropharynx clear without exudates. Moist mucous membranes. NECK: Normal range of motion, supple without lymphadenopathy, JVD, or masses. LUNGS: Breath sounds equal, clear to auscultation bilaterally. No wheezes, and no crackles. No accessory muscle use. HEART: Regular rate and rhythm, normal S1 and S2 without murmur, rub or gallop. ABDOMEN: Soft, nontender, not distended, normoactive bowel sounds, no guarding, no rebound, no masses. No hepatomegaly or splenomegaly. MUSCULOSKELETAL: Normal range of motion at all joints. No bony deformities or tenderness. No CVA tenderness. UPPER EXTREMITIES: 2+ pulses, warm, well-perfused. No cyanosis. No clubbing. No peripheral edema. LOWER EXTREMITIES: 2+ pulses, warm, well-perfused. No calf tenderness. No peripheral edema. NEUROLOGICAL: Cranial nerves II-XII intact. Normal speech. Normal gait. PSYCHIATRIC: Cooperative. Good eye contact. Appropriate mood and affect. SKIN: Warm, dry, normal turgor, no rashes or lesions noted, normal capillary refill. Laboratory Results - last 24 hr CBC, BMP 11/23/19 22:45 11/23/19 22:45 ABG Results ABG pH 7.20 (7.35-7.45) L ABG pCO2 at Pt Temp > 100 mmHg (35-45) H* ABG pO2 at Pt Temp 308 mmHg (80-100) H ABG HCO3 No Result Required. ABG O2 Sat (Measured) 99 % (95-98) H ABG O2 Content 11.3 % vol ABG Base Excess No Result Required. Urine Test Results Urine Color Yellow Urine Appearance Turbid Urine pH 7.0 (5.0-8.0) D Ur Specific [place] 1.014 (1.010-1.035) Urine Protein Trace (NEGATIVE) Urine Glucose (UA) Negative (NEGATIVE) Urine Ketones Negative (NEGATIVE) Urine Blood 2+ (NEGATIVE) H Urine Nitrite Negative (NEGATIVE) Urine Bilirubin Negative (NEGATIVE) Ur Leukocyte Esterase 3+ (NEGATIVE) H ASSESSMENT/PLAN: Patient is an 88 year old male with PMH of CHFpEF, CAD( s/p stents ~20years ago) , HLD, PVD, anxiety, Hypothyroidism and COPD (on BiPAP HS) who presents with AMS. #Hypercapnic respiratory failure 2/2 non-compliance of CPAP ABG: pH: 7.2, pCO2: >100 Pt placed on CPAP and now A&O x2 (at baseline) Will optimizie CPAP settings and encourage manager of compliance ABG F/u CXR to r/o acute process IV solumedrol 40mg Q12H IV morphine 2mg prn for pain/agitation to calm pt while on CPAP F/u lactic, pro-calcitonin F/u echo in am CT Head: no acute pathology #UTI UA: 2+ blood, 3+ LE Past cx have grown pseudomonas and enterococcus faecalis F/u urine and blood cx Exchange piña and f/u clean catch UA Will treat with Zosyn 3.375mg Q8H #BL LE swelling Pt complains of calf tenderness and LE's are erythematous and swollen (may be baseline based on chart review) F/u US duplex #CHF Cont lasix 80mg daily #CAD s/p stent Cont asa and lipitor 20mg HS #HTN Cont Toprol Xl 50mg daily #Chronic urinary retention Pt has chronic piña Monitor for purulence Cont flomax 0.4mg aily #FEN No standing fluids in setting of CHF Sodium-controlled diet #DVT ppx Heparin BID #Dispo DNR/DNI ATTENDING PHYSICIAN STATEMENT I saw and evaluated the patient. I reviewed the resident's note and discussed the case with the resident. I agree with the resident's findings and plan as documented. SUBJECTIVE: OBJECTIVE: ASSESSMENT AND PLAN: <Yifan Cheng - Last Filed: 11/24/19 06:37> CHIEF COMPLAINT: PCP: HISTORY OF PRESENT ILLNESS: ER course was notable for: (1) (2) (3) Recent Travel: PAST MEDICAL HISTORY: PAST SURGICAL HISTORY: Social History: Smoking: Alcohol: Drugs: Allergies No Known Allergies Allergy (Verified 11/23/19 21:02) HOME MEDICATIONS: Home Medications Medication Instructions Recorded Acetaminophen [Tylenol 500 mg PO Q6H PRN 03/01/19 .Extra-Strength -] Ascorbate Calcium [Vitamin C] 500 mg PO DAILY 03/01/19 Aspirin 81 mg PO DAILY 03/01/19 Atorvastatin Ca [Lipitor] 20 mg PO HS 03/01/19 Calcium Carbonate [Calcium] 600 mg PO DAILY 03/01/19 Docusate Sodium [Colace -] 200 mg PO HS 03/01/19 Levothyroxine [Synthroid -] 75 mcg PO DAILY 03/01/19 Mirtazapine [Remeron -] 30 mg PO HS 03/01/19 Mupirocin Ointment [Bactroban 2% 1 applic TP TID 03/01/19 Ointment -] Nitroglycerin 0.4 mg SL ASDIR 03/01/19 Nystatin Cream [Mycostatin Cream -] 1 applic TP ASDIR 03/01/19 [place]-3 Fatty Acids/Fish Oil [Fish 1 each PO DAILY 03/01/19 Oil 1,000 mg Capsule] Tamsulosin HCl [Flomax] 0.4 mg PO 1800 03/01/19 Triamcinolone 0.1% Cream 1 applic TP ASDIR 03/01/19 [Aristocort 0.1% Cream -] LORazepam [Ativan] 0.5 mg PO Q8H PRN #30 tablet MDD 3 03/23/19 Metoprolol Succinate [Toprol XL -] 50 mg PO DAILY #30 tab.sr.24h 03/23/19 Potassium Chloride [K-Dur -] 40 meq PO DAILY #30 tablet.er 03/23/19 Furosemide [Lasix -] 80 mg PO DAILY #60 tablet 05/25/19 Prednisone See Taper PO ASDIR #30 tablet 05/25/19 REVIEW OF SYSTEMS CONSTITUTIONAL: Absent: fever, chills, diaphoresis, generalized weakness, malaise, loss of appetite, weight change HEENT: Absent: rhinorrhea, nasal congestion, throat pain, throat swelling, difficulty swallowing, mouth swelling, ear pain, eye pain, visual changes CARDIOVASCULAR: Absent: chest pain, syncope, palpitations, irregular heart rate, lightheadedness , peripheral edema RESPIRATORY: Absent: cough, shortness of breath, dyspnea with exertion, orthopnea, wheezing, stridor, hemoptysis GASTROINTESTINAL: Absent: abdominal pain, abdominal distension, nausea, vomiting, diarrhea, constipation, melena, hematochezia GENITOURINARY: Absent: dysuria, frequency, urgency, hesitancy, hematuria, flank pain, genital pain MUSCULOSKELETAL: Absent: myalgia, arthralgia, joint swelling, back pain, neck pain SKIN: Absent: rash, itching, pallor HEMATOLOGIC/IMMUNOLOGIC: Absent: easy bleeding, easy bruising, lymphadenopathy, frequent infections ENDOCRINE: Absent: unexplained weight gain, unexplained weight loss, heat intolerance, cold intolerance NEUROLOGIC: Absent: headache, focal weakness or paresthesias, dizziness, unsteady gait, seizure, mental status changes, bladder or bowel incontinence PSYCHIATRIC: Absent: anxiety, depression, suicidal or homicidal ideation, hallucinations. PHYSICAL EXAMINATION Vital Signs - 24 hr 11/23/19 11/23/19 11/23/19 20:45 20:58 21:10 Temperature Pulse Rate 94 H 95 H Pulse Rate [ 94 H Right Radial] Respiratory 27 H 16 Rate Blood Pressure 115/61 Blood Pressure 136/76 [Left Arm] O2 Sat by Pulse 98 100 99 Oximetry (%) 11/23/19 11/24/19 11/24/19 21:15 00:13 02:05 Temperature 98.5 F Pulse Rate Pulse Rate [ Right Radial] Respiratory Rate Blood Pressure Blood Pressure [Left Arm] O2 Sat by Pulse 99 100 Oximetry (%) 11/24/19 11/24/19 04:27 05:52 Temperature Pulse Rate Pulse Rate [ Right Radial] Respiratory Rate Blood Pressure Blood Pressure [Left Arm] O2 Sat by Pulse 100 100 Oximetry (%) GENERAL: Awake, alert, and fully oriented, in no acute distress. HEAD: Normal with no signs of trauma. EYES: Pupils equal, round and reactive to light, extraocular movements intact, sclera anicteric, conjunctiva clear. No lid lag. EARS, NOSE, THROAT: Ears normal, nares patent, oropharynx clear without exudates. Moist mucous membranes. NECK: Normal range of motion, supple without lymphadenopathy, JVD, or masses. LUNGS: Breath sounds equal, clear to auscultation bilaterally. No wheezes, and no crackles. No accessory muscle use. HEART: Regular rate and rhythm, normal S1 and S2 without murmur, rub or gallop. ABDOMEN: Soft, nontender, not distended, normoactive bowel sounds, no guarding, no rebound, no masses. No hepatomegaly or splenomegaly. MUSCULOSKELETAL: Normal range of motion at all joints. No bony deformities or tenderness. No CVA tenderness. UPPER EXTREMITIES: 2+ pulses, warm, well-perfused. No cyanosis. No clubbing. No peripheral edema. LOWER EXTREMITIES: 2+ pulses, warm, well-perfused. No calf tenderness. No peripheral edema. NEUROLOGICAL: Cranial nerves II-XII intact. Normal speech. Normal gait. PSYCHIATRIC: Cooperative. Good eye contact. Appropriate mood and affect. SKIN: Warm, dry, normal turgor, no rashes or lesions noted, normal capillary refill. Laboratory Results - last 24 hr 11/23/19 11/23/19 11/23/19 21:00 22:30 22:45 WBC 12.3 H RBC 4.20 Hgb 11.6 L Hct 36.8 D MCV 87.6 MCH 27.7 MCHC 31.7 L RDW 16.8 H Plt Count 173 MPV 7.7 Absolute Neuts (auto) 9.9 H Neutrophils % 80.6 Lymphocytes % 13.9 Monocytes % 4.9 Eosinophils % 0.0 Basophils % 0.6 D Nucleated RBC % 0 Anticoagulation Therapy No Result Required. Puncture Site Left radial ABG pH 7.20 L ABG pCO2 at Pt Temp > 100 H* ABG pO2 at Pt Temp 308 H ABG HCO3 No Result Required. ABG O2 Sat (Measured) 99 H ABG O2 Content 11.3 ABG Base Excess No Result Required. Joe Test Positive Carboxyhemoglobin 1.0 Methemoglobin 1.4 O2 Delivery Device Norebreather Oxygen Flow Rate 100 Vent Mode No Result Required. Vent Rate No Result Required. Mechanical Rate No Result Required. Pressure Support Vent 11/23 Sodium Potassium Chloride Carbon Dioxide Anion Gap BUN Creatinine Est GFR (CKD-EPI)AfAm Est GFR (CKD-EPI)NonAf Random Glucose Lactic Acid Calcium Phosphorus Magnesium Total Bilirubin AST ALT Alkaline Phosphatase Troponin I Total Protein Albumin TSH Urine Color Yellow Urine Appearance Turbid Urine pH 7.0 D Ur Specific [place] 1.014 Urine Protein Trace Urine Glucose (UA) Negative Urine Ketones Negative Urine Blood 2+ H Urine Nitrite Negative Urine Bilirubin Negative Urine Urobilinogen 0.2 Ur Leukocyte Esterase 3+ H Urine WBC (Auto) 495 Urine RBC (Auto) 18 Urine Casts (Auto) 28 U Pathogenic Cast Auto None seen U Epithel Cells (Auto) 1.5 Urine Bacteria (Auto) 1932.3 Urine Yeast (Auto) None seen 11/23/19 11/23/19 11/23/19 22:45 22:45 22:45 WBC RBC Hgb Hct MCV MCH MCHC RDW Plt Count MPV Absolute Neuts (auto) Neutrophils % Lymphocytes % Monocytes % Eosinophils % Basophils % Nucleated RBC % Anticoagulation Therapy Puncture Site ABG pH ABG pCO2 at Pt Temp ABG pO2 at Pt Temp ABG HCO3 ABG O2 Sat (Measured) ABG O2 Content ABG Base Excess Joe Test Carboxyhemoglobin Methemoglobin O2 Delivery Device Oxygen Flow Rate Vent Mode Vent Rate Mechanical Rate Pressure Support Vent Sodium 140 Potassium 4.8 Chloride 91 L Carbon Dioxide > 45 H Anion Gap 4 L BUN 28.1 H Creatinine 0.6 Est GFR (CKD-EPI)AfAm 105.52 Est GFR (CKD-EPI)NonAf 91.04 Random Glucose 182 H Lactic Acid Calcium 9.6 Phosphorus Magnesium Total Bilirubin 0.6 AST 26 ALT 21 Alkaline Phosphatase 91 Troponin I < 0.02 Total Protein 7.0 Albumin 2.8 L TSH 1.07 Urine Color Urine Appearance Urine pH Ur Specific [place] Urine Protein Urine Glucose (UA) Urine Ketones Urine Blood Urine Nitrite Urine Bilirubin Urine Urobilinogen Ur Leukocyte Esterase Urine WBC (Auto) Urine RBC (Auto) Urine Casts (Auto) U Pathogenic Cast Auto U Epithel Cells (Auto) Urine Bacteria (Auto) Urine Yeast (Auto) 11/24/19 11/24/19 11/24/19 03:45 04:40 04:40 WBC RBC Hgb Hct MCV MCH MCHC RDW Plt Count MPV Absolute Neuts (auto) Neutrophils % Lymphocytes % Monocytes % Eosinophils % Basophils % Nucleated RBC % Anticoagulation Therapy No Result Required. Puncture Site Left radial ABG pH 7.34 L ABG pCO2 at Pt Temp 91.8 H* ABG pO2 at Pt Temp 135 H ABG HCO3 47.7 H ABG O2 Sat (Measured) 98.8 H ABG O2 Content 15.6 ABG Base Excess 18.1 H Joe Test Positive Carboxyhemoglobin 1.6 Methemoglobin 1.0 O2 Delivery Device Bipap Oxygen Flow Rate 40% Vent Mode S/t Vent Rate 14 Mechanical Rate No Result Required. Pressure Support Vent 12/5 Sodium Potassium Chloride Carbon Dioxide Anion Gap BUN Creatinine Est GFR (CKD-EPI)AfAm Est GFR (CKD-EPI)NonAf Random Glucose Lactic Acid 0.7 Calcium Phosphorus 3.0 Magnesium 2.0 Total Bilirubin AST ALT Alkaline Phosphatase Troponin I Total Protein Albumin TSH Urine Color Urine Appearance Urine pH Ur Specific [place] Urine Protein Urine Glucose (UA) Urine Ketones Urine Blood Urine Nitrite Urine Bilirubin Urine Urobilinogen Ur Leukocyte Esterase Urine WBC (Auto) Urine RBC (Auto) Urine Casts (Auto) U Pathogenic Cast Auto U Epithel Cells (Auto) Urine Bacteria (Auto) Urine Yeast (Auto) 11/24/19 11/24/19 11/24/19 05:30 05:30 05:40 WBC 12.5 H RBC 4.13 Hgb 11.4 L Hct 35.7 MCV 86.4 MCH 27.7 MCHC 32.0 RDW 16.7 H Plt Count 170 MPV 7.2 L Absolute Neuts (auto) 9.4 H Neutrophils % 75.2 Lymphocytes % 18.6 D Monocytes % 5.7 Eosinophils % 0.2 D Basophils % 0.3 Nucleated RBC % 0 Anticoagulation Therapy No Result Required. Puncture Site Right radial ABG pH 7.41 ABG pCO2 at Pt Temp 74.5 H* ABG pO2 at Pt Temp 104 H ABG HCO3 46.1 H ABG O2 Sat (Measured) 98.1 H ABG O2 Content 15.3 ABG Base Excess 18.1 H Joe Test Positive Carboxyhemoglobin Methemoglobin O2 Delivery Device Bipap Oxygen Flow Rate 40% Vent Mode S/t Vent Rate 14 Mechanical Rate No Result Required. Pressure Support Vent 18 Sodium 141 Potassium 3.5 Chloride 90 L Carbon Dioxide > 45 H Anion Gap 6 L BUN 27.6 H Creatinine 0.6 Est GFR (CKD-EPI)AfAm 105.52 Est GFR (CKD-EPI)NonAf 91.04 Random Glucose 127 H Lactic Acid Calcium 9.4 Phosphorus Magnesium Total Bilirubin 0.7 AST 13 L ALT 20 Alkaline Phosphatase 91 Troponin I Total Protein 6.8 Albumin 3.0 L TSH Urine Color Urine Appearance Urine pH Ur Specific [place] Urine Protein Urine Glucose (UA) Urine Ketones Urine Blood Urine Nitrite Urine Bilirubin Urine Urobilinogen Ur Leukocyte Esterase Urine WBC (Auto) Urine RBC (Auto) Urine Casts (Auto) U Pathogenic Cast Auto U Epithel Cells (Auto) Urine Bacteria (Auto) Urine Yeast (Auto) 11/24/19 06:00 WBC RBC Hgb Hct MCV MCH MCHC RDW Plt Count MPV Absolute Neuts (auto) Neutrophils % Lymphocytes % Monocytes % Eosinophils % Basophils % Nucleated RBC % Anticoagulation Therapy Puncture Site ABG pH ABG pCO2 at Pt Temp ABG pO2 at Pt Temp ABG HCO3 ABG O2 Sat (Measured) ABG O2 Content ABG Base Excess Joe Test Carboxyhemoglobin Methemoglobin O2 Delivery Device Oxygen Flow Rate Vent Mode Vent Rate Mechanical Rate Pressure Support Vent Sodium Potassium Chloride Carbon Dioxide Anion Gap BUN Creatinine Est GFR (CKD-EPI)AfAm Est GFR (CKD-EPI)NonAf Random Glucose Lactic Acid Calcium Phosphorus Magnesium Total Bilirubin AST ALT Alkaline Phosphatase Troponin I Total Protein Albumin TSH Urine Color Yellow Urine Appearance Cloudy Urine pH 5.5 D Ur Specific [place] 1.021 Urine Protein 2+ H Urine Glucose (UA) Negative Urine Ketones Negative Urine Blood 3+ H Urine Nitrite Negative Urine Bilirubin Negative Urine Urobilinogen 1.0 Ur Leukocyte Esterase 2+ H Urine WBC (Auto) 223 Urine RBC (Auto) 97 Urine Casts (Auto) 23 U Pathogenic Cast Auto U Epithel Cells (Auto) 3.5 Urine Bacteria (Auto) Urine Yeast (Auto) ASSESSMENT/PLAN: Visit type - Emergency Visit Emergency Visit: Yes ED Registration Date: 11/24/19 Care time: The patient presented to the Emergency Department on the above date and was hospitalized for further evaluation of their emergent condition. - New Patient This patient is new to me today: Yes Date on this admission: 11/24/19 - Critical Care Critical Care patient: No ATTENDING PHYSICIAN STATEMENT I saw and evaluated the patient. I reviewed the resident's note and discussed the case with the resident. I agree with the resident's findings and plan as documented. SUBJECTIVE: OBJECTIVE: ASSESSMENT AND PLAN:
[2019-11-24] MEDS: methylPREDNISolone NA SUCC 40 MG/1 ML VIAL IVPB SCH ×3 (04:00→21:12)
[2019-11-24 05:41] LABS: BASO % 0.3 % (0-2.0); EOS % 0.2 % (0-4.5); HEMATOCRIT 35.7 % (35.4-49); HEMOGLOBIN 11.4 GM/dL (11.7-16.9); LYMPH % 18.6 % (8-40); MCH 27.7 pg (25.7-33.7); MEAN CELL VOLUME 86.4 fl (80-96); MEAN PLT VOLUME 7.2 fl (7.5-11.1); MONO % 5.7 % (3.8-10.2); NEUT % 75.2 % (42.8-82.8); PLATELET COUNT 170 K/MM3 (134-434); RBC 4.13 M/mm3 (4.00-5.60); RDW 16.7 % (11.9-15.9); WHITE BLOOD COUNT 12.5 K/mm3 (4.0-10.0)
[2019-11-24 05:59] LABS: ARTERIAL BLD GAS O2 SATURATION 98.1 % (95-98); ARTERIAL BLOOD GAS BASE EXCESS 18.1 meq/l (-2-2); ARTERIAL BLOOD GAS PO2 104 mmHg (80-100); ARTERIAL BLOOD GAS pH 7.41 (7.35-7.45)
[2019-11-24 06:00] LABS: ALLENS TEST POSITIVE
[2019-11-24 06:06] LABS: ARTERIAL BLOOD GAS PCO2 74.5 mmHg (35-45)
[2019-11-24 06:07] LABS: ARTERIAL BLOOD GAS PCO2 91.8 mmHg (35-45)
[2019-11-24 06:22] LABS: EPI CELLS 3.5 /HPF (0-5/HPF); HYALINE CASTS 23 /lpf (0-8); PH,URINE 5.5 (5.0-8.0); URINE APPEARANCE CLOUDY; URINE BILIRUBIN NEGATIVE (NEGATIVE); URINE COLOR YELLOW; URINE GLUCOSE (UA) NEGATIVE (NEGATIVE); URINE KETONE NEGATIVE (NEGATIVE); URINE LEUK ESTERASE 2+ (NEGATIVE); URINE NITRITE NEGATIVE (NEGATIVE); URINE PROTEIN 2+ (NEGATIVE); URINE RBC 97 /hpf (0-4); URINE WBC 223 /hpf (0-5)
[2019-11-24 06:35] LABS: ALK PHOS 91 U/L (45-117); ANION GAP 6 MMOL/L (8-16); BILIRUBIN,TOTAL 0.7 mg/dL (0.2-1); BLOOD UREA NITROGEN 27.6 mg/dL (7-18); CALCIUM 9.4 mg/dL (8.5-10.1); CHLORIDE 90 mmol/L (98-107); CO2 > 45 mmol/L (21-32); CREATININE 0.6 mg/dL (0.55-1.3); GLUCOSE,RANDOM 127 mg/dL (74-106); POTASSIUM 3.5 mmol/L (3.5-5.1); SGOT/AST 13 U/L (15-37); SGPT/ALT 20 U/L (13-61); SODIUM 141 mmol/L (136-145); TOT PROT 6.8 g/dl (6.4-8.2)
[2019-11-24] MEDS ORDERED: LEVOTHYROXINE NA 25 MCG TABLET (FP) ONE (07:17)
[2019-11-24] MEDS: LEVOTHYROXINE NA 75 MCG TABLET (FP) PO SCH (07:25)
[2019-11-24] MEDS ORDERED: PIPERACILLIN/TAZOB 3.375 GM 3.375 GM in DEXTROSE 5%-WATER - 50 ML IVPB SCH (10:00)
[2019-11-24] MEDS ORDERED: PIPERACILLIN/TAZOB 4.5 GM 4.5 GM in DEXTROSE 5%-WATER 100 ML IVPB SCH (10:00)
[2019-11-24 10:17] LABS: URINE BACTERIA 14.5 /hpf (NEGATIVE)
--- NOTE | 2019-11-24 10:22 | CON.CARD ---
Cardiology Consult (text) - Consultation Consultation Note: Chief Complaint: ams History of Present Illness: 88M h/o COPD, h/o hypercapnic respiratory failure, CAD s/p stents, CHD, hypothyroisidm, BPH, HTN, HLD, PVD,anxiety sent from md for ams. Found to be hypoxic, started cpap and ams improving, still confused though, hx limited. Reports feeling wel. - Past Medical History Cardio/Vascular: Yes: CAD, HTN, Hyperlipdemia Pulmonary: Yes: COPD Renal/: Yes: BPH - Alcohol/Substance Use Hx Alcohol Use: No - Smoking History Smoking history: Unknown if ever smoked Have you smoked in the past 12 months: No Home Medications - Allergies Allergies/Adverse Reactions: Allergies Allergy/AdvReac Type Severity Reaction Status Date / Time No Known Allergies Allergy Verified 11/23/19 21:02 Home Medications Medication Instructions Recorded Acetaminophen [Tylenol 500 mg PO Q6H PRN 03/01/19 .Extra-Strength -] Ascorbate Calcium [Vitamin C] 500 mg PO DAILY 03/01/19 Aspirin 81 mg PO DAILY 03/01/19 Atorvastatin Ca [Lipitor] 20 mg PO HS 03/01/19 Calcium Carbonate [Calcium] 600 mg PO DAILY 03/01/19 Docusate Sodium [Colace -] 200 mg PO HS 03/01/19 Levothyroxine [Synthroid -] 75 mcg PO DAILY 03/01/19 Mirtazapine [Remeron -] 30 mg PO HS 03/01/19 Mupirocin Ointment [Bactroban 2% 1 applic TP TID 03/01/19 Ointment -] Nitroglycerin 0.4 mg SL ASDIR 03/01/19 Nystatin Cream [Mycostatin Cream -] 1 applic TP ASDIR 03/01/19 [place]-3 Fatty Acids/Fish Oil [Fish 1 each PO DAILY 03/01/19 Oil 1,000 mg Capsule] Tamsulosin HCl [Flomax] 0.4 mg PO 1800 03/01/19 Triamcinolone 0.1% Cream 1 applic TP ASDIR 03/01/19 [Aristocort 0.1% Cream -] LORazepam [Ativan] 0.5 mg PO Q8H PRN #30 tablet MDD 3 03/23/19 Metoprolol Succinate [Toprol XL -] 50 mg PO DAILY #30 tab.sr.24h 03/23/19 Potassium Chloride [K-Dur -] 40 meq PO DAILY #30 tablet.er 03/23/19 Furosemide [Lasix -] 80 mg PO DAILY #60 tablet 05/25/19 Prednisone See Taper PO ASDIR #30 tablet 05/25/19 Family Disease History - Family Disease History Family History: Unremarkable Review of Systems - Review of Systems n/a 2/2 ams Vital Signs Period Temp Pulse Resp BP Sys/Jolley Pulse Ox Last 24 Hr 98 F-98.5 F 94-105 16-27 100-136/61-94 92-100 Constitutional: Yes: No Distress, Calm Eyes: Yes: Conjunctiva Clear, EOM Intact HENT: Yes: Atraumatic, Normocephalic Respiratory: Yes: Regular, CTA Bilaterally Gastrointestinal: Yes: Normal Bowel Sounds, Soft Cardiovascular: Yes: Regular Rate and Rhythm JVD: no Carotid Bruit: No PMI: Non-Displaced Heart Sounds: Yes: S1, S2 Murmur: No: Systolic Murmur Musculoskeletal: No: Back Pain Extremities: No: Cold Edema: Yes Edema: LLE: 1+, RLE: 1+ Peripheral Pulses WNL: Yes Peripheral Pulses: 2+ Left Doralis Pedis, 2+ Right Dorsalis Pedis Integumentary: No: Jaundice Neurological: Yes: Alert, confused Psychiatric: No: Agitated Laboratory Last Values WBC 12.5 K/mm3 (4.0-10.0) H 11/24/19 05:30 RBC 4.13 M/mm3 (4.00-5.60) 11/24/19 05:30 Hgb 11.4 GM/dL (11.7-16.9) L 11/24/19 05:30 Hct 35.7 % (35.4-49) 11/24/19 05:30 MCV 86.4 fl (80-96) 11/24/19 05:30 MCH 27.7 pg (25.7-33.7) 11/24/19 05:30 MCHC 32.0 g/dl (32.0-35.9) 11/24/19 05:30 RDW 16.7 % (11.9-15.9) H 11/24/19 05:30 Plt Count 170 K/MM3 (134-434) 11/24/19 05:30 MPV 7.2 fl (7.5-11.1) L 11/24/19 05:30 Absolute Neuts (auto) 9.4 K/mm3 (1.5-8.0) H 11/24/19 05:30 Neutrophils % 75.2 % (42.8-82.8) 11/24/19 05:30 Lymphocytes % 18.6 % (8-40) D 11/24/19 05:30 Monocytes % 5.7 % (3.8-10.2) 11/24/19 05:30 Eosinophils % 0.2 % (0-4.5) D 11/24/19 05:30 Basophils % 0.3 % (0-2.0) 11/24/19 05:30 Nucleated RBC % 0 % (0-0) 11/24/19 05:30 Anticoagulation Therapy No Result Required. 11/24/19 05:40 Puncture Site Right radial 11/24/19 05:40 ABG pH 7.41 (7.35-7.45) 11/24/19 05:40 ABG pCO2 at Pt Temp 74.5 mmHg (35-45) H* 11/24/19 05:40 ABG pO2 at Pt Temp 104 mmHg (80-100) H 11/24/19 05:40 ABG HCO3 46.1 mmol/L (22-27) H 11/24/19 05:40 ABG O2 Sat (Measured) 98.1 % (95-98) H 11/24/19 05:40 ABG O2 Content 15.3 % vol 11/24/19 05:40 ABG Base Excess 18.1 meq/l (-2-2) H 11/24/19 05:40 Joe Test Positive 11/24/19 05:40 Carboxyhemoglobin 1.6 % (0-2) 11/24/19 03:45 Methemoglobin 1.0 % (0-2) 11/24/19 03:45 O2 Delivery Device Bipap 11/24/19 05:40 Oxygen Flow Rate 40% 11/24/19 05:40 Vent Mode S/t 11/24/19 05:40 Vent Rate 14 11/24/19 05:40 Mechanical Rate No Result Required. 11/24/19 05:40 Pressure Support Vent 18 11/24/19 05:40 Sodium 141 mmol/L (136-145) 11/24/19 05:30 Potassium 3.5 mmol/L (3.5-5.1) 11/24/19 05:30 Chloride 90 mmol/L (98-107) L 11/24/19 05:30 Carbon Dioxide > 45 mmol/L (21-32) H 11/24/19 05:30 Anion Gap 6 MMOL/L (8-16) L 11/24/19 05:30 BUN 27.6 mg/dL (7-18) H 11/24/19 05:30 Creatinine 0.6 mg/dL (0.55-1.3) 11/24/19 05:30 Est GFR (CKD-EPI)AfAm 105.52 11/24/19 05:30 Est GFR (CKD-EPI)NonAf 91.04 11/24/19 05:30 Random Glucose 127 mg/dL (74-106) H 11/24/19 05:30 Lactic Acid 0.7 mmol/L (0.4-2.0) 11/24/19 04:40 Calcium 9.4 mg/dL (8.5-10.1) 11/24/19 05:30 Phosphorus 3.0 mg/dL (2.5-4.9) 11/24/19 04:40 Magnesium 2.0 mg/dL (1.8-2.4) 11/24/19 04:40 Total Bilirubin 0.7 mg/dL (0.2-1) 11/24/19 05:30 AST 13 U/L (15-37) L 11/24/19 05:30 ALT 20 U/L (13-61) 11/24/19 05:30 Alkaline Phosphatase 91 U/L (45-117) 11/24/19 05:30 Troponin I < 0.02 ng/ml (0.00-0.05) 11/23/19 22:45 Total Protein 6.8 g/dl (6.4-8.2) 11/24/19 05:30 Albumin 3.0 g/dl (3.4-5.0) L 11/24/19 05:30 TSH 1.07 uIU/ml (0.358-3.74) 11/23/19 22:45 Urine Color Yellow 11/24/19 06:00 Urine Appearance Cloudy 11/24/19 06:00 Urine pH 5.5 (5.0-8.0) D 11/24/19 06:00 Ur Specific [place] 1.021 (1.010-1.035) 11/24/19 06:00 Urine Protein 2+ (NEGATIVE) H 11/24/19 06:00 Urine Glucose (UA) Negative (NEGATIVE) 11/24/19 06:00 Urine Ketones Negative (NEGATIVE) 11/24/19 06:00 Urine Blood 3+ (NEGATIVE) H 11/24/19 06:00 Urine Nitrite Negative (NEGATIVE) 11/24/19 06:00 Urine Bilirubin Negative (NEGATIVE) 11/24/19 06:00 Urine Urobilinogen 1.0 mg/dL (0.2-1.0) 11/24/19 06:00 Ur Leukocyte Esterase 2+ (NEGATIVE) H 11/24/19 06:00 Urine WBC (Auto) 223 /hpf (0-5) 11/24/19 06:00 Urine RBC (Auto) 97 /hpf (0-4) 11/24/19 06:00 Urine Casts (Auto) 23 /lpf (0-8) 11/24/19 06:00 U Pathogenic Cast Auto None seen /lpf (NEGATIVE) 11/24/19 06:00 U Epithel Cells (Auto) 3.5 /HPF (0-5/HPF) 11/24/19 06:00 Urine Bacteria (Auto) 14.5 /hpf (NEGATIVE) 11/24/19 06:00 Urine Yeast (Auto) None seen (NEGATIVE) 11/23/19 22:30 Assessment/Plan Echo 02/2019 LV mildly dilated, nl LV function, mild TR, mod ao sclerosis, tds, RV not well visualized, LA mod dilated, RA mod dilated, mild ao root dilation EKG sinus 1st deg AVB, LBBB (old) cxr: no chf 88M h/o COPD, h/o hypercapnic respiratory failure, CAD s/p stents, CHD, hypothyroisidm, BPH, HTN, HLD, PVD,anxiety sent from md for ams. ams, acute hypercapneic resp failure: - on cpap, tx copd as per pulm chronic diastolic HF: - nl LV function on echo, RV not well visualized - vol stable - cont PO lasix CAD: - s/p stents 20 years ago - cont aspirin, statin, bb HTN: - cont current meds HLD: - cont statin
--- NOTE | 2019-11-24 10:28 | EKG ---
Test Reason : Blood Pressure : / mmHG Vent. Rate : 094 BPM Atrial Rate : 094 BPM P-R Int : 216 ms QRS Dur : 128 ms QT Int : 396 ms P-R-T Axes : 049 -32 100 degrees QTc Int : 495 ms SINUS RHYTHM WITH 1ST DEGREE A-V BLOCK WITH FREQUENT PREMATURE VENTRICULAR COMPLEXES POSSIBLE LEFT ATRIAL ENLARGEMENT LEFT AXIS DEVIATION LEFT VENTRICULAR HYPERTROPHY WITH QRS WIDENING AND REPOLARIZATION ABNORMALITY ABNORMAL ECG WHEN COMPARED WITH ECG OF 17-MAY-2019 20:10, NO SIGNIFICANT CHANGE WAS FOUND Confirmed by HERMELINDA VERDUGO MD ([id number]) on 11/24/2019 10:27:49 AM Referred By: Confirmed By:HERMELINDA VERDUGO MD
--- NOTE | 2019-11-24 10:58 | PN ---
Progress Note (short form) - Note Progress Note: ID CONSULT DICTATED ACUTE EXACERBATION COPD ? HCAP RLL TOXIC METABOLIC ENCEHALOPATHY UTI OBTAIN SPUTUM C/S LEGIONELLA/ PNEUMOCOCCAL AG EMPIRIC ZOSYN BIPAP BRONCHODILATORS/CORTICOSTEROIDS
[2019-11-24] MEDS: FUROSEMIDE 40 MG TABLET (FP) PO SCH (11:13)
[2019-11-24] MEDS: ASPIRIN 81 MG CHEWABLE TABLETS PO SCH (11:13)
[2019-11-24] MEDS: TAMSULOSIN HCL 0.4 MG CAP PO SCH (11:14)
[2019-11-24] MEDS: HEPARIN NA (PORCINE) 5,000 UNITS/ML 1ML VIAL SQ SCH ×2 (11:14→21:10)
--- NOTE | 2019-11-24 11:56 | CON.PULM ---
Consult Consult Specialty:: PULMONARY Referred by:: ALLY Reason for Consultation:: CONFUSION/RESP FAILURE - History of Present Illness Chief Complaint: CONFUSED History of Present Illness: Patient is an 88 year old male with PMH of CHF, CAD( s/p stents ~20years ago), HLD, PVD, anxiety, Hypothyroidism and COPD (on BiPAP HS) who presents with AMS and unresponsiveness . Pt is poor historian, brother at bedside to assist with history. Pt has had multiple admissions over the past 3 months for similar episodes. He wears his CPAP at night, however, he wakes up and feels claustrophobic, becomes agitated and pulls it off. This causes him to become hypercapnic leading to AMS. Pt has chronic piña in place, last changed 2 weeks ago. 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 Cardio/Vascular: Yes: CAD, HTN, Hyperlipdemia Pulmonary: Yes: COPD Renal/: Yes: BPH Psych: Yes: Depression Endocrine: Yes: Hypothyroidism - Alcohol/Substance Use Hx Alcohol Use: No - Smoking History Smoking history: Unknown if ever smoked Have you smoked in the past 12 months: No - Social History Usual Living Arrangement: [facility]dc ADL: Support Services History of Recent Travel: No Home Medications - Allergies Allergies/Adverse Reactions: Allergies Allergy/AdvReac Type Severity Reaction Status Date / Time No Known Allergies Allergy Verified 11/23/19 21:02 - Home Medications Home Medications: Ambulatory Orders Acetaminophen [Tylenol .Extra-Strength -] 500 mg PO Q6H PRN 03/01/19 Ascorbate Calcium [Vitamin C] 500 mg PO DAILY 03/01/19 Aspirin 81 mg PO DAILY 03/01/19 Atorvastatin Ca [Lipitor] 20 mg PO HS 03/01/19 Calcium Carbonate [Calcium] 600 mg PO DAILY 03/01/19 Docusate Sodium [Colace -] 200 mg PO HS 03/01/19 Levothyroxine [Synthroid -] 75 mcg PO DAILY 03/01/19 Mirtazapine [Remeron -] 30 mg PO HS 03/01/19 Mupirocin Ointment [Bactroban 2% Ointment -] 1 applic TP TID 03/01/19 Nitroglycerin 0.4 mg SL ASDIR 03/01/19 Nystatin Cream [Mycostatin Cream -] 1 applic TP ASDIR 03/01/19 [place]-3 Fatty Acids/Fish Oil [Fish Oil 1,000 mg Capsule] 1 each PO DAILY Tamsulosin HCl [Flomax] 0.4 mg PO 1800 03/01/19 Triamcinolone 0.1% Cream [Aristocort 0.1% Cream -] 1 applic TP ASDIR 03/01/19 LORazepam [Ativan] 0.5 mg PO Q8H PRN #30 tablet MDD 3 03/23/19 Metoprolol Succinate [Toprol XL -] 50 mg PO DAILY #30 tab.sr.24h 03/23/19 Potassium Chloride [K-Dur -] 40 meq PO DAILY #30 tablet.er 03/23/19 Furosemide [Lasix -] 80 mg PO DAILY #60 tablet 05/25/19 Prednisone See Taper PO ASDIR #30 tablet 05/25/19 Family Medical History Family History: Unable to Obtain Review of Systems Unable to obtain ROS, reason: confused Physical Exam Vital Sings: Vital Signs Temperature 98.5 F 11/24/19 02:05 Pulse Rate 105 H 11/24/19 06:54 Respiratory Rate 27 H 11/24/19 06:54 Blood Pressure 108/94 11/24/19 06:54 O2 Sat by Pulse Oximetry (%) 100 11/24/19 08:30 Constitutional: Yes: Pallor Eyes: Yes: EOM Intact HENT: Yes: Normocephalic Neck: Yes: Trachea Midline Cardiovascular: Yes: S1, S2 Respiratory: Yes: Diminished Gastrointestinal: Yes: Soft Edema: LLE: 1+, RLE: 1+ Neurological: Yes: Confusion Labs: CBC, BMP 11/24/19 05:30 11/24/19 05:30 ABG Results ABG pH 7.41 (7.35-7.45) 11/24/19 05:40 ABG pCO2 at Pt Temp 74.5 mmHg (35-45) H* 11/24/19 05:40 ABG pO2 at Pt Temp 104 mmHg (80-100) H 11/24/19 05:40 ABG HCO3 46.1 mmol/L (22-27) H 11/24/19 05:40 ABG O2 Sat (Measured) 98.1 % (95-98) H 11/24/19 05:40 ABG O2 Content 15.3 % vol 11/24/19 05:40 ABG Base Excess 18.1 meq/l (-2-2) H 11/24/19 05:40 rest reviewed Imaging - Results Chest X-ray: Report Reviewed, Image Reviewed Cat Scan: Report Reviewed Problem List - Problems (1) Acute and chronic respiratory failure with hypercapnia Code(s): J96.22 - ACUTE AND CHRONIC RESPIRATORY FAILURE WITH HYPERCAPNIA (2) ASHD (arteriosclerotic heart disease) Code(s): I25.10 - ATHSCL HEART DISEASE OF [place] CORONARY ARTERY W/O ANG PCTRS (3) Acute on chronic diastolic (congestive) heart failure Code(s): I50.33 - ACUTE ON CHRONIC DIASTOLIC (CONGESTIVE) HEART FAILURE (4) Altered mental status, unspecified Code(s): R41.82 - ALTERED MENTAL STATUS, UNSPECIFIED Qualifiers: Altered mental status type: unspecified Qualified Code(s): R41.82 - Altered mental status, unspecified (5) CHF (congestive heart failure) Code(s): I50.9 - HEART FAILURE, UNSPECIFIED (6) Pleural effusion Code(s): J90 - PLEURAL EFFUSION, NOT ELSEWHERE CLASSIFIED Assessment/Plan ACUTE ON CHRONIC RESP FAILURE REFUSING BIPAP AND MOST TREATMENT PATIENT IS PALLIATIVE CARE TO BE EVALUATED FOR HOSPICE CARE AGREE WITH COMFORT CARE AT THIS POINT O2/NIPPV IF PATIENT PERMITS Leeann DICKSON MD
[2019-11-24] MEDS ORDERED: LORazepam 2 MG/ML SDV VIAL IVPUSH ONE ×2 (14:45→15:00)
[2019-11-24] MEDS: MORPHINE SULFATE 2 MG/ML VIAL IVPUSH PRN ×2 (15:31→21:11)
--- NOTE | 2019-11-24 15:44 | PN ---
Progress Note (short form) - Note Progress Note: Pt seen/ examined chart is reviewed awake/confused refusing treatment-- bipap anxious sob + Vital Signs Temp 98.5 F 11/24/19 02:05 Pulse 105 H 11/24/19 06:54 Resp 27 H 11/24/19 06:54 BP 108/94 11/24/19 06:54 Pulse Ox 100 11/24/19 11:15 Intake & Output 11/23/19 11/24/19 11/24/19 23:59 11:59 23:59 Intake Total 120 150 Output Total 15 Balance 105 150 Weight 250 lb 250 lb Intake: Oral 120 150 Output: Urine 15 Smith 15 Other: Voiding Method Indwelling Catheter Bowel Movement No Height 5 ft 10 in Body Mass Index (BMI) 35.9 Weight Measurement Method Estimated by Patient Weight Measurement Method Estimated by Staff Active Medications Aspirin (Asa -) 81 mg PO DAILY [facility] Last Admin: 11/24/19 11:13 Dose: 81 mg Atorvastatin Calcium (Lipitor -) 20 mg PO HS MEGHAN Furosemide (Lasix -) 80 mg PO DAILY [facility] Last Admin: 11/24/19 11:13 Dose: 80 mg Heparin Sodium (Porcine) (Heparin -) 5,000 unit SQ BID [facility] Last Admin: 11/24/19 11:14 Dose: 5,000 unit Piperacillin Sod/Tazobactam (Sod 3.375 gm/ Dextrose) 50 mls @ 100 mls/hr IVPB Q8H-IV MEGHAN; Protocol Levothyroxine Sodium (Synthroid -) 75 mcg PO DAILY@0700 [facility] Last Admin: 11/24/19 07:25 Dose: 75 mcg Methylprednisolone Sodium Succinate (Solu-Medrol -) 40 mg IVPB BID [facility] Last Admin: 11/24/19 11:13 Dose: 40 mg Metoprolol Succinate (Toprol Xl -) 50 mg PO DAILY [facility] Last Admin: 11/24/19 11:14 Dose: 50 mg Morphine Sulfate (Morphine Sulfate) 2 mg IVPUSH Q4H PRN PRN Reason: PAIN LEVEL 6-10 Last Admin: 11/24/19 15:31 Dose: 2 mg Tamsulosin HCl (Flomax -) 0.4 mg PO 0830 [facility] Last Admin: 11/24/19 11:14 Dose: 0.4 mg CBC, BMP 11/24/19 05:30 11/24/19 05:30 cxr- noted ABG Results ABG pH 7.41 (7.35-7.45) 11/24/19 05:40 ABG pCO2 at Pt Temp 74.5 mmHg (35-45) H* 11/24/19 05:40 ABG pO2 at Pt Temp 104 mmHg (80-100) H 11/24/19 05:40 ABG HCO3 46.1 mmol/L (22-27) H 11/24/19 05:40 ABG O2 Sat (Measured) 98.1 % (95-98) H 11/24/19 05:40 ABG O2 Content 15.3 % vol 11/24/19 05:40 ABG Base Excess 18.1 meq/l (-2-2) H 11/24/19 05:40 Physical Exam awake/ Confused/ respiratory distress heent- No jvd Lungs- Bilateral rhonchi cvs- s1, s2 rrr abd- soft ext- no edema' a/p Discussed with Rn condition poor Brother - requesting comfort care/ palliatve PT is DNR/DI Morphine for discomfort Ativan prn Will follow D/W [place] also Problem List - Problems (1) Acute and chronic respiratory failure with hypercapnia Code(s): J96.22 - ACUTE AND CHRONIC RESPIRATORY FAILURE WITH HYPERCAPNIA (2) ASHD (arteriosclerotic heart disease) Code(s): I25.10 - ATHSCL HEART DISEASE OF [place] CORONARY ARTERY W/O ANG PCTRS (3) Acute on chronic diastolic (congestive) heart failure Code(s): I50.33 - ACUTE ON CHRONIC DIASTOLIC (CONGESTIVE) HEART FAILURE (4) Altered mental status, unspecified Code(s): R41.82 - ALTERED MENTAL STATUS, UNSPECIFIED Qualifiers: Altered mental status type: unspecified Qualified Code(s): R41.82 - Altered mental status, unspecified (5) Respiratory distress Code(s): R06.03 - ACUTE RESPIRATORY DISTRESS
[2019-11-24] MEDS ORDERED: DEXTROSE 5%-WATER - 50 ML IVPB ONE (16:52)
[2019-11-24] MEDS ORDERED: PIPERACILLIN/TAZOBACTAM 3.375 GM VIAL IVPB ONE (16:52)
[2019-11-24] MEDS: PIPERACILLIN/TAZOB 3.375 GM 3.375 GM in DEXTROSE 5%-WATER - 50 ML IVPB SCH (17:03)
[2019-11-24] MEDS ORDERED: TAMSULOSIN HCL 0.4 MG CAP PO SCH (18:00)
[2019-11-24] MEDS ORDERED: ALBUTEROL SO4 2.5/IPRATROPIUM 0.5 INH SOL 3 ML VIAL.NEB. NEB PRN (18:04)
--- NOTE | 2019-11-24 19:24 | RAPID ---
<Rg Barcenas - Last Filed: 11/24/19 19:27> Physical Examination Vital Signs: Vital Signs Temperature 98.5 F 11/24/19 02:05 Pulse Rate 105 H 11/24/19 06:54 Respiratory Rate 27 H 11/24/19 06:54 Blood Pressure 108/94 11/24/19 06:54 O2 Sat by Pulse Oximetry (%) 100 11/24/19 11:15 Labs: CBC, BMP 11/24/19 05:30 11/24/19 05:30 Rapid Response - Rapid Response Assessment: Rapid response called at 17:45 and the rapid response team responded immediately. RN stated the patient demonstrated difficulty breathing and had increased oral secretions. Pt found to be responsive and alert, on 3L NC. Sam appearance. VS 148/80, HR 114, RR 22, o2 sat 93%. Lungs ausculation: expiratory wheezes in all lung patel, good air entry. Heart RRR s1 s1. Ab soft NT. Measures taken: CXR, nebulizer, HOB 30-40%, maintain NC 3L. Primary team made aware. PT IS DNR/DNI <Raimundo Steven - Last Filed: 11/28/19 18:03> Physical Examination Vital Signs: Findings/Remarks: The rapid was called as the patient acutely became SOB while eating. He started coughing. by the time EDI MANAGER arrived, patient was already better. exam as per resident documentations. Dx: suspected aspiration event. Cxray ordered. breathing treatment RN to notify primary team. Labs: CBC, BMP 11/24/19 05:30 11/24/19 05:30 Critical Care Total Critical Care Time (in minutes): 30 Critical Care Statement: The care of this patient involved high complexity decision making to prevent further life threatening deterioration of the patient 's condition and/or to evaluate & treat vital organ system(s) failure or risk of failure.
[2019-11-24] MEDS ORDERED: ATORVASTATIN CA 20 MG TABLET (FP) PO SCH (22:00)
[2019-11-25] MEDS ORDERED: PIPERACILLIN/TAZOBACTAM 3.375 GM VIAL IVPB ONE ×3 (00:53→17:00)
[2019-11-25] MEDS ORDERED: DEXTROSE 5%-WATER - 50 ML IVPB ONE ×3 (00:54→17:00)
[2019-11-25] MEDS: PIPERACILLIN/TAZOB 3.375 GM 3.375 GM in DEXTROSE 5%-WATER - 50 ML IVPB SCH ×2 (01:06→11:27)
[2019-11-25] MEDS ORDERED: PIPERACILLIN/TAZOB 3.375 GM 3.375 GM in DEXTROSE 5%-WATER - 50 ML IVPB SCH (02:00)
[2019-11-25] MEDS ORDERED: PIPERACILLIN/TAZOB 4.5 GM 4.5 GM in DEXTROSE 5%-WATER 100 ML IVPB SCH (02:00)
[2019-11-25] MEDS: LEVOTHYROXINE NA 75 MCG TABLET (FP) PO SCH (06:39)
--- NOTE | 2019-11-25 10:19 | DS ---
Physical Examination Vital Signs: Vital Signs Temperature 97.6 F 11/25/19 06:12 Pulse Rate 93 H 11/25/19 06:12 Respiratory Rate 20 11/25/19 06:12 Blood Pressure 132/70 11/25/19 06:12 O2 Sat by Pulse Oximetry (%) 96 11/25/19 08:15 Findings/Remarks: comfortable today. drowsy- arousable poor historian [facility] requesting pt to be send back and said they will evaluate there for hospice and will keep him comfortable with ativan and morphine Advance directives also says Do not Hospitalize Constitutional: Yes: Calm Eyes: Yes: Conjunctiva Clear Neck: Yes: Supple Cardiovascular: Yes: Regular Rate and Rhythm Respiratory: Yes: Rhonchi Gastrointestinal: Yes: Soft Edema: LLE: 1+, RLE: 1+ Labs: CBC, BMP 11/24/19 05:30 11/24/19 05:30 Discharge Summary Problems reviewed: Yes Reason For Visit: URINARY TRACT INFECTION, ACUTE ON CHRONIC Current Active Problems Acute and chronic respiratory failure with hypercapnia (Acute) UTI (urinary tract infection) (Acute) Hospital Course: admitted for Acute respiratory failure / copd exac/ pneumonia given steroids/ abx not cooperative with oxygen / bipap comfortable will send back to halfway on po abx comfort care/ hospice pt is dnr/ di d/w rn and piano case maker also today meds reconcilled Condition: Guarded - Instructions Referrals: Eugene Christy MD [Primary Care Provider] - Disposition[facility] - Home Medications Comprehensive Discharge Medication List: Ambulatory Orders Acetaminophen [Tylenol .Extra-Strength -] 500 mg PO Q6H PRN 03/01/19 Aspirin 81 mg PO DAILY 03/01/19 Atorvastatin Ca [Lipitor] 20 mg PO HS 03/01/19 Docusate Sodium [Colace -] 200 mg PO HS 03/01/19 Levothyroxine [Synthroid -] 75 mcg PO DAILY 03/01/19 Mirtazapine [Remeron -] 30 mg PO HS 03/01/19 Mupirocin Ointment [Bactroban 2% Ointment -] 1 applic TP TID 03/01/19 Nitroglycerin 0.4 mg SL ASDIR 03/01/19 Nystatin Cream [Mycostatin Cream -] 1 applic TP ASDIR 03/01/19 [place]-3 Fatty Acids/Fish Oil [Fish Oil 1,000 mg Capsule] 1 each PO DAILY Tamsulosin HCl [Flomax] 0.4 mg PO 1800 03/01/19 Triamcinolone 0.1% Cream [Aristocort 0.1% Cream -] 1 applic TP ASDIR 03/01/19 LORazepam [Ativan] 0.5 mg PO Q8H PRN #30 tablet MDD 3 03/23/19 Furosemide [Lasix -] 80 mg PO DAILY #60 tablet 05/25/19 Prednisone See Taper PO ASDIR #30 tablet 05/25/19 Albuterol 2.5/Ipratropium 0.5 [Duoneb -] 1 neb NEB Q4H PRN 30 Days #1 vial 11/25 Heparin - 5,000 unit SQ BID vial 11/25/19 Levofloxacin [Levaquin] 500 mg PO DAILY #7 tablet 11/25/19
[2019-11-25] MEDS: methylPREDNISolone NA SUCC 40 MG/1 ML VIAL IVPB SCH (11:28)
[2019-11-25] MEDS: HEPARIN NA (PORCINE) 5,000 UNITS/ML 1ML VIAL SQ SCH (11:28)
[2019-11-25] MEDS: TAMSULOSIN HCL 0.4 MG CAP PO SCH (11:28)
[2019-11-25] MEDS: ASPIRIN 81 MG CHEWABLE TABLETS PO SCH (11:28)
[2019-11-25] MEDS: FUROSEMIDE 40 MG TABLET (FP) PO SCH (11:28)
--- NOTE | 2019-11-25 13:09 | PN ---
Progress Note (short form) - Note Progress Note: Events from overnight noted. Lethargic. Breathing non-labored on 3 L NC O2. Intake & Output 11/22/19 11/23/19 11/24/19 11/25/19 23:59 23:59 23:59 23:59 Intake Total 320 50 Output Total 1515 600 Balance -1195 -550 Weight 250 lb 250 lb Last Vital Signs Temp Pulse Resp BP Pulse Ox 98.5 F 93 H 20 121/68 95 11/25/19 10:00 11/25/19 10:00 11/25/19 10:00 11/25/19 10:00 11/25/19 09:00 Active Medications Albuterol/Ipratropium (Duoneb -) 1 amp NEB Q4H PRN PRN Reason: SHORTNESS OF BREATH Last Admin: 11/24/19 18:30 Dose: 1 amp Aspirin (Asa -) 81 mg PO DAILY [facility] Last Admin: 11/25/19 11:28 Dose: 81 mg Atorvastatin Calcium (Lipitor -) 20 mg PO HS [facility] Last Admin: 11/24/19 21:11 Dose: 20 mg Furosemide (Lasix -) 80 mg PO DAILY [facility] Last Admin: 11/25/19 11:28 Dose: 80 mg Heparin Sodium (Porcine) (Heparin -) 5,000 unit SQ BID [facility] Last Admin: 11/25/19 11:28 Dose: 5,000 unit Piperacillin Sod/Tazobactam (Sod 3.375 gm/ Dextrose) 50 mls @ 100 mls/hr IVPB Q8H-IV [facility]GH[facility]; Protocol Last Admin: 11/25/19 11:27 Dose: 100 mls/hr Levothyroxine Sodium (Synthroid -) 75 mcg PO DAILY@0700 [facility] Last Admin: 11/25/19 06:39 Dose: 75 mcg Methylprednisolone Sodium Succinate (Solu-Medrol -) 40 mg IVPB BID [facility] Last Admin: 11/25/19 11:28 Dose: 40 mg Metoprolol Succinate (Toprol Xl -) 50 mg PO DAILY [facility] Last Admin: 11/25/19 11:28 Dose: 50 mg Morphine Sulfate (Morphine Sulfate) 2 mg IVPUSH Q4H PRN PRN Reason: PAIN LEVEL 6-10 Last Admin: 11/24/19 21:11 Dose: 2 mg Tamsulosin HCl (Flomax -) 0.4 mg PO 0830 [facility] Last Admin: 11/25/19 11:28 Dose: 0.4 mg Constitutional: Yes: Lethragic Eyes: Yes: EOM Intact HENT: Yes: Normocephalic Neck: Yes: Trachea Midline Cardiovascular: Yes: S1, S2 Respiratory: Yes: Diminished, scattered bilateral rhonchi Gastrointestinal: Yes: Soft Edema: LLE: 1+, RLE: 1+ Neurological: Yes: Confusion Labs: Laboratory Results - last 24 hr 11/24/19 17:47 POC Glucometer 243 Problem List - Problems (1) Acute and chronic respiratory failure with hypercapnia Code(s): J96.22 - ACUTE AND CHRONIC RESPIRATORY FAILURE WITH HYPERCAPNIA (2) ASHD (arteriosclerotic heart disease) Code(s): I25.10 - ATHSCL HEART DISEASE OF [place] CORONARY ARTERY W/O ANG PCTRS (3) Acute on chronic diastolic (congestive) heart failure Code(s): I50.33 - ACUTE ON CHRONIC DIASTOLIC (CONGESTIVE) HEART FAILURE (4) Altered mental status, unspecified Code(s): R41.82 - ALTERED MENTAL STATUS, UNSPECIFIED Qualifiers: Altered mental status type: unspecified Qualified Code(s): R41.82 - Altered mental status, unspecified (5) CHF (congestive heart failure) Code(s): I50.9 - HEART FAILURE, UNSPECIFIED (6) Pleural effusion Code(s): J90 - PLEURAL EFFUSION, NOT ELSEWHERE CLASSIFIED Assessment/Plan ACUTE ON CHRONIC RESP FAILURE PATIENT IS PALLIATIVE CARE TO BE EVALUATED FOR HOSPICE CARE AGREE WITH COMFORT CARE AT THIS POINT DR LINDSEY
--- NOTE | 2019-11-25 14:02 | PN ---
Progress Note (short form) - Note Progress Note: s: no cp sob palps dizzy Current Medications Generic Name Dose Route Start Last Admin Trade Name Freq PRN Reason Stop Dose Admin Albuterol/Ipratropium 1 amp 11/24/19 18:04 11/24/19 18:30 Duoneb - NEB 1 amp Q4H PRN Administration SHORTNESS OF BREATH Aspirin 81 mg 11/24/19 10:00 11/25/19 11:28 Asa - PO 81 mg DAILY MEGHAN Administration Atorvastatin Calcium 20 mg 11/24/19 22:00 11/24/19 21:11 Lipitor - PO 20 mg HS MEGHAN Administration Furosemide 80 mg 11/24/19 10:00 11/25/19 11:28 Lasix - PO 80 mg DAILY MEGHAN Administration Heparin Sodium (Porcine) 5,000 unit 11/24/19 10:00 11/25/19 11:28 Heparin - SQ 5,000 unit BID MEGHAN Administration Piperacillin Sod/Tazobactam 50 mls @ 100 mls/hr 11/24/19 18:00 11/25/19 11:27 Sod 3.375 gm/ Dextrose IVPB 100 mls/hr Q8H-IV MEGHAN Administration Protocol Levothyroxine Sodium 75 mcg 11/24/19 07:00 11/25/19 06:39 Synthroid - PO 75 mcg DAILY@0700 ME[facility]AN Administration Methylprednisolone Sodium Succinate 40 mg 11/24/19 03:15 11/25/19 11:28 Solu-Medrol - IVPB 40 mg BID MEGHAN Administration Metoprolol Succinate 50 mg 11/24/19 10:00 11/25/19 11:28 Toprol Xl - PO 50 mg DAILY MEGHAN Administration Morphine Sulfate 2 mg 11/24/19 02:56 11/24/19 21:11 Morphine Sulfate IVPUSH 2 mg Q4H PRN Administration PAIN LEVEL 6-10 Tamsulosin HCl 0.4 mg 11/24/19 08:30 11/25/19 11:28 Flomax - PO 0.4 mg 0830 MEGHAN Administration Vital Signs Period Temp Pulse Resp BP Sys/Jolley Pulse Ox Last 24 Hr 97.6 F-98.5 F 93-116 20-21 99-132/68-71 95-98 Constitutional: Yes: No Distress, Calm Respiratory: Yes: Regular, CTA Bilaterally Gastrointestinal: Yes: Normal Bowel Sounds, Soft Cardiovascular: Yes: Regular Rate and Rhythm JVD: no Carotid Bruit: No PMI: Non-Displaced Heart Sounds: Yes: S1, S2 Murmur: No: Systolic Murmur Musculoskeletal: No: Back Pain Extremities: No: Cold Edema: Yes Edema: LLE: 1+, RLE: 1+ Peripheral Pulses WNL: Yes Peripheral Pulses: 2+ Left Doralis Pedis, 2+ Right Dorsalis Pedis Integumentary: No: Jaundice Neurological: Yes: Alert, confused Psychiatric: No: Agitated CBC, BMP 11/24/19 05:30 11/24/19 05:30 Assessment/Plan Echo 02/2019 LV mildly dilated, nl LV function, mild TR, mod ao sclerosis, tds, RV not well visualized, LA mod dilated, RA mod dilated, mild ao root dilation EKG 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 ams, acute hypercapneic resp failure: - tx copd as per pulm chronic diastolic HF: - nl LV function on echo, RV not well visualized - vol stable - cont PO lasix CAD: - s/p stents 20 years ago - cont aspirin, statin, bb HTN: - cont current meds HLD: - cont statin
[2019-11-25 14:53] VITALS: BP 106/64; PULSE 89; TEMP 97.5
--- NOTE | 2019-11-25 15:42 | PN ---
Progress Note, Physician History of Present Illness: AWAKE, SL CONFUSED BREATHING NON-LABORED NO COMPLAINTS AFEBRILE WBC SL ELEVATED - Current Medication List Current Medications: Active Medications Albuterol/Ipratropium (Duoneb -) 1 amp NEB Q4H PRN PRN Reason: SHORTNESS OF BREATH Last Admin: 11/24/19 18:30 Dose: 1 amp Aspirin (Asa -) 81 mg PO DAILY [facility] Last Admin: 11/25/19 11:28 Dose: 81 mg Atorvastatin Calcium (Lipitor -) 20 mg PO HS [facility] Last Admin: 11/24/19 21:11 Dose: 20 mg Furosemide (Lasix -) 80 mg PO DAILY [facility] Last Admin: 11/25/19 11:28 Dose: 80 mg Heparin Sodium (Porcine) (Heparin -) 5,000 unit SQ BID [facility] Last Admin: 11/25/19 11:28 Dose: 5,000 unit Piperacillin Sod/Tazobactam (Sod 3.375 gm/ Dextrose) 50 mls @ 100 mls/hr IVPB Q8H-IV MEGHAN; Protocol Last Admin: 11/25/19 11:27 Dose: 100 mls/hr Levothyroxine Sodium (Synthroid -) 75 mcg PO DAILY@0700 [facility] Last Admin: 11/25/19 06:39 Dose: 75 mcg Methylprednisolone Sodium Succinate (Solu-Medrol -) 40 mg IVPB BID [facility] Last Admin: 11/25/19 11:28 Dose: 40 mg Metoprolol Succinate (Toprol Xl -) 50 mg PO DAILY [facility] Last Admin: 11/25/19 11:28 Dose: 50 mg Morphine Sulfate (Morphine Sulfate) 2 mg IVPUSH Q4H PRN PRN Reason: PAIN LEVEL 6-10 Last Admin: 11/24/19 21:11 Dose: 2 mg Tamsulosin HCl (Flomax -) 0.4 mg PO 0830 [facility] Last Admin: 11/25/19 11:28 Dose: 0.4 mg - Objective Vital Signs: Vital Signs Temperature 97.5 F L 11/25/19 14:00 Pulse Rate 89 11/25/19 14:00 Respiratory Rate 18 11/25/19 14:00 Blood Pressure 106/64 11/25/19 14:00 O2 Sat by Pulse Oximetry (%) 95 11/25/19 09:00 Constitutional: Yes: No Distress Eyes: Yes: Conjunctiva Clear Cardiovascular: Yes: Regular Rate and Rhythm, S1, S2 Respiratory: Yes: Rhonchi Gastrointestinal: Yes: Normal Bowel Sounds, Soft. No: Tenderness Edema: Yes Edema: LLE: 1+, RLE: 1+ Integumentary: Yes: Venous Stasis Changes Labs: CBC, BMP 11/24/19 05:30 11/24/19 05:30 Assessment/Plan R/O HCAP EXACERBATION COPD TOXIC METABOLIC ENCEPHALOPATHY UTI CONTINUE EMPIRIC ZOSYN
[2019-11-25] MEDS ORDERED: ALPRAZolam 1 MG TABLET PO ONE (17:29)
[2019-11-25] MEDS ORDERED: ALPRAZolam 0.25 MG TABLET PO ONE (17:45)
--- NOTE | 2019-11-25 18:58 | CONS ---
DATE OF CONSULTATION: DATE OF DICTATION: 11/24/2019 INFECTIOUS DISEASE CONSULTATION HISTORY OF PRESENT ILLNESS: The patient is an 88-year-old male who is evaluated for possible pneumonia. History was obtained from the chart as he cannot give a reliable history. He is a [facility] resident. At the [facility] he became increasingly short of breath and developed respiratory failure. In addition, the patient became unresponsive. He was taken by ambulance to the emergency room where he required placement on a BiPAP mask. According to the notes he has had similar episodes in the past. The patient removes his BiPAP mask and develops worsening dyspnea. Chest x-ray on admission showed some increased markings at the right base. The patient denies any chest pain or cough. No reports of purulent sputum production or hemoptysis. PAST MEDICAL HISTORY: Positive for COPD with an admission in February for acute exacerbation. Past medical history also includes urinary tract infection, congestive heart failure, coronary artery disease, hypothyroidism. ALLERGIES: No known allergies. MEDICATIONS: Include Zosyn, aspirin, Lipitor, Lasix, Synthroid, methylprednisolone, metoprolol, morphine, Flomax. SOCIAL HISTORY: He resides in a custodial facility. No active tobacco or alcohol use. SYSTEMS REVIEW: Neurologic: Positive for altered mental status. No seizure activity or focal weakness. Cardiac: Negative chest pain or palpitations. Respiratory: As per HPI. Gastrointestinal: Negative vomiting or diarrhea. Genitourinary: Positive for history of urinary tract infection. LABORATORY DATA: White count 12.5, hematocrit 35.7, platelets 170. Creatinine 0.6. Urinalysis: White cells 223. Cultures pending. PHYSICAL EXAMINATION:General: The patient is awake. He is slightly short of breath at rest on BiPAP mask. Vital Signs: Temperature 98.5, blood pressure 108/94, pulse 105, regular, respirations 27 per minute. HEENT: Sclerae are anicteric. Cardiac: Heart sounds S1, S2. Lungs: Diminished breath sounds throughout. Abdomen: Obese, soft, nontender. Extremities: Positive for edema, positive for chronic venous stasis dermatitis. IMPRESSION: 1. Acute exacerbation of chronic obstructive pulmonary disease. 2. Rule out right lower lobe [facility]-acquired pneumonia. 3. Urinary tract infection. 4. Leukocytosis. RECOMMENDATIONS: Obtain sputum culture, urine Legionella and pneumococcal antigens. Await urine culture result. Empiric antibiotic coverage with Zosyn 3.375 g IV piggyback every 8 hours. Patient has had a history of pseudomonas urinary tract infection in the past. Continue bronchodilators and intravenous corticosteroids. Thank you for the kind referral. ATILIO DOHERTY M.D. [id number]
== END 2019-11-25 18:47 | DRG 193 ==
LOC: JER 20:36 → JERBED 11-24 02:00 → J7W 11-24 08:09
PROVIDERS: ADMIT Internal Medicine; ATTEND Internal Medicine
DX: J18.9 Pneumonia, unspecified organism (principal); J96.22 Acute and chronic respiratory failure with hypercapnia; G93.41 Metabolic encephalopathy; J44.1 Chronic obstructive pulmonary disease with (acute) exacerbation; I50.32 Chronic diastolic (congestive) heart failure; N39.0 Urinary tract infection, site not specified; I11.0 Hypertensive heart disease with heart failure; I25.10 Atherosclerotic heart disease of native coronary artery without angina pectoris; Z98.61 Coronary angioplasty status; E78.5 Hyperlipidemia, unspecified; N40.0 Benign prostatic hyperplasia without lower urinary tract symptoms; E03.9 Hypothyroidism, unspecified; R33.9 Retention of urine, unspecified
CPT/HCPCS: 36415; 36600; 70450-TC; 71045-TC-FY; 80053; 81003; 82308; 82375; 82803; 82962; 83050; 83605; 83735; 84100; 84443; 84484; 85025; 87040; 87086; 93005; 93010; 93970-TC; 94660; 99285-25; J1644